=== PATIENT | female | born 1980 | race Caucasian/White ===

== ENCOUNTER 2024-11-25 09:24 | Emergency (ER) | payer OTHER, SELFPAY ==
[2024-11-25 09:35] VITALS: BP 133/91; PULSE 87; RESP 18; TEMP 36.9; O2SAT 98
[2024-11-25 10:01] LABS: EDUAAPPEAR Cloudy; EDUABILI Negative (Negative); EDUABLOOD 2+ (Negative); EDUACOLOR1 Light/Pale; EDUAGLUCOSE Negative (Negative); EDUAKETONE Negative (Negative); EDUALEUKO 2+ (Negative); EDUANITRATE Negative (Negative); EDUAPROTEIN Negative (Negative); EDUAUROBILI 0.2
--- NOTE | 2024-11-25 10:09 | ED.GENADULT ---
HPI - General Adult General Chief complaint: Urogenital-Female Stated complaint: Urinary Problem Source: patient Mode of arrival: ambulatory Limitations: no limitations History of Present Illness HPI narrative: Patient presents for evaluation of urinary symptoms. She indicates she was treated for a urinary tract infection on 11/19/2024. She is given Macrobid for 5 days. She completed treatment. Her symptoms improved while on medication but she had recurrence of her symptoms thereafter. Symptoms include dysuria, urinary frequency, and urgency. No fever, chills, nausea, vomiting, vaginal bleeding/discharge, abdominal pain or low back pain. Related Data Allergies Allergy/AdvReac Type Severity Reaction Status Date / Time No Known Allergies Allergy Verified 11/25/24 09:46 Review of Systems Review of Systems: CONSTITUTIONAL: Denies fever, chills, or sweats. EYES: Denies visual changes, redness, or discharge. ENT: Denies rhinorrhea, congestion, sore throat, or otalgia. CARDIOVASCULAR: Denies chest pain, palpitations, or edema. RESPIRATORY: Denies cough or dyspnea. GASTROINTESTINAL: Denies abdominal pain, nausea, vomiting, or diarrhea. GENITOURINARY: Reports urinary frequency, urgency and dysuria. Denies hematuria, vaginal bleeding or discharge SKIN: Denies rash or itching. MUSCULOSKELETAL: Denies back pain, joint pain, or myalgia. NEUROLOGIC: Denies headache, numbness, dizziness, or weakness. PSYCHIATRIC: Denies anxiety or depression. PMFSH Past Medical History Medical History No pertinent past medical history Surgical History Surgical History History of tubal ligation Family History Family History Mother Family history non-contributory Social History Social History Smoking status: Never smoker Living arrangements: with family Gender identity (if verbalized by the patient): Female Sexual Orientation (if Verbalized by the Patient): Straight or Heterosexual Spiritual care concerns: No Exam Narrative: GENERAL: Well-appearing, well-nourished, and in no acute distress. HEAD: Normocephalic, atraumatic. EYES: PERRLA and EOMI. ENT: Nares clear, no rhinorrhea or epistaxis. Mucous membranes moist. Oropharynx without tonsillar hypertrophy exudate or other lesions. Bilateral TMs pearly spence nonbulging NECK: Supple. No adenopathy or masses. No carotid bruits or JVD CHEST: Clear to auscultation. No respiratory distress. No wheezes rales or rhonchi HEART: Regular rate and rhythm. No murmur heard. Normal peripheral pulses. ABDOMEN: Soft, nontender, nondistended, normal active bowel sounds. BACK: No CVA tenderness EXTREMITIES: Normal range of motion. No edema. SKIN: Warm, dry, no rash. NEURO: No focal deficits. Alert and oriented x3. PSYCH: Normal mood and affect. Course Course Emergency Course: This is a 44-year-old female who presented for evaluation of urinary symptoms. She has leukocytes in her urine today. Will treat with Bactrim. Pyridium for burning. Increase hydration. Follow up with primary provider. Go to the ER for worsening symptoms. Patient in agreement with care plan Level of Care: Express Care Visit Vital Signs Vital signs: Vital Signs Temperature 36.9 C 11/25/24 09:35 Pulse Rate 87 11/25/24 09:35 Respiratory Rate 18 11/25/24 09:35 Blood Pressure 133/91 H 11/25/24 09:35 Pulse Oximetry 98 11/25/24 09:35 Oxygen Delivery Room Air 11/25/24 09:35 Temperature 36.9 C 11/25/24 09:35 Pulse Rate 87 11/25/24 09:35 Respiratory Rate 18 11/25/24 09:35 Blood Pressure 133/91 H 11/25/24 09:35 Pulse Oximetry 98 11/25/24 09:35 Oxygen Delivery Room Air 11/25/24 09:35 Medical Decision Making Vital Signs Vital Signs: Vital Signs Temperature 36.9 C 11/25/24 09:35 Pulse Rate 87 11/25/24 09:35 Respiratory Rate 18 11/25/24 09:35 Blood Pressure 133/91 H 11/25/24 09:35 Pulse Oximetry 98 11/25/24 09:35 Oxygen Delivery Room Air 11/25/24 09:35 Temperature 36.9 C 11/25/24 09:35 Pulse Rate 87 11/25/24 09:35 Respiratory Rate 18 11/25/24 09:35 Blood Pressure 133/91 H 11/25/24 09:35 Pulse Oximetry 98 11/25/24 09:35 Oxygen Delivery Room Air 11/25/24 09:35 Lab Data Labs: Lab Results 11/25/24 Range/Units 09:58 POC Urine Color Light/pale POC Urine Clarity Cloudy POC Urine pH 7.0 POC Ur Specif Jupiter 1.010 POC Urine Protein Negative (Negative) POC Ur Glucose (UA) Negative (Negative) POC Urine Ketones Negative (Negative) POC Urine Blood 2+ (Negative) POC Urine Nitrite Negative (Negative) POC Urine Bilirubin Negative (Negative) POC Urine Urobilinogen 0.2 POC U Leukocyte Esteras 2+ (Negative) Discharge Plan Discharge Clinical Impression: UTI (urinary tract infection) Patient Disposition: Home, Self-Care Condition: Stable Instructions: Antibiotic Form, Urinary Tract Infection in Women (DC) Patient Language: Kiswahili Prescriptions: New sulfamethoxazole-trimethoprim [Bactrim DS] 800-160 mg tablet 1 tablet PO Q12H Qty: 14 0RF phenazopyridine [Pyridium] 200 mg tablet 200 mg PO TID PRN (Reason: pain) Qty: 6 0RF Follow-up/Referrals: Trudy Santana DO [Physician] - Time of Disposition: 10:04
--- OUTSIDE RECORDS SUMMARY | 2024-12-02 04:48 | XMS_ITS | Clinical Summary ---
Author Organization [facility] [address] Address [address] [place] [address] Phone Care Team Providers Care Book Sorter Name Role Phone Millie Yuan MD Primary Care Provider Allergies No known active allergies Medications valACYclovir (VALTREX) 1 gram tablet Take 2 tablets (2,000mg) by mouth 2 times daily for 1 day 2 Active Lacto no.76/Bifido/FO S/larch (WOMEN'S PROBIOTIC ORAL) Take 1 capsule by mouth daily 2 Active fexofenadine (NIKHIL) 180 mg tablet Take 1 tablet (180 mg total) by mouth daily 2 Active ESOMEPRAZOLE MAGNESIUM ORAL Take 1 capsule by mouth daily 2 Active ibuprofen 200 mg tab/cap Take by mouth every 6 (six) hours as needed for pain Active Zepbound 5 mg/0.5 mL pen injector INJECT 5 MG BY SUBCUTANEOUS INJECTION EVERY 7 DAYS 4 Active Active Problems Problem Noted Date Diagnosed Date Lipoma 11/28/2022 Assessment & Plan (11/28/2022 1:59 PM GOLF CART ATTENDANT): Some of these longstanding lipomas are uncomfortable at times with pressure applied. We discussed pain and expectation that this may not resolve these issues. Patient is understanding will set up for removal of 5 of these lipomas. Surgical History Surgery Date Site/Laterality Comments INGUINAL HERNIA REPAIR TUBAL LIGATION Medical History Medical History Date Comments Sleep apnea Allergic rhinitis GERD (gastroesophageal reflux disease) Family History Medical History Relation Name Comments Breast cancer Maternal Grandmother Memory loss Maternal Grandmother Diabetes Mother Diabetes Mother's Sister Memory loss Paternal Grandmother Relation Name Status Comments Maternal Grandmother Mother Mother's Sister Paternal Grandmother Social History Tobacco Use Types Packs/Day Years Used Date Smoking Tobacco: Never Smokeless Tobacco: Never Tobacco Cessation:Counseling Given: Not Answered AUDIT-C Answer Date Recorded Q1: How often do you have a drink containing alc ohol? 2-4 times a month 12/06/2022 Q2: How many drinks containi ng alcohol do you have on a typical day when you are drinking? 3 or 4 12/06/2022 Q3: How often do you have si x or more drinks on one occasion? Never 12/06/2022 Personal Safety Answer Date Recorded Have you ever been in or are you currently in a harmful physical or emotional relationship or is someone making you feel afraid or unsafe? Denies 01/23/2024 Comments No Sex and Gender Information Value Date Recorded Sex Assigned at Not on file Legal Sex Female 3:46 PM GOLF CART ATTENDANT Gender Identity Not on file Sexual Orientation Not on file Occupation Industry Job Start Date Job End Date [employer] Not on file Not on file Not on file Obstetrics History Para Term AB IAB SAB Ectopic Multiple Livin g Live Births 2 2 2 2 2 Date Outcome GA Total Labor Labor/2nd/3rd Weight Sex Type Anes PTL Emily A1 A5 Name Clin 2002 Term 4.451 kg (9 lb 13 oz) M Vag-V acuum Living 2004 Term 4.678 kg (10 lb 5 oz) M Vag-S pont Living Last Filed Vital Signs Vital Sign Reading Time Taken Comments Blood Pressure 152/86 03/09/2024 2:23 PM CDT Pulse 83 03/09/2024 2:23 PM CDT Temperature 36.4 ??C (97.6 ??F) 01/23/2024 8:41 AM CS T Respiratory Rate 18 01/23/2024 10:05 AM GOLF CART ATTENDANT Oxygen Saturation 96% 03/09/2024 2:23 PM CDT Inhaled Oxygen Concentration - - Weight 151 kg (333 lb) 03/09/2024 2:23 PM CDT Height 165.1 cm (5' 5 ) 03/09/2024 2:23 PM CDT Body Mass Index 55.41 03/09/2024 2:23 PM CDT Plan of Treatment Health Maintenance Due Date Last Done Comments Depression Screening 1981 Hepatitis C Screening 1981 Hepatitis B Screening 1999 Varicella Vaccines (1 of 2 - 13+ 2-dose series) 10/19/2009 Cervical Cancer Screening 09/15/2022 09/15/2021 Regular Well Visit/Exam 18-64 09/17/2023 09/17/2022, 09/15/2021 Covid-19 Vaccine ( season) 2024 09/11/2021 Influenza Vaccine (#1) 2024 0, 09/21/2009, 10/04/2008, Additional history exists Breast Cancer Screening-Mammogram 01/04/2025 01/04/2024, 01/04/2024, 09/02/2021, Additional history exists DTaP/Tdap/Td Vaccine (3 - Td or Tdap) 06/17/2030 06/17/2020, 07/29/2012, 04/08/2002 HPV Vaccines Aged Out No longer eligi ble based on patient's age to complete this topic Pneumococcal vaccine <65 Aged Out No longer eligible based on patient's age to complete this topic Procedures Procedure Name Priority Date/Time Associated Diagnosis Comments SCREENING MAMMOGRAM BILATERAL W RANDOLPH Schedule Routine, Read Routine (OP Routine) 01/04/2024 10:39 AM GOLF CART ATTENDANT Screening mammogram, encounter for IMAGING PAP AND HPV MRNA E6/E7 Routine 09/15/2021 12:00 AM CDT from Last 3 Months or Most Recently Relevant to Health Maintenance Results * Screening Mammogram Bilateral W Randolph (01/04/2024 10:39 AM GOLF CART ATTENDANT) Anatomical Region Laterality Modality Breast Bilateral Mammography 01/05/2024 11:3 8 AM GOLF CART ATTENDANT Impressions 01/05/2024 11:38 AM GOLF CART ATTENDANT There is no mammographic evidence of malignancy. A 1 year screening mammogram is recommended. BI-RADS: 1 - Negative. The patient has been or will be contacted. The patient will be entered into a reminder system with a target due date of 1 year for her next mammogram. Electronically signed by: Mikki Laguerre M.D. Narrative 01/05/2024 11:38 AM GOLF CART ATTENDANT EXAMINATION: SCREENING MAMMOGRAM BILATERAL W RANDOLPH ORDERING HEALTHCARE PROVIDER: SELF SCREENING MAMMOGRAM HISTORY: Routine screening mammography. COMPARISON: ??09/02/2021 TECHNIQUE: CC and MLO views of the bilateral breasts were obtained with digital technique using breast tomosynthesis with C view. Computer aided detection was utilized. FINDINGS: DENSITY: There are scattered fibroglandular elements in the bilateral breasts. BREASTS: There are no suspicious masses, suspicious calcifications, or other suspicious findings in either breast. There has been no suspicious interval change. us Self Screening Mammogram IMG MAMMO PROCEDURES Fi nal Result * Imaging Pap and HPV mRNA E6/E7 (09/15/2021 12:00 AM CDT) CLINICAL INFORMATION: [facility] Comment:SCREENING LMP [facility] Comment:[id number] Previous Pap [facility] Comment:NEG Prev. Bx [facility] Comment:INFORMATION NOT PROV IDED SOURCE: [facility] Comment:Cervix, Endocervix Pap, specimen adequacy [facility] Comment: Satisfactory for evaluation. Endocervical/transformation zone component present. HPV interp [facility] Comment:Negative for intraep ithelial lesion or malignancy. COMMENTS [facility] Comment: This Pap test has been evaluated with computer assisted technology. Associate Quality Engineer [facility] Comment: AMW, CT(ASCP) CT screening location: [place] [address] [place] [address] Comment [facility] Comment: EXPLANATORY NOTE: The Pap is a screening test for cervical cancer. It is not a diagnostic test and is subject to false negative and false positive results. It is most reliable when a satisfactory sample, regularly obtained, is submitted with relevant clinical findings and history, and when the Pap result is evaluated along with historic and current clinical information. Human papillomavirus RNA, High Risk E6/E7 Not Detected Not Detected [facility] Comment: Methodology: Band Ripsaw Operator-Mediated Amplification This assay detects E6/E7 viral messenger RNA (mRNA) from 14 high-risk HPV types (16,18,31,33,35,39,45,51,52,56,58,59,66,68). The analytical performance characteristics of this assay have been determined by [facility]. The modifications have not been cleared or approved by the FDA. This assay has been validated pursuant to the CLIA regulations and is used for clinical purposes. For additional information, please refer to http://education.Cognitics/faq/VTP716l3 (This link if provided for information/ educational purposes only.) 09/15/2021 09/16/2021 1:3 1 AM CDT Narrative [facility] - 09/20/2021 1:14 PM CDT FASTING: UNKNOWN My Garcia DO LAB PATHOLOGY ORDERABLE S Final Result [facility] [address] [place] [address] [facility] [address] [place] [address] from Last 3 Months or Most Recently Relevant to Health Maintenance [facility] Care Teams Book Sorter Relationship Specialty Start Date End Date Millie Yuan MD [address] [place] [id number] PCP - General Family Medicine 01/01/24
--- OUTSIDE RECORDS SUMMARY | 2024-12-02 04:49 | XMS_ITS | Encounter Summary ---
Author Organization [facility] Healthcare Address [address] [place] [address] Care Team Providers Care Production Line Worker Name Role Phone Roel Bruno MD Primary Care Provider [phone] Dean Hernandez MD Primary Care Provider Iva Abdi NP Primary Care Provider Millie Yuan MD Primary Care Provider Reason for Visit * Reason Onset Date Comments Scheduling Appointments 09/01/2021 Confirmi ng mammogram appt- no answer Encounter Details Date Type Department Care Team (Late st Contact Info) Description 09/01/2021 Telephone [facility] [address] [place] [id number] Rebecca Mckeon RT Scheduling Appointments (Confirming mammogram appt- no answer ) Social History Tobacco Use Types Packs/Day Years Used Date Smoking Tobacco: Never Assessed Comments Unknown Sex and Gender Information Value Date Recorded Sex Assigned at Not on file Legal Sex Female 3:46 PM HEEL BUFFER Gender Identity Not on file Sexual Orientation Not on file documented as of this encounter Plan of Treatment Not on file documented as of this encounter Visit Diagnoses Not on filedocumented in this encounter Care Teams Production Line Worker Relationship Specialty Start Date End Date Roel Bruno MD [address] [facility] [address] [place] [address] PCP - General 08/28/21 09/01/21 Dean Hernandez MD [address] [place] [address] PCP - General 09/02/21 11/01/22 Iva Abdi NP [address] [place] [address] PCP - General Nurse Practitioner 11/02/22 12/31/23 Millie Yuan MD [address] [place] [address] PCP - General Family Medicine 01/01/24 documented as of this encounter
--- OUTSIDE RECORDS SUMMARY | 2024-12-02 04:49 | XMS_ITS | Encounter Summary ---
Author Organization [facility] Medical Group Address [address] [place] [address] Care Team Providers Care Supply Chain Tech Name Role Phone Dean Hernandez MD Primary Care Provider Encounter Details Date Type Department Care Team (Late st Contact Info) Description 09/21/2021 Telephone [facility] [address] [place] [address] Nikki Prather LPN Social History Tobacco Use Types Packs/Day Years Used Date Smoking Tobacco: Never Comments No Sex and Gender Information Value Date Recorded Sex Assigned at Not on file Legal Sex Female 3:46 PM LEAD RADIOLOGIC TECHNOLOGIST Gender Identity Not on file Sexual Orientation Not on file documented as of this encounter Miscellaneous Notes * Telephone Encounter - Nikki Prather LPN - 09/21/2021 1:24 PM CDT Normal pap and STD patient resource coordinator sent. * Telephone Encounter - Nikki Prather LPN - 09/21/2021 1:24 PM CDT ----- Message from My Garcia DO sent at 09/21/2021 12:58 PM CDT ----- Please inform patient of normal pap smear. She will need a repeat pap in 5 years but should return yearly for a WWE. documented in this encounter Plan of Treatment Not on file documented as of this encounter Visit Diagnoses Not on filedocumented in this encounter Care Teams Supply Chain Tech Relationship Specialty Start Date End Date Dena Hernandez MD [address] [facility] [address] PCP - General 09/02/21 11/01/22 documented as of this encounter
--- OUTSIDE RECORDS SUMMARY | 2024-12-02 04:49 | XMS_ITS | Encounter Summary ---
Author Organization [facility] Medical Group Address [address] [place] [address] Care Team Providers Care Ethnographic Materials Conservator Name Role Phone Iva Abdi NP Primary Care Provider Encounter Details Date Type Department Care Team (Late st Contact Info) Description 11/20/2022 Telephone [facility] [address] [facility] [address] [place] [address] Elisabeth Atkins MA Social History Tobacco Use Types Packs/Day Years Used Date Smoking Tobacco: Never Comments No Sex and Gender Information Value Date Recorded Sex Assigned at Not on file Legal Sex Female 3:46 PM APARTMENT ASSISTANT MANAGER Gender Identity Not on file Sexual Orientation Not on file Occupation Industry Job Start Date Job End Date [employer] Not on file Not on file Not on file documented as of this encounter Miscellaneous Notes * Telephone Encounter - Elisabeth Atkins MA - 11/20/2022 12:53 PM CST LVM for patient to call back to [facility] her appointment date. Dr. Jones is unavailable. TMENT ASSISTANT MANAGER documented in this encounter Plan of Treatment Not on file documented as of this encounter Visit Diagnoses Not on filedocumented in this encounter Care Teams Ethnographic Materials Conservator Relationship Specialty Start Date End Date Iva Abdi NP PCP - General Nurse Practitioner 11/02/22 12/31/23 documented as of this encounter
--- OUTSIDE RECORDS SUMMARY | 2024-12-02 04:49 | XMS_ITS | Encounter Summary ---
Author Organization [facility] Healthcare Address [address] [place] [address] Care Team Providers Care Data Entry Supervisor Name Role Phone Millie Yuan MD Primary Care Provider Reason for Visit * Reason Comments Sleep Apnea ANABELL f/u - last appt was Oct 2022 * Consultation (Routine) - Authorized Specialty Diagnoses / Procedures Referred By Contac t Referred To Contact Neurology Diagnoses ANABELL (obstructive sleep apnea) Millie Yuan MD [address] [place] [address] Phone: tel: fax: Camden Fink MD [address] [place] [address] DR OZ Berrios [address] [address] Phone: tel: fax: Referral ID Status Reason Start Date Expiration Date Visits Requested Visits Authorized [id number] Authorized Specialty Services Required 03/09/2024 04/08/2025 4 4 Encounter Details Date Type Department Care Team (Late st Contact Info) Description 03/09/2024 2:15 PM CDT Office Visit [facility] [address] [place] [address] Camden Fink MD [address] [place] [address] DR OZ Berrios [address] [address] Hypersomnia (Primary Dx); ANABELL (obstructive sleep apnea); Morbid obesity with BMI of 50.0-59.9, adult ([facility]) Social History Tobacco Use Types Packs/Day Years [...] on file Legal Sex Female 3:46 PM PROTECTION AGENT Gender Identity Not on file Sexual Orientation Not on file Occupation Industry Job Start Date Job End Date [employer] Not on file Not on file Not on file documented as of this encounter Last Filed Vital Signs Vital Sign Reading Time Taken Comments Blood Pressure 152/86 03/09/2024 2:23 PM CDT Pulse 83 03/09/2024 2:23 PM CDT Temperature - - Respiratory Rate - - Oxygen Saturation 96% 03/09/2024 2:23 PM CDT Inhaled Oxygen Concentration - - Weight 151 kg (333 lb) 03/09/2024 2:23 PM CDT Height 165.1 cm (5' 5 ) 03/09/2024 2:23 PM CDT Body Mass Index 55.41 03/09/2024 2:23 PM CDT documented in this encounter Progress Notes * Camden Fink MD - 03/09/2024 2:15 PM CDT HPI 1. Obstructive sleep apnea syndrome: presents for Follow-up regarding her above condition she is a very pleasant 44-year-old who was initially seen in 2021. She was not followed up since.. She has been established diagnosis of obstructive sleep apnea syndrome and is on bilevel positive p ressure therapy. She reports that she goes to bed at 8:00 p.m. awakens at 5:00 a.m.. Takes 10 minutes or less to fall asleep. Of present machine 8 years old. She reports that is showing signs of malfunctioning. She does awakens unrested. 2. Hypersomnia: Endorses [place] Sleepiness scale score of 5 3. Morbid obesity: Stable weight since last visit Review of Systems BP 152/86 (BP Location: Left arm, Patient Position: Sitting) Pulse 83 Ht 165.1 cm (5' 5 ) Wt (!) 151 kg (333 lb) SpO2 96% BMI 55.41 kg/m?? Physical Exam Constitutional: Morbidly obese female in no distress . HENT: Head: Normocephalic and atraumatic. Mouth/Throat: Oropharynx is clear and moist. Eyes: Conjunctivae and EOM are normal. eye exhibits no discharge. No scleral icterus. Neck: Normal range of motion. Neck supple. No thyromegaly present. Cardiovascular: Normal rate, regular rhythm and normal heart sounds. Exam reveals no gallop and no friction rub. No murmur heard. Pulmonary/Chest: Effort normal and breath sounds normal. No respiratory distress. has no wheezes. has no rales. Exhibits no tenderness. Abdominal: Soft. exhibits no distension and no mass. There is no tenderness. Musculoskeletal: Normal passive range of movements; no muscle tenderness Neurological: Alert and oriented to person, place, and time. No cranial nerve deficit. Exhibits normal muscle tone. Skin: Skin is warm. No rash noted. No erythema. Psychiatric: normal mood and affect. Judgment normal. Review of data: Venous Doppler study from 01/23/2024: No definite evidence of DVT Metabolic panel from 01/28/2024: Glucose 90, BUN 10, creatinine 0.7, sodium 139, potassium 4.1, chloride 104, CO2 26, calcium 9.5 Progress notes from 01/28/[address] Dilcia M.D. was reviewed summer the report reveals a 44 presenting for telemetry syndrome visit. Woke up with pain swelling of the right leg. After few days went to the ER worked up for DVT. D-dimer was 529. Doppler did not reveal any DVT has chronic leg edema. No shortness of breath. Recommend metabolic workup. AP 1. Obstructive sleep apnea syndrome: Patient has an established diagnosis obstructive sleep apnea presently on bilevel therapy. Patient's Continuous positive airway pressure was established in 09. Recommend patient be set up with a new automatic bilevel therapy. Maximum IPAP of 14 cm minimum EPAP of 4 cm with a pressure support of 4 cm of F 40 fullface mask would be used. Optimize therapy for thewith compliance download. The physiology of sleep disordered breathing and its increased association with hypertension, diabetes, heart arrhythmia, strokes, heart attacks, heart failure, hypersomnia,obesity and mood disorders was discussed. Verbalizes understanding Patient's compliance download from 11/05/2022-03/08/2024 was reviewed. 85% usage averaging 6 hours and 26 minutes of therapy. Residual AHI 2.2. Bilevel pressure of 12/8 cm. 2. Hypersomnia with sleep apnea: Stable and well controlled 3. Morbid obesity: Stable weight since last visit documented in this encounter Plan of Treatment Not on file documented as of this encounter Visit Diagnoses Diagnosis Hypersomnia- Primary Hypersomnia, unspecified ANABELL (obstructive sleep apnea) Obstructive sleep apnea (adult) (pediatric) Morbid obesity with BMI of 50.0-59.9, adult ([facility]) documented in this encounter Historical Medications * This list may reflect changes made after this encounter. Zepbound 5 mg/0.5 mL pen injector INJECT 5 MG BY SUBCUTANEOUS INJECTION EVERY 7 DAYS 02/10/2024 added in this encounter Orders Outpatient Referral Count Last Ordered Date Fir st Ordered Date AMB REFERRAL TO NEUROLOGY 1 03/09/2024 documented in this encounter Care Teams Data Entry Supervisor Relationship Specialty Start Date End Date Millie Yuan MD [address] [place] [address] PCP - General Family Medicine 01/01/24 documented as of this encounter
--- OUTSIDE RECORDS SUMMARY | 2024-12-02 04:49 | XMS_ITS | Encounter Summary ---
Author Organization [facility] Medical Group Address [address] [facility] [address] [place] [address] Care Team Providers Care Environmental Compliance Inspector Name Role Phone Dean Hernandez MD Primary Care Provider Encounter Details Date Type Department Care Team (Late st Contact Info) Description 09/15/2021 Orders Only [facility] [address] [place] [address] My Garcia, DO [address] [place] [address] Social History Tobacco Use Types Packs/Day Years Used Date Smoking Tobacco: Never Comments No Sex and Gender Information Value Date Recorded Sex Assigned at Not on file Legal Sex Female 3:46 PM SOFTWARE PUBLISHER Gender Identity Not on file Sexual Orientation Not on file documented as of this encounter Plan of Treatment Not on file documented as of this encounter Procedures Procedure Name Priority Date/Time Associated Diagnosis Comments IMAGING PAP AND HPV MRNA E6/E7 Routine 09/15/2021 12:00 AM CDT documented in this encounter Results * Imaging Pap and HPV mRNA E6/E7 (09/15/2021 12:00 AM CDT) CLINICAL INFORMATION: Compliance Assurance [facility] Comment:SCREENING LMP Compliance Assurance [facility] Comment:[id number] Previous Pap Compliance Assurance [facility] Comment:NEG Prev. Bx Compliance Assurance [facility] Comment:INFORMATION NOT PROV IDED SOURCE: [facility] Comment:Cervix, Endocervix Pap, specimen adequacy [facility] Comment: Satisfactory for evaluation. Endocervical/transformation zone component present. HPV interp [facility] Comment:Negative for intraep ithelial lesion or malignancy. COMMENTS [facility] Comment: This Pap test has been evaluated with computer assisted technology. Snack Stewardess [facility] Comment: AMW, CT(ASCP) CT screening location: [place] [address] [address] [place] [address] Comment [facility] Comment: EXPLANATORY NOTE: The Pap is [...] High Risk E6/E7 Not Detected Not Detected [facility] [employer] [employer] [facility] Comment: Methodology: Caustic Room Attendant-Mediated Amplification This assay detects E6/E7 viral messenger RNA (mRNA) from 14 high-risk HPV types (16,18,31,33,35,39,45,51,52,56,58,59,66,68). The analytical performance characteristics of this assay have been determined by Compliance Assurance. The modifications have not been cleared or approved by the FDA. This assay has been validated pursuant to the CLIA regulations and is used for clinical purposes. For additional information, please refer to http://education.NewComLink.Braclet/faq/YMR154m9 (This link if provided for information/ educational purposes only.) 09/15/2021 09/16/2021 1:3 1 AM CDT Narrative [facility] - 09/20/2021 1:14 PM CDT FASTING: UNKNOWN us My Garcia DO LAB PATHOLOGY ORDERABLE S Final Result [facility] [address] [address] [place] [address] [facility] [employer] [employer] [address] [place] [address] documented in this encounter Visit Diagnoses Not on filedocumented in this encounter Care Teams Environmental Compliance Inspector Relationship Specialty Start Date End Date Dean Hernandez MD [address] [facility] [place] [place] [address] PCP - General 09/02/21 11/01/22 documented as of this encounter
--- OUTSIDE RECORDS SUMMARY | 2024-12-02 04:49 | XMS_ITS | Encounter Summary ---
Author Organization [facility] Medical Group Address [address] [facility] [place] [address] Care Team Providers Care Negative Notcher Name Role Phone Iva Abdi TECHNICAL ASSOCIATE Primary Care Provider Reason for Visit * Reason Comments Mass New Pt says 2 on bella k and 1 left wrist * Consultation (Routine) - Closed Specialty Diagnoses / Procedures Referred By Liborio sagastume Referred To Contact General Surgery Diagnoses Lipoma, unspecified site Iva Abdi, SINDY [address] [facility] [place] [address] Phone: tel: fax: [address] [place] [address] Phone: tel: fax: Referral ID Status Reason Start Date Expiration Date V isits Requested Visits Authorized [id number] Closed Specialty Services Required 11/05/2022 12/05/2023 1 1 Encounter Details Date Type Department Care Team (Late st Contact Info) Description 11/28/2022 1:00 PM FARM EQUIPMENT MAINTENANCE SUPERVISOR Office Visit [facility] [address] [place] [address] [address] [place] [address] [place] Nielsen NP [address] [place] [address] [address] [place] [address] Lipoma, unspecified site Social History Tobacco Use Types Packs/Day Years Used Date Smoking Tobacco: Never Smokeless Tobacco: Never Tobacco Cessation:Counseling Given: Not Answered AUDIT-C Answer Date Recorded Q1: How often do you have a drink containing alc ohol? 2-4 times a month 11/28/2022 Q2: How many drinks containi ng alcohol do you have on a typical day when you are drinking? 1 or 2 11/28/2022 Q3: How often do you have si x or more drinks on one occasion? Monthly 11/28/2022 Comments No Sex and Gender Information Value Date Recorded Sex Assigned at Not on file Legal Sex Female 3:46 PM FARM EQUIPMENT MAINTENANCE SUPERVISOR Gender Identity Not on file Sexual Orientation Not on file Occupation Industry Job Start Date Job End Date [employer] Not on file Not on file Not on file documented as of this encounter Last Filed Vital Signs Vital Sign Reading Time Taken Comments Blood Pressure 145/94 11/28/2022 1:04 PM FARM EQUIPMENT MAINTENANCE SUPERVISOR Pulse 94 11/28/2022 1:04 PM FARM EQUIPMENT MAINTENANCE SUPERVISOR Temperature 36.2 ??C (97.1 ??F) 11/28/2022 1:04 PM CS T Respiratory Rate - - Oxygen Saturation 94% 11/28/2022 1:04 PM FARM EQUIPMENT MAINTENANCE SUPERVISOR Inhaled Oxygen Concentration - - Weight 145 kg (319 lb 11.2 oz) 11/28/2022 1:04 P M FARM EQUIPMENT MAINTENANCE SUPERVISOR Height 162.6 cm (5' 4 ) 11/28/2022 1:04 PM FARM EQUIPMENT MAINTENANCE SUPERVISOR Body Mass Index 54.88 11/28/2022 1:04 PM FARM EQUIPMENT MAINTENANCE SUPERVISOR documented in this encounter Progress Notes * [place] Nielsen NP - 11/28/2022 1:00 PM CST Subjective/Objective Patient ID: Nuria Valdez is a 42 y.o. female. Chief Complaint Mass (New Pt says 2 on back and 1 left wrist ) Patient with a history of multiple lipomas. She states she has had several of them since she was 21years old. She has not had imaging for these in the past. She states a few of these will give her discomfort with some positions and with palpation. She avoids doing so in order to avoid discomfort. Review of Systems Constitutional: Positive for unexpected weight change (40lb weight gain over one year). Eyes: Negative. Respiratory: Negative. Cardiovascular: Negative. Gastrointestinal: Negative. Endocrine: Negative. Genitourinary: Urinary incontinence Allergic/Immunologic: Negative. Neurological: Negative. Hematological: Negative. Psychiatric/Behavioral: Negative. Physical Exam Constitutional: General: She is not in acute distress. Appearance: She is obese. She is not ill-appearing, toxic-appearing or diaphoretic. HENT: Head: Normocephalic and atraumatic. Eyes: General: No scleral icterus. Right eye: No discharge. Left eye: No discharge. Cardiovascular: Rate and Rhythm: Normal rate. Pulmonary: Effort: Pulmonary effort is normal. No respiratory distress. Abdominal: General: There is no distension. Tenderness: There is no abdominal tenderness. Skin: General: Skin is warm and dry. Comments: Left wrist-1cm mobile without skin changes Left lower back-1cm mobile without skin changes Right mid back- 2.5cm mobile without skin changes Right lower back-1.5cm mobile without skin changes Left upper abdomen- 1cm mobile, deep, without skin changes Neurological: General: No focal deficit present. Mental Status: She is alert and oriented to person, place, and time. Psychiatric: Mood and Affect: Mood normal. Behavior: Behavior normal. Thought Content: Thought content normal. Judgment: Judgment normal. Assessment/Plan Diagnoses and all orders for this visit: Lipoma, unspecified site (D17.9) Assessment & Plan: Some of these longstanding lipomas are uncomfortable at times with pressure applied. We discussed pain and expectation that this may not resolve these issues. Patient is understanding will set up forremoval of 5 of these lipomas. Orders: - Ambulatory referral to General Surgery EQUIPMENT MAINTENANCE SUPERVISOR documented in this encounter Miscellaneous Notes * Assessment & Plan Note - [place] Nielsen NP - 11/28/2022 1:58 PM CSTAssociated Problem(s): Lipoma Some of these longstanding lipomas are uncomfortable at times with pressure applied. We discussed pain and expectation that this may not resolve these issues. Patient is understanding will set up forremoval of 5 of these lipomas. EQUIPMENT MAINTENANCE SUPERVISOR documented in this encounter Plan of Treatment Not on file documented as of this encounter Visit Diagnoses Diagnosis Lipoma, unspecified site documented in this encounter Orders Outpatient Referral Count Last Ordered Date Fir st Ordered Date AMB REFERRAL TO GENERAL SURGERY 3 documented in this encounter Care Teams Negative Notcher Relationship Specialty Start Date End Date Iva Abdi NP PCP - General Nurse Practitioner 11/02/22 12/31/23 documented as of this encounter
--- OUTSIDE RECORDS SUMMARY | 2024-12-02 04:49 | XMS_ITS | Referral Summary ---
Author Organization [facility] [address] Address [address] [place] [address] Phone Care Team Providers Care Speeder Worker Name Role Phone Millie Yuan MD Primary [...] 11/28/2022 Assessment & Plan (11/28/2022 1:59 PM ROUTE SALESMAN AND DRIVER): Some of these longstanding lipomas are uncomfortable at times with pressure applied. We discussed pain and expectation that this may not resolve these issues. Patient is understanding will set up for removal of 5 of these lipomas. Social History Tobacco Use Types Packs/Day Years [...] on file Legal Sex Female 3:46 PM ROUTE SALESMAN AND DRIVER Gender Identity Not on file Sexual Orientation Not on file Occupation Industry Job Start Date Job End Date [employer] Not on file Not on file Not on file Last Filed Vital Signs Vital Sign Reading Time Taken Comments Blood Pressure 152/86 03/09/2024 2:23 PM CDT Pulse 83 03/09/2024 2:23 PM CDT Temperature 36.4 ??C (97.6 ??F) 01/23/2024 8:41 AM CS T Respiratory Rate 18 01/23/2024 10:05 AM ROUTE SALESMAN AND DRIVER Oxygen Saturation 96% 03/09/2024 2:23 PM CDT Inhaled Oxygen Concentration - - Weight 151 kg (333 lb) 03/09/2024 2:23 PM CDT Height 165.1 cm (5' 5 ) 03/09/2024 2:23 PM CDT Body Mass Index 55.41 03/09/2024 2:23 PM CDT Plan of Treatment Not on file Procedures Procedure Name Priority Date/Time Associated Diagnosis Comments SCREENING MAMMOGRAM BILATERAL W RANDOLPH Schedule Routine, Read Routine (OP Routine) 01/04/2024 10:39 AM ROUTE SALESMAN AND DRIVER Screening mammogram, encounter for IMAGING PAP AND HPV MRNA E6/E7 Routine 09/15/2021 12:00 AM CDT from Last 3 Months or Most Recently Relevant to Health Maintenance Results * Screening Mammogram Bilateral W Randolph (01/04/2024 10:39 AM ROUTE SALESMAN AND DRIVER) Anatomical Region Laterality Modality Breast Bilateral Mammography 01/05/2024 11:3 8 AM ROUTE SALESMAN AND DRIVER Impressions 01/05/2024 11:38 AM ROUTE SALESMAN AND DRIVER There is no mammographic evidence of malignancy. A 1 year screening mammogram is recommended. BI-RADS: 1 - Negative. The patient has been or will be contacted. The patient will be entered into a reminder system with a target due date of 1 year for her next mammogram. Electronically signed by: Mikki Laguerre M.D. Narrative 01/05/2024 11:38 AM ROUTE SALESMAN AND DRIVER EXAMINATION: SCREENING MAMMOGRAM BILATERAL W RANDOLPH ORDERING [...] E6/E7 (09/15/2021 12:00 AM CDT) CLINICAL INFORMATION: [facility] Comment:SCREENING LMP [facility] Comment:[id number] Previous Pap [facility] Comment:NEG Prev. Bx [facility] Comment:INFORMATION NOT PROV IDED SOURCE: [facility] Comment:Cervix, Endocervix Pap, specimen adequacy [facility] Comment: Satisfactory for evaluation. Endocervical/transformation zone component present. HPV interp [facility] Comment:Negative for intraep ithelial lesion or malignancy. COMMENTS [facility] Comment: This Pap test has been evaluated with computer assisted technology. Web Press Jogger [facility] Comment: AMW, CT(ASCP) CT screening location: [place] [address] [place] [address] Comment [facility] Comment: EXPLANATORY NOTE: The Pap is a [...] High Risk E6/E7 Not Detected Not Detected [facility] [facility] Comment: Methodology: Veneer Jointer Operator-Mediated Amplification This assay detects E6/E7 viral messenger RNA (mRNA) from 14 high-risk HPV types (16,18,31,33,35,39,45,51,52,56,58,59,66,68). The analytical performance characteristics of this assay have been determined by [employer] [facility]. The modifications have not been cleared or approved by the FDA. This assay has been validated pursuant to the CLIA regulations and is used for clinical purposes. For additional information, please refer to http://education.Yantra/faq/JLO327p1 (This link if provided for information/ educational purposes only.) 09/15/2021 09/16/2021 1:3 1 AM CDT Narrative [facility] - 09/20/2021 1:14 PM CDT FASTING: UNKNOWN My Garcia DO LAB PATHOLOGY ORDERABLE S Final Result [facility] [address] [place] [address] [facility] [facility] [address] [place] [address] from Last 3 Months or Most Recently Relevant to Health Maintenance Insurance [employer] Care Teams Speeder Worker Relationship Specialty Start Date End Date Millie Yuan MD [facility] [place] [place] [address] PCP - General Family Medicine 01/01/24
--- OUTSIDE RECORDS SUMMARY | 2024-12-02 04:49 | XMS_ITS | Encounter Summary ---
Author Organization [facility] Medical Group Address [address] [facility] [address] [place] [address] Care Team Providers Care Housing Officer Name Role Phone Iva Abdi NP Primary Care Provider Encounter Details Date Type Department Care Team (Late st Contact Info) Description 11/14/2022 Telephone [facility] [address] Camden Fink MD [address] [place] [address] [address] Social History Tobacco Use Types Packs/Day Years Used Date Smoking Tobacco: Never Comments No Sex and Gender Information Value Date Recorded Sex Assigned at Not on file Legal Sex Female 3:46 PM AUTOMOBILE PARTS ASSEMBLER Gender Identity Not on file Sexual Orientation Not on file Occupation Industry Job Start Date Job End Date [employer] Not on file Not on file Not on file documented as of this encounter Miscellaneous Notes * Telephone Encounter - Carlos Alberto Moreau - 11/14/2022 3:06 PM CST Okay I let elisabeth know. MOBILE PARTS ASSEMBLER * Telephone Encounter - Camden Fink MD - 11/14/2022 12:02 PM CST This patient has been tested for narcolepsy. She is presently on bilevel therapy of 12/8 cm. We need to proceed with titration with Multiple sleep latency test. MOBILE PARTS ASSEMBLER * Telephone Encounter - Carlos Alberto Moreau - 11/14/2022 8:43 AM CST Elisabeth at the sleep lab sent message stating that since we don't have a copy of patient's previous sleep study that they cannot do a titration on patient. Please advise. MOBILE PARTS ASSEMBLER documented in this encounter Plan of Treatment Not on file documented as of this encounter Visit Diagnoses Not on filedocumented in this encounter Care Teams Housing Officer Relationship Specialty Start Date End Date Iva Abdi NP PCP - General Nurse Practitioner 11/02/22 12/31/23 documented as of this encounter
--- OUTSIDE RECORDS SUMMARY | 2024-12-02 04:49 | XMS_ITS | Encounter Summary ---
Author Organization [facility] Address [address] [place] [address] Care Team Providers Care Copy Writer Name Role Phone Iva Abdi NP Primary Care Provider Reason for Visit * Consultation (Routine) - Closed Specialty Diagnoses / Procedures Referred By Contac t Referred To Contact Neurology Diagnoses Sleep apnea, unspecified type Millie Yuan MD Phone: tel: fax: Camden Fink MD [address] [place] [address] DR OZ Berrios [address] [address] Phone: tel: fax: Referral ID Status Reason Start Date Expiration Date V isits Requested Visits Authorized [id number] Closed Specialty Services Required 09/24/2022 10/24/2023 1 1 Encounter Details Date Type Department Care Team (Late st Contact Info) Description 11/08/2022 1:30 PM PUNCHBOARD INSERTER Office Visit [facility] [address] [place] [address] Camden Fink MD [address] [place] [address] DR OZ Berrios [address] [address] Hypersomnia (Primary Dx); Obstructive sleep apnea syndrome; Morbid obesity with BMI of 50.0-59.9, adult (CMS/HCC) (HCC) Social History Tobacco Use Types Packs/Day Years Used Date Smoking Tobacco: Never Comments No Sex and Gender Information Value Date Recorded Sex Assigned at Not on file Legal Sex Female 3:46 PM PUNCHBOARD INSERTER Gender Identity Not on file Sexual Orientation Not on file Occupation Industry Job Start Date Job End Date [employer] Not on file Not on file Not on file documented as of this encounter Last Filed Vital Signs Vital Sign Reading Time Taken Comments Blood Pressure 149/96 11/08/2022 1:37 PM PUNCHBOARD INSERTER Pulse 101 11/08/2022 1:37 PM PUNCHBOARD INSERTER Temperature - - Respiratory Rate - - Oxygen Saturation 95% 11/08/2022 1:37 PM PUNCHBOARD INSERTER Inhaled Oxygen Concentration - - Weight 140.1 kg (308 lb 12.8 oz) 11/08/2022 1:37 PM PUNCHBOARD INSERTER Height 163.8 cm (5' 4.49 ) 11/08/2022 1:37 PM CS T Body Mass Index 52.21 11/08/2022 1:37 PM PUNCHBOARD INSERTER documented in this encounter Progress Notes * Camden Fink MD - 11/08/2022 1:30 PM CST Chief complaints: Obstructive sleep apnea HPI presents for consultation. She has been requested seen in consult by Dr. Yuan for opinion regarding her above symptoms. She is a very pleasant 42 year with established diagnosis of obstructive sleep apnea syndrome. Reports that she goes to bed at 8:00 p.m. awakens at 5:00 a.m.. Takes 10 minutes or less to fall asleep. Endorses symptoms of snoring under therapy. Denies witnessed sto ppage with while sleeping on her therapy, awakening gasping air, restless sleep and talking sleep walking sleep, creepy crawly legs and leg jerks and nighttime wheezing awakens maybe once or twice, usually go to the restroom. Falls asleep right away. Awakens with a perception of non refreshing sleep despite utilizing positive pressure therapy. Rowley Sleepiness Scale score is 13. Does take daytime naps these naps can last for 10-15 minutes. Endorses symptoms of cataplexy but denies hypnagogic hallucination and sleep paralysis. Review of Systems Past Medical History: Diagnosis Date Sleep apnea Social History Tobacco Use Smoking status: Never Smokeless tobacco: Not on file Substance and Sexual Activity Drug use: Never Sexual activity: Yes Partners: Male control/protection: Tubal Ligation Alcohol Use: Not on file Family History Problem Relation Age of Onset Breast cancer Maternal Grandmother Physical Exam Constitutional: Morbidly obese female in [...] and affect. Judgment normal. Review of data: Screening mammography from 09/02/2021: Negative Lipid panel from 02/06/2021: Cholesterol 202, triglycerides 129, HDL 60, LDL 116 in. Progress notes from 09/17/2022 of Marti was reviewed summer the report reveals 42 presenting for well-woman examination. Mammography negative in 09/02/2021. Denies any abnormals. Last Pap HPV screen on 09/15/2021. Current medication includes Valtrex and Adderall. Continue therapy. Recommend Lysteda for menorrhagia AP 1. Obstructive sleep apnea: Patient has an established diagnosis of obstructive sleep apnea syndrome. Presently on bilevel therapy at 12/8 cm. Endorses compliance with therapy. Advised to continue compliant with therapy. Compliance download reveals compliant and effective therapy. The physiology ofsleep disordered breathing and its increased association with hypertension, diabetes, heart arrhythmia, strokes, heart attacks, heart failure, hypersomnia, obesity and mood disorders was discussed. Verbalizes understanding. Patient's compliance download reveals 100% usage averaging 7 hours and 57 minutes of therapy. Residual AHI 1.4. 2. Hypersomnia: Despite compliance with therapy, reports persistent daytime sleepiness Rowley Sleepiness Scale score is 13. Recommend patient undergo multiple sleep latency test to assess. 3. Morbid Obesity:The effects of obesity obstructive sleep apnea syndrome and other morbidities wasdiscussed. Recommended diet and exercise in losing weight. Patient verbalizes an understanding. HBOARD INSERTER documented in this encounter Miscellaneous Notes * Addendum Note - Farzana Moreau - 11/08/2022 1:30 PM CSTAddended by: FARZANA MOREAU on: 11/08/2022 01:58 PM Modules accepted: Orders HBOARD INSERTER documented in this encounter Plan of Treatment Not on file documented as of this encounter Visit Diagnoses Diagnosis Hypersomnia- Primary Hypersomnia, unspecified Obstructive sleep apnea syndrome Obstructive sleep apnea (adult) (pediatric) Morbid obesity with BMI of 50.0-59.9, adult ([facility]) documented in this encounter Discontinued Medications Medication Sig Discontinue Reason Start Date End Da te dextroamphetamine-ampheta mine XR (ADDERALL XR) 10 mg 24 hr capsule Take 10 mg by mouth 08/31/2021 11/08/2022 documented as of this encounter Historical Medications * This list may reflect changes made after this encounter. ESOMEPRAZOLE MAGNESIUM ORAL Take 1 capsule by mouth daily 10/29/2022 fexofenadine (NIKHIL) 180 mg tablet Take 1 tablet (180 mg total) by mouth daily 11/05/2022 Lacto no.76/Bifido/FOS/ larch (WOMEN'S PROBIOTIC ORAL) Take 1 capsule by mouth daily 11/07/2022 nitrofurantoin monohydrate (MACROBID) 100 mg capsule 11/01/2022 12/06/2022 added in this encounter Orders Outpatient Referral Count Last Ordered Date Fir st Ordered Date AMB REFERRAL TO NEUROLOGY 1 11/08/2022 documented in this encounter Care Teams Copy Writer Relationship Specialty Start Date End Date Iva Abdi NP PCP - General Nurse Practitioner 11/02/22 12/31/23 documented as of this encounter
--- OUTSIDE RECORDS SUMMARY | 2024-12-02 04:49 | XMS_ITS | Encounter Summary ---
Author Organization [facility] Address [address] [place] [address] Care Team Providers Care Sail Cutter Name Role Phone Dean Hernandez MD Primary Care Provider Encounter Details Date Type Department Care Team (Late st Contact Info) Description 10/04/2022 Orders Only [facility] [address] [place] [address] My Garcia DO [address] [place] [address] Encounter for screening mammogram for malignant neoplasm of breast (Primary Dx); Pelvic pain in female Social History Tobacco Use Types Packs/Day Years Used Date Smoking Tobacco: Never Comments No Sex and Gender Information Value Date Recorded Sex Assigned at Not on file Legal Sex Female 3:46 PM FRANCHISE SPECIALIST Gender Identity Not on file Sexual Orientation Not on file Occupation Industry Job Start Date Job End Date [employer] Not on file Not on file Not on file documented as of this encounter Plan of Treatment Not on file documented as of this encounter Visit Diagnoses Diagnosis Encounter for screening mammogram for malignant neoplasm of breast- Primary Pelvic pain in female Unspecified symptom associated with female genital organs documented in this encounter Care Teams Sail Cutter Relationship Specialty Start Date End Date Dean Hernandez MD [address] [place] [id number] PCP - General 09/02/21 11/01/22 documented as of this encounter
--- OUTSIDE RECORDS SUMMARY | 2024-12-02 04:49 | XMS_ITS | Encounter Summary ---
Author Organization [facility] Address [address] [place] [address] Care Team Providers Care Rug Sample Beveler Name Role Phone Dean Hernandez MD Primary Care Provider Reason for Visit * Reason Comments Gynecologic Exam Encounter Details Date Type Department Care Team (Late st Contact Info) Description 09/17/2022 9:30 AM CDT Office Visit [facility] [address] [place] [address] My Garcia, DO [address] [place] [address] Screening examination for venereal disease (Primary Dx); Encounter for annual routine gynecological examination; Pelvic pain; Menorrhagia with regular cycle Social History Tobacco Use Types Packs/Day Years Used Date Smoking Tobacco: Never Tobacco Cessation:Counseling Given: Not Answered Comments No Sex and Gender Information Value Date Recorded Sex Assigned at Not on file Legal Sex 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 Gender Identity Not on file Sexual Orientation Not on file Occupation Industry Job Start Date Job End Date [employer] Not on file Not on file Not on file documented as of this encounter Last Filed Vital Signs Vital Sign Reading Time Taken Comments Blood Pressure 134/78 09/17/2022 9:12 AM CDT Pulse - - Temperature - - Respiratory Rate - - Oxygen Saturation - - Inhaled Oxygen Concentration - - Weight 137.5 kg (303 lb 3.2 oz) 09/17/2022 9:12 AM CDT Height 163.8 cm (5' 4.5 ) 09/17/2022 9:12 AM CDT Body Mass Index 51.24 09/17/2022 9:12 AM CDT documented in this encounter Ordered Prescriptions Prescription Sig Dispense Quantity Refills Last Filled Start Date End Date tranexamic acid (LYSTEDA) 650 mg tablet Take 2 tablets (1,300 mg total) by mouth 3 (three) times a day for 5 days 30 tablet 3 09/17/2022 2 documented in this encounter Progress Notes * My Garciazabeth, DO - 09/17/2022 9:30 AM CDT Well Woman Exam Subjective: Nuria Valdez is a 42 y.o. year old female who presents for a well woman exam. Last pap NILM -HPV 09/15/21. She denies h/o abnormals. Mammogram negative 09/02/21. She complains of heavy cycles and intermittent pelvic pain. She states her cycles have been heavy ever since she had a Mirena placed several years ago (has since been removed). 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 She also states it has improved since becoming sexually active again. She denies any issues with constipation. She has not paid much attention to the timing of her pain. Menstrual History: Patient's last menstrual period was 09/12/2022. Sexual History: OB History 2 Para 2 Term 2 AB Living 2 SAB IAB Ectopic Multiple Live Births 2 # Outcome Date GA Labor/2nd Weight Sex Delivery Anes PTL Lv A1 A5 1 Term 06/18/03 4.451 kg (9 lb 13 oz) M Vag-Vacuum Living 2 Term 07/12/05 4.678 kg (10 lb 5 oz) M Vag-Spont Living Past Medical History: Diagnosis Date Sleep apnea Current Outpatient Medications: valACYclovir (VALTREX) 1 gram tablet, Take 2 tablets (2,000mg) by mouth 2 times daily for 1 day, Disp: , Rfl: dextroamphetamine-amphetamine XR (ADDERALL XR) 10 mg 24 hr capsule, Take 10 mg by mouth (Patient not taking: Reported on 09/17/2022), Disp: , Rfl: No Known Allergies Family History Problem Relation Age of Onset Breast cancer Maternal Grandmother Social History Tobacco Use Smoking status: Never Smokeless tobacco: None Substance and Sexual Activity Drug use: Never Sexual activity: Yes Partners: Male control/protection: Tubal Ligation Alcohol Use: Not on file Review of Systems Constitutional: Negative for fatigue, fever and unexpected weight change. Respiratory: Negative for shortness of breath and wheezing. Cardiovascular: Negative for chest pain and palpitations. Gastrointestinal: Negative for abdominal pain, blood in stool, nausea and vomiting. Genitourinary: Positive for menstrual problem and pelvic pain. Negative for dysuria, frequency, hematuria, urgency, vaginal bleeding and vaginal discharge. Skin: Negative for rash. Objective: BP 134/78 Ht 163.8 cm (5' 4.5 ) Wt (!) 303 lb 3.2 oz (137.5 kg) LMP 09/12/2022 BMI 51.24 kg/m?? Physical Exam Constitutional: Appearance: She is well-developed. Cardiovascular: Rate and Rhythm: Normal rate and regular rhythm. Pulmonary: Effort: Pulmonary effort is normal. Breath sounds: Normal breath sounds. Chest: Breasts: Right: Inverted nipple present. No mass or tenderness. Left: No mass or tenderness. Comments: Has always had inverted nipple on the right side Abdominal: Palpations: Abdomen is soft. Tenderness: There is no abdominal tenderness. Genitourinary: Rectum normal, vagina normal and uterus normal. Right labia: normal. Left Labia: normal. No vaginal discharge. Right adnexa: normal. Left adnexa: normal. Cervix: Normal exam. Genitourinary Comments: Mild tenderness on bimanual exam Musculoskeletal: General: No tenderness. Skin: General: Skin is warm and dry. Neurological: Mental Status: She is alert and oriented to person, place, and time. Psychiatric: Behavior: Behavior normal. Assessment and Plan: Nuria Valdez is a 42 y.o. female who presents for a well woman exam. WWE - Screening guidelines reviewed. Pap UTD. Due in 2025. - STD screening obtained. - Mammogram ordered. - S/p tubal for contraception. Pelvic Pain - US was ordered last year but never completed due to insurance issues the pt states. She now has new insurance so US was ordered. Discussed possibility of pain due to ovulation. Patient states she will pay more attention to the timing of her pain. 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 Menorrhagia - Discussed non-hormonal and hormonal options. She states hormones affected her somewhat mentally so would like to avoid if possible. She has already tried NSAIDs more so for the pain and does not feel it helped lighten her bleeding. She is interested in trying Lysteda. Rx sent to pharmacy. RTC in 1 year for WWE and PRN. My Garcia DO 09/17/2022 documented in this encounter Plan of Treatment Not on file documented as of this encounter Results * N. gonorrhoeae/C. trachomatis Amplification Endocervical (09/17/2022 10:01 AM CDT) C. trachomatis Not detected Not detected JACE DE LUNA N. gonorrhoeae Not detected Not detected JACE DE LUNA Comment: Testing performed by the [facility]. This assay detects Chlamydia trachomatis and Neisseria gonorrhoeae by nucleic acid amplification testing (NAAT). This test is approved by the [place] Food and Drug Administration and the performance characteristics have been verified by the laboratory. The performance characteristics of this test have not been evaluated in women or individuals less than 16 years of age. Endocervical (None) 09/17/20 10:01 AM CDT 09/17/2022 8:26 PM CDT us My Garcia DO LAB MICROBIOLOGY - GENE RAL ORDERABLES Final Result JACE DE LUNA [id number] [address] [place] [address] documented in this encounter Visit Diagnoses Diagnosis Screening examination for venereal disease- Primary Encounter for annual routine gynecological examination Pelvic pain Menorrhagia with regular cycle documented in this encounter Historical Medications * This list may reflect changes made after this encounter. valACYclovir (VALTREX) 1 gram tablet Take 2 tablets (2,000mg) by mouth 2 times daily for 1 day 04/20/2022 added in this encounter Care Teams Rug Sample Beveler Relationship Specialty Start Date End Date Dean Hernandez MD [address] [place] [address] PCP - General 09/02/21 11/01/22 documented as of this encounter
--- OUTSIDE RECORDS SUMMARY | 2024-12-02 04:49 | XMS_ITS | Encounter Summary ---
Author Organization [facility] Healthcare Address [address] [place] [address] Care Team Providers Care Occupational Health Physiotherapist Name Role Phone Millie Yuan MD Primary Care Provider Reason for Visit * Reason Comments Leg Pain Encounter Details Date Type Department Care Team (Late st Contact Info) Description 01/23/2024 8:48 AM CLINICAL PSYCHOLOGIST [facility] - 01/23/2024 11:12 AM [facility] Emergency [facility] Emergency Department [address] [place] [address] Benito Sparks MD [address] [place] [address] Right leg swelling (Primary Dx) Discharge Disposition: Discharge to home or self care Social History Tobacco Use Types Packs/Day Years Used Date Smoking Tobacco: Never Smokeless Tobacco: Never AUDIT-C Answer Date Recorded Q1: How often [...] on file Legal Sex Female 3:46 PM CLINICAL PSYCHOLOGIST [facility]ACT[facility] Gender Identity Not on file Sexual Orientation Not on file Occupation Industry Job Start Date Job End Date [employer] Not on file Not on file Not on file documented as of this encounter Last Filed Vital Signs Vital Sign Reading Time Taken Comments Blood Pressure 154/90 01/23/2024 10:05 AM CLINICAL PSYCHOLOGIST [facility]ACT[facility] Pulse 87 01/23/2024 10:05 AM CLINICAL PSYCHOLOGIST [facility]ACT[facility] Temperature 36.4 ??C (97.6 ??F) 01/23/2024 8:41 AM CS T Respiratory Rate 18 01/23/2024 10:05 AM CLINICAL PSYCHOLOGIST [facility]ACT[facility] Oxygen Saturation 99% 01/23/2024 10:05 AM CLINICAL PSYCHOLOGIST [facility] Inhaled Oxygen Concentration - - Weight 155.1 kg (342 lb) 01/23/2024 8:41 AM CLINICAL PSYCHOLOGIST [facility]ACT[facility] Height 165.1 cm (5' 5 ) 01/23/2024 8:41 AM CLINICAL PSYCHOLOGIST [facility] PRACT[facility] Body Mass Index 56.91 01/23/2024 8:41 AM CLINICAL PSYCHOLOGIST [facility] documented in this encounter Discharge Instructions * Discharge Instructions* Benito Sparks MD - 01/23/2024 10:59 AM CLINICAL PSYCHOLOGIST [facility]ACT[facility] Thank you for the opportunity to care for you today! You were evaluated for and diagnosed with right leg swelling. You had an ultrasound that was negative for DVT although your D-dimer (somewhat nonspecific blood test for blood clots was minimally elevated). You should follow-up with your primary doctor in the next to discuss a repeat ultrasound if not improved. Return to the ED for significantly increased pain/swelling or other concerns. You should take acetaminophen and/or ibuprofen/naproxen as needed for pain. We sincerely hope you feel better soon! ICAL PSYCHOLOGIST [facility] documented in this encounter Medications at Time of Discharge ESOMEPRAZOLE MAGNESIUM ORAL Take 1 capsule by mouth daily 10/29/2022 fexofenadine (NIKHIL) 180 mg tablet Take 1 tablet (180 mg total) by mouth daily 11/05/2022 ibuprofen 200 mg tab/cap Take by mouth every 6 (six) hours as needed for pain Lacto no.76/Bifido/FOS/ larch (WOMEN'S PROBIOTIC ORAL) Take 1 capsule by mouth daily 11/07/2022 valACYclovir (VALTREX) 1 gram tablet Take 2 tablets (2,000mg) by mouth 2 times daily for 1 day 04/20/2022 documented as of this encounter Discharge Disposition Disposition Code Departure Means Destination Comment s Discharge to home or self care documented in this encounter ED Notes * Benito Sparks MD - 01/23/2024 8:56 AM CST HPI Chief Complaint Patient presents with Leg Pain Patient is a 43-year-old woman with a history of extreme obesity complicated by ANABELL who presents with right leg pain and swelling. Onset several days ago. Denies fever, chills, chest pain, dyspnea, abdominal pain, nausea vomiting, or other complaints. Denies VTE history, recent immobilization, or recent long- distance travel. Patient History: Patient Active Problem List Diagnosis Date Noted Lipoma 11/28/2022 Past Medical History: Diagnosis Date Allergic rhinitis GERD (gastroesophageal reflux disease) Sleep apnea Past Surgical History: Procedure Laterality Date INGUINAL HERNIA REPAIR TUBAL LIGATION Family History Problem Relation Age of Onset Diabetes Mother Diabetes Mother's Sister Memory loss Maternal Grandmother Breast cancer Maternal Grandmother Memory loss Paternal Grandmother Social History Tobacco Use Smoking status: Never Smokeless tobacco: Never Vaping Use Vaping status: Never Used Substance and Sexual Activity Alcohol use: None Drug use: Never Sexual activity: Yes Partners: Male control/protection: Tubal Ligation Social History Social History Narrative Not on file Review of Systems Review of Systems Constitutional: Negative for chills and fever. HENT: Negative for congestion, rhinorrhea and sore throat. Eyes: Negative for visual disturbance. Respiratory: Negative for cough and shortness of breath. Cardiovascular: Positive for leg swelling. Negative for chest pain. Gastrointestinal: Negative for abdominal pain, constipation, diarrhea, nausea and vomiting. Genitourinary: Negative for dysuria, frequency and urgency. Musculoskeletal: Negative for myalgias. Skin: Negative for rash. Neurological: Negative for seizures, syncope and headaches. Psychiatric/Behavioral: Negative for confusion. Physical Exam ED Triage Vitals [01/23/24 0841] Temp Pulse Resp BP SpO2 36.4 ??C (97.6 ??F) 90 16 139/85 100 % Temp src Heart Rate Source Patient Position BP Location FiO2 (%) Temporal -- -- -- -- Height Height Method Weight Weight Method 1.651 m (5' 5 ) Stated (!) 155.1 kg (342 lb) Stated Physical Exam Vitals and nursing note reviewed. Constitutional: General: She is not in acute distress. Appearance: She is not ill-appearing or diaphoretic. HENT: Head: Normocephalic and atraumatic. Mouth/Throat: Mouth: Mucous membranes are moist. Eyes: General: No scleral icterus. Extraocular Movements: Extraocular movements intact. Cardiovascular: Rate and Rhythm: Normal rate and regular rhythm. Pulmonary: Effort: Pulmonary effort is normal. No respiratory distress. Abdominal: General: There is no distension. Musculoskeletal: General: Swelling (Fairly symmetric) present. Normal range of motion. Cervical back: Normal range of motion. Right lower leg: Edema present. Left lower leg: Edema present. Skin: General: Skin is warm and dry. Findings: No rash. Neurological: General: No focal deficit present. Mental Status: She is alert and oriented to person, place, and time. Mental status is at baseline. Psychiatric: Mood and Affect: Mood normal. Behavior: Behavior normal. [facility] Medical Decision Making 43-year-old woman with a history of extreme obesity who presents with right leg pain and swelling. Doubt DVT. Doubt other emergent condition. Plan: Ultrasound, likely dimer, anticipatory guidance Amount and/or Complexity of Data Reviewed Labs: ordered. Decision-making details documented in ED Course. Radiology: ordered. Decision-making details documented in ED Course. ED Course as of 01/23/24 1059 Time: 1011 Value: US VEIN DUPLEX LOWER EXTREMITY RIGHT LIMITED, UNILATERAL Comment: Negative acute, will dimer By: Benito Sparks MD Time: 1054 Value: D-Dimer(!): 529 Comment: Minimally elevated By: Benito Sparks MD Time: 1053 Comment: Remains well appearing. Will discharge with PCP follow-up. Return precautions given. By: Benito Sparks MD Final diagnoses: Right leg swelling Benito Sparks MD 01/23/241058 ICAL PSYCHOLOGIST [facility] * Iva Del Toro RN - 01/23/2024 8:40 AM CST Pt to ED for c/o right calf pain and swelling x 4 days. ICAL PSYCHOLOGIST [facility] documented in this encounter Plan of Treatment Not on file documented as of this encounter Procedures Procedure Name Priority Date/Time Associated Diagnosis Comments D-DIMER, QUANTITATIVE STAT 01/23/2024 10:30 AM CLINICAL PSYCHOLOGIST [facility] US VEIN DUPLEX LOWER EXTREMITY RIGHT LIMITED ED 01/23/2024 10:05 AM CLINICAL PSYCHOLOGIST [facility] documented in this encounter Results * (ABNORMAL) D-dimer, quantitative (01/23/2024 10:30 AM CLINICAL PSYCHOLOGIST [facility]) D-Dimer 529(H) <=499 ng/mL FEU JACE BOYD ([place]) Comment: Interpretive data FDA approved the D-dimer, in conjunction with a low or moderate pretest probability score, to exclude venous thromboembolic events (VTE) (PE and DVT) in outpatients when the D-dimer result is < 500 ng/ml FEU. ?? Evidence supports using an age-adjusted D-dimer cut-off for outpatients older than 50 (age x 10) to improve specificity without sacrificing sensitivity. Example: age 68, VTE cut-off 680 ng/ml FEU. References; Schoutchitra HT et al. Brit Med J. 2013;346:f2492. Holland et al. Annals Int Med. 2015;163:701-11. Current interpretive data was last revised on 2019. Blood 01/23/2024 10:3 0 AM CLINICAL PSYCHOLOGIST [facility] 01/23/2024 10:34 AM CLINICAL PSYCHOLOGIST [facility] us Benito Sparks MD LAB BLOOD ORDERABLE S Final Result JACE BOYD ([place]) 1 [facility] Department [place] [address] * US VEIN DUPLEX LOWER EXTREMITY RIGHT LIMITED, UNILATERAL (01/23/2024 10:05 AM CLINICAL PSYCHOLOGIST [facility]) Anatomical Region Laterality Modality Vascular Right Ultrasound 01/23/2024 10:0 7 AM CLINICAL PSYCHOLOGIST [facility]ACT[facility] Narrative 01/23/2024 10:08 AM CLINICAL PSYCHOLOGIST [facility] EXAM DESCRIPTION: ?? US VEIN DUPLEX LOWER EXTREMITY RIGHT LIMITED, UNILATERAL REASON FOR STUDY: ?? Swelling, Lower Extremity, Right right lower extremity cramping for 4 days. TECHNIQUE: Duplex scan using the B-mode, spectral Doppler, and color-flow Doppler of the deep venous system of the ??right ??lower extremity was performed. Images stored on PACS. COMPARISON: ?? None available. FINDINGS: According to the automation technologist PACS note very suboptimal exam due to morbid obesity. ??The common femoral, common femoral-saphenous vein confluence, visualized profunda femoral, superficial femoral, and popliteal veins are readily compressible with no intraluminal thrombus on spence scale images. ?? There is normal color and spectral Doppler signal, including augmentation. ?? Greater saphenous vein appears patent. Visualized calf veins are patent. IMPRESSION: ??Technically difficult examination, no definite right lower extremity deep venous thrombosis. THIS IS AN ELECTRONICALLY VERIFIED FINAL REPORT 01/23/2024 10:08 AM - Electronically signed by ??Micheal Child D.O. AP: JUANI D: ??01/23/2024 10:08 AM T: ??01/23/2024 10:08 AM Report ID: [id number] Reading Location: ??[id number] Procedure Note Micheal Child, DO - 01/23/2024 EXAM DESCRIPTION: US VEIN DUPLEX LOWER EXTREMITY RIGHT LIMITED,UNILATERAL REASON FOR STUDY: Swelling, Lower Extremity, Right right lower extremity cramping for 4 days. TECHNIQUE: Duplex scan using the B-mode, spectral Doppler, and color-flow Doppler of the deep venous system of the right lower extremity was performed. Images stored on PACS. COMPARISON: None available. FINDINGS: According to the automation technologist PACS note very suboptimal examdue to morbid obesity. The common femoral, common femoral-saphenous veinconfluence, visualized profunda femoral, superficial femoral, and popliteal veins are readily compressible with no intraluminal thrombus on spence scale images. There is normal color and spectral Doppler signal, including augmentation. Greater saphenous vein appears patent. Visualized calf veins are patent. IMPRESSION: Technically difficult examination, no definite right lower extremitydeep venous thrombosis. THIS IS AN ELECTRONICALLY VERIFIED FINAL REPORT 01/23/2024 10:08 AM - Electronically signed by Micheal Child D.O. AP: AP Report ID: [id number] Reading Location: [id number] us Benito Sparks MD IMG US PROCEDURES F inal Result documented in this encounter Visit Diagnoses Diagnosis Right leg swelling- Primary documented in this encounter Care Teams Occupational Health Physiotherapist Relationship Specialty Start Date End Date Millie Yuan MD [address] [place] [address] PCP - General Family Medicine 01/01/24 documented as of this encounter
--- OUTSIDE RECORDS SUMMARY | 2024-12-02 04:49 | XMS_ITS | Encounter Summary ---
Author Organization [facility] Healthcare Address [address] [place] [address] Care Team Providers Care Yarn Dry Room Worker Name Role Phone Dean Hernandez MD Primary Care Provider Reason for Referral * Diagnostic Imaging (Routine) - Closed Specialty Diagnoses / Procedures Referred By Liborio sagastume Referred To Contact Diagnoses Encounter for screening mammogram for malignant neoplasm of breast Procedures Screening Mammogram Bilateral [place] Screening Mammogram, Self [address] [phone] Referral ID Status Reason Start Date Expiration Date Visits Re quested Visits Authorized [id number] Closed 08/28/2021 09/27/2022 1 1 Reason for Visit * Diagnostic Imaging (Routine) - Closed Specialty Diagnoses / Procedures Referred By Liborio sagastume Referred To Contact Diagnoses Encounter for screening mammogram for malignant neoplasm of breast Procedures Screening Mammogram Bilateral [address] [place] Screening Mammogram, Self [address] [address] Referral ID Status Reason Start Date Expiration Date Visits Re quested Visits Authorized [id number] Closed 08/28/2021 09/27/2022 1 1 Encounter Details Date Type Department Care Team (Latest Contact Info) Description 09/02/2021 10:38 AM CDT - 09/02/2021 11:59 PM CDT Hospital Encounter [facility] [address] [place] [id number] Screening Mammogram, Self Encounter for screening mammogram for malignant neoplasm of breast Discharge Disposition: Discharge to home or self care Social History Tobacco Use Types Packs/Day Years Used Date Smoking Tobacco: Never Assessed Comments Unknown Sex and Gender Information Value Date Recorded Sex Assigned at Not on file Legal Sex Female 3:46 PM CERTIFIED COMPOSITES TECHNICIAN Gender Identity Not on file Sexual Orientation Not on file documented as of this encounter Medications at Time of Discharge dextroamphetamine -amphetamine XR (ADDERALL XR) 10 mg 24 hr capsule Take 10 mg by mouth 08/31/2021 11/08/2022 documented as of this encounter Discharge Disposition Disposition Code Departure Means Destination Discharge to home or self care documented in this encounter Plan of Treatment Not on file documented as of this encounter Procedures Procedure Name Priority Date/Time Associated Diagnosis Comments SCREENING MAMMOGRAM BILATERAL [place] Schedule Routine, Read Routine (OP Routine) 09/02/2021 11:05 AM CDT Encounter for screening mammogram for malignant neoplasm of breast documented in this encounter Results * Screening Mammogram Bilateral [place] (09/02/2021 11:05 AM CDT) Anatomical Region Laterality Modality Breast Bilateral Mammography 09/04/2021 10:1 3 AM CDT Impressions 09/04/2021 10:13 AM CDT There is no mammographic evidence of malignancy. Routine screening mammography is recommended in 1 year. BI-RADS: 1 - Negative. The patient will be entered into a reminder system with a target due date of 1 year for her next mammogram. Electronically signed by: Albaro Bernard M.D. Narrative 09/04/2021 10:13 AM CDT EXAMINATION: SCREENING MAMMOGRAM BILATERAL [place] ORDERING HEALTHCARE PROVIDER: SELF SCREENING MAMMOGRAM HISTORY: Baseline screening mammography. COMPARISON: ??None available. TECHNIQUE: CC and MLO views of the bilateral breasts were obtained with digital technique using breast tomosynthesis with C view. Computer aided detection was utilized. FINDINGS: DENSITY: There are scattered fibroglandular elements in the bilateral breasts. BREASTS: There are no suspicious masses, suspicious calcifications, or other suspicious findings in either breast. us Self Screening Mammogram IMG MAMMO PROCEDURES Fi nal Result documented in this encounter Visit Diagnoses Diagnosis Encounter for screening mammogram for malignant neoplasm of breast documented in this encounter Care Teams Yarn Dry Room Worker Relationship Specialty Start Date End Date Dean Hernandez MD [address] [place] [address] [place] [address] PCP - General 09/02/21 11/01/22 documented as of this encounter
--- OUTSIDE RECORDS SUMMARY | 2024-12-02 04:49 | XMS_ITS | Encounter Summary ---
Author Organization [facility] Healthcare Address [address] [place] [address] Care Team Providers Care Precision Machining Instructor Name Role Phone Dean Hernandez MD Primary Care Provider Encounter Details Date Type Department Care Team (Latest Contact Info) Description 09/17/2022 10:01 AM CDT - 09/17/2022 11:59 PM CDT Hospital Encounter [facility] [id number] [place] [id number] Screening examination for venereal disease Discharge Disposition: Discharge to home or self care Social History Tobacco Use Types Packs/Day Years Used Date Smoking Tobacco: Never Comments No Sex and Gender Information Value Date Recorded Sex Assigned at Not on file Legal Sex Female 3:46 PM VIRTUAL CLASSROOM MANAGER Gender Identity Not on file Sexual Orientation Not on file Occupation Industry Job Start Date Job End Date [employer] Not on file Not on file Not on file documented as of this encounter Medications at Time of Discharge valACYclovir (VALTREX) 1 gram tablet Take 2 tablets (2,000mg) by mouth 2 times daily for 1 day 04/20/2022 tranexamic acid (LYSTEDA) 650 mg tablet Take 2 tablets (1,300 mg total) by mouth 3 (three) times a day for 5 days 30 tablet 3 09/17/2022 09/22/2022 dextroamphetamine -amphetamine XR (ADDERALL XR) 10 mg 24 hr capsule Take 10 mg by mouth 08/31/2021 11/08/2022 documented as of this encounter Discharge Disposition Disposition Code Departure Means Destination Discharge to home or self care documented in this encounter Plan of Treatment Not on file documented as of this encounter Procedures Procedure Name Priority Date/Time Associated Diagnosis Comments N. GONORRHOEAE/C. TRACHOMATIS AMPLIFICATION Routine 09/17/2022 10:01 AM CDT Screening examination for venereal disease documented in this encounter Results * N. gonorrhoeae/C. trachomatis Amplification Endocervical (09/17/2022 10:01 AM CDT) C. trachomatis Not detected Not detected JACE DE LUNA N. gonorrhoeae Not detected Not detected JACE DE LUNA Comment: Testing performed by the [facility]. This assay detects Chlamydia trachomatis and [...] 10:01 AM CDT 09/17/2022 8:26 PM CDT My Garcia DO LAB MICROBIOLOGY - GENE RAL ORDERABLES Final Result [facility] [id number] Department [place] [address] documented in this encounter Visit Diagnoses Diagnosis Screening examination for venereal disease documented in this encounter Care Teams Precision Machining Instructor Relationship Specialty Start Date End Date Dean Hernandez MD [address] [place] [address] PCP - General 09/02/21 11/01/22 documented as of this encounter
--- OUTSIDE RECORDS SUMMARY | 2024-12-02 04:49 | XMS_ITS | Encounter Summary ---
Author Organization [facility] Address [address] [facility] [address] [place] [address] Care Team Providers Care Terrazzo Layer Name Role Phone Dean Hernandez MD Primary Care Provider Reason for Visit * Reason Comments New Patient Encounter Details Date Type Department Care Team (Late st Contact Info) Description 09/15/2021 2:30 PM CDT Office Visit [facility] [address] [place] [address] My Garcia, DO [address] [place] [address] Screening for malignant neoplasm of the cervix (Primary Dx); Encounter for annual routine gynecological examination; Abdominal cramping Social History Tobacco Use Types Packs/Day Years Used Date Smoking Tobacco: Never Comments No Sex and Gender Information Value Date Recorded Sex Assigned at Not on file Legal Sex 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 year old female who presents for a well woman exam. She complains of intermittent cramping in her lower mid abdomen for the past few months. She states it feels like menstrual cramps. She initially thought it was related to when she ovulates. She was tested for a UTI which was negative. She denies any issues with constipation. She is unsure whether it is associated with eating or not. 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 She is unsure when her last pap smear was. She denies any history of abnormal paps. Menstrual History: Patient's last menstrual period was 09/02/2021. Sexual History: Not currently sexually active. OB History 2 Para 2 Term 2 AB Living 2 SAB TAB Ectopic Multiple Live Births 2 # Outcome Date GA Labor/2nd Weight Sex Delivery Anes PTL Lv A1 A5 1 Term 06/18/03 4.451 kg (9 lb 13 oz) M Vag-Vacuum Living 2 Term 07/12/05 4.678 kg (10 lb 5 oz) M Vag-Spont Living Past Medical History: Diagnosis Date ??? Sleep apnea Current Outpatient Medications: ??? dextroamphetamine-amphetamine XR (ADDERALL XR) 10 mg 24 hr capsule, Take 10 mg by mouth, Disp: , Rfl: No Known Allergies Family History Problem Relation Age of Onset ??? Breast cancer Maternal Grandmother Social History Socioeconomic History ??? Marital status: Single Spouse name: None ??? Number of children: 2 ??? Years of education: None ??? Highest education level: None Occupational History ??? None Tobacco Use ??? Smoking status: Never Smoker Substance and Sexual Activity ??? Alcohol use: None ??? Drug use: Never ??? Sexual activity: Not Currently Partners: Male control/protection: Tubal Ligation Other Topics Concern ??? None Social History Narrative ??? None Social Determinants of Health Financial Resource Strain: ??? Difficulty of Paying Living Expenses: Not on file Food Insecurity: ??? Worried About Running Out of Food in the Last Year: Not on file ??? Ran Out of Food in the Last Year: Not on file Transportation Needs: ??? Lack of Transportation (Medical): Not on file ??? Lack of Transportation (Non-Medical): Not on file Physical Activity: ??? Days of Exercise per Week: Not on file ??? Minutes of Exercise per Session: Not on file Stress: ??? Feeling of Stress : Not on file Social Connections: ??? Frequency of Communication with Friends and Family: Not on file ??? Frequency of Social Gatherings with Friends and Family: Not on file ??? Attends Mosque Services: Not on file ??? Active Member of Clubs or Organizations: Not on file ??? Attends Club or Organization Meetings: Not on file ??? Marital Status: Not on file Intimate Partner Violence: ??? Fear of Current or Ex-Partner: Not on file ??? Emotionally Abused: Not on file ??? Physically Abused: Not on file ??? Sexually Abused: Not on file Review of Systems Constitutional: Negative for fatigue, fever and unexpected weight change. Respiratory: Negative for shortness of breath and wheezing. Snoring Cardiovascular: Negative for chest pain and palpitations. Gastrointestinal: Negative for abdominal pain, blood in stool, nausea and vomiting. Abdominal cramping, indigestion, heartburn Genitourinary: Negative for dysuria, frequency, hematuria, urgency, vaginal bleeding and vaginal discharge. Decrease in libido Musculoskeletal: Positive for back pain. Skin: Negative for rash. Neurological: Positive for headaches. Objective: BP 128/84 Ht 165.1 cm (5' 5 ) Wt 295 lb 12.8 oz (134.2 kg) LMP 09/02/2021 BMI 49.22 kg/m?? Physical Exam Constitutional: Appearance: She is well-developed. Cardiovascular: Rate and Rhythm: Normal rate and regular rhythm. Pulmonary: Effort: Pulmonary effort is normal. Breath sounds: Normal breath sounds. Chest: Breasts: Right: Inverted nipple present. No mass or tenderness. Left: No mass or tenderness. Abdominal: Palpations: Abdomen is soft. Tenderness: There is no abdominal tenderness. Genitourinary: Rectum normal, vagina normal and uterus normal. Right labia: normal. Left Labia: normal. No vaginal discharge. Right adnexa: normal. Left adnexa: normal. Cervix: Normal exam. Musculoskeletal: General: No tenderness. Skin: General: Skin is warm and dry. Neurological: Mental Status: She is alert and oriented to person, place, and time. Psychiatric: Behavior: Behavior normal. LABS: Lipids: January 2021 Pap smear: pt unsure when last pap was Mammography: BI-RADS 1 09/02/21 Assessment and Plan: Nuria Valdez is a 41 y.o. female who presents for a well woman exam. WWE - Breast exam notable for inverted nipple but pt states she has always had this, otherwise normal - Pelvic exam normal with no tenderness - Pap smear collected - STD testing declined - Mammogram UTD Abdominal cramping - Discussed there are many possible etiologies including bladder, VACUUM DRIER TENDER, and GI. Pt reports normal UA. Recommend keeping a diary of when she has the pain to see if it is associated with anything in particular. It appears to be around the time she should be ovulating so it certainly could be from thisalthough she never had it before. Discussed possible trial of hormones to prevent ovulation but thepatient is not interested in this. She states the pain is not very frequent or that bothersome. Shestates her previous clinic mentioned endometriosis but her description does not seem typical for endo. Will get a TVUS to evaluate for potential gynecologic causes. RTC in 1 year for WWE or earlier if indicated. Will call with TVUS results. My Garcia DO 09/15/2021 documented in this encounter Plan of Treatment Not on file documented as of this encounter Visit Diagnoses Diagnosis Screening for malignant neoplasm of the cervix- Primary Encounter for annual routine gynecological examination Abdominal cramping Abdominal pain, unspecified site documented in this encounter Historical Medications * This list may reflect changes made after this encounter. dextroamphetamine -amphetamine XR (ADDERALL XR) 10 mg 24 hr capsule Take 10 mg by mouth 08/31/2021 11/08/2022 added in this encounter Care Teams Terrazzo Layer Relationship Specialty Start Date End Date Dean Hernandez MD [address] [place] [address] PCP - General 09/02/21 11/01/22 documented as of this encounter
--- OUTSIDE RECORDS SUMMARY | 2024-12-02 04:49 | XMS_ITS | Encounter Summary ---
Author Organization [facility] Address [address] [facility] [address] [place] [address] Care Team Providers Care Special Effects Artist Name Role Phone Iva Abdi NP Primary Care Provider Encounter Details Date Type Department Care Team (Late st Contact Info) Description 01/10/2023 Telephone [facility] [address] [facility] [address] [place] [address] Nazario Handley, RN Social History Tobacco Use Types Packs/Day Years [...] more drinks on one occasion? Never 12/06/2022 Comments No Sex and Gender Information Value Date Recorded Sex Assigned at Not on file Legal Sex Female 3:46 PM BABY COUNSELOR Gender Identity Not on file Sexual Orientation Not on file Occupation Industry Job Start Date Job End Date [employer] Not on file Not on file Not on file documented as of this encounter Miscellaneous Notes * Telephone Encounter - Nazario Handley, RN - 01/10/2023 3:26 PM BABY COUNSELOR Pt called to cancel her surgery for 01/18/23. She states she has other health issues going on that she wants to take care of before having the surgery. She states she will call us back when she is ready to re-schedule. COUNSELOR documented in this encounter Plan of Treatment Not on file documented as of this encounter Visit Diagnoses Not on filedocumented in this encounter Care Teams Special Effects Artist Relationship Specialty Start Date End Date Iva Abdi NP PCP - General Nurse Practitioner 11/02/22 12/31/23 documented as of this encounter
--- OUTSIDE RECORDS SUMMARY | 2024-12-02 04:49 | XMS_ITS | Encounter Summary ---
Author Organization [facility] Address [address] [place] [address] Care Team Providers Care Sales Trader Name Role Phone Millie Yuan MD Primary Care Provider Reason for Referral * Diagnostic Imaging (Routine) - Closed Specialty Diagnoses / Procedures Referred By Contac t Referred To Contact Diagnoses Screening mammogram, encounter for Procedures Screening Mammogram Bilateral [place] Screening Mammogram, [address] [address] Referral ID Status Reason Start Date Expiration Date Visits Re quested Visits Authorized [id number] Closed 01/01/2024 01/30/2025 1 1 METER ENGINEER * Diagnostic Imaging (Routine) - Closed Specialty Diagnoses / Procedures Referred By Contac t Referred To Contact Diagnoses Screening mammogram, encounter for Procedures Screening Mammogram Bilateral [place] Screening Mammogram, Self [address] [address] Referral ID Status Reason Start Date Expiration Date Visits Re quested Visits Authorized [id number] Closed 01/01/2024 01/30/2025 1 1 METER ENGINEER Reason for Visit * Diagnostic Imaging (Routine) - Closed Specialty Diagnoses / Procedures Referred By Contac t Referred To Contact Diagnoses Screening mammogram, encounter for Procedures Screening Mammogram Bilateral [place] Screening Mammogram, [address] [address] Referral ID Status Reason Start Date Expiration Date Visits Re quested Visits Authorized [id number] Closed 01/01/2024 01/30/2025 1 1 Encounter Details Date Type Department Care Team (Latest Contact Info) Description 01/04/2024 10:04 AM ECHOMETER ENGINEER - 01/04/2024 11:59 PM ECHOMETER ENGINEER Hospital Encounter [facility] [address] [place] [address] Screening mammogram, encounter for Discharge Disposition: Discharge to home or self [...] Never 12/06/2022 Personal Safety Answer Date Recorded Getting School Help Needed Not on file 11/09 Comments No Sex and Gender Information Value Date Recorded Sex Assigned at Not on file Legal Sex Female 3:46 PM ECHOMETER ENGINEER Gender Identity Not on file Sexual Orientation Not on file Occupation Industry Job Start Date Job End Date [employer] Not on file Not on file Not [...] Read Routine (OP Routine) 01/04/2024 10:39 AM ECHOMETER ENGINEER Screening mammogram, encounter for documented in this encounter Results * Screening Mammogram Bilateral [place] (01/04/2024 10:39 AM ECHOMETER ENGINEER) Anatomical Region Laterality Modality Breast Bilateral Mammography 01/05/2024 11:3 8 AM ECHOMETER ENGINEER Impressions 01/05/2024 11:38 AM ECHOMETER ENGINEER There is no mammographic evidence of malignancy. A 1 year screening mammogram is recommended. BI-RADS: 1 - Negative. The patient has been or will be contacted. The patient will be entered into a reminder system with a target due date of 1 year for her next mammogram. Electronically signed by: Mikki Laguerre M.D. Narrative 01/05/2024 11:38 AM ECHOMETER ENGINEER EXAMINATION: SCREENING MAMMOGRAM BILATERAL W R[place]OL[place] ORDERING [...] in this encounter Visit Diagnoses Diagnosis Screening mammogram, encounter for documented in this encounter Care Teams Sales Trader Relationship Specialty Start Date End Date Millie Yuan MD [address] [place] [address] PCP - General Family Medicine 01/01/24 documented as of this encounter
--- OUTSIDE RECORDS SUMMARY | 2024-12-02 04:50 | XMS_ITS | Encounter Summary ---
Author Organization [facility] Address [address] [place] [address] Care Team Providers Care Mechanical Oxidizer Name Role Phone Vianca Verma MD Primary Care Provider [phone] Encounter Details Date Type Department Care Team (Late st Contact Info) Description 08/11/2024 External Device Data STL ABSTRACTION Provider, Abstract NO ADDRESS ON FILE Social History Tobacco Use Types Packs/Day Years Used Date Smoking Tobacco: Never Alcohol Use Standard Drinks/Week Comments Yes 1 (1 standard drink = 0.6 oz pur e alcohol) Not every week, occasionally Sex and Gender Information Value Date Recorded Sex Assigned at Female 07/22/2023 12:44 PM CDT Gender Identity Female 07/22/2023 12:44 PM CDT Sexual Orientation Straight 07/22/2023 12 :44 PM CDT documented as of this encounter Plan of Treatment Upcoming Encounters Date Type Department Care Team (Late st Contact Info) Description 12/03/2024 10:30 AM PIANO ASSEMBLER Office Visit [facility] at Work [employer] [place] [address] [place] [address] Nellie Ellison, ANP [address] [facility] Leonor Sale[address] [place] [address] 12/29/2024 7:30 AM PIANO ASSEMBLER Office Visit [facility] at Work [employer] [place] [address] [place] [address] Nellie Ellison, ANP [address] [address] [place] [place] [address] documented as of this encounter Visit Diagnoses Not on filedocumented in this encounter Care Teams Mechanical Oxidizer Relationship Specialty Start Date End Date Vianca Verma MD [address] [employer] [place] [address] PCP - General Internal Medicine 04/15/24 documented as of this encounter
--- OUTSIDE RECORDS SUMMARY | 2024-12-02 04:50 | XMS_ITS | Encounter Summary ---
Author Organization [facility] Address [address] [place] [address] Care Team Providers Care Diesel Power Shovel Operator Name Role Phone Vianca Verma MD Primary Care Provider [phone] Encounter Details Date Type Department Care Team (Late st Contact Info) Description 07/16/2024 External Device Data STL ABSTRACTION Provider, Abstract [...] st Contact Info) Description 12/03/2024 10:30 AM INSOLE COVERER Office Visit [facility] at Work [employer]starter [place] [address] [place] [address] Nellie Ellison, ANP [address] [facility] [address] [place] [address] 12/29/2024 7:30 AM INSOLE COVERER Office Visit [facility] at Work [employer] [place] [address] [place] [address] Nellie Ellison, ANP [address] [address] [place] [address] documented as of this encounter Visit Diagnoses Not on filedocumented in this encounter Care Teams Diesel Power Shovel Operator Relationship Specialty Start Date End Date Vianca Verma MD [address] [place] [address] PCP - General Internal Medicine 04/15/24 documented as of this encounter
--- OUTSIDE RECORDS SUMMARY | 2024-12-02 04:50 | XMS_ITS | Encounter Summary ---
Author Organization [facility] Address [address] [place] [address] Care Team Providers Care Family Law Paralegal Name Role Phone Vianca Verma MD Primary Care Provider [phone] Encounter Details Date Type Department Care Team (Late st Contact Info) Description 07/15/2024 External Device Data STL ABSTRACTION Provider, Abstract [...] st Contact Info) Description 12/03/2024 10:30 AM REGISTER OF DEEDS Office Visit [facility] at Work Combinature [employer]arm [place] [address] [address] Nellie Ellison, ANP [address] [facility] [address] [place] [address] 12/29/2024 7:30 AM REGISTER OF DEEDS Office Visit [facility] at Work [employer]ature [employer] [place] [address] [place] [address] Nellie Ellison, ANP [address] [address] [place] [address] documented as of this encounter Visit Diagnoses Not on filedocumented in this encounter Care Teams Family Law Paralegal Relationship Specialty Start Date End Date Vianca Verma MD [address] [place] [address] PCP - General Internal Medicine 04/15/24 documented as of this encounter
--- OUTSIDE RECORDS SUMMARY | 2024-12-02 04:50 | XMS_ITS | Encounter Summary ---
Author Organization [facility] Address [address] [place] [address] Care Team Providers Care Bench Carpenter Name Role Phone Vianca Verma MD Primary Care Provider [phone] Reason for Visit * Reason Comments Medication Refill Encounter Details Date Type Department Care Team (Latest Contact Info) Description 07/10/2024 3:40 PM CDT Procedure visit [facility] [employer] [address] [place] [address] Encounter for issue of repeat prescription (Primary Dx) Social History Tobacco Use Types Packs/Day Years [...] PM CDT documented as of this encounter Progress Notes * Bhargavi Baez RN - 07/10/2024 3:41 PM CDT Metformin 500mg QD #100. No refills. documented in this encounter Plan of Treatment Upcoming Encounters Date Type Department Care Team (Late st Contact Info) Description 12/03/2024 10:30 AM MARKING ROOM SUPERVISOR Office Visit [facility] [address] [place] [address] [place] ANP [phone] [address] [address] 12/29/2024 7:30 AM MARKING ROOM SUPERVISOR Office Visit [facility] [address] [place] [address] Nellie Ellison, ANP [address] [facility] Josetteleena Saelh [address] [address] documented as of this encounter Visit Diagnoses Diagnosis Encounter for issue of repeat prescription- Primary Issue of repeat prescriptions documented in this encounter Care Teams Bench Carpenter Relationship Specialty Start Date End Date Vianca Verma MD [address] [place] [address] PCP - General Internal Medicine 04/15/24 documented as of this encounter
--- OUTSIDE RECORDS SUMMARY | 2024-12-02 04:50 | XMS_ITS | Encounter Summary ---
Author Organization [facility] Address [address] [place] [address] Care Team Providers Care Flatwork Presser Name Role Phone Vianca Verma MD Primary Care Provider [phone] Encounter Details Date Type Department Care Team (Late st Contact Info) Description 10/27/2024 External Device Data STL ABSTRACTION Provider, Abstract [...] st Contact Info) Description 12/03/2024 10:30 AM BALANCE BRIDGE INSPECTOR Office Visit [facility] at Work [employer]ippy [place] [address] [place] [address] Nellie Ellison, ANP [address] [facility] [address] [place] [address] 12/29/2024 7:30 AM BALANCE BRIDGE INSPECTOR Office Visit [facility] at Work [employer] [place] [address] [place] [place] [address] Nellie Ellison, ANP [address] [address] [place] [address] documented as of this encounter Visit Diagnoses Not on filedocumented in this encounter Care Teams Flatwork Presser Relationship Specialty Start Date End Date Vianca Verma MD [address] [place] [address] PCP - General Internal Medicine 04/15/24 documented as of this encounter
--- OUTSIDE RECORDS SUMMARY | 2024-12-02 04:50 | XMS_ITS | Encounter Summary ---
Author Organization [facility] Address [address] [place] [address] Care Team Providers Care Folded Towel Machine Operator Name Role Phone Vianca Verma MD Primary Care Provider [phone] Reason for Visit * Reason Onset Date Comments Medication Refill 10/09/2024 Encounter Details Date Type Department Care Team (Late st Contact Info) Description 10/09/2024 Refill [facility] [employer] [place] [address] [address] [facility] [place] [address] Vianca Verma MD [address] [place] [address] Social History Tobacco Use Types Packs/Day Years [...] PM CDT documented as of this encounter Miscellaneous Notes * Telephone Encounter - Denise Persaud RN - 10/09/2024 11:15 AM CST Notified patient that prescription has been sent into pharmacy. NT RELATIONS SPECIALIST documented in this encounter Plan of Treatment Upcoming Encounters Date Type Department Care Team (Late st Contact Info) Description 12/03/2024 10:30 AM CLIENT RELATIONS SPECIALIST Office Visit [email or web address] [facility] [address] [place] [address] Nellie Ellison, ANP [address] [facility] [address] [place] [address] 12/29/2024 7:30 AM CLIENT RELATIONS SPECIALIST Office Visit [email or web address] [facility] [address] [place] [address] Nellie Ellison, ANP [address] [facility] [address] [place] [address] documented as of this encounter Visit Diagnoses Not on filedocumented in this encounter Care Teams Folded Towel Machine Operator Relationship Specialty Start Date End Date Vianca Verma MD [address] [place] [address] PCP - General Internal Medicine 04/15/24 documented as of this encounter
--- OUTSIDE RECORDS SUMMARY | 2024-12-02 04:50 | XMS_ITS | Encounter Summary ---
Author Organization [facility] Address [address] [place] [address] Care Team Providers Care Distributed Energy Systems Consultant Name Role Phone Vianca Verma MD Primary Care Provider Reason for Referral * Physical Therapy (Routine) - Open Specialty Diagnoses / Procedures Referred By Liborio sagastume Referred To Contact Diagnoses Pelvic floor dysfunction in female Nellie [place] ANP [address] [address] [facility] [address] [place] [address] Referral ID Status Reason Start Date Expiration Date Visits Re quested Visits Authorized [id number] Open 07/07/2024 07/07/2025 6 6 Reason for Visit * Reason Comments Zepbound follow up Patient hasn't taken Zepbound since mid February, due to shortage and inability to get it. Encounter Details Date Type Department Care Team (Late st Contact Info) Description 07/07/2024 7:30 AM CDT Office Visit [facility] at [facility] [employer] [address] [place] [id number] Nellie Ellison ANP [address] [facility] [address] [place] [address] Prediabetes (Primary Dx); Elevated blood pressure reading without diagnosis of hypertension; Vitamin D deficiency, unspecified; BMI 50.0-59.9, adult; Mixed hyperlipidemia; Pelvic floor dysfunction in female Social History Tobacco Use Types Packs/Day Years Used Date Smoking Tobacco: Never Tobacco Cessation:Counseling Given: Not Answered Alcohol Use Standard Drinks/Week Comments Yes 1 (1 standard drink = 0.6 oz pur e alcohol) Not every week, occasionally Sex and Gender Information Value Date Recorded Sex Assigned at Female 07/22/2023 12:44 PM CDT Gender Identity Female 07/22/2023 12:44 PM CDT Sexual Orientation Straight 07/22/2023 12 :44 PM CDT documented as of this encounter Last Filed Vital Signs Vital Sign Reading Time Taken Comments Blood Pressure 138/88 07/07/2024 7:59 AM CDT Pulse 81 07/07/2024 7:15 AM CDT Temperature 36.7 ??C (98.1 ??F) 07/07/2024 7:15 AM CD T Respiratory Rate 18 07/07/2024 7:15 AM CDT Oxygen Saturation 97% 07/07/2024 7:15 AM CDT Inhaled Oxygen Concentration - - Weight 152 kg (335 lb) 07/07/2024 7:15 AM CDT Height 165.1 cm (5' 5 ) 07/07/2024 7:15 AM CDT Body Mass Index 55.75 07/07/2024 7:15 AM CDT documented in this encounter Progress Notes * Nellie Ellison, ANP - 07/07/2024 7:32 AM CDT HISTORY OF PRESENT ILLNESS Nuria Valdez, a 44 y.o. female presents with a Chief Complaint of Zepbound follow up (Patienthasn't taken Zepbound since mid February, due to shortage and inability to get it. ) Has cut out 90% of sugars in her diet when realized was causing her heartburn. Feels much better. Stopped zepbound in 4 months ago due to shortage and has not attempted restart. Never felt it gave her early satiety as expected. Prefers to continue working on better eating overall. Has equipment to add strength activity as well. Moods stable off zoloft. Had nausea so stopped after a few weeks. Feels moods overall are very goodand does not need medication. Labs reviewed from previous visits. Prediabetes noted. Mixed hyperlipidemia noted. She is fasting today requesting repeat labs. Taking vitamin D supplement. REVIEW OF SYSTEMS Review of Systems Constitutional: Negative. Respiratory: Negative. Cardiovascular: Negative. Gastrointestinal: Negative. Endocrine: Negative. Genitourinary: Stress incont. Attempted [facility] health Pt without success. Has not done in person PT. Musculoskeletal: Negative for back pain. Hematological: Negative. Psychiatric/Behavioral: Negative. Objective PHYSICAL EXAM BP 138/88 (BP Location: Left arm, BP Cuff Size: Adult Long) Pulse 81 Temp 98.1 ??F (36.7 ??C) (Tympanic) Resp 18 Ht 5' 5 (1.651 m) Wt (!) 152 kg (335 lb) LMP 05/26/2024 (Approximate) SpO2 97% BMI 55.75 kg/m?? Physical Exam Vitals reviewed. Constitutional: Appearance: She is well-developed. HENT: Head: Normocephalic. Right Ear: Hearing normal. Left Ear: Hearing normal. Mouth/Throat: Mouth: Mucous membranes are moist. Pharynx: Oropharynx is clear. Eyes: General: Lids are normal. No scleral icterus. Conjunctiva/sclera: Conjunctivae normal. Neck: Thyroid: No thyromegaly. Vascular: No carotid bruit. Cardiovascular: Rate and Rhythm: Normal rate and regular rhythm. Pulses: Normal pulses. Carotid pulses are 2+ on the right side and 2+ on the left side. Heart sounds: Normal heart sounds. No murmur heard. Pulmonary: Effort: Pulmonary effort is normal. Breath sounds: Normal breath sounds. Musculoskeletal: Cervical back: Neck supple. Right lower leg: No edema. Left lower leg: No edema. Lymphadenopathy: Cervical: No cervical adenopathy. Skin: General: Skin is warm. Neurological: General: No focal deficit present. Mental Status: She is alert. Psychiatric: Mood and Affect: Mood normal. Speech: Speech normal. Behavior: Behavior normal. Procedures Assessment ASSESSMENT and PLAN: 1. Prediabetes Continue efforts to lower processed food intake. Reassess labs today. She prefers to avoid meds forweight loss and continue dietary and exercise efforts. - HEMOGLOBIN A1C; Future - COMPREHENSIVE METABOLIC PANEL; Future - COMPREHENSIVE METABOLIC PANEL - HEMOGLOBIN A1C 2. Elevated blood pressure reading without diagnosis of hypertension Slight elevation compared to previous readings. Will monitor again in 4 months. Discussed need for medications if remains elevated. 3. Vitamin D deficiency, unspecified Continue OTC supplement. 4. BMI 50.0-59.9, adult As above. 5. Mixed hyperlipidemia Reassess today. - LIPID PANEL; Future - LIPID PANEL 6. Pelvic floor dysfunction in female [place] PT options and [facility] physical therapist Vianca Julio recommended.. - AMB REFERRAL TO PHYSICAL THERAPY FOLLOW UP Return in about 4 months (around 11/06/2024) for Blood pressure check with provider. . Appropriate medications prescribed and pt instructed in risks , benefits and side effects. Appropriate patient instructions provided . See details in AVS Medications and options explained to include common side effects. Understanding of medications, course, diagnosis, and expectations were expressed by patient/guardian. Pt advised to call my office in one week if not contacted with any ordered test results. DIANE Alston 07/07/2024 [facility] AT [address] [address] Some of this encounter may have been transcribed using [employer] Speaking computerized voicerecognition without a human superintendent plant protection. This report may or may not have been adjusted for typographical or medical and syntax errors. documented in this encounter Miscellaneous Notes * Result Encounter Note - Bhargavi Baez RN - 07/10/2024 2:45 PM CDT Spoke to pt giving this information. Pt verbalized understanding. Pt will pick remover the metformin from the health center. * Result Encounter Note - Nellie Ellison ANP - 07/09/2024 7:32 AM CDT Contact patient regarding result. Cholesterol looks much better. However blood sugar is higher. Worse in pre DM range and very near DM. Recommend she continue her healthier eating work. Also recommend start taking metformin medication, one tablet daily at supper or bedtime. This is toreduce the amount of sugar produced by the liver. She may experience loose bowels when taking this medication. Will need to repeat kidney blood test 4 weeks after starting medication, to monitor Ordered meds and lab. Move up FU appointment to 3 months rather than Dec, please * Patient Instructions - Nellie Ellison ANP - 07/07/2024 7:48 AM CDT Physical therapy for pelvic floor treatment-- Continue the lower sugar eating Try to add 10-15 in strength training daily for muscles and better sugar use by your muscle. Villela cals all day long. Labs today. FU 4 months. BP check , Nury Julio PT at [address] location that does pelvic floor therapy. Last appointment of day is 5:30 with her. documented in this encounter Plan of Treatment Upcoming Encounters Date Type Department Care Team (Late st Contact Info) Description 12/03/2024 10:30 AM OIL PIT ATTENDANT Office Visit [facility] at [facility] [address] [address] Nellie Ellison ANP [address] [address] 12/29/2024 7:30 AM OIL PIT ATTENDANT Office Visit [facility] at [facility] [address] [place] [address] Nellie Ellison ANP [address] [address] Scheduled Referrals Name Type Priority Associated Diagnoses Orde r Schedule AMB REFERRAL TO PHYSICAL THERAPY Outpatient Referral Routine Pelvic floor dysfunction in female Ordered: 07/07/2024 documented as of this encounter Procedures Procedure Name Priority Date/Time Associated Diagnosis Comments HEMOGLOBIN A1C Routine 07/07/2024 7:55 AM CDT Prediabetes LIPID PANEL Routine 07/07/2024 7:55 AM CDT Mixed hyperlipidemia COMPREHENSIVE METABOLIC PANEL Routine 07/07/2024 7:55 AM CDT Prediabetes documented in this encounter Results * (ABNORMAL) COMPREHENSIVE METABOLIC PANEL (07/07/2024 7:55 AM CDT) [facility] GLUCOSE 110(H) 65 - 99 mg/dL [employer] Manri[employer] Comment: ? Fasting reference interval For someone without known diabetes, a glucose value between 100 and 125 mg/dL is consistent with prediabetes and should be confirmed with a follow-up test. BUN 13 7 - 25 mg/dL [facility] mitesh Manriquez CREATININE 0.75 0.50 - 0.99 mg/dL [facility] mitesh Manriquez GFR 101 > OR = 60 mL/min/1. 73m2 [facility] mitesh Manriquez BUN/CREAT RATIO SEE NOTE: 6 - 22 (calc) [facility] Manri[facility] Comment: ?? Not Reported: BUN and Creatinine are within ?? reference range. ? SODIUM 138 135 - 146 mmol/L [facility] mitesh Manriquez POTASSIUM 4.3 3.5 - 5.3 mmol/L [facility] mitesh Manriquez CHLORIDE 105 98 - 110 mmol/L [facility] mitesh Manriquez CO2 23 20 - 32 mmol/L [facility] mitesh Manriquez CALCIUM 9.5 8.6 - 10.2 mg/dL [facility] mitesh Manriquez TOTAL PROTEIN 6.3 6.1 - 8.1 g/dL [facility] mitesh Manriquez ALBUMIN 4.0 3.6 - 5.1 g/dL [facility] mitesh Manriquez GLOBULIN 2.3 1.9 - 3.7 g/dL (calc) [facility] Man[facility] ALBUMIN/GLOBULIN RATIO 1.7 1.0 - 2.5 (calc) [facility] BILIRUBIN TOTAL 0.5 0.2 - 1.2 mg/dL [facility] mitesh Manriquez ALKALINE PHOSPHATASE 44 31 - 125 U/L [facility] mitesh Manriquez AST 16 10 - 30 U/L [employer]rek Manriquez ALT 22 6 - 29 U/L [employer] NetworksDerek sagastume Declan Comment: Test Performed at: [facility] [place] [address] [address] [place] ??[phone] [facility] Stone Blood 07/07/2024 7:55 AM CDT 07/07/2024 11:44 PM CDT Nellie Mariela Scot [facility] CHEMISTRY ORDERABLES [facility] [phone] [place] [address] [address] [place] [phone] * (ABNORMAL) HEMOGLOBIN A1C (07/07/2024 7:55 AM CDT) HEMOGLOBIN A1C 6.3(H) <5.7 % of total Hgb [employer] NetworksDerek Manriquez Comment: For someone without known diabetes, a hemoglobin A1c value between 5.7% and 6.4% is consistent with prediabetes and should be confirmed with a follow-up test. For someone with known diabetes, a value <7% indicates that their diabetes is well controlled. A1c targets should be individualized based on duration of diabetes, age, comorbid conditions, and other considerations. This assay result is consistent with an increased risk of diabetes. Currently, no consensus exists regarding use of hemoglobin A1c for diagnosis of diabetes for children. ESTIMATED AVERAGE GLUCOSE (MG/DL) 134 mg/dL [employer] NetworksDerek Manriquez ESTIMATED AVERAGE GLUCOSE (MMOL/L) 7.4 mmol/L [email or web address] Manriquez Comment: ? This test was performed on the Cordell sheree c503 platform. Effective 02/10/24, a change in test platforms from the Dickey Per Diem Interpreter to the Cordell sheree c503 may have shifted HbA1c results compared to historical results. Based on laboratory validation testing conducted at [facility], the Cordell platform relative to the Dickey platform had an average increase in HbA1c value of < or = 0.3%. This difference is within accepted variability established by the National Glycohemoglobin Standardization Program. Note that not all individuals will have had a shift in their results and direct comparisons between historical and current results for testing conducted on different platforms is not recommended. Test Performed at: [facility] [place] [address] [place] ??[phone] [facility] Vo Blood 07/07/2024 7:55 AM CDT 07/07/2024 11:44 PM CDT Nellie Ellison ANP CHEMISTRY ORDERABLES [facility] [phone] [place] [address] [place] [phone] * (ABNORMAL) LIPID PANEL (07/07/2024 7:55 AM CDT) CHOLESTEROL 205(H) <200 mg/dL [facility] [email or web address] Manriquez HDL 56 > OR = 50 mg/dL [facility] [email or web address] Manriquez TRIGLYCERIDE 131 <150 mg/dL [facility] mitesh Manriquez LDL CALCULATED 124(H) mg/dL (calc) [facility] Comment: Reference range: <100 Desirable range <100 mg/dL for primary prevention; ?? <70 mg/dL for patients with CHD or diabetic patients with > or = 2 CHD risk factors. LDL-C is now calculated using the Penny calculation, which is a validated novel method providing better accuracy than the Friedewald equation in the estimation of LDL-C. Ronaldo SS et al. SHIRA. 2013;310(19): 1306-0634 (http://education.DotSpots/faq/ESN139) CHOL/HDL RATIO 3.7 <5.0 (calc) [facility] NON-HDL CHOLESTEROL 149(H) <130 mg/dL (calc) [facility] [email or web address] Manriquez Comment: For patients with diabetes plus 1 major ASCVD risk factor, treating to a non-HDL-C goal of <100 mg/dL (LDL-C of <70 mg/dL) is considered a therapeutic option. Test Performed at: [email or web address] [address] [place] ??[phone] [facility] Blood 07/07/2024 7:55 AM CDT 07/07/2024 11:44 PM CDT Nellie Ellison ANP CHEMISTRY ORDERABLES [facility] [phone] [facility] [place] [address] [place] [address] documented in this encounter Visit Diagnoses Diagnosis Prediabetes- Primary Other abnormal glucose Elevated blood pressure reading without diagnosis of hypertension Vitamin D deficiency, unspecified BMI 50.0-59.9, adult Body Mass Index 50.0-59.9, adult Mixed hyperlipidemia Pelvic floor dysfunction in female documented in this encounter Care Teams Distributed Energy Systems Consultant Relationship Specialty Start Date End Date Vianca Verma MD [address] [place] [address] PCP - General Internal Medicine 04/15/24 documented as of this encounter
--- OUTSIDE RECORDS SUMMARY | 2024-12-02 04:50 | XMS_ITS | Encounter Summary ---
Author Organization [facility] Address [address] [place] [address] Care Team Providers Care Modeling Agent Name Role Phone Vianca Verma MD Primary Care Provider [phone] Encounter Details Date Type Department Care Team (Late st Contact Info) Description 07/09/2024 Orders Only [facility] at Work [employer] [place] [address] [place] [address] Nellie Ellison, ANP [address] [address] [place] [address] Prediabetes (Primary Dx); BMI 50.0-59.9, adult Social History Tobacco Use Types Packs/Day Years [...] st Contact Info) Description 12/03/2024 10:30 AM INDIVIDUAL PENSION CONSULTANT Office Visit [facility] at Work [facility] [employer] [facility] [address] [place] [address] Nellie Ellison, ANP [address] [address] Jiangy [facility] [address] [place] [address] 12/29/2024 7:30 AM INDIVIDUAL PENSION CONSULTANT Office Visit [facility] at Work [facility] [employer] [place] [address] [place] [address] Nellie Ellison, ANP [address] [address] Delfino [facility] [address] [place] [address] Scheduled Orders Name Type Priority Associated Diagnoses Orde r Schedule BASIC METABOLIC PANEL Lab Routine Prediabetes BMI 50.0-59.9, adult Expected: 08/09/2024, Expires: 07/09/2025 documented as of this encounter Visit Diagnoses Diagnosis Prediabetes- Primary Other abnormal glucose BMI 50.0-59.9, adult Body Mass Index 50.0-59.9, adult documented in this encounter Care Teams Modeling Agent Relationship Specialty Start Date End Date Vianca Verma MD [address] [place] [address] PCP - General Internal Medicine 04/15/24 documented as of this encounter
--- OUTSIDE RECORDS SUMMARY | 2024-12-02 04:50 | XMS_ITS | Encounter Summary ---
Author Organization [facility] Address [address] [place] [address] Care Team Providers Care Gynaecological Oncologist Name Role Phone Vianca Verma MD Primary Care Provider [phone] Encounter Details Date Type Department Care Team [...] st Contact Info) Description 12/03/2024 10:30 AM FLOOR COVERINGS INSTALLER Office Visit [facility] at Work [employer] [place] [address] [place] [address] Nellie Ellison, ANP [address] [facility] [address] [place] [address] 12/29/2024 7:30 AM FLOOR COVERINGS INSTALLER Office Visit [facility] at Work [employer] [place] [address] [place] [address] Nellie Ellison, ANP [address] [address] [place] [address] documented as of this encounter Visit Diagnoses Not on filedocumented in this encounter Care Teams Gynaecological Oncologist Relationship Specialty Start Date End Date Vianca Verma MD [address] [place] [address] PCP - General Internal Medicine 04/15/24 documented as of this encounter
--- OUTSIDE RECORDS SUMMARY | 2024-12-02 04:50 | XMS_ITS | Encounter Summary ---
Author Organization [facility] Address [address] [place] [address] Care Team Providers Care Chief Operating Engineer Name Role Phone Vianca Verma MD Primary Care Provider [phone] Encounter Details Date Type Department Care Team [...] st Contact Info) Description 12/03/2024 10:30 AM FINAL ASSEMBLY AND PACKING SUPERVISOR Office Visit [facility] at Work [employer] [place] [address] [place] [address] Nellie Ellison, ANP [address] [facility] [address] [place] [address] 12/29/2024 7:30 AM FINAL ASSEMBLY AND PACKING SUPERVISOR Office Visit [facility] at Work [employer] [place] [address] [place] [address] Nellie Ellison, ANP [address] [address] [place] [address] documented as of this encounter Visit Diagnoses Not on filedocumented in this encounter Care Teams Chief Operating Engineer Relationship Specialty Start Date End Date Vianca Verma MD [address] [place] [address] PCP - General Internal Medicine 04/15/24 documented as of this encounter
--- OUTSIDE RECORDS SUMMARY | 2024-12-02 04:50 | XMS_ITS | Encounter Summary ---
Author Organization [facility] Address [address] [place] [address] Care Team Providers Care Customer Expert Name Role Phone Vianca Verma MD Primary Care Provider [phone] Encounter Details Date Type Department Care Team (Late st Contact Info) Description 09/29/2024 External Device Data STL ABSTRACTION Provider, Abstract [...] st Contact Info) Description 12/03/2024 10:30 AM FURNITURE LUMBER PRODUCTION WORKER Office Visit [facility] at Work [facility] [employer] [place] [address] [place] [place] [address] Nellie Ellison, ANP [address] [facility] [address] [place] [address] 12/29/2024 7:30 AM FURNITURE LUMBER PRODUCTION WORKER Office Visit [facility] at Work [facility] [place] [address] [place] [address] Nellie Ellison, ANP [address] [address] [place] [address] documented as of this encounter Visit Diagnoses Not on filedocumented in this encounter Care Teams Customer Expert Relationship Specialty Start Date End Date Vianca Verma MD [address] [place] [address] PCP - General Internal Medicine 04/15/24 documented as of this encounter
--- OUTSIDE RECORDS SUMMARY | 2024-12-02 04:50 | XMS_ITS | Encounter Summary ---
Author Organization [facility] Address [address] [place] [address] Care Team Providers Care Ict Managers Name Role Phone Vianca Verma MD Primary Care Provider [phone] Encounter Details Date Type Department Care Team [...] st Contact Info) Description 12/03/2024 10:30 AM INTERNET CONSULTANT Office Visit [facility] at Work [facility] [place] [address] [place] [address] Nellie Ellison, ANP [address] [facility] [address] [place] [address] 12/29/2024 7:30 AM INTERNET CONSULTANT Office Visit [facility] at Work [facility] [place] [address] [place] [address] Nellie Ellison, ANP [address] [address] [place] [address] documented as of this encounter Visit Diagnoses Not on filedocumented in this encounter Care Teams Ict Managers Relationship Specialty Start Date End Date Vianca Verma MD [address] [place] [address] PCP - General Internal Medicine 04/15/24 documented as of this encounter
--- OUTSIDE RECORDS SUMMARY | 2024-12-02 04:50 | XMS_ITS | Encounter Summary ---
Author Organization [facility] Address [address] [place] [address] Care Team Providers Care Gravel Wheeler Name Role Phone Vianca Verma MD Primary Care Provider [phone] Encounter Details Date Type Department Care Team [...] st Contact Info) Description 12/03/2024 10:30 AM LEAD SOFTWARE QA ENGINEER Office Visit [facility] at Work [employer] [place] [address] [place] [address] Nellie Ellison, ANP [address] [facility] [address] [place] [address] 12/29/2024 7:30 AM LEAD SOFTWARE QA ENGINEER Office Visit [facility] at Work [employer] [place] [address] [place] [address] Nellie Ellison, ANP [address] [address] [place] [address] documented as of this encounter Visit Diagnoses Not on filedocumented in this encounter Care Teams Gravel Wheeler Relationship Specialty Start Date End Date Vianca Verma MD [address] [place] [address] PCP - General Internal Medicine 04/15/24 documented as of this encounter
--- OUTSIDE RECORDS SUMMARY | 2024-12-02 04:50 | XMS_ITS | Clinical Summary ---
Author Organization [facility] [employer] Address [address] [address] Care Team Providers Care Firearms Expert Name Role Phone Vianca Verma MD Primary Care Provider [phone] Allergies No known active allergies Medications Medication Sig Dispensed Refills Start Date End Date Status calcium as carbonate (TUMS) 500 mg (200 mg elemental) Tablet, Chewable Take by mouth. Active metFORMIN (GLUCOPHAGE) 500 mg tabletIndications:Pre diabetes,BMI 50.0-59.9, adult Take 1 Tablet (500 mg) by mouth daily with supper. 90 Tablet 07/09/2024 Active valACYclovir (Valtrex) 1 gram tablet Take 2 tablets (2,000mg) by mouth 2 times daily for 1 day 4 Tablet 1 10/09/2024 Active Active Problems Problem Noted Date Diagnosed Date Elevated blood pressure read ing without diagnosis of hypertension 07/07/2024 Pelvic floor dysfunction in female 07/07/2024 Mixed hyperlipidemia 07/07/2024 Prediabetes 07/07/2024 BMI 50.0-59.9, adult 01/13/2024 Recurrent cold sores 07/10/2023 Attention deficit disorder without hyperactivity 06/17/2020 Depression with anxiety 06/17/2020 Obstructive sleep apnea syndrome - on CPAP 06/17 Vitamin D deficiency, unspecified 02/09/2019 Resolved Problems Problem Noted Date Diagnosed Date Resolved Date Allergic rhinitis 06/17/2020 07/10/2023 Morbid obesity 06/17/2020 07/24/2021 Overview (06/17/2020): written rx for xenical 20 mg 1 tab po tid #90 RF#. Discussed side effects greasy smell foul stools. Dr. Mason discussed and wanted her to be on xenical instead of phertermine due to increased lipids. She agreed and will go to the [facility] to be evaluated for nutrition and exercise. Will continue exercise and dieting as well as phentermine for one more 4 week course. Neoplasm of uncertain behavior of skin 06/17/2020 07/10/2023 Plantar fascial fibromatosis 06/17/2020 07/10/2023 Encounters Date Type Department Care Team Description 10/27/2024 External Device Data STL ABSTRACTION Provider, Abstract 10/09/2024 [facility] at Work [employer] [place] [address] [place] [address] Vianca Verma MD 09/29/2024 External Device Data STL ABSTRACTION Provider, Abstract from Last 3 Months Immunizations Name Administration Dates Next Due (ADACEL/BOOSTRIX)(10 YR UP) TDAP VACCINE, 0.5ML, IM 06/17/2020,07/29/2012 (IPOL)(6 WKS AND UP) POLIOVI PENELOPE VACCINE, INACTIVATED (IPV), 3 DOSE, SUBCUT OR IM 05/02/2001 (TDVAX)(7 YRS UP) TETANUS AN D DIPHTHERIA TOXOIDS, ADSORBED (2 LF OF TETANUS TOXOID AND 2 LF OF DIPHTHERIA TOXOID), 0.5ML (PF), IM 04/08/2002 (YF-VAX)(9 MOS UP) YELLOW FE MELANIE VACCINE, 0.5 ML, SUBCUT 04/08/2002 Hepatitis A Vaccine 04/08/2002,03/09/2002,2000 Influenza Seasonal Unspecifi ed Formulation IM 10/11/2010,10/04/2008,01/25/2003,10/10,05/02/2001 Influenza Vaccine Nasal 09/21/2009 Influenza Virus Vaccine, Spl it Virus (Incl. Purified Surface antigen)-retired CODE 10/11/2010,10/04/2008 Meningococcal ACWY Vaccine, Unspecified Formulation 05/02/2001 Meningococcal Polysaccharide Vaccine, Serogroups A, C, Y, W-135, quadrivalent (Mpsv4) SQ 05/02/2001 Skin Test TB 05/02/2001 Typhoid Vaccine IM 04/08/2002 Typhoid Vaccine, Parenteral, Other Than Acetone-killed, Drid 04/08/2002 Family History Medical History Relation Name Comments COPD Father Breast Cancer Maternal Grandfather Nikki kerr Diabetes Mother Urmila Moreno High Cholesterol Sister Relation Name Status Comments Brother Alive Father Alive Maternal Grandfather Nikki kerr Mother Urmila Moreno Alive Sister Alive Social History Tobacco Use Types Packs/Day Years [...] Orientation Straight 07/22/2023 12 :44 PM CDT Last Filed Vital Signs Vital Sign Reading [...] Mass Index 55.75 07/07/2024 7:15 AM CDT Plan of Treatment Upcoming Encounters Date Type Department Care Team (Late st Contact Info) Description 12/03/2024 10:30 AM PODIATRIST ASSISTANT Office Visit [facility] at Work [employer] [address] [place] [address] Nellie Ellison, ANP [address] [place] [address] 12/29/2024 7:30 AM PODIATRIST ASSISTANT Office Visit [facility] at Work [employer] [address] [place] [address] Scot Nellie Juareze, ANP [address] [facility] [address] [place] [address] Health Maintenance Due Date Last Done Comments HEPATITIS B VACCINES (1 of 3 - 19+ 3-dose series) 02/26/2000 CERVICAL CANCER SCREENING 2011 INFLUENZA VACCINE (#1) 2024 0, 09/21/2009, 10/04/2008, Additional history exists Preventative Visit- Commercial 11/25/2024 09/17/2022, 09/15/2021 BREAST CANCER SCREENING 01/04/2025 01/04/2024, 09/02 Pre-Diabetes and Diabetes Screening 07/07/2027 07/07/2024, 04/06/2024, 01/28/2024, Additional history exists DTAP/TDAP/TD VACCINES (3 - Td or Tdap) 06/17/2030 06/17/2020, 07/29/2012, 04/08/2002 HPV VACCINES Aged Out No longer eligi ble based on patient's age to complete this topic PNEUMOCOCCAL VACCINE 0-64 YEARS Aged Out No longer eligible based on patient's age to complete this topic Procedures Procedure Name Priority Date/Time Associated Diagnosis Comments HEMOGLOBIN A1C Routine 07/07/2024 7:55 AM CDT Prediabetes from Last 3 Months or Most Recently Relevant to Health Maintenance Results * (ABNORMAL) HEMOGLOBIN A1C (07/07/2024 7:55 AM CDT) HEMOGLOBIN A1C 6.3(H) <5.7 % of total Hgb [employer] Comment: For someone without known diabetes, [...] children. ESTIMATED AVERAGE GLUCOSE (MG/DL) 134 mg/dL 12 Star Survival[employer]rek mitesh Manriquez ESTIMATED AVERAGE GLUCOSE (MMOL/L) 7.4 mmol/L 12 Star Survival[employer]rek mitesh Manriquez Comment: ? This test was performed on the Cordell sheree c503 platform. Effective 02/10/24, a change in test platforms from the [employer] Supervisor to the [employer]ell sheree c503 may have shifted HbA1c results compared to historical results. Based on laboratory validation testing conducted at [facility], the Cordell platform relative to the Dickey [...] platforms is not recommended. Test Performed at: [facility] [address] [place] ??[phone] LouannHira Stone Blood 07/07/2024 7:55 AM CDT 07/07/2024 11:44 PM CDT Nellie Ellison [facility] CHEMISTRY ORDERABLES [facility] [phone] [facility] [place] [address] [place] [phone] from Last 3 Months or Most Recently Relevant to Health Maintenance Care Teams Firearms Expert Relationship Specialty Start Date End Date Vianca Verma MD [address] [place] [address] [place] [address] PCP - General Internal Medicine 04/15/24
--- OUTSIDE RECORDS SUMMARY | 2024-12-02 04:50 | XMS_ITS | Encounter Summary ---
Author Organization [employer] [facility] Address [address] [place] [address] Care Team Providers Care Anatomic Pathologist Name Role Phone Vianca Verma MD Primary Care Provider [phone] Reason for Visit * Reason Onset Date Comments Medication Refill 08/04/2024 Encounter Details Date Type Department Care Team (Late st Contact Info) Description 08/04/2024 Refill [facility] [employer] [place] [address] [employer] [facility] [place] [address] Vianca Verma MD [facility] [place] [place] [address] Social History Tobacco Use Types [...] encounter Miscellaneous Notes * Telephone Encounter - Deann Rios - 08/04/2024 10:36 AM CDT Last refilled: 07/02/23 Quantity given: 4 Number of refills: 1 Last appointment: 07/07/24 Next appointment: 11/09/24 Last Labs: 07/07/24 documented in this encounter Plan of Treatment Upcoming Encounters Date Type Department Care Team (Late st Contact Info) Description 12/03/2024 10:30 AM IN HOUSE CRA Office Visit [facility] Interview [facility] [address] [place] [address] Nellie Ellison, ANP [address] [facility] Josetteleena Saleh [address] [address] 12/29/2024 7:30 AM IN HOUSE CRA Office Visit [facility] at [facility] [address] [place] [phone] Nellie Ellison, ANP [address] [facility] Josetteleena Saleh [facility] [address] [place] [address] documented as of this encounter Visit Diagnoses Not on filedocumented in this encounter Care Teams Anatomic Pathologist Relationship Specialty Start Date End Date Vianca Verma MD [address] [place] [phone] PCP - General Internal Medicine 04/15/24 documented as of this encounter
--- OUTSIDE RECORDS SUMMARY | 2024-12-02 04:50 | XMS_ITS | Encounter Summary ---
Author Organization [facility] Address [address] [place] [address] Care Team Providers Care Distillery Worker Name Role Phone Vianca Verma MD Primary Care Provider [phone] Encounter Details Date Type Department Care Team (Late st Contact Info) Description 07/14/2024 External Device Data STL ABSTRACTION Provider, Abstract [...] st Contact Info) Description 12/03/2024 10:30 AM CLINICAL ORTHOPTIST Office Visit [facility] at Work [employer] [place] [address] [place] [address] Nellie Ellison, ANP [address] [facility] [address] [place] [address] 12/29/2024 7:30 AM CLINICAL ORTHOPTIST Office Visit [facility] at Work [employer] [place] [address] [facility] [address] Nellie Ellison, ANP [address] [place] [address] documented as of this encounter Visit Diagnoses Not on filedocumented in this encounter Care Teams Distillery Worker Relationship Specialty Start Date End Date Vianca Verma MD [address] [employer] [place] [address] PCP - General Internal Medicine 04/15/24 documented as of this encounter
--- OUTSIDE RECORDS SUMMARY | 2024-12-02 04:51 | XMS_ITS | Encounter Summary ---
Author Organization [facility] Address [address] [place] [address] Care Team Providers Care Technical Support Intern Name Role Phone Dean Hernandez MD Primary Care Provider Unava ilable Reason for Visit * Reason Comments Labs Only Encounter Details Date Type Department Care Team (Latest Contact Info) Description 03/29/2022 7:15 AM CDT Clinical Support [facility] [employer] [address] [place] [address] Screening for condition Social History Tobacco Use Types Packs/Day Years Used Date Smoking Tobacco: Never Alcohol Use Standard Drinks/Week Comments Yes 3 (1 standard drink = 0.6 oz pur e alcohol) Not every week, occasionally Sex and Gender Information Value Date Recorded Sex Assigned at Female 07/22/2023 12:44 PM CDT Gender Identity Female 07/22/2023 12:44 PM CDT Sexual Orientation Straight 07/22/2023 12 :44 PM CDT documented as of this encounter Progress Notes * Bhargavi Baez RN - 03/29/2022 7:27 AM CDT Pt presents for fasting labs. Left AC unsuccessful, Right hand successful 2 sticks. Pt tolerated well. documented in this encounter Miscellaneous Notes * Result Encounter Note - Iav Abdi FNP - 04/03/2022 2:02 PM CDT Nuria- Your labs have been reviewed. > Your vitamin d is low. I recommend you take over the counter vitamin d at 2000 units daily. Wecan then recheck the level in 3 months. > Your lipid panel is elevated. This is best controlled with diet and exercise. Diet and exercise help to reduce lipids and prevent heart disease. Reduce intake of red meat, dairy, and fried foods. Increase intake of fruits, vegetables, and fish. If you have a family history, you are more prone to having high cholesterol. Get at least 150 minutes per week of moderate-intensity aerobic activity. I would suggest diet modifications and increase in exercise at this time to manage your cholesterol. I would recommend repeat labs in 6 months to see how things are going. If your numbers are maintained with diet and exercise we will not have a need to start medication. If the numbers continue to i ncrease, we will discuss medication treatment options. Iva Helton NP documented in this encounter Plan of Treatment Upcoming Encounters Date Type Department Care Team (Late st Contact Info) Description 12/03/2024 10:30 AM NET C DEVELOPER Office Visit [facility] at [facility] [employer] [place] [address] [place] [address] [place] ANP [address] [address] [facility] [address] [place] [address] 12/29/2024 7:30 AM NET C DEVELOPER Office Visit [facility] at [facility] [employer] [place] [address] [place] [address] Nell[place] ANP [address] [address] [facility] [address] [place] [address] documented as of this encounter Procedures Procedure Name Priority Date/Time Associated Diagnosis Comments CBC WITH DIFFERENTIAL Routine 03/29/2022 7:09 AM CDT Screening for condition VITAMIN D 25 HYDROXY Routine 03/29/2022 7:09 AM CDT Screening for condition TSH Routine 03/29/2022 7:09 AM CDT Screening for condition HEMOGLOBIN A1C Routine 03/29/2022 7:09 AM CDT Screening for condition LIPID PANEL Routine 03/29/2022 7:09 AM CDT Screening for condition COMPREHENSIVE METABOLIC PANEL Routine 03/29/2022 7:09 AM CDT Screening for condition documented in this encounter Results * CBC WITH DIFFERENTIAL (03/29/2022 7:09 AM CDT) WBC 8.1 3.8 - 10.8 Thousand/u L [facility] RBC 4.63 3.80 - 5.10 Million/uL [facility] HEMOGLOBIN 13.7 11.7 - 15.5 g/dL [facility] HEMATOCRIT 41.3 35.0 - 45.0 % [facility] MCV 89.2 80.0 - 100.0 fL [facility] MCH 29.6 27.0 - 33.0 pg [facility] MCHC 33.2 32.0 - 36.0 g/dL [facility] RDW 13.0 11.0 - 15.0 % [facility] PLATELETS 370 140 - 400 Thousand/u L [facility] MPV 10.4 7.5 - 12.5 fL [facility] NEUTROPHIL ABSOLUTE 5,127 1,500 - 7,800 cells/uL [facility] LYMPHOCYTE ABSOLUTE 2,211 850 - 3,900 cells/uL [facility] MONOCYTE ABSOLUTE 462 200 - 950 cells/uL [facility] EOSINOPHIL ABSOLUTE 186 15 - 500 cells/uL [facility] BASOPHILS ABSOLUTE 113 0 - 200 cells/uL [facility] NEUTROPHIL 63.3 % [facility] LYMPHOCYTES 27.3 % [facility] MONOCYTE 5.7 % [facility] EOSINOPHILS 2.3 % [facility] BASOPHILS 1.4 % [facility] Comment: Test Performed at: [facility] [id number] [place] [address] ??[phone] Isaac Britton D.O., MPH Blood 03/29/2022 7:09 AM CDT 03/30/2022 6:45 AM CDT Iva Abdi [facility] HEMATOLOGY ORD ERABLES [facility] [phone] * (ABNORMAL) COMPREHENSIVE METABOLIC PANEL (03/29/2022 7:09 AM CDT) GLUCOSE 99 65 - 99 mg/dL [facility] Comment: ? Fasting reference interval BUN 10 7 - 25 mg/dL [facility] CREATININE 0.80 0.50 - 1.10 mg/dL [facility] GFR 92 > OR = 60 mL/min/1. 73m2 [facility] GFR, 106 > OR = 60 mL/min/1. [address] [facility] BUN/CREAT RATIO NOT APPLICABLE 6 - 22 (calc) [facility] SODIUM 140 135 - 146 mmol/L [facility] POTASSIUM 4.3 3.5 - 5.3 mmol/L [facility] CHLORIDE 104 98 - 110 mmol/L [facility] CO2 18(L) 20 - 32 mmol/L [facility] CALCIUM 9.7 8.6 - 10.2 mg/dL [facility] TOTAL PROTEIN 7.2 6.1 - 8.1 g/dL [facility] ALBUMIN 4.5 3.6 - 5.1 g/dL [facility] GLOBULIN 2.7 1.9 - 3.7 g/dL (calc) [facility] ALBUMIN/GLOBULI N RATIO 1.7 1.0 - 2.5 (calc) [facility] BILIRUBIN TOTAL 0.4 0.2 - 1.2 mg/dL [facility] ALKALINE PHOSPHATASE 55 31 - 125 U/L [facility] AST 14 10 - 30 U/L [facility] ALT 15 6 - 29 U/L [facility] Comment: Test Performed at: [facility] [place] [address] [place] ??[phone] Isaac Britton D.O., MPH Blood 03/29/2022 7:09 AM CDT 03/30/2022 6:45 AM CDT Iva Abdi [facility] CHEMISTRY ORDMatthew BROOKS Performing Organization Address [facility] Co de Phone Number [facility] [phone] * HEMOGLOBIN A1C (03/29/2022 7:09 AM CDT) HEMOGLOBIN A1C 5.5 <5.7 % of total Hgb [facility] Comment: For the purpose of screening for the presence of diabetes: <5.7% ? Consistent with the absence of diabetes 5.7-6.4% ?Consistent with increased risk for diabetes ?(prediabetes) > or =6.5% ??Consistent with diabetes This assay result is consistent with a decreased risk of diabetes. Currently, no consensus exists regarding use of hemoglobin A1c for diagnosis of diabetes in children. According to [place] Diabetes Association (ADA) guidelines, hemoglobin A1c <7.0% represents optimal control in non- diabetic patients. Different metrics may apply to specific patient populations. Standards of Medical Care in Diabetes(ADA). ?? ESTIMATED AVERAGE GLUCOSE (MG/DL) 111 mg/dL [facility] ESTIMATED AVERAGE GLUCOSE (MMOL/L) 6.2 mmol/L [facility] Comment: Test Performed at: [employer] ??[phone] Isaac Britton D.O., MPH Blood 03/29/2022 7:0 9 AM CDT 03/30/2022 6:45 AM CDT Iva Abdi [facility] CHEMISTRY ORDMatthew ZAYNABLACHO Performing Organization Address [facility] Co de Phone Number [facility] [phone] * (ABNORMAL) LIPID PANEL (03/29/2022 7:09 AM CDT) CHOLESTEROL 238(H) <200 mg/dL [facility] HDL 62 > OR = 50 mg/dL [facility] TRIGLYCERIDE 101 <150 mg/dL [facility] LDL CALCULATED 155(H) mg/dL (calc) [facility] Comment: Reference range: <100 Desirable range <100 mg/dL for primary prevention; ?? <70 mg/dL for patients with CHD or diabetic patients with > or = 2 CHD risk factors. LDL-C is now calculated using the Penny calculation, which is a validated novel method providing better accuracy than the Friedewald equation in the estimation of LDL-C. Ronaldo WHITAKER et al. SHIRA. 2013;310(19): 1457-0818 (http://education.[employer]/faq/OLA628) CHOL/HDL RATIO 3.8 <5.0 (calc) [facility] TOTAL NON-HDL CHOL(LDL+VLDL) 176(H) <130 mg/dL (calc) [facility] Comment: For patients with diabetes plus 1 major ASCVD risk factor, treating to a non-HDL-C goal of <100 mg/dL (LDL-C of <70 mg/dL) is considered a therapeutic option. Test Performed at: [facility] [address] [place] [address] ??[phone] Isaac Britton D.O., MPH Blood 03/29/2022 7:09 AM CDT 03/30/2022 6:45 AM CDT Iva Abdi PHOTOCOPYING EQUIPMENT MECHANIC CHEMISTRY SILVER BROOKS [facility] [phone] * TSH (03/29/2022 7:09 AM CDT) TSH 1.30 mIU/L [facility] Comment: ?Reference Range ?> or = 20 Years ??0.40-4.50 ? Ranges ?First trimester ?0.26-2.66 ?Second trimester ?? 0.55-2.73 ?Third trimester ?0.43-2.91 Test Performed at: [facility] [address] [place] [address] ??[phone] Isaac Britton D.O., MPH Blood 03/29/2022 7:09 AM CDT 03/30/2022 6:45 AM CDT Iva Abdi [facility] CHEMISTRY SILVER BROOKS [facility] [phone] * (ABNORMAL) VITAMIN D 25 HYDROXY (03/29/2022 7:09 AM CDT) VITAMIN D, 25 OH, TOTAL 21(L) 30 - 100 ng/mL [facility] Comment: Vitamin D Status ? 25-OH Vitamin D: Deficiency: ?<20 ng/mL Insufficiency: ? 20 - 29 ng/mL Optimal: ? > or = 30 ng/mL For 25-OH Vitamin D testing on patients on D2-supplementation and patients for whom quantitation of D2 and D3 fractions is required, the QuestAssureD(TM) 25-OH VIT D, (D2,D3), LC/MS/MS is recommended: order code 79025 (patients >2yrs). See Note 1 Note 1 For additional information, please refer to http://education.[employer].[facility]/faq/ZWH898 (This link is being provided for informational/ educational purposes only.) Test Performed at: [facility] [id number] [place] [address] ??[phone] Isaac Britton D.O., MPH Blood 03/29/2022 7:09 AM CDT 03/30/2022 6:45 AM CDT Iva WHITNEY CHEMISTRY SILVER BROOKS [facility] [phone] documented in this encounter Visit Diagnoses Diagnosis Screening for condition Screening for unspecified condition documented in this encounter Care Teams Technical Support Intern Relationship Specialty Start Date End Date Dean Hernandez MD PCP - General Family Practice 03/27/22 10/24/22 documented as of this encounter
--- OUTSIDE RECORDS SUMMARY | 2024-12-02 04:51 | XMS_ITS | Encounter Summary ---
Author Organization [facility] Address [address] [place] [address] Care Team Providers Care Forest Fire Prevention Manager Name Role Phone Dean Hernandez MD Primary Care Provider Unava ilable Reason for Visit * Reason Onset Date Comments Medication Refill 04/20/2022 Encounter Details Date Type Department Care Team (Late st Contact Info) Description 04/20/2022 Refill [facility] at [facility] [employer] [address] [place] [address] Iva Abdi FNP NO ADDRESS ON FILE Social History Tobacco [...] encounter Miscellaneous Notes * Telephone Encounter - Bhargavi Baez RN - 04/20/2022 7:33 AM CDT Pt called requesting a refill of valtrex for a cold sore. Pt states she got a refill on 03/26/22 and used those but would like another dose to have on hand if possible. ROBERTO 03/16/22 documented in this encounter Plan of Treatment Upcoming Encounters Date Type Department Care Team (Late st Contact Info) Description 12/03/2024 10:30 AM HVAC DESIGN MECHANICAL ENGINEER Office Visit [facility] at [facility] [address] [place] [address] Nellie Ellison, ANP [address] [address] [address] 12/29/2024 7:30 AM HVAC DESIGN MECHANICAL ENGINEER Office Visit [facility] at [facility] [place] [address] [place] [address] Nellie Ellison, DIANE [address] [facility] Leonor Saleh [address] [address] documented as of this encounter Visit Diagnoses Not on filedocumented in this encounter Care Teams Forest Fire Prevention Manager Relationship Specialty Start Date End Date Dean Hernandez MD PCP - General Family Practice 03/27/22 10/24/22 documented as of this encounter
--- OUTSIDE RECORDS SUMMARY | 2024-12-02 04:51 | XMS_ITS | Encounter Summary ---
Author Organization [facility] Address [address] Rojasn: Epic Prelude ADT [place] [address] Care Team Providers Care Jumbo Operator Name Role Phone Unavailable Primary Care Provider Unavailabl e Encounter Details Date Type Department Care Team (Latest Contact Info) Description 07/24/2021 Travel Social History Tobacco Use Types Packs/Day Years Used Date Smoking Tobacco: Never Alcohol Use Standard Drinks/Week Comments Yes 3 (1 standard drink = 0.6 oz pur e alcohol) Not every week, occasionally Sex and Gender Information Value Date Recorded Sex Assigned at Female 07/22/2023 12:44 PM CDT Gender Identity Female 07/22/2023 12:44 PM CDT Sexual Orientation Straight 07/22/2023 12 :44 PM CDT COVID-19 Exposure Response Date Recorded In the last month, have you been in contact with someone who was confirmed or suspected to have Coronavirus / COVID-19? No / Unsure 07/24/2021 10:39 AM CDT documented as of this encounter Plan of Treatment Upcoming Encounters Date Type Department Care Team (Late st Contact Info) Description 12/03/2024 10:30 AM JUMBO OPERATOR Office Visit [facility] at Work [place] [address] [place] [place] [address] Nellie Ellison, ANP [address] Franny Saleh [facility] [address] [place] [address] 12/29/2024 7:30 AM JUMBO OPERATOR Office Visit [facility] at Work [place] [address] [place] [phone] Nellie Ellison, DAINE [address] [facility] Leonor Saleh [facility] [address] [place] [address] documented as of this encounter Visit Diagnoses Not on filedocumented in this encounter
--- OUTSIDE RECORDS SUMMARY | 2024-12-02 04:51 | XMS_ITS | Encounter Summary ---
Author Organization [facility] Address [address] [place] [address] Care Team Providers Care Journeyman Electrician Pv Installer Name Role Phone Millie Yuan MD Primary Care Provider [phone] Reason for Visit * Reason Onset Date Comments Medication Refill 07/02/2023 Encounter Details Date Type Department Care Team (Late st Contact Info) Description 07/02/2023 Refill [facility] at Work [employer] [address] [address] Millie Yuan MD [address] [place] [address] Social History Tobacco Use Types Packs/Day Years [...] encounter Miscellaneous Notes * Telephone Encounter - Millie Yuan MD - 07/02/2023 9:42 AM CDT Please schedule patient a f/u lab appt and also a f/u appt to discuss valtrex since she has been having so many outbreaks * Telephone Encounter - Isaac Powell RN - 07/02/2023 7:59 AM CDT Elsie Yuan MD, Nuria José Miguel is requesting a refill of their medication: Requested Prescriptions Pending Prescriptions Disp Refills valACYclovir 1 gram tablet (Valtrex) 4 Tablet 1 Sig: Take 2 tablets (2,000mg) by mouth 2 times daily for 1 day Last office visit: 03/08/23 Last refill: 03/27/23 #4 R: 1 Next office visit: none documented in this encounter Plan of Treatment Upcoming Encounters Date Type Department Care Team (Late st Contact Info) Description 12/03/2024 10:30 AM FAMILY AND CONSUMER SCIENCES TEACHER Office Visit [facility] at [place] [address] [place] [phone] Nellie Ellison, DIANE [address] [address] 12/29/2024 7:30 AM FAMILY AND CONSUMER SCIENCES TEACHER Office Visit [facility] at [facility] [address] [place] [address] Nellie Ellison ANP [address] [facility] [address] [address] documented as of this encounter Visit Diagnoses Not on filedocumented in this encounter Care Teams Journeyman Electrician Pv Installer Relationship Specialty Start Date End Date Millie Yuan MD [address] [place] [phone] PCP - General Family Practice 10/25/22 04/14/24 documented as of this encounter
--- OUTSIDE RECORDS SUMMARY | 2024-12-02 04:51 | XMS_ITS | Encounter Summary ---
Author Organization [facility] Address [address] [place] [address] Care Team Providers Care Airworthiness Safety Inspector Name Role Phone Millie Yuan MD Primary Care Provider [phone] Reason for Visit * Reason Onset Date Comments Needs Appointment 01/28/2024 Encounter Details Date Type Department Care Team (Late st Contact Info) Description 01/28/2024 Telephone [facility] at Work [employer] [address] [place] [address] Millie Yuan MD [address] [place] [address] Needs Appointment Social History Tobacco Use Types Packs/Day Years [...] Telephone Encounter - Bhargavi Baez RN - 01/28/2024 10:02 AM CST Spoke to pt and scheduled lab appointment for today at 11am per Dr. Yuan's request. Pt states she wants to go to [facility] for the [place] doppler. Order faxed to [employer] at fax number [phone]. Advised pt to also tow picker a copy of the order when she comes in for labs today. LIBRARY DIRECTOR documented in this encounter Plan of Treatment Upcoming Encounters Date Type Department Care Team (Late st Contact Info) Description 12/03/2024 10:30 AM CITY LIBRARY DIRECTOR Office Visit [facility] at Work [facility] [email or web address] [address] [place] [address] Nellie Ellison, ANP [address] [address] 12/29/2024 7:30 AM CITY LIBRARY DIRECTOR Office Visit [facility] at Work [facility] [email or web address] [address] [place] [address] Nellie Ellison, ANP [address] [facility] [address] [address] documented as of this encounter Visit Diagnoses Not on filedocumented in this encounter Care Teams Airworthiness Safety Inspector Relationship Specialty Start Date End Date Millie Yuan MD [address] [place] [phone] PCP - General Family Practice 10/25/22 04/14/24 documented as of this encounter
--- OUTSIDE RECORDS SUMMARY | 2024-12-02 04:51 | XMS_ITS | Encounter Summary ---
Author Organization [facility] Address [address] [place] [address] Care Team Providers Care Print Producer Name Role Phone Unavailable Primary Care Provider Unavailabl e Reason for Visit * Reason Comments Neck Pain Encounter Details Date Type Department Care Team (Late st Contact Info) Description 01/17/2022 2:30 PM TABLE SETTER Office Visit [facility] at Work [employer] [address] [place] [address] Juanita Lester, STEWARD/STEWARDESS ROOM [address] [address] Strain of neck muscle, initial encounter (Primary Dx) Social History Tobacco Use Types Packs/Day Years Used Date Smoking Tobacco: Never Alcohol Use Standard Drinks/Week Comments Yes 0 (1 standard drink = 0.6 oz pur [...] have Coronavirus / COVID-19? No / Unsure 01/17/2022 2:26 PM TABLE SETTER documented as of this encounter Last Filed Vital Signs Vital Sign Reading Time Taken Comments Blood Pressure 126/78 01/17/2022 2:26 PM TABLE SETTER Pulse 101 01/17/2022 2:26 PM TABLE SETTER Temperature 36.8 ??C (98.2 ??F) 01/17/2022 2:26 PM CS T Respiratory Rate 18 01/17/2022 2:26 PM TABLE SETTER Oxygen Saturation 98% 01/17/2022 2:26 PM TABLE SETTER Inhaled Oxygen Concentration - - Weight 128.4 kg (283 lb) 01/17/2022 2:26 PM TABLE SETTER Height 163.8 cm (5' 4.5 ) 01/17/2022 2:26 PM TABLE SETTER Body Mass Index 47.83 01/17/2022 2:26 PM TABLE SETTER documented in this encounter Progress Notes * Juanita Lester, STEWARD/STEWARDESS ROOM - 01/17/2022 3:21 PM CST HISTORY OF PRESENT ILLNESS Nuria Valdez, a 41 y.o. female presents with a Chief Complaint of Neck Pain Subjective Pt presents to clinic today with c/o neck pain. Symptoms started at the end of last week. Pt notes that pain is on the right side of the neck, behind her ear and down the posterior neck. Pt denies acute injury. She has tried sleeping with a different pillow, ibuprofen, and some stretching. She initially alternated tylenol and ibuprofen for the pain. She has not been taking anything regularly for the past few days. She does acknowledge that symptoms are improved from last week. She has a long drive this weekend and wants to feel better prior to this. REVIEW OF SYSTEMS Review of Systems Constitutional: Negative. HENT: Negative. Respiratory: Negative. Cardiovascular: Negative. Gastrointestinal: Negative. Genitourinary: Negative. Musculoskeletal: Positive for neck pain. Skin: Negative. Neurological: Negative. Objective PHYSICAL EXAM BP 126/78 (BP Location: Left arm, Patient Position (BP): Sitting, BP Cuff Size: Thigh) Pulse (!) 101 Temp 98.2 ??F (36.8 ??C) (Tympanic) Resp 18 Ht 5' 4.5 (1.638 m) Wt 128.4 kg (283 lb) LMP 12/29/2021 (Exact Date) SpO2 98% BMI 47.83 kg/m?? Physical Exam Vitals and nursing note reviewed. Constitutional: Appearance: Normal appearance. HENT: Head: Normocephalic. Eyes: Extraocular Movements: Extraocular movements intact. Conjunctiva/sclera: Conjunctivae normal. Cardiovascular: Rate and Rhythm: Normal rate. Pulmonary: Effort: Pulmonary effort is normal. Musculoskeletal: General: Normal range of motion. Cervical back: Normal range of motion. Lymphadenopathy: Cervical: No cervical adenopathy. Skin: General: Skin is warm and dry. Neurological: General: No focal deficit present. Mental Status: She is alert and oriented to person, place, and time. Psychiatric: Mood and Affect: Mood normal. Behavior: Behavior normal. Procedures N/A Assessment ASSESSMENT and PLAN: ICD-10-CM ICD-9-CM 1. Strain of neck muscle, initial encounter Rest, apply heat, gentle stretching. Robaxin QID PRN pain. Call clinic for persistent or worsening symptoms. S16.1XXA 847.0 methocarbamoL (ROBAXIN) 500 mg tablet E SETTER documented in this encounter Miscellaneous Notes * Patient Instructions - Juanita Lester NP - 01/17/2022 3:21 PM TABLE SETTER Images from the original note were not included. Neck Strain: Care Instructions Your Care Instructions You have strained the muscles and ligaments in your neck. A sudden, awkward movement can strain theneck. This often occurs with falls or car accidents or during certain sports. Everyday activities like working on a computer or sleeping can also cause neck strain if they force you to hold your neckin an awkward position for a long time. It is common for neck pain to get worse for a day or two after an injury, but it should start to feel better after that. You may have more pain and stiffness for several days before it gets better. This is expected. It may take a few weeks or longer for it to heal completely. Good home treatment can help you get better faster and avoid future neck problems. Follow-up care is a blancas part of your treatment and safety. Be sure to make and go to all appointments, and call your doctor if you are having problems. It's also a good idea to know your test resultsand keep a list of the medicines you take. How can you care for yourself at home? ?? If you were given a neck brace (cervical collar) to limit neck motion, wear it as instructed foras many days as your doctor tells you to. Do not wear it longer than you were told to. Wearing a brace for too long can make neck stiffness worse and weaken the neck muscles. ?? You can try using heat or ice to see if it helps. ? Try using a heating pad on a low or medium setting for 15 to 20 minutes every 2 to 3 hours. Try awarm shower in place of one session with the heating pad. You can also buy single-use heat wraps that last up to 8 hours. ? You can also try an ice pack for 10 to 15 minutes every 2 to 3 hours. ?? Take pain medicines exactly as directed. ? If the doctor gave you a prescription medicine for pain, take it as prescribed. ? If you are not taking a prescription pain medicine, ask your doctor if you can take an [id number] medicine. ?? Gently rub the area to relieve pain and help with blood flow. Do not massage the area if it hurts to do so. ?? Do not do anything that makes the pain worse. Take it easy for a couple of days. You can do yourusual activities if they do not hurt your neck or put it at risk for more stress or injury. ?? Try sleeping on a special neck pillow. Place it under your neck, not under your head. Placing a tightly rolled-up towel under your neck while you sleep will also work. If you use a neck pillow or rolled towel, do not use your regular pillow at the same time. ?? To prevent future neck pain, do exercises to stretch and strengthen your neck and back. Learn how to use good posture, safe lifting techniques, and proper body mechanics. When should you call for help? Call 911 anytime you think you may need emergency care. For example, call if: ? You are unable to move an arm or a leg at all. Call your doctor now or seek immediate medical care if: ? You have new or worse symptoms in your arms, legs, chest, belly, or buttocks. Symptoms may include: ? Numbness or tingling. ? Weakness. ? Pain. ? You lose bladder or bowel control. Watch closely for changes in your health, and be sure to contact your doctor if: ? You are not getting better as expected. Where can you learn more? Go to https://www.[employer].net/patiented Enter M253 in the search box to learn more about Neck Strain: Care Instructions. Current as of: May 25, 2021?Content Version: 13.1 ?? [employer]. Care instructions adapted under license by your healthcare professional. If you have questions about a medical condition or this instruction, always ask your healthcare professional. These instructions may not represent the values of this healthcare organization. [employer] disclaims any warranty or liability for your use of this information. E SETTER documented in this encounter Plan of Treatment Upcoming Encounters Date Type Department Care Team (Late st Contact Info) Description 12/03/2024 10:30 AM TABLE SETTER Office Visit [facility] [address] [place] [address] Nellie Ellison, ANP [address] Franny Saleh [address] [address] 12/29/2024 7:30 AM TABLE SETTER Office Visit [facility] [address] [place] [address] Nellie Ellison, ANP [address] [facility] Leonor Saleh [address] [address] documented as of this encounter Visit Diagnoses Diagnosis Strain of neck muscle, initial encounter- Primary documented in this encounter
--- OUTSIDE RECORDS SUMMARY | 2024-12-02 04:51 | XMS_ITS | Encounter Summary ---
Author Organization [facility] Address [address] [place] [address] Care Team Providers Care Boilermaker Ship Name Role Phone Unavailable Primary Care Provider Unavailabl e Reason for Visit * Reason Comments Discuss weight loss options Friend presc ribed injection to help with weight loss and would like to see if covered by insurance Encounter Details Date Type Department Care Team (Late st Contact Info) Description 03/16/2022 2:00 PM CDT Office Visit [facility] at [facility] [place] [address] [place] [address] Iva Abdi FNP NO ADDRESS ON FILE Morbid obesity with body mass index of 40.0-49.9 (Primary Dx); Screening for condition Social History Tobacco Use [...] Sign Reading Time Taken Comments Blood Pressure 140/88 03/16/2022 2:02 PM CDT Pulse 89 03/16/2022 2:02 PM CDT Temperature 37.6 ??C (99.6 ??F) 03/16/2022 2:02 PM CD T Respiratory Rate 18 03/16/2022 2:02 PM CDT Oxygen Saturation 98% 03/16/2022 2:02 PM CDT Inhaled Oxygen Concentration - - Weight 133.8 kg (295 lb) 03/16/2022 2:02 PM CDT Height 163.8 cm (5' 4.5 ) 03/16/2022 2:02 PM CDT Body Mass Index 49.85 03/16/2022 2:02 PM CDT documented in this encounter Progress Notes * Iva Abdi, CHELO - 03/16/2022 2:02 PM CDT HISTORY OF PRESENT ILLNESS Nuria Valdez, a 42 y.o. female presents with a chief complaint of Chief Complaint Patient presents with ??? Discuss weight loss options Friend prescribed injection to help with weight loss and would like to see if covered by insurance Subjective HPI Patient presents wanting to discuss weight loss options. She is wondering if wegovy (semaglutide) is a good option for her. She also knows she was close to being prediabetic on previous labs. Howeverper chart review, last A1c was from 06/17/20. Of note, patient reports Nexium is working well as she now knows to take medication on an empty stomach. Tobacco Intervention She is not a tobacco user. Depression Screen Positive: PHQ-2 score >= 3 or PHQ-9 score >= 9 PHQ-2 Total: 0 (03/08/2022 8:00 AM) DEPRESSION PLAN OF CARE Her depression screen was negative. Blood Pressure BP Readings from Last 3 Encounters: 03/16/22 (!) 140/88 03/08/22 120/78 01/17/22 126/78 Normal BMI Range: 18 & older: > or = 18.5 and < 25 Body mass index is 49.85 kg/m??. Abnormal high BMI: BMI 40 or above: We talked about her diagnosis of morbid obesity: it's role in her current health conditions; risk of future morbidity/mortality and the importance of weight loss in improving these conditions as well as her overall health. Counseled regarding the benefits of a low calorie, well-balanced diet and daily exercise. Weight management options discussed. This medical record reflects the history of present illness as obtained by myself in discussion with the patient. ROS Review of Systems - History obtained from chart review and the patient General ROS: positive for - overweight Psychological ROS: negative for anxiety or depressive symptoms Respiratory ROS: negative for cough, shortness of breath, or wheezing Cardiovascular ROS: negative for chest pain or dyspnea on exertion Gastrointestinal ROS: negative for reflux, abdominal pain, change in bowel habits, or black or bloody stools Objective PHYSICAL EXAM Physical Examination: General appearance - alert, well appearing, and in no distress, oriented to person, place, and time and overweight Mental status - alert, oriented to person, place, and time, normal mood, behavior, speech, dress, motor activity, and thought processes Chest - clear to auscultation, no wheezes, rales or rhonchi, symmetric air entry Heart - normal rate, regular rhythm, normal S1, S2, no murmurs, rubs, clicks or gallops Abdomen - soft, nontender, nondistended, no masses or organomegaly Assessment ASSESSMENT AND PLAN ICD-10-CM ICD-9-CM 1. Morbid obesity with body mass index of 40.0-49.9 E66.01 278.01 semaglutide, weight loss, (WEGOVY) 0.25 mg/0.5 mL Pen Injector 2. Screening for condition Z13.9 V82.9 CBC WITH DIFFERENTIAL COMPREHENSIVE METABOLIC PANEL HEMOGLOBIN A1C LIPID PANEL TSH VITAMIN D 25 HYDROXY Call EAP for nutrition counseling. Follow up in 1 month for weight check and dosage increase. Return for fasting blood work. Will follow up on results. documented in this encounter Plan of Treatment Upcoming Encounters Date Type Department Care Team (Late st Contact Info) Description 12/03/2024 10:30 AM PRIMARY HEALTH ORGANISATION MANAGER Office Visit [facility] at [facility] [place] [address] [place] [address] Nellie Ellison, ANP [address] [facility] [address] [place] [facility] [address] [place] [address] 12/29/2024 7:30 AM PRIMARY HEALTH ORGANISATION MANAGER Office Visit [facility] at Work [place] [address] [place] [address] Nellie [place], ANP [address] [place] [address] documented as of this encounter Results * (ABNORMAL) VITAMIN D 25 HYDROXY (03/29/2022 7:09 AM CDT) VITAMIN D, 25 OH, TOTAL 21(L) 30 - 100 ng/mL [facility] Comment: Vitamin D Status ? 25-OH Vitamin D: Deficiency: ?<20 ng/mL Insufficiency: ? 20 - 29 ng/mL Optimal: ? > or = 30 ng/mL For 25-OH Vitamin D testing on patients on D2-supplementation and patients for whom quantitation of D2 and D3 fractions is required, the QuestAssureD(TM) 25-OH VIT D, (D2,D3), LC/MS/MS is recommended: order code [id number] (patients >2yrs). See Note 1 Note 1 For additional information, please refer to http://education.Ethical Ocean.Urban Gentleman/faq/IJD759 (This link is being provided for informational/ educational purposes only.) Test Performed at: [facility] [id number] [place] [address] ??[phone] Isaac Britton D.O., MPH Blood 03/29/2022 7:09 AM CDT 03/30/2022 6:45 AM CDT Iva Abdi SCIENTIST CHEMISTRY [place] [facility] [phone] * TSH (03/29/2022 7:09 AM CDT) Pathologist [facility] TSH 1.30 mIU/L [facility] Comment: ?Reference Range ?> or = 20 Years ??0.40-4.50 ? Ranges ?First trimester ?0.26-2.66 ?Second trimester ?? 0.55-2.73 ?Third trimester ?0.43-2.91 Test Performed at: [facility] [address] [place] [address] ??[phone] Isaac Britton D.O., MPH Blood 03/29/2022 7:09 AM CDT 03/30/2022 6:45 AM CDT Iva Abdi [facility] CHEMISTRY [place] [facility] [phone] * (ABNORMAL) LIPID PANEL (03/29/2022 7:09 AM CDT) [facility] CHOLESTEROL 238(H) <200 mg/dL [facility] HDL 62 > OR = 50 mg/dL [facility] TRIGLYCERIDE 101 <150 mg/dL [facility] LDL CALCULATED 155(H) mg/dL (calc) [facility] Comment: Reference range: <100 Desirable range <100 mg/dL for primary prevention; ?? <70 mg/dL for patients with CHD or diabetic patients with > or = 2 CHD risk factors. LDL-C is now calculated using the Penny calculation, which is a validated novel method providing better accuracy than the Friedewald equation in the estimation of LDL-C. Ronaldo WHITAKER et al. SHIRA. 2013;310(19): 5914-6659 (http://education.Perk/faq/FQE818) CHOL/HDL RATIO 3.8 <5.0 (calc) [facility] TOTAL NON-HDL CHOL(LDL+VLDL) 176(H) <130 mg/dL (calc) [facility] Comment: For patients with diabetes plus 1 major ASCVD risk factor, treating to a non-HDL-C goal of <100 mg/dL (LDL-C of <70 mg/dL) is considered a therapeutic option. Test Performed at: [facility] [address] [place] ??[phone] Isaac Britton D.O., MPH Blood 03/29/2022 7:09 AM CDT 03/30/2022 6:45 AM CDT Iva Abdi [facility] CHEMISTRY [place] [facility] [phone] * HEMOGLOBIN A1C (03/29/2022 7:09 AM CDT) HEMOGLOBIN A1C 5.5 <5.7 % of total Hgb [facility] Comment: For the purpose of screening for the presence of diabetes: <5.7% ? Consistent with the absence of diabetes 5.7-6.4% ?Consistent with increased risk for diabetes ?(prediabetes) > or =6.5% ??Consistent with diabetes This assay result is consistent with a decreased risk of diabetes. Currently, no consensus exists regarding use of hemoglobin A1c for diagnosis of diabetes in children. According to [place] Diabetes Association (ADA) guidelines, hemoglobin A1c <7.0% represents optimal control in non- diabetic patients. Different metrics may apply to specific patient populations. Standards of Medical Care in Diabetes(ADA). ?? ESTIMATED AVERAGE GLUCOSE (MG/DL) 111 mg/dL [facility] ESTIMATED AVERAGE GLUCOSE (MMOL/L) 6.2 mmol/L [facility] Comment: Test Performed at: [facility] [address] [place] [address] ??[phone] Isaac Britton D.O., MPH Blood 03/29/2022 7:09 AM CDT 03/30/2022 6:45 AM CDT Iva Abdi [facility] CHEMISTRY [place]DE CECILIA Performing Organization Address [facility]/ZIP Co de Phone Number [facility] [phone] * (ABNORMAL) COMPREHENSIVE METABOLIC PANEL (03/29/2022 7:09 AM CDT) [facility] GLUCOSE 99 65 - 99 mg/dL [facility] Comment: ? Fasting reference interval BUN 10 7 - 25 mg/dL [facility] CREATININE 0.80 0.50 - 1.10 mg/dL [facility] GFR 92 > OR = 60 mL/min/1. 73m2 [facility] GFR, 106 > OR = 60 mL/min/1. 73m2 [facility] BUN/CREAT RATIO NOT APPLICABLE 6 - 22 (calc) [facility] SODIUM 140 135 - 146 mmol/L [facility] POTASSIUM 4.3 3.5 - 5.3 mmol/L [facility] CHLORIDE 104 98 - 110 mmol/L [facility] CO2 18(L) 20 - 32 mmol/L [facility] CALCIUM 9.7 8.6 - 10.2 mg/dL [facility] TOTAL PROTEIN 7.2 6.1 - 8.1 g/dL [facility] ALBUMIN 4.5 3.6 - 5.1 g/dL [facility] GLOBULIN 2.7 1.9 - 3.7 g/dL (calc) [facility] ALBUMIN/GLOBULI N RATIO 1.7 1.0 - 2.5 (calc) [facility] BILIRUBIN TOTAL 0.4 0.2 - 1.2 mg/dL [facility] ALKALINE PHOSPHATASE 55 31 - 125 U/L [facility] AST 14 10 - 30 U/L [facility] ALT 15 6 - 29 U/L [facility] Comment: Test Performed at: [facility] ??[phone] Isaac Britton D.O., MPH Blood 03/29/2022 7:09 AM CDT 03/30/2022 6:45 AM CDT Iva Abdi [facility] CHEMISTRY ORDE CECILIA Performing Organization Address [facility]/ZIP Co de Phone Number [facility] [phone] * CBC WITH DIFFERENTIAL (03/29/2022 7:09 AM CDT) WBC 8.1 3.8 - 10.8 Thousand/u L [facility] RBC 4.63 3.80 - 5.10 Million/uL [facility] HEMOGLOBIN 13.7 11.7 - 15.5 g/dL [facility] HEMATOCRIT 41.3 35.0 - 45.0 % [facility] MCV 89.2 80.0 - 100.0 fL [facility] MCH 29.6 27.0 - 33.0 pg [facility] MCHC 33.2 32.0 - 36.0 g/dL [facility] RDW 13.0 11.0 - 15.0 % [facility] PLATELETS 370 140 - 400 Thousand/u L [facility] MPV 10.4 7.5 - 12.5 fL [facility] NEUTROPHIL ABSOLUTE 5,127 1,500 - 7,800 cells/uL [facility] LYMPHOCYTE ABSOLUTE 2,211 850 - 3,900 cells/uL [facility] MONOCYTE ABSOLUTE 462 200 - 950 cells/uL [facility] EOSINOPHIL ABSOLUTE 186 15 - 500 cells/uL [facility] BASOPHILS ABSOLUTE 113 0 - 200 cells/uL [facility] NEUTROPHIL 63.3 % [facility] LYMPHOCYTES 27.3 % [facility] MONOCYTE 5.7 % [facility] EOSINOPHILS 2.3 % [facility] BASOPHILS 1.4 % [facility] Comment: Test Performed at: [facility] [address] [place] [address] ??[phone] Isaac Britton D.O., MPH Blood 03/29/2022 7:09 AM CDT 03/30/2022 6:45 AM CDT Iva Abdi [facility] HEMATOLOGY ORD ERABLES [facility] [phone] documented in this encounter Visit Diagnoses Diagnosis Morbid obesity with body mass index of 40.0-49.9- Primary Screening for condition Screening for unspecified condition documented in this encounter
--- OUTSIDE RECORDS SUMMARY | 2024-12-02 04:51 | XMS_ITS | Encounter Summary ---
Author Organization [facility] Address [address] [place] [address] Care Team Providers Care High [employer] Foreign Language Teacher Name Role Phone Millie Yuan MD Primary Care Provider [phone] Encounter Details Date Type Department Care Team (Latest Contact Info) Description 01/28/2024 11:00 AM DETAIL DRAFTER Procedure visit [facility] [employer] [address] [place] [address] Pain and swelling of right lower leg; Elevated d-dimer Social History Tobacco Use Types Packs/Day Years [...] PM CDT documented as of this encounter H&P Notes * Mis Woody - 01/28/2024 11:22 AM CST Pt presented for blood work., butterfly gauge needle used on pt. Pt tolerated well. [place] documented in this encounter Miscellaneous Notes * Result Encounter Note - Bhargavi Baez RN - 01/31/2024 2:54 PM DETAIL DRAFTER Pt states she has not been taking vitamin D regularly and will add this to her daily regimen. Pt has venous doppler scheduled on 02/04/24 at 1130am at [facility]. I will check for those results on02/03. [place] D[place] * Result Encounter Note - Bhargavi Baez RN - 01/31/2024 2:28 PM DETAIL DRAFTER Sent pt Mahalo message asking if venous doppler has been completed yet. Pt viewed lab results online. [place] D[place] * Result Encounter Note - Millie Yuan MD - 01/31/2024 12:57 PM DETAIL DRAFTER CRP (nonspecific measure of inflammation) is elevated at 20.3. Vitamin D is 23. This is in the insufficient range. I recommend pt start OTC Vitamin D3 2000 IU daily. This is a fat soluble vitamin, so it needs to be taken with a meal that has some fat. Has she been taking any? If so, how is she taking it? Hemoglobin A1c is 5.9. Still in the prediabetic range and a little worse than last check. ProBNP - blood test for heart failure - is normal. Metabolic panel is normal. Thyroid screen is normal. Blood counts are normal. Has she gotten the doppler done yet? [place] D[place] documented in this encounter Plan of Treatment Upcoming Encounters Date Type Department Care Team (Late st Contact Info) Description 12/03/2024 10:30 AM DETAIL DRAFTER Office Visit [facility] [employer] [place] [address] [place] [address] Nellie Ellison, ANP [address] [place] [address] 12/29/2024 7:30 AM DETAIL DRAFTER Office Visit [facility] at Work [employer] [address] [place] [address] Nellie Ellison, ANP [address] [place] [address] documented as of this encounter Procedures Procedure Name Priority Date/Time Associated Diagnosis Comments TSH REFLEXIVE Routine 01/28/2024 11:06 AM DETAIL DRAFTER Pain and swelling of right lower leg Elevated d-dimer CBC WITH DIFFERENTIAL Routine 01/28/2024 11:06 AM DETAIL DRAFTER Pain and swelling of right lower leg Elevated d-dimer VITAMIN D 25 HYDROXY Routine 01/28/2024 11:06 AM DETAIL DRAFTER Pain and swelling of right lower leg Elevated d-dimer C-REACTIVE PROTEIN Routine 01/28/2024 11 :06 AM DETAIL DRAFTER Pain and swelling of right lower leg Elevated d-dimer BRAIN NATRIURETIC PEPTIDE, BNP OR PROBNP Routine 01/28/2024 11:06 AM DETAIL DRAFTER Pain and swelling of right lower leg Elevated d-dimer HEMOGLOBIN A1C Routine 01/28/2024 11:06 AM DETAIL DRAFTER Pain and swelling of right lower leg Elevated d-dimer COMPREHENSIVE METABOLIC PANEL Routine 01/28/2024 11:06 AM DETAIL DRAFTER Pain and swelling of right lower leg Elevated d-dimer documented in this encounter Results * CBC WITH DIFFERENTIAL (01/28/2024 11:06 AM DETAIL DRAFTER) WBC 8.9 3.8 - 10.8 Thousand/u L [facility] RBC 4.71 3.80 - 5.10 Million/uL [facility] HEMOGLOBIN 13.2 11.7 - 15.5 g/dL [facility] HEMATOCRIT 40.9 35.0 - 45.0 % [facility] MCV 86.8 80.0 - 100.0 fL [facility] MCH 28.0 27.0 - 33.0 pg [facility] MCHC 32.3 32.0 - 36.0 g/dL [facility] RDW 13.6 11.0 - 15.0 % [facility] PLATELETS 341 140 - 400 Thousand/u L [facility] MPV 10.4 7.5 - 12.5 fL [facility] NEUTROPHIL ABSOLUTE 5,474 1,500 - 7,800 cells/uL [facility] LYMPHOCYTE ABSOLUTE 2,572 850 - 3,900 cells/uL [facility] MONOCYTE ABSOLUTE 490 200 - 950 cells/uL [facility] EOSINOPHIL ABSOLUTE 258 15 - 500 cells/uL [facility] BASOPHILS ABSOLUTE 107 0 - 200 cells/uL [facility] NEUTROPHIL 61.5 % [facility] LYMPHOCYTES 28.9 % [facility] MONOCYTE 5.5 % [facility] EOSINOPHILS 2.9 % [facility] BASOPHILS 1.2 % [facility] Comment: Test Performed at: [facility] [address] [place] ??[phone] Clint Stone MD Blood 01/28/2024 11:0 6 AM DETAIL DRAFTER 01/29/2024 4:04 AM DETAIL DRAFTER Millie Yuan MD HEMATOLOGY ORDERABLE S [facility] [phone] [facility] [address] [place] [address] * COMPREHENSIVE METABOLIC PANEL (01/28/2024 11:06 AM DETAIL DRAFTER) GLUCOSE 90 65 - 99 mg/dL [facility] Comment: ? Fasting reference interval BUN 10 7 - 25 mg/dL [facility] CREATININE 0.70 0.50 - 0.99 mg/dL [facility] GFR 111 > OR = 60 mL/min/1. 73m2 [facility] BUN/CREAT RATIO SEE NOTE: 6 - 22 (calc) [facility] Comment: ?? Not Reported: BUN and Creatinine are within ?? reference range. ? SODIUM 139 135 - 146 mmol/L [facility] POTASSIUM 4.1 3.5 - 5.3 mmol/L [facility] CHLORIDE 104 98 - 110 mmol/L [facility] CO2 26 20 - 32 mmol/L [facility] CALCIUM 9.5 8.6 - 10.2 mg/dL [facility] TOTAL PROTEIN 6.7 6.1 - 8.1 g/dL [facility] ALBUMIN 4.0 3.6 - 5.1 g/dL [facility] GLOBULIN 2.7 1.9 - 3.7 g/dL (calc) [facility] ALBUMIN/GLOBULIN RATIO 1.5 1.0 - 2.5 (calc) [facility] BILIRUBIN TOTAL 0.4 0.2 - 1.2 mg/dL [facility] ALKALINE PHOSPHATASE 59 31 - 125 U/L [facility] AST 20 10 - 30 U/L [facility] ALT 26 6 - 29 U/L [facility] Comment: Test Performed at: [facility] [address] [place] ??[address] Clint Stone MD Blood 01/28/2024 11:0 6 AM DETAIL DRAFTER 01/29/2024 4:04 AM DETAIL DRAFTER Millie Yuan MD CHEMISTRY ORDERABLES [facility] [phone] [facility] [address] [place] [address] * (ABNORMAL) HEMOGLOBIN A1C (01/28/2024 11:06 AM DETAIL DRAFTER) HEMOGLOBIN A1C 5.9(H) <5.7 % of total Hgb [facility] Comment: For someone without known diabetes, a [...] diabetes for children. ESTIMATED AVERAGE GLUCOSE (MG/DL) 123 mg/dL [facility] ESTIMATED AVERAGE GLUCOSE (MMOL/L) 6.8 mmol/L [facility] Comment: ?? This test was performed on the [employer] c8000 platform. Please be advised that [facility] will move hemoglobin A1c testing to the Cordell platform soon. In general, direct comparison of the results from different platforms is not recommended. Test Performed at: [facility] ??[phone] Clint Stone MD Blood 01/28/2024 11:0 6 AM DETAIL DRAFTER 01/29/2024 4:04 AM DETAIL DRAFTER Millie Yuan MD CHEMISTRY ORDERABLES [facility] [phone] [facility] [address] [place] [address] * TSH REFLEXIVE (01/28/2024 11:06 AM DETAIL DRAFTER) TSH 1.82 mIU/L [facility] Comment: ?Reference Range ?> or = 20 Years ??0.40-4.50 ? Ranges ?First trimester ?0.26-2.66 ?Second trimester ?? 0.55-2.73 ?Third trimester ?0.43-2.91 Test Performed at: [facility] ??[address] Clint Stone MD Blood 01/28/2024 11:0 6 AM DETAIL DRAFTER 01/29/2024 4:04 AM DETAIL DRAFTER Millie Yuan MD CHEMISTRY ORDERABLES [facility] [phone] [facility] [employer] [address] * (ABNORMAL) VITAMIN D 25 HYDROXY (01/28/2024 11:06 AM DETAIL DRAFTER) VITAMIN D, 25 OH, TOTAL 23(L) 30 - 100 ng/mL [facility] Comment: Vitamin D Status ? 25-OH Vitamin D: Deficiency: ?<20 ng/mL Insufficiency: ? 20 - 29 ng/mL Optimal: ? > or = 30 ng/mL For 25-OH Vitamin D testing on patients on D2-supplementation and patients for whom quantitation of D2 and D3 fractions is required, the [facility] 25-OH VIT D, (D2,D3), LC/MS/MS is recommended: order code 13809 (patients >2yrs). See Note 1 Note 1 For additional information, please refer to http://education.Therabiol.Skimbl/faq/JVJ570 (This link is being provided for informational/ educational purposes only.) Test Performed at: [facility] ??[phone] Clint Stone MD Blood 01/28/2024 11:0 6 AM DETAIL DRAFTER 01/29/2024 4:04 AM DETAIL DRAFTER Millie Yuan MD CHEMISTRY ORDERABLES Performing Organization Address City/[facility] Co de Phone Number [facility] [phone] [facility] [employer] [address] * (ABNORMAL) C-REACTIVE PROTEIN (01/28/2024 11:06 AM DETAIL DRAFTER) CRP 20.3(H) <8.0 mg/L [facility] Comment: Test Performed at: [facility] ??[address] Clint Stone MD Blood 01/28/2024 11:0 6 AM DETAIL DRAFTER 01/29/2024 4:04 AM DETAIL DRAFTER Millie Yuan MD CHEMISTRY ORDERABLES Performing Organization Address [facility] Co de Phone Number [facility] [phone] [facility] [employer] [address] * BRAIN NATRIURETIC PEPTIDE, BNP OR PROBNP (01/28/2024 11:06 AM DETAIL DRAFTER) PROBNP, N TERMINAL 43 <125 pg/mL [facility] Comment: Test Performed at: [facility] ??[address] Clint Stone MD Blood 01/28/2024 11:0 6 AM DETAIL DRAFTER 01/29/2024 4:04 AM DETAIL DRAFTER Millie Yuan MD CHEMISTRY ORDERABLES Performing Organization Address City/[facility]/ZIP Co de Phone Number [facility] [phone] [facility] [employer] [address] documented in this encounter Visit Diagnoses Diagnosis Pain and swelling of right lower leg Elevated d-dimer Abnormal coagulation profile documented in this encounter Care Teams High [employer] Foreign Language Teacher Relationship Specialty Start Date End Date Mill[place] [address] PCP - General Family Practice 10/25/22 04/14/24 documented as of this encounter
--- OUTSIDE RECORDS SUMMARY | 2024-12-02 04:51 | XMS_ITS | Encounter Summary ---
Author Organization [facility] Address [address] [place] [address] Care Team Providers Care Caterers Helper Name Role Phone Millie Yuan MD Primary Care Provider [phone] Encounter Details Date Type Department Care Team (Late st Contact Info) Description 11/01/2022 Orders Only [facility] [employer] [place] [address] [place] [address] Iva Abdi FNP NO ADDRESS ON FILE Burning with urination (Primary Dx) Social History Tobacco Use Types [...] st Contact Info) Description 12/03/2024 10:30 AM LEADERSHIP DEVELOPMENT CONSULTANT Office Visit [facility] [employer] [place] [address] [place] [address] Nellie Ellison, ANP [address] [place] [address] 12/29/2024 7:30 AM LEADERSHIP DEVELOPMENT CONSULTANT Office Visit [facility] at Work [employer] [place] [address] [facility] [facility] [place] [address] Nellie Ellison, DIANE [address] [place] [address] documented as of this encounter Procedures Procedure Name Priority Date/Time Associated Diagnosis Comments POC URINALYSIS DIPSTICK AUTOMATED Routine 11/01/2022 8:25 AM LEADERSHIP DEVELOPMENT CONSULTANT Burning with urination documented in this encounter Results * (ABNORMAL) URINE CULTURE (11/01/2022 8:38 AM LEADERSHIP DEVELOPMENT CONSULTANT) URINE CULTURE SEE NOTE(A) 2NDNATUREKatherine Manriquez Comment: ??CULTURE, URINE, ROUTINE ?Micro Number: ?[id number] ??Test Status: ? Final ??Specimen Source: ?? Urine, clean catch ??Specimen Quality: ??Adequate ??Result: ?Greater than 100,000 CFU/mL of Escherichia coli ?E.coli ?INT ?? GENESIS ?? AMOX/CLAVULANATE ? S ? <=2 ?? AMPICILLIN ? S ? 4 ?? AMP/SULBACTAM ?S ? <=2 ?? CEFAZOLIN ?NR ?<=4 2 ?? CEFEPIME ? S ? <=1 ?? CEFTAZIDIME ?S ? <=1 ?? CEFTRIAXONE ?S ? <=1 ?? CIPROFLOXACIN ?S ? <=0.25 ?? GENTAMICIN ? S ? <=1 ?? IMIPENEM ? S ? <=0.25 ?? LEVOFLOXACIN ? S ? <=0.12 ?? NITROFURANTOIN ? S ? <=16 ?? PIP/TAZOBACTAM ? S ? <=4 ?? TOBRAMYCIN ? S ? <=1 ?? TRIMETHOPRIM/SULFA ? S ? <=20 S=Susceptible ??I=Intermediate ??R=Resistant ??* = Not Tested NR = Not Reported ??NN = See Therapy Comments THERAPY COMMENTS ?Note 1: ?For infections other than uncomplicated UTI ?caused by E. coli, K. pneumoniae or P. mirabilis: ?Cefazolin is resistant if GENESIS > or = 8 mcg/mL. ?(Distinguishing susceptible versus intermediate ?for isolates with GENESIS < or = 4 mcg/mL requires ?additional testing.) ?Note 2: ?For uncomplicated UTI caused by E. coli, ?K. pneumoniae or P. mirabilis: Cefazolin is ?susceptible if GENESIS <32 mcg/mL and predicts ?susceptible to the oral agents cefaclor, cefdinir, ?cefpodoxime, cefprozil, cefuroxime, cephalexin ?and loracarbef. Test Performed at: [place] [address] [place] ??[phone] Clitn Stone Urine URINE SPECIMEN OBTAINED BY CLEAN CATCH PROCEDURE / Unknown 11/01/2022 8:38 AM LEADERSHIP DEVELOPMENT CONSULTANT 11/02/2022 12:10 AM LEADERSHIP DEVELOPMENT CONSULTANT Iva WHITNEY MICROBIOLOGY - GENERAL ORDERABLES [facility] [phone] [facility] [address] [place] [address] * (ABNORMAL) POC URINALYSIS DIPSTICK AUTOMATED (11/01/2022 8:25 AM LEADERSHIP DEVELOPMENT CONSULTANT) COLOR UA POC Yellow Pale to Dark Yellow [facility] CLARITY UA POC Clear Clear [facility] GLUCOSE UA POC Negative Negative, Normal [facility] BILIRUBIN UA POC Negative Negative [facility] KETONES UA POC Negative Negative [facility] SPECIFIC GRAVITY UA POC 1.010 1.000 - 1.030 [facility] BLOOD UA POC 3+(A) Negative [facility] PH UA POC 7.0 5.0 - 8.0 [facility] PROTEIN UA POC Negative Negative [facility] UROBILINOGEN UA POC 0.2 <2.0 mg/dL [facility] NITRITE UA POC Negative Negative [facility] LEUKOCYTE ESTERASE UA POC 3+(A) Negative [facility] KIT LOT NUMBER POC [phone] [facility] KIT EXP DATE POC [id number] [facility] Urine 11/01/2022 8:25 AM LEADERSHIP DEVELOPMENT CONSULTANT Iva WHITNEY POINT OF CARE TESTING [facility] CLIA# [id number] [address] [place] [address] documented in this encounter Visit Diagnoses Diagnosis Burning with urination- Primary Dysuria documented in this encounter Care Teams Caterers Helper Relationship Specialty Start Date End Date Millie Yuan MD [address] [place] [address] PCP - General Family Practice 10/25/22 04/14/24 documented as of this encounter
--- OUTSIDE RECORDS SUMMARY | 2024-12-02 04:51 | XMS_ITS | Encounter Summary ---
Author Organization [facility] Address [address] [place] [address] Care Team Providers Care Agricultural Aircraft Pilot Name Role Phone Millie Yuan MD Primary Care Provider Reason for Visit * Reason Comments Labs Only Encounter Details Date Type Department Care Team (Latest Contact Info) Description 08/27/2023 7:40 AM CDT Clinical Support [facility] [employer] [address] [place] [address] Vitamin D insufficiency; Prediabetes; Elevated LDL cholesterol level Social History Tobacco Use Types Packs/Day Years [...] of this encounter Progress Notes * Bhargavi Baez, FILOMENA - 08/27/2023 7:36 AM CDT Pt presents for repeat fasting labs. Right hand unsuccessful, left hand successful. 2 sticks. Pt tolerated well. documented in this encounter Miscellaneous Notes * Result Encounter Note - Millie Yuan MD - 09/02/2023 11:34 AM CDT Please call patient and inform her that Vitamin D is 22. This is in the insufficient range. I recommend you start OTC Vitamin D3 4000 IU daily. This is a fat soluble vitamin, so it needs to be taken with a meal that has some fat. documented in this encounter Plan of Treatment Upcoming Encounters Date Type Department Care Team (Late st Contact Info) Description 12/03/2024 10:30 AM SUNGLASS CLIP ATTACHER Office Visit [facility] at [place] [address] [place] [address] Nellie Ellison, ANP [address] [address] 12/29/2024 7:30 AM SUNGLASS CLIP ATTACHER Office Visit [facility] at [facility] [address] [place] [address] Nellie Ellison, ANP [address] [address] documented as of this encounter Procedures Procedure Name Priority Date/Time Associated Diagnosis Comments VITAMIN D 25 HYDROXY Routine 08/27/2023 7:22 AM CDT Vitamin D insufficiency HEMOGLOBIN A1C Routine 08/27/2023 7:22 AM CDT Prediabetes Elevated LDL cholesterol level LIPID PANEL Routine 08/27/2023 7:22 AM CDT Prediabetes Elevated LDL cholesterol level COMPREHENSIVE METABOLIC PANEL Routine 08/27/2023 7:22 AM CDT Prediabetes Elevated LDL cholesterol level documented in this encounter Results * (ABNORMAL) COMPREHENSIVE METABOLIC PANEL (08/27/2023 7:22 AM CDT) GLUCOSE 116(H) 65 - 99 mg/dL [facility] Comment: ? Fasting reference interval For someone without known diabetes, a glucose value between 100 and 125 mg/dL is consistent with prediabetes and should be confirmed with a follow-up test. BUN 14 7 - 25 mg/dL [facility] mitesh Manri[facility] CREATININE 0.70 0.50 - 0.99 mg/dL [facility] mitesh Manriquez GFR 111 > OR = 60 mL/min/1. 73m2 [facility] mitesh Declan BUN/CREAT RATIO SEE NOTE: (calc) [facility]De[facility] sagastume Declan Comment: ?? Not Reported: BUN and Creatinine are within ?? reference range. ? SODIUM 137 135 - 146 mmol/L [facility] m[facility] Manriquez POTASSIUM 4.4 3.5 - 5.3 mmol/L [facility] Manriquez CHLORIDE 105 98 - 110 mmol/L [facility] m[facility] Manri[facility] CO2 21 20 - 32 mmol/L [facility] mitesh Manriquez CALCIUM 9.6 8.6 - 10.2 mg/dL [email or web address] Manriquez TOTAL PROTEIN 6.8 6.1 - 8.1 g/dL [email or web address]- mitesh Manriquez ALBUMIN 4.1 3.6 - 5.1 g/dL [facility] mitesh Manriquez GLOBULIN 2.7 1.9 - 3.7 g/dL (calc) [facility] m[facility]h Declan ALBUMIN/GLOBULIN RATIO 1.5 1.0 - 2.5 (calc) [facility] mitesh Manriquez BILIRUBIN TOTAL 0.4 0.2 - 1.2 mg/dL [facility] mitesh Manriquez ALKALINE PHOSPHATASE 58 31 - 125 U/L [facility] mites[facility] Declan AST 15 10 - 30 U/L [facility] mitesh Declan ALT 18 6 - 29 U/L [facility] mitesh Declan Comment: Test Performed at: [email or web address] [address] [place] ??[phone] Louann-Lieu Thi Vo Blood 08/27/2023 7:22 AM CDT 08/28/2023 1:56 AM CDT Claudia Villanueva Jones ANP CHEMISTRY OR DERABLES Performing Organization Address City/[facility] Code Phone Number [facility] [phone] [place] [address] [place] [address] * (ABNORMAL) HEMOGLOBIN A1C (08/27/2023 7:22 AM CDT) HEMOGLOBIN A1C 5.8(H) <5.7 % of total Hgb [facility]ri[facility] Comment: For someone without known diabetes, [...] diabetes for children. ESTIMATED AVERAGE GLUCOSE (MG/DL) 120 mg/dL J C LadsDerek Manriquez ESTIMATED AVERAGE GLUCOSE (MMOL/L) 6.6 mmol/L [facility] Comment: Test Performed at: [email or web address] [address] [place] ??[address] Clint Stone Blood 08/27/2023 7:22 AM CDT 08/28/2023 1:56 AM CDT Claudia Marie Jones ANP CHEMISTRY OR DERABLES Performing Organization Address City/[facility] Phone Number [facility] [phone] [place] [address] [place] [address] * (ABNORMAL) LIPID PANEL (08/27/2023 7:22 AM CDT) CHOLESTEROL 224(H) <200 mg/dL [facility] C LadsDerek Manriquez HDL 63 > OR = 50 mg/dL J C LadsS mitesh Manriquez TRIGLYCERIDE 202(H) <150 mg/dL [facility] C Lads[facility] Manriquez Comment: If a non-fasting specimen was collected, consider repeat triglyceride testing on a fasting specimen if clinically indicated. Lilian et al. J. of Clin. Lipidol. 2015;9:129-169. LDL CALCULATED 127(H) mg/dL (calc) [email or web address] Comment: Reference range: <100 Desirable range <100 mg/dL for primary prevention; ?? <70 mg/dL for patients with CHD or diabetic patients with > or = 2 CHD risk factors. LDL-C is now calculated using the Penny calculation, which is a validated novel method providing better accuracy than the Friedewald equation in the estimation of LDL-C. Ronaldo WHITAKER et al. SHIRA. 2013;310(19): 9600-5576 (http://education.Brand.net/faq/PNZ982) CHOL/HDL RATIO 3.6 <5.0 (calc) [email or web address] TOTAL NON-HDL CHOL(LDL+VLDL) 161(H) <130 mg/dL (calc) [email or web address] Comment: For patients with diabetes plus 1 major ASCVD risk factor, treating to a non-HDL-C goal of <100 mg/dL (LDL-C of <70 mg/dL) is considered a therapeutic option. Test Performed at: [email or web address] [address] [place] ??[phone] Clint Stone Blood 08/27/2023 7:22 AM CDT 08/28/2023 1:56 AM CDT Claudia CONTRERAS CHEMISTRY OR DERABLES [facility] [phone] [place] [address] [place] [address] * (ABNORMAL) VITAMIN D 25 HYDROXY (08/27/2023 7:22 AM CDT) VITAMIN D, 25 OH, TOTAL 22(L) 30 - 100 ng/mL [email or web address] Comment: Vitamin D Status ? 25-OH Vitamin D: Deficiency: ?<20 ng/mL Insufficiency: ? 20 - 29 ng/mL Optimal: ? > or = 30 ng/mL For 25-OH Vitamin D testing on patients on D2-supplementation and patients for whom quantitation of D2 and D3 fractions is required, the Quest[facility]ure[facility](TM) 25-OH VIT D, (D2,D3), LC/MS/MS is recommended: order code 33738 (patients >2yrs). See Note 1 Note 1 For additional information, please refer to http://education.Brand.net/faq/SDS553 (This link is being provided for informational/ educational purposes only.) Test Performed at: [email or web address] [address] [place], [place] ??[address] Issa Hickman PhD Blood 08/27/2023 7:22 AM CDT 08/28/2023 1:57 AM CDT Millie Yuan MD CHEMISTRY ORDERABLES [facility] [phone] [email or web address] [id number] [place] [address] documented in this encounter Visit Diagnoses Diagnosis Vitamin D insufficiency Unspecified vitamin D deficiency Prediabetes Other abnormal glucose Elevated LDL cholesterol level Pure hypercholesterolemia documented in this encounter Care Teams Agricultural Aircraft Pilot Relationship Specialty Start Date End Date Millie Yuan MD [address] [place] [address] PCP - General Family Practice 10/25/22 04/14/24 documented as of this encounter
--- OUTSIDE RECORDS SUMMARY | 2024-12-02 04:51 | XMS_ITS | Encounter Summary ---
Author Organization [facility] Address [address] [place] [address] Care Team Providers Care Portrait Photographer Name Role Phone Unavailable Primary Care Provider Unavailabl e Encounter Details Date Type Department Care Team (Latest Contact Info) Description 08/21/2021 9:00 AM CDT Telephone Check Up [facility] [employer] [place] [address] [place] [address] Dean Hernandez MD NO ADDRESS ON FILE Attention deficit disorder (ADD) in adult (Primary Dx) Social History Tobacco Use Types [...] have Coronavirus / COVID-19? No / Unsure 08/07/2021 10:44 AM CDT documented as of this encounter Progress Notes * Dean Hernandez MD - 08/21/2021 9:16 AM CDT This encounter was completed via audio-only two way synchronous communication. Patient's identity confirmed yes Patient gave verbal consent to have these services billed to their insurance and expressed understanding that co-insurance and deductible may apply: yes Time spent by the provider delivering the care documented in this encounter 14 minutes. Follows for ADD and recent start of med. Taking adderall xr 10 mg. Seems to work well in am. But some afternoons the effct wears off. Discussed. Will try 5 mg adderall regular in early afternoon on days where effect is needed. Will follow in couple weeks. documented in this encounter Plan of Treatment Upcoming Encounters Date Type Department Care Team (Late st Contact Info) Description 12/03/2024 10:30 AM ARMORED CAR DRIVER Office Visit [facility] at [facility] [address] [place] [address] Nellie Ellison, ANP [address] [address] Leonor Saleh [address] [address] 12/29/2024 7:30 AM ARMORED CAR DRIVER Office Visit [facility] at [facility] [address] [place] [address] Nellie Ellison, ANP [address] [facility] Leonor Saleh [address] [address] documented as of this encounter Visit Diagnoses Diagnosis Attention deficit disorder (ADD) in adult- Primary documented in this encounter
--- OUTSIDE RECORDS SUMMARY | 2024-12-02 04:51 | XMS_ITS | Encounter Summary ---
Author Organization [facility] Address [address] Rojasn: Epic Prelude ADT [place] [address] Care Team Providers Care Lift Truck Operator Name Role Phone Unavailable Primary Care Provider Unavailabl e Encounter Details Date Type Department Care Team (Latest Contact Info) Description 02/06/2021 Travel Social History Tobacco Use Types Packs/Day [...] have Coronavirus / COVID-19? No / Unsure 02/06/2021 7:24 AM CDT documented as of this encounter Plan of Treatment Upcoming Encounters Date Type Department Care Team (Late st Contact Info) Description 12/03/2024 10:30 AM JIG FITTER Office Visit [facility] at Work [employer] [place] [address] [place] [address] Nellie Ellison, ANP [address] Franny Saleh [facility] [address] [place] [address] 12/29/2024 7:30 AM JIG FITTER Office Visit [facility] at Work [employer] [address] [address] Nellie Ellison, DIANE [address] [facility] Leonor Saleh [facility] [address] [place] [address] documented as of this encounter Visit Diagnoses Not on filedocumented in this encounter Additional Health Concerns Assessment Noted Time PHQ-9 Depression Total Score: 1 06/17/20 20 9:00 AM CDT documented as of this encounter
--- OUTSIDE RECORDS SUMMARY | 2024-12-02 04:51 | XMS_ITS | Encounter Summary ---
Author Organization [facility] Address [address] [place] [address] Care Team Providers Care Burglar Alarm Inspector Name Role Phone Autumn Yuan MD Primary Care Provider [phone] Reason for Visit * Reason Onset Date Comments Follow Up 10/30/2023 Encounter Details Date Type Department Care Team (Late st Contact Info) Description 10/30/2023 Telephone [facility] Work [employer] [address] [place] [address] Autumn Yuan MD [address] [place] [address] Follow Up Social History Tobacco Use Types Packs/Day Years [...] Telephone Encounter - Bhargavi Baez RN - 10/30/2023 8:42 AM CST Spoke to pt giving this information. Pt verbalized understanding. ATRONICS TECHNICIAN * Addendum Note - Autumn Yuan MD - 10/30/2023 8:20 AM CSTAddended by: AUTUMN YUAN on: 10/30/2023 08:20 AM Modules accepted: Orders ATRONICS TECHNICIAN * Telephone Encounter - Autumn Yuan MD - 10/30/2023 8:17 AM CST Sending oral prednisone. Have her take it early in the day with a full meal. I will send info on the med via portal for her to read. Continue to avoid antihistamines, use flonase 2 sprays in each nostril once a day, use nasal saline 4-5X/day as well. Keep cool mist humidifier in room at night (remember to clean it daily). Continue to do steam treatments several times daily as well. ATRONICS TECHNICIAN * Telephone Encounter - Bhargavi Baez RN - 10/30/2023 8:00 AM CST Pt called stating her ears are still hurting and she is having increased dizziness. Pt states she was told to call back if no improvement in symptoms. Please advise. ATRONICS TECHNICIAN documented in this encounter Plan of Treatment Upcoming Encounters Date Type Department Care Team (Late st Contact Info) Description 12/03/2024 10:30 AM MECHATRONICS TECHNICIAN Office Visit [facility] [place] [address] [place] [address] Nellie Ellison, ANP [address] [facility] Josetteleena Delfino [address] [place] [address] 12/29/2024 7:30 AM MECHATRONICS TECHNICIAN Office Visit [facility] Work [employer] [place] [address] [place] [address] Nellie Ellison, ANP [address] [address] Leonor Saleh [address] [place] [address] documented as of this encounter Visit Diagnoses Diagnosis Dizziness- Primary Dizziness and giddiness Acute effusion of both middle ears documented in this encounter Care Teams Burglar Alarm Inspector Relationship Specialty Start Date End Date Autumn Yuan MD [address] [place] [address] PCP - General Family Practice 10/25/22 04/14/24 documented as of this encounter
--- OUTSIDE RECORDS SUMMARY | 2024-12-02 04:51 | XMS_ITS | Encounter Summary ---
Author Organization [facility] Address [address] [place] [address] Care Team Providers Care Supervisor Forming Department Name Role Phone Dean Hernandez MD Primary Care Provider Unava ilable Encounter Details Date Type Department Care Team (Late st Contact Info) Description 06/05/2022 Orders Only [facility] [employer] [place] [address] [place] [address] Iva Abdi FNP NO ADDRESS ON FILE Morbid obesity with body mass index of 40.0-49.9 (Primary Dx) Social History Tobacco Use Types [...] st Contact Info) Description 12/03/2024 10:30 AM ORCHID HAND Office Visit [facility] at [employer] [place] [address] [place] [address] Nellie Ellison, ANP [address] Franny Saleh [facility] [address] [place] [address] 12/29/2024 7:30 AM ORCHID HAND Office Visit [facility] at Work [employer] [place] [address] [place] [address] Nellie Ellison, ANP [address] Franny Saleh [facility] [address] [place] [address] documented as of this encounter Visit Diagnoses Diagnosis Morbid obesity with body mass index of 40.0-49.9- Primary documented in this encounter Care Teams Supervisor Forming Department Relationship Specialty Start Date End Date Dean Hernandez MD PCP - General Family Practice 03/27/22 10/24/22 documented as of this encounter
--- OUTSIDE RECORDS SUMMARY | 2024-12-02 04:51 | XMS_ITS | Encounter Summary ---
Author Organization [facility] Address [address] [place] [address] Care Team Providers Care Shelter Advocate Name Role Phone Millie Yuan MD Primary Care Provider [phone] Reason for Visit * Reason Comments Labs Only Encounter Details Date Type Department Care Team (Late st Contact Info) Description 06/06/2023 7:20 AM CDT Clinical Support [facility] [employer] [address] [place] [address] Prediabetes Social History Tobacco Use Types Packs/Day Years [...] as of this encounter Progress Notes * Nuria Morris - 06/06/2023 7:09 AM CDT Pt came in for blood draw, left hand successful, 1 stick pt tolerated well. Drawn by Raimundo VORA. documented in this encounter Plan of Treatment Upcoming Encounters Date Type Department Care Team (Late st Contact Info) Description 12/03/2024 10:30 AM CHASSIS ENGINEER Office Visit [facility] [employer] [place] [address] [place] [address] Nellie Ellison, ANP [address] [address] Josetteleena Saleh [address] [place] [address] 12/29/2024 7:30 AM CHASSIS ENGINEER Office Visit [facility] [employer] [place] [address] [place] [address] Nellie Ellison, ANP [address] [address] Josetteleena Saleh [address] [place] [address] documented as of this encounter Procedures Procedure Name Priority Date/Time Associated Diagnosis Comments HEMOGLOBIN A1C Routine 06/06/2023 7:08 AM CDT Prediabetes documented in this encounter Results * HEMOGLOBIN A1C (06/06/2023 7:08 AM CDT) HEMOGLOBIN A1C 5.6 <5.7 % of total Hgb [employer] Manriquez Comment: For the purpose of screening for the presence of diabetes: <5.7% ? Consistent with the absence of diabetes 5.7-6.4% ?Consistent with increased risk for diabetes ?(prediabetes) > or =6.5% ??Consistent with diabetes This assay result is consistent with a decreased risk of diabetes. Currently, no consensus exists regarding use of hemoglobin A1c for diagnosis of diabetes in children. According to [place] Diabetes Association (ADA) guidelines, hemoglobin A1c <7.0% represents optimal control in non- diabetic patients. Different metrics may apply to specific patient populations. Standards of Medical Care in Diabetes(ADA). ?? ESTIMATED AVERAGE GLUCOSE (MG/DL) 114 mg/dL [employer] mitesh Manriquez ESTIMATED AVERAGE GLUCOSE (MMOL/L) 6.3 mmol/L [facility] Comment: Test Performed at: [facility] [address] [place] ??[phone] Clint Stone Blood 06/06/2023 7:08 AM CDT 06/06/2023 11:08 PM CDT Iva Abdi MATRIX WORKER CHEMISTRY [facility] [phone] [facility] [address] [place] [address] documented in this encounter Visit Diagnoses Diagnosis Prediabetes Other abnormal glucose documented in this encounter Care Teams Shelter Advocate Relationship Specialty Start Date End Date Millie Yuan MD [address] [place] [address] PCP - General Family Practice 10/25/22 04/14/24 documented as of this encounter
--- OUTSIDE RECORDS SUMMARY | 2024-12-02 04:51 | XMS_ITS | Encounter Summary ---
Author Organization [facility] Address [address] [place] [address] Care Team Providers Care Black Puller Name Role Phone Millie Yuan MD Primary Care Provider [phone] Reason for Visit * Reason Comments Medication Refill Encounter Details Date Type Department Care Team (Latest Contact Info) Description 04/06/2024 10:00 AM CDT Procedure visit [facility] [address] [place] [address] Issue of repeat prescription (Primary Dx) Social History [...] as of this encounter Progress Notes * Deann Rios - 04/06/2024 9:41 AM CDT Sertraline 50mg tab #30 documented in this encounter Plan of Treatment Upcoming Encounters Date Type Department Care Team (Late st Contact Info) Description 12/03/2024 10:30 AM ANY COMMODITY BUYER Office Visit [facility] [employer] [place] [address] [place] [address] Nellie Ellison, ANP [address] [address]anny Saleh [address] [address] 12/29/2024 7:30 AM ANY COMMODITY BUYER Office Visit [facility] at Work [employer] [place] [address] [place] [address] Nellie Ellison, ANP [address] [facility] Leonor Saleh [address] [address] documented as of this encounter Visit Diagnoses Diagnosis Issue of repeat prescription- Primary Issue of repeat prescriptions documented in this encounter Care Teams Black Puller Relationship Specialty Start Date End Date Millie Yuan MD [address] [place] [address] PCP - General Family Practice 10/25/22 04/14/24 documented as of this encounter
--- OUTSIDE RECORDS SUMMARY | 2024-12-02 04:51 | XMS_ITS | Encounter Summary ---
Author Organization [facility] Address [address] [place] [address] Care Team Providers Care Staffing Director Name Role Phone Unavailable Primary Care Provider Unavailabl e Reason for Visit * Reason Onset Date Comments Medication Refill 10/20/2021 Encounter Details Date Type Department Care Team (Late st Contact Info) Description 10/20/2021 Refill [facility] [employer] [place] [address] [place] [address] Dean Hernandez MD NO ADDRESS ON FILE Attention deficit disorder (ADD) in adult Social History Tobacco Use Types Packs/Day [...] st Contact Info) Description 12/03/2024 10:30 AM FRONT OFFICE HELP Office Visit [facility] [employer] [place] [address] [place] [address] Nell[place], ANP [address] Franny Saleh [facility] [address] [place] [address] 12/29/2024 7:30 AM FRONT OFFICE HELP Office Visit [facility] at Work [employer] [address] [place] [address] Nellie Ellison, DIANE [address] Franny Saleh [facility] [address] [place] [address] documented as of this encounter Visit Diagnoses Diagnosis Attention deficit disorder (ADD) in adult documented in this encounter
--- OUTSIDE RECORDS SUMMARY | 2024-12-02 04:51 | XMS_ITS | Encounter Summary ---
Author Organization [facility] Address [address] [place] [address] Care Team Providers Care Poured Wall Foreman Name Role Phone Dean Hernandez MD Primary Care Provider Unava ilable Reason for Visit * Reason Onset Date Comments Appointment Verification 03/28/2022 Encounter Details Date Type Department Care Team (Late st Contact Info) Description 03/28/2022 Telephone [facility] [employer] [address] [place] [address] Dean Hernandez MD NO ADDRESS ON FILE Appointment Verification Social History Tobacco Use Types Packs/Day Years [...] encounter Miscellaneous Notes * Telephone Encounter - Liliam Irwin - 03/28/2022 1:14 PM CDT LVM with a reminder of patients upcoming appointment on 03/29/2022 at 7:15 am at the [facility]. documented in this encounter Plan of Treatment Upcoming Encounters Date Type Department Care Team (Late st Contact Info) Description 12/03/2024 10:30 AM SILK SCREEN PRINTER Office Visit [facility] [address] [place] [address] Nellie Ellison, ANP [address] [address] Leonor Saleh [address] [address] 12/29/2024 7:30 AM SILK SCREEN PRINTER Office Visit [facility] [employer] [facility] [address] [place] [address] Nellie Ellison, ANP [address] [facility] Leonor Saleh [address] [address] documented as of this encounter Visit Diagnoses Not on filedocumented in this encounter Care Teams Poured Wall Foreman Relationship Specialty Start Date End Date Dean Hernandez MD PCP - General Family Practice 03/27/22 10/24/22 documented as of this encounter
--- OUTSIDE RECORDS SUMMARY | 2024-12-02 04:51 | XMS_ITS | Encounter Summary ---
Author Organization [facility] Address [address] [place] [address] Care Team Providers Care Sap Bw Developer Name Role Phone Millie Yuan MD Primary Care Provider [phone] Reason for Visit * Reason Onset Date Comments Results 08/28/2023 Encounter Details Date Type Department Care Team (Late Contact Info) Description 08/28/2023 Telephone [facility] [employer] [address] [place] [address] Claudia Goldman ANP [address] [place] [address] Results Social History Tobacco Use Types Packs/Day Years [...] st Contact Info) Description 12/03/2024 10:30 AM MANAGER HOME HEALTHCARE Office Visit [facility] at Work [employer] [facility] [address] [place] [address] Nellie Ellison, ANP [address] [address] Josetteleena Saleh [facility] [address] [place] [address] 12/29/2024 7:30 AM MANAGER HOME HEALTHCARE Office Visit [facility] at Work [facility] [employer] [facility] [address] [place] [place] [address] Nellie Ellison, ANP [address] Franny Josetteleena Saleh [facility] [address] [place] [address] documented as of this encounter Visit Diagnoses Not on filedocumented in this encounter Care Teams Sap Bw Developer Relationship Specialty Start Date End Date Millie Yuan MD [address] [place] [address] PCP - General Family Practice 10/25/22 04/14/24 documented as of this encounter
--- OUTSIDE RECORDS SUMMARY | 2024-12-02 04:51 | XMS_ITS | Encounter Summary ---
Author Organization [facility] Address [address] [place] [address] Care Team Providers Care Supervisor Hide House Name Role Phone Millie Yuan MD Primary Care Provider Reason for Visit * Reason Onset Date Comments Appointment Verification 03/07/2023 Encounter Details Date Type Department Care Team (Late st Contact Info) Description 03/07/2023 Telephone [facility] at Work [employer] [address] [place] [address] Millie Yuan MD [address] [place] [address] Appointment Verification Social History Tobacco Use Types [...] * Telephone Encounter - Liliam Irwin - 03/07/2023 1:29 PM CDT LVM with a reminder for patients upcoming appointment on 03/08/23 at 8:00 am at the [facility]. documented in this encounter Plan of Treatment Upcoming Encounters Date Type Department Care Team (Late st Contact Info) Description 12/03/2024 10:30 AM FORGE PRESS OPERATOR Office Visit [facility] at [facility] [employer] [facility] [address] [place] [address] Nellie Ellison, ANP [address] [address] Leonor Saleh [facility] [address] [place] [address] 12/29/2024 7:30 AM FORGE PRESS OPERATOR Office Visit [facility] at [facility] [address] [place] [address] Nellie Ellison, ANP [address] [facility] Leonor Saleh [facility] [address] [place] [address] documented as of this encounter Visit Diagnoses Not on filedocumented in this encounter Care Teams Supervisor Hide House Relationship Specialty Start Date End Date Millie Yuan MD [address] [place] [phone] PCP - General Family Practice 10/25/22 04/14/24 documented as of this encounter
--- OUTSIDE RECORDS SUMMARY | 2024-12-02 04:51 | XMS_ITS | Encounter Summary ---
Author Organization [facility] Address [address] [place] [address] Care Team Providers Care Veterinary Surgery Technician Name Role Phone Millie Yuan MD Primary Care Provider [phone] Reason for Visit * Reason Comments Labs Only Encounter Details Date Type Department Care Team (Latest Contact Info) Description 11/01/2022 8:40 AM PROPERTY MANAGEMENT SPECIALIST Clinical Support [facility] at [facility] [employer] [address] [place] [address] Urinary tract infection with hematuria, site unspecified (Primary Dx); Burning with urination Social History Tobacco Use Types Packs/Day Years [...] Progress Notes * Bhargavi Baez, FILOMENA - 11/01/2022 8:19 AM CST Pt presents to [facility] due to UTI symptoms per CHELO Lackey. ERTY MANAGEMENT SPECIALIST documented in this encounter Miscellaneous Notes * Result Encounter Note - Bhargavi Baez RN - 11/06/2022 8:23 AM PROPERTY MANAGEMENT SPECIALIST Spoke to pt giving this information. Pt verbalized understanding. ERTY MANAGEMENT SPECIALIST * Result Encounter Note - Iva Abdi FNP - 11/06/2022 7:09 AM PROPERTY MANAGEMENT SPECIALIST Nuria- Your urine culture has been reviewed. We need to switch your antibiotic to treat your UTI better. New antibiotic will be available for you to pick and shovel man at the [facility]. Make sure you take full course of new antibiotic. Remain well hydrated. Iva Helton NP ERTY MANAGEMENT SPECIALIST documented in this encounter Plan of Treatment Upcoming Encounters Date Type Department Care Team (Late st Contact Info) Description 12/03/2024 10:30 AM PROPERTY MANAGEMENT SPECIALIST Office Visit [facility] at [place] [address] [place] [address] Nellie Ellison, ANP [address] [facility] [address] [address] 12/29/2024 7:30 AM PROPERTY MANAGEMENT SPECIALIST Office Visit [facility] at [facility] [address] [place] [address] Nellie Ellison, DIANE [address] [address] documented as of this encounter Procedures Procedure Name Priority Date/Time Associated Diagnosis Comments URINE CULTURE Routine 11/01/2022 8:38 AM PROPERTY MANAGEMENT SPECIALIST Burning with urination documented in this encounter Results * (ABNORMAL) URINE CULTURE (11/01/2022 8:38 AM PROPERTY MANAGEMENT SPECIALIST) URINE CULTURE SEE NOTE(A) [facility] Niraj Manriquez Comment: ??CULTURE, URINE, ROUTINE ?Micro Number: ?[id number] ??Test Status: ? Final ??Specimen Source: ?? [...] cefuroxime, cephalexin ?and loracarbef. Test Performed at: [place] [address] [place] ??[id number] [facility] Urine URINE SPECIMEN OBTAINED BY CLEAN CATCH PROCEDURE / Unknown 11/01/2022 8:38 AM PROPERTY MANAGEMENT SPECIALIST 11/02/2022 12:10 AM PROPERTY MANAGEMENT SPECIALIST Iva WHITNEY MICROBIOLOGY - GENERAL ORDERABLES [facility] [phone] [place] [address] [place] [address] documented in this encounter Visit Diagnoses Diagnosis Urinary tract infection with hematuria, site unspecified- Primary Burning with urination Dysuria documented in this encounter Care Teams Veterinary Surgery Technician Relationship Specialty Start Date End Date Millie Yuan MD Verna Mathias [place] [address] PCP - General Family Practice 10/25/22 04/14/24 documented as of this encounter
--- OUTSIDE RECORDS SUMMARY | 2024-12-02 04:51 | XMS_ITS | Encounter Summary ---
Author Organization [facility] Address [address] [place] [address] Care Team Providers Care Portfolio Analyst Name Role Phone Unavailable Primary Care Provider Unavailabl e Reason for Visit * Reason Comments Abdominal Cramping lower abdominal Encounter Details Date Type Department Care Team (Late st Contact Info) Description 03/03/2021 11:30 AM CDT Office Visit [facility] at [employer] [address] [place] [address] Mary Jo Sheikh, [address] [address] Acute pain in female pelvis (Primary Dx); Screening for condition Social History [...] have Coronavirus / COVID-19? No / Unsure 03/03/2021 11:26 AM CDT documented as of this encounter Last Filed Vital Signs Vital Sign Reading Time Taken Comments Blood Pressure 116/78 03/03/2021 11:27 AM CDT Pulse 94 03/03/2021 11:27 AM CDT Temperature 37.3 ??C (99.2 ??F) 03/03/2021 11:27 AM C DT Respiratory Rate 20 03/03/2021 11:27 AM CDT Oxygen Saturation 96% 03/03/2021 11:27 AM CDT Inhaled Oxygen Concentration - - Weight 134.7 kg (297 lb) 03/03/2021 11:27 AM CDT Height 163.8 cm (5' 4.5 ) 03/03/2021 11:27 AM CD T Body Mass Index 50.19 03/03/2021 11:27 AM CDT documented in this encounter Progress Notes * Mary Jo Sheikh, CHELO - 03/03/2021 10:52 PM CDT HISTORY OF PRESENT ILLNESS Nuria Valdez, a 41 y.o. female presents with a Chief Complaint of Abdominal Cramping (lower abdominal ) Subjective Onset x2 weeks intermittent pain in lower abdomen. Pain is 2-5/10. Quality is burning and cramping lasting several hours -to- all day. Intermittent pain will come and go randomly, not in relation to mealtime or menstruation cycle. No change in bowel habits, denies n/v/d/c or blood in stool. Denies change in menstrual patterns, irregularity, denies heavy or painful cramping during menstruation, denies mid-cycle bleeding. LMP 01/28/2021. Patient was suspect of UTI, although admits that she is not having any dysuria. Admits to issue with stress incontinence which has worsened overtime. Admits to pmh acid relfux but states that s/s currently stable. Patient does admit to having intermittent cramping pains prior, onset 1-2 years but describes as being very mild and therefore was not concerned. PMH includes tubal ligation and left inguinal hernia repair. Her last DATA COMMUNICATIONS ENGINEER exam was >=3 years. She denies pmh abnormal DATA COMMUNICATIONS ENGINEER exam or testing. She has notbeen sexually active for >2years. No history of tobacco use. REVIEW OF SYSTEMS Review of Systems Constitutional: Negative. Negative for fatigue and fever. HENT: Negative. Eyes: Negative. Respiratory: Negative. Negative for shortness of breath. Cardiovascular: Negative. Negative for chest pain. Gastrointestinal: Positive for abdominal pain. Negative for abdominal distention, blood in stool, constipation, diarrhea, nausea, rectal pain and vomiting. Endocrine: Negative. Negative for polydipsia, polyphagia and polyuria. Genitourinary: Positive for pelvic pain. Negative for decreased urine volume, difficulty urinating,dysuria, enuresis, flank pain, frequency, hematuria, menstrual problem, vaginal bleeding and vaginal pain. Musculoskeletal: Negative. Negative for myalgias. Skin: Negative. Negative for color change. Allergic/Immunologic: Negative. Negative for immunocompromised state. Neurological: Negative. Negative for headaches. Hematological: Negative. Negative for adenopathy. Psychiatric/Behavioral: Positive for sleep disturbance. Objective PHYSICAL EXAM BP 116/78 (BP Location: Left arm, Patient Position (BP): Sitting, BP Cuff Size: Large Adult) Pulse 94 Temp 99.2 ??F (37.3 ??C) (Tympanic) Resp 20 Ht 5' 4.5 (1.638 m) Wt 134.7 kg (297 lb) LMP 01/31/2021 (Exact Date) SpO2 96% BMI 50.19 kg/m?? Physical Exam Constitutional: General: She is not in acute distress. Appearance: Normal appearance. She is obese. She is not ill-appearing. HENT: Head: Normocephalic and atraumatic. Right Ear: External ear normal. Left Ear: External ear normal. Nose: Nose normal. Eyes: Conjunctiva/sclera: Conjunctivae normal. Pupils: Pupils are equal, round, and reactive to light. Cardiovascular: Rate and Rhythm: Normal rate and regular rhythm. Pulses: Normal pulses. Heart sounds: Normal heart sounds. Pulmonary: Effort: Pulmonary effort is normal. Breath sounds: Normal breath sounds. Abdominal: General: Bowel sounds are normal. There is no distension. Palpations: Abdomen is soft. There is no hepatomegaly, splenomegaly or mass. Tenderness: There is no abdominal tenderness. There is no right CVA tenderness, left CVA tenderness, guarding or rebound. Negative signs include Amin's sign, Rovsing's sign and McBurney's sign. Hernia: No hernia is present. There is no hernia in the umbilical area, ventral area, left inguinalarea, right femoral area, left femoral area or right inguinal area. Musculoskeletal: General: Normal range of motion. Cervical back: Normal range of motion. Skin: General: Skin is warm and dry. Capillary Refill: Capillary refill takes less than 2 seconds. Neurological: General: No focal deficit present. Mental Status: She is alert and oriented to person, place, and time. Psychiatric: Mood and Affect: Mood normal. Behavior: Behavior normal. Thought Content: Thought content normal. Judgment: Judgment normal. Urine dipstick shows negative for all components. Assessment ASSESSMENT and PLAN: ICD-10-CM ICD-9-CM 1. Acute pain in female pelvis R10.2 625.9 CBC WITH DIFFERENTIAL BASIC METABOLIC PANEL 2. Screening for condition Z13.9 V82.9 POC URINALYSIS DIPSTICK AUTOMATED Nuria Valdez is a 41 year old female with pmh tubal ligation and inguinal hernia repair who presents with intermittent mild-moderate generalized pelvic pain, cramping x2 weeks. Abdominal exam is negative. POC dipstick is negative. I recommend patient make appointment with DATA COMMUNICATIONS ENGINEER for bimanual andspeculum exams, u/s if indicated. I will obtain CBC and BMP. I have explained to patient that if gas distribution supervisor ecologic cause is ruled out, she will then follow up for further GI workup including abdominal CT. Continue pain management with ibuprofen or tylenol as needed. documented in this encounter Plan of Treatment Upcoming Encounters Date Type Department Care Team (Late st Contact Info) Description 12/03/2024 10:30 AM AERONAUTICAL TEST ENGINEER Office Visit [facility] at [facility] [employer] [place] [address] [place] [phone] Nellie Ellison, ANP [address] [facility] [address] [place] [address] 12/29/2024 7:30 AM AERONAUTICAL TEST ENGINEER Office Visit [facility] at [facility] [address] [place] [phone] Nellie Ellison, ANP [address] [place] [address] documented as of this encounter Procedures Procedure Name Priority Date/Time Associated Diagnosis Comments POC URINALYSIS DIPSTICK AUTOMATED Routine 03/03/2021 11:39 AM CDT Screening for condition documented in this encounter Results * BASIC METABOLIC PANEL (03/07/2021 7:53 AM CDT) GLUCOSE 98 65 - 99 mg/dL [facility] BUN 14 6 - 24 mg/dL [facility] CREATININE 0.69 0.57 - 1.00 mg/dL [facility] GFR 109 >59 mL/min/1.7 3 [facility] GFR, 126 >59 mL/min/1.7 3 [facility] BUN/CREAT RATIO 20 9 - 23 [facility] SODIUM 140 134 - 144 mmol/L [facility] POTASSIUM 4.6 3.5 - 5.2 mmol/L [facility] CHLORIDE 105 96 - 106 mmol/L [facility] CO2 23 20 - 29 mmol/L [facility] CALCIUM 9.4 8.7 - 10.2 mg/dL [facility] Blood 03/07/2021 7:53 AM CDT 03/07/2021 Narrative [facility] - 03/08/2021 3:35 AM CDT Performed at: ??01 - [facility] [address] ??[id number] Automobile Damage Appraiser: Chris Carnes PhD, Phone: ??[phone] Mary Jo Sheikh [facility] CHEMISTRY ORDERABLES [facility] [phone] * CBC WITH DIFFERENTIAL (03/07/2021 7:53 AM CDT) WBC 7.8 3.4 - 10.8 x10E3/uL [facility] RBC 4.29 3.77 - 5.28 x10E6/uL [facility] HEMOGLOBIN 12.7 11.1 - 15.9 g/dL [facility] HEMATOCRIT 36.8 34.0 - 46.6 % [facility] MCV 86 79 - 97 fL [facility] MCH 29.6 26.6 - 33.0 pg [facility] MCHC 34.5 31.5 - 35.7 g/dL [facility] RDW 12.9 11.7 - 15.4 % [facility] PLATELETS 320 150 - 450 x10E3/uL [facility] NEUTROPHIL 67 Not Estab. % [facility] LYMPHOCYTES 23 Not Estab. % [facility] MONOCYTE 6 Not Estab. % [facility] EOSINOPHILS 3 Not Estab. % [facility] BASOPHILS 1 Not Estab. % [facility] NEUTROPHIL ABSOLUTE 5.2 1.4 - 7.0 x10E3/uL [facility] LYMPHOCYTE ABSOLUTE 1.8 0.7 - 3.1 x10E3/uL [facility] MONOCYTE ABSOLUTE 0.5 0.1 - 0.9 x10E3/uL [facility] EOSINOPHIL ABSOLUTE 0.2 0.0 - 0.4 x10E3/uL [facility] BASOPHILS ABSOLUTE 0.1 0.0 - 0.2 x10E3/uL [facility] IMMATURE GRANULOCYTES 0 Not Estab. % [facility] IMMATURE GRANULOCYTES ABSOLUTE 0.0 0.0 - 0.1 x10E3/uL [facility] Blood 03/07/2021 7:53 AM CDT 03/07/2021 Narrative [facility] - 03/08/2021 3:35 AM CDT Performed at: ?? - [facility] [address] ??[id number] Automobile Damage Appraiser: Chris Carnes PhD, Phone: ??[phone] Mary Jo Shahhea PROPERTY CONSULTANT HEMATOLOGY ORDERABLE S [facility] [phone] * POC URINALYSIS DIPSTICK AUTOMATED (03/03/2021 11:39 AM CDT) COLOR UA Yellow Pale to Dark Yellow [facility] CLARITY UA Clear Clear [facility] GLUCOSE UA Negative Negative, Normal [facility] BILIRUBIN UA Negative Negative [facility] UA Negative Negative [facility] SPECIFIC GRAVITY UA POC >=1.030 1.000 - 1.030 [facility] BLOOD UA Negative Negative [facility] PH UA 5.5 5.0 - 8.0 [facility] PROTEIN UA Negative Negative [facility] UROBILINOGEN UA 0.2 <2.0 mg/dL [facility] NITRITE UA Negative Negative [facility] LEUKOCYTE ESTERASE UA Negative Negative [facility] KIT LOT NUMBER POC 911,003 [facility] KIT EXPIRATION DATE POC 03/24/2021 [facility] Urine 03/03/2021 11:3 9 AM CDT Mary Jo Sheikh PROPERTY CONSULTANT POINT OF CARE TESTIN G [facility] CLIA# [id number] [address] [place] [address] documented in this encounter Visit Diagnoses Diagnosis Acute pain in female pelvis- Primary Unspecified symptom associated with female genital organs Screening for condition Screening for unspecified condition Screening for condition- Primary Screening for unspecified condition Acute pain in female pelvis Unspecified symptom associated with female genital organs documented in this encounter
--- OUTSIDE RECORDS SUMMARY | 2024-12-02 04:51 | XMS_ITS | Encounter Summary ---
Author Organization [facility] Address [address] [place] [address] Care Team Providers Care Hadoop Application Developer Name Role Phone Millie Yuan MD Primary Care Provider [phone] Reason for Visit * Reason Comments Labs Only Encounter Details Date Type Department Care Team (Latest Contact Info) Description 04/06/2024 9:40 AM CDT Office Visit [facility] [employer] [address] [place] [address] Screening for condition (Primary Dx); CRP elevated; Prediabetes; Vitamin D insufficiency Social History Tobacco Use Types Packs/Day Years [...] Sign Reading Time Taken Comments Blood Pressure 126/74 04/06/2024 9:38 AM CDT Pulse - - Temperature - - Respiratory Rate - - Oxygen Saturation - - Inhaled Oxygen Concentration - - Weight 152.4 kg (336 lb) 04/06/2024 9:38 AM CDT Height 165.1 cm (5' 5 ) 04/06/2024 9:38 AM CDT Body Mass Index 55.91 04/06/2024 9:38 AM CDT documented in this encounter Progress Notes * BlancaNatashadoreen Jerry - 04/06/2024 9:39 AM CDT Patient presents for labs only, drawn from right hand, one stick. Patient tolerated well. documented in this encounter Miscellaneous Notes * Result Encounter Note - Silvia Carmona - 04/08/2024 11:50 AM CDT Pt states that she was indeed fasting for the labs. * Result Encounter Note - Silvia Carmona - 04/08/2024 11:49 AM CDT Called pt, results were given and pt states that she reviewed results using her [employer] portal. Ptis scheduled to see Nellie on 05/11 * Result Encounter Note - Millie Yuan MD - 04/08/2024 10:37 AM CDT Please call patient to give her lab results. Please schedule her a f/u appt - virtual is fine - with Dr. Martinez or with Nellie to discuss results. Vitamin D is 29. This is better than 2 months ago, but still not in the normal range. CRP is down from 20.3 to 14.2. Glucose is elevated at 103. Was she fasting?ALT slightly elevated at 34. Lipid panel shows LDL elevated at 149, triglycerides elevated at 160 and HDL is normal at 60. A1c is elevated at 6.1. This is higher than last check when it was 5.9. Blood counts look fine. Thyroid screen is normal. documented in this encounter Plan of Treatment Upcoming Encounters Date Type Department Care Team (Late st Contact Info) Description 12/03/2024 10:30 AM GREENSKEEPER LABORER Office Visit [facility] [address] [place] [phone] Nellie Ellison, ANP [address] [address] [facility] [address] [place] [address] 12/29/2024 7:30 AM GREENSKEEPER LABORER Office Visit [facility] [address] [place] [phone] Nellie Ellison, ANP [address] [facility] [address] [facility] [address] [place] [address] documented as of this encounter Procedures Procedure Name Priority Date/Time Associated Diagnosis Comments CBC WITH DIFFERENTIAL Routine 04/06/2024 9:25 AM CDT Screening for condition VITAMIN D 25 HYDROXY Routine 04/06/2024 9:25 AM CDT Vitamin D insufficiency C-REACTIVE PROTEIN Routine 04/06/2024 9: 25 AM CDT CRP elevated TSH Routine 04/06/2024 9:25 AM CDT Screening for condition HEMOGLOBIN A1C Routine 04/06/2024 9:25 AM CDT Prediabetes LIPID PANEL Routine 04/06/2024 9:25 AM CDT Screening for condition COMPREHENSIVE METABOLIC PANEL Routine 04/06/2024 9:25 AM CDT Screening for condition documented in this encounter Results * (ABNORMAL) VITAMIN D 25 HYDROXY (04/06/2024 9:25 AM CDT) VITAMIN D, 25 OH, TOTAL 29(L) 30 - 100 ng/mL [id number] Comment: Vitamin D Status ? 25-OH Vitamin D: Deficiency: ?<20 ng/mL Insufficiency: ? 20 - 29 ng/mL Optimal: ? > or = 30 ng/mL For 25-OH Vitamin D testing on patients on D2-supplementation and patients for whom quantitation of D2 and D3 fractions is required, the QuestAssureD(TM) 25-OH VIT D, (D2,D3), LC/MS/MS is recommended: order code 81498 (patients >2yrs). See Note 1 Note 1 For additional information, please refer to http://education.Tapiture/faq/ZPG681 (This link is being provided for informational/ educational purposes only.) Test Performed at: [facility] [employer] [address] [place], [place] ??[phone] Clint Stone MD Blood 04/06/2024 9:25 AM CDT 04/06/2024 11:34 PM CDT Millie Yuan MD CHEMISTRY ORDERABLES [facility] [phone] [employer] ([employer] [address] [place] [address] * (ABNORMAL) HEMOGLOBIN A1C (04/06/2024 9:25 AM CDT) HEMOGLOBIN A1C 6.1(H) <5.7 % of total Hgb [facility] Comment: For someone without known diabetes, [...] diabetes for children. ESTIMATED AVERAGE GLUCOSE (MG/DL) 128 mg/dL [facility] ESTIMATED AVERAGE GLUCOSE (MMOL/L) 7.1 mmol/L [facility] Comment: ? This test was performed on the Cordell sheree c503 platform. Effective 02/10/24, a change in test platforms from the Dickey Take Out Waitress to the Cordell sheree c503 may have shifted HbA1c results compared to historical results. Based on laboratory validation testing conducted at [facility], the Cordell platform relative to the Dickey [...] platforms is not recommended. Test Performed at: [place] [address] [place] ??[phone] Louann-Lalita Stone Blood 04/06/2024 9:25 AM CDT 04/06/2024 11:34 PM CDT Millie Yuan MD CHEMISTRY ORDERABLES [facility] [phone] [place] [address] [place] [phone] * (ABNORMAL) C-REACTIVE PROTEIN (04/06/2024 9:25 AM CDT) CRP 14.2(H) <8.0 mg/L [facility] mitesh Manriquez Comment: Test Performed at: [place] [address] [place] ??[phone] Louann-Lalita Brown Blood 04/06/2024 9:25 AM CDT 04/06/2024 11:34 PM CDT Millie Yuan MD CHEMISTRY ORDERABLES [facility] [phone] [place] [address] [place] [phone] * (ABNORMAL) COMPREHENSIVE METABOLIC PANEL (04/06/2024 9:25 AM CDT) GLUCOSE 103(H) 65 - 99 mg/dL [employer]Derek Manriquze Comment: ? Fasting reference interval For someone without known diabetes, a glucose value between 100 and 125 mg/dL is consistent with prediabetes and should be confirmed with a follow-up test. BUN 13 7 - 25 mg/dL [employer] (TT[employer])Derek mitesh Manriquez CREATININE 0.71 0.50 - 0.99 mg/dL [employer] ([facility]S mitesh Manriquez GFR 108 > OR = 60 mL/min/1. 73m2 [employer] (TT[employer])S mitesh Manriquez BUN/CREAT RATIO SEE NOTE: 6 - 22 (calc) [facility] [employer] mitesh Manriquez Comment: ?? Not Reported: BUN and Creatinine are within ?? reference range. ? SODIUM 137 135 - 146 mmol/L [employer] [facility]S mitesh Manriquez POTASSIUM 4.0 3.5 - 5.3 mmol/L [employer] [facility]S mitesh Manriquez CHLORIDE 102 98 - 110 mmol/L [employer] [facility]S mitesh Manriquez CO2 25 20 - 32 mmol/L [employer] [facility]S mitesh Manriquez CALCIUM 9.4 8.6 - 10.2 mg/dL [facility] mitesh Manriquez TOTAL PROTEIN 7.0 6.1 - 8.1 g/dL [facility] m[facility]h Manriquez ALBUMIN 4.4 3.6 - 5.1 g/dL [facility] m[facility]h Manriquez GLOBULIN 2.6 1.9 - 3.7 g/dL (calc) [facility] mitesh Manriquez ALBUMIN/GLOBULIN RATIO 1.7 1.0 - 2.5 (calc) [employer] [facility]S mitesh Manriquez BILIRUBIN TOTAL 0.4 0.2 - 1.2 mg/dL [employer] [facility]S mitesh Manriquez ALKALINE PHOSPHATASE 55 31 - 125 U/L [employer] [facility]S mitesh Manriquez AST 22 10 - 30 U/L [employer] [facility]S mitesh Manriquez ALT 34(H) 6 - 29 U/L [facility] mitesh Manriquez Comment: Test Performed at: [employer] [facility] (TTN)[place] [address] [place], [place] ??[phone] Louann-Lalita Brown Vo Blood 04/06/2024 9:25 AM CDT 04/06/2024 11:33 PM CDT Millie Yuan MD CHEMISTRY ORDERABLES [facility] [phone] [place] [address] [place] [address] * (ABNORMAL) CBC WITH DIFFERENTIAL (04/06/2024 9:25 AM CDT) WBC 8.5 3.8 - 10.8 Thousand/ uL [facility] RBC 4.78 3.80 - 5.10 Million/u L [facility] HEMOGLOBIN 13.5 11.7 - 15.5 g/dL [facility] HEMATOCRIT 42.5 35.0 - 45.0 % [facility] MCV 88.9 80.0 - 100.0 fL [facility] MCH 28.2 27.0 - 33.0 pg [facility] MCHC 31.8(L) 32.0 - 36.0 g/dL [facility] RDW 13.4 11.0 - 15.0 % [facility] PLATELETS 358 140 - 400 Thousand/ uL [facility] MPV 10.5 7.5 - 12.5 fL [facility] NEUTROPHIL ABSOLUTE 5,151 1,500 - 7,800 cells/uL [facility] LYMPHOCYTE ABSOLUTE 2,491 850 - 3,900 cells/uL [facility] MONOCYTE ABSOLUTE 476 200 - 950 cells/uL [facility] EOSINOPHIL ABSOLUTE 289 15 - 500 cells/uL [facility] BASOPHILS ABSOLUTE 94 0 - 200 cells/uL [facility] NEUTROPHIL 60.6 % [facility] LYMPHOCYTES 29.3 % [facility] MONOCYTE 5.6 % [facility] EOSINOPHILS 3.4 % [facility] BASOPHILS 1.1 % [facility] Comment: Test Performed at: [facility] [address] [place] ??[phone] LouannHollieLalita Stone Blood 04/06/2024 9:25 AM CDT 04/06/2024 11:33 PM CDT Millie Yuan MD HEMATOLOGY ORDERABLE S [facility] [phone] [place] [address] [address] [place] [phone] * (ABNORMAL) LIPID PANEL (04/06/2024 9:25 AM CDT) CHOLESTEROL 239(H) <200 mg/dL [facility] HDL 60 > OR = 50 mg/dL [facility] TRIGLYCERIDE 160(H) <150 mg/dL [facility] SoftwareKatherine Manriquez LDL CALCULATED 149(H) mg/dL (calc) [facility] Comment: Reference range: <100 Desirable range <100 mg/dL for primary prevention; ?? <70 mg/dL for patients with CHD or diabetic patients with > or = 2 CHD risk factors. LDL-C is now calculated using the Penny calculation, which is a validated novel method providing better accuracy than the Friedewald equation in the estimation of LDL-C. Ronaldo WHITAKER et al. SHIRA. 2013;310(19): 7057-9854 (http://education.Tapiture/faq/XQI971) CHOL/HDL RATIO 4.0 <5.0 (calc) [facility] [employer] SoftwareKatherine Manriquez TOTAL NON-HDL CHOL(LDL+VLDL) 179(H) <130 mg/dL (calc) [facility] Comment: For patients with diabetes plus 1 major ASCVD risk factor, treating to a non-HDL-C goal of <100 mg/dL (LDL-C of <70 mg/dL) is considered a therapeutic option. Test Performed at: [facility] [address] [place] ??[phone] Clint Brown Vo Blood 04/06/2024 9:25 AM CDT 04/06/2024 11:33 PM CDT Millie Yuan MD CHEMISTRY ORDERABLES [facility] [phone] [place] [address] [address] [place] [phone] * TSH (04/06/2024 9:25 AM CDT) TSH 1.75 mIU/L [facility] Bootstrap SoftwareDerek Manriquez Comment: ?Reference Range ?> or = 20 Years ??0.40-4.50 ? Ranges ?First trimester ?0.26-2.66 ?Second trimester ?? 0.55-2.73 ?Third trimester ?0.43-2.91 Test Performed at: [place] [address] [place], [place] ??[phone] Louann-Lalita Brown Blood 04/06/2024 9:25 AM CDT 04/06/2024 11:33 PM CDT Millie Yuan MD CHEMISTRY ORDERABLES [facility] [phone] [place] [address] [place] [phone] documented in this encounter Visit Diagnoses Diagnosis Screening for condition- Primary Screening for unspecified condition CRP elevated Elevated C-reactive protein (CRP) Prediabetes Other abnormal glucose Vitamin D insufficiency Unspecified vitamin D deficiency documented in this encounter Care Teams Hadoop Application Developer Relationship Specialty Start Date End Date Millie Yuan MD [address] [place] [address] PCP - General Family Practice 10/25/22 04/14/24 documented as of this encounter
--- OUTSIDE RECORDS SUMMARY | 2024-12-02 04:51 | XMS_ITS | Encounter Summary ---
Author Organization [facility] Address [address] [place] [address] Care Team Providers Care Carcass Washer Name Role Phone Millie Yuan MD Primary Care Provider [phone] Reason for Visit * Reason Onset Date Comments Referral 11/02/2022 Encounter Details Date Type Department Care Team (Late st Contact Info) Description 11/02/2022 Telephone [facility] [employer] [address] [place] [address] Iva Abdi FNP NO ADDRESS ON FILE Referral Social History Tobacco Use Types Packs/Day Years [...] encounter Miscellaneous Notes * Telephone Encounter - Nuria Morris - 11/02/2022 10:37 AM CST Pt called stating that she reached out to general surgery at [facility] and they stated she could not schedule herself that we had to. I reached out to them [phone] and spoke to the central office mechanic. She stated that she needed face sheet, referral, OV, and insurance cards faxed to them at [phone] and that they will reach out to the pt once they have that information. I have faxed the information requested and let the pt know this as well. SCAPE HORTICULTURE INSTRUCTOR documented in this encounter Plan of Treatment Upcoming Encounters Date Type Department Care Team (Late st Contact Info) Description 12/03/2024 10:30 AM LANDSCAPE HORTICULTURE INSTRUCTOR Office Visit [facility] at [facility] [address] [place] [phone] Nellie Ellison, ANP [phone] [facility] Leonor Saleh [address] [address] 12/29/2024 7:30 AM LANDSCAPE HORTICULTURE INSTRUCTOR Office Visit [facility] at [facility] [address] [place] [phone] Nellie Ellison, ANP [phone] [facility] [address] [address] documented as of this encounter Visit Diagnoses Not on filedocumented in this encounter Care Teams Carcass Washer Relationship Specialty Start Date End Date Millie Yuan MD [address] [facility] [place] [address] PCP - General Family Practice 10/25/22 04/14/24 documented as of this encounter
--- OUTSIDE RECORDS SUMMARY | 2024-12-02 04:51 | XMS_ITS | Encounter Summary ---
Author Organization [facility] Address [address] [place] [address] Care Team Providers Care Computerized Mill Mill Recorder Name Role Phone Unavailable Primary Care Provider Unavailabl e Reason for Referral * Eval and Treat (Routine) - Closed Specialty Diagnoses / Procedures Referred By Contac t Referred To Contact Pulmonology Diagnoses Sleep apnea, unspecified type Dean Hernandez MD NO ADDRESS ON FILE Referral ID Status Reason Start Date Expiration Date Visits Re quested Visits Authorized [id number] Closed 08/31/2021 08/31/2022 1 1 Reason for Visit * Reason Onset Date Comments Medication Refill 08/31/2021 Medication Refill 09/19/2021 Encounter Details Date Type Department Care Team (Late st Contact Info) Description 08/31/2021 Refill [facility] [place] [address] [place] [address] Dean Hernandez MD NO ADDRESS ON FILE Sleep apnea, unspecified type (Primary Dx); Attention deficit disorder (ADD) in adult Social [...] AM CDT documented as of this encounter Miscellaneous Notes * Telephone Encounter - Bhargavi Baez RN - 08/31/2021 3:53 PM CDT Pt also states she had a sleep study done through [facility] and pt states she is actually on a BIPAP machine and not a CPAP. She was told via [facility] that they do not do BIPAP. Pt would like Referral to a orthodontic laboratory technician to further evaluate/treat documented in this encounter Plan of Treatment Upcoming Encounters Date Type Department Care Team (Late st Contact Info) Description 12/03/2024 10:30 AM WASTE HANDLING TECHNICIAN Office Visit [facility] [place] [address] [place] [address] Nellie Ellison, DIANE [address] [facility] Leonor [address] [address] 12/29/2024 7:30 AM WASTE HANDLING TECHNICIAN Office Visit [facility] [address] [place] [address] Nellie Ellison ANP [phone] [facility] [address] [address] Scheduled Referrals Name Type Priority Associated Diagnoses Orde r Schedule AMB REFERRAL TO PULMONARY Outpatient Referral Routine Sleep apnea, unspecified type Ordered: 08/31/2021 documented as of this encounter Visit Diagnoses Diagnosis Sleep apnea, unspecified type- Primary Attention deficit disorder (ADD) in adult documented in this encounter
--- OUTSIDE RECORDS SUMMARY | 2024-12-02 04:51 | XMS_ITS | Encounter Summary ---
Author Organization [facility] Address [address] [place] [address] Care Team Providers Care Double Bass Player Name Role Phone Unavailable Primary Care Provider Unavailabl e Encounter Details Date Type Department Care Team (Late st Contact Info) Description 06/20/2020 Orders Only [facility] [employer] [place] [address] [place] [address] Litzy Gaxiola, SINDY [address] [facility] [place] [address] [place] [address] Elevated LDL cholesterol level (Primary Dx) Social History Tobacco Use Types [...] have Coronavirus / COVID-19? No / Unsure 06/17/2020 7:58 AM CDT documented as of this encounter Plan of Treatment Upcoming Encounters Date Type Department Care Team (Late st Contact Info) Description 12/03/2024 10:30 AM CABLE INSTALLER REPAIRER Office Visit [facility] [employer] ([employer]) [facility] [address] [place] [address] Nellie Ellison, ANP [phone] [address] 12/29/2024 7:30 AM CABLE INSTALLER REPAIRER Office Visit [facility] [employer] [place] [address] [place] [phone] Nellie Ellison, ANP [phone] Franny Saleh [facility] [address] [place] [address] documented as of this encounter Visit Diagnoses Diagnosis Elevated LDL cholesterol level- Primary Pure hypercholesterolemia documented in this encounter Additional Health Concerns Assessment Noted Time PHQ-9 Depression Total Score: 1 06/17/20 20 9:00 AM CDT documented as of this encounter
--- OUTSIDE RECORDS SUMMARY | 2024-12-02 04:51 | XMS_ITS | Encounter Summary ---
Author Organization [facility] Address [address] [place] [address] Care Team Providers Care Retoucher Photoengraving Name Role Phone Millie Yuan MD Primary Care Provider [phone] Encounter Details Date Type Department Care Team (Late st Contact Info) Description 12/20/2023 External Device Data ST[facility] ABSTRACTION Provider, Abstract [...] Contact Info) Description 12/03/2024 10:30 AM MANAGER COMPLIANCE Office Visit [facility] [employer] [place] [address] [place] [address] Nellie Ellison, ANP [phone] [facility] Leonor [place] [place] [address] 12/29/2024 7:30 AM MANAGER COMPLIANCE Office Visit [facility] [employer] [place] [address] [place] [address] Nellie Ellison, ANP [phone] [place] [address] documented as of this encounter Visit Diagnoses Not on filedocumented in this encounter Care Teams Retoucher Photoengraving Relationship Specialty Start Date End Date Millie Yuan MD [address] [place] [address] PCP - General Family Practice 10/25/22 04/14/24 documented as of this encounter
--- OUTSIDE RECORDS SUMMARY | 2024-12-02 04:51 | XMS_ITS | Encounter Summary ---
Author Organization [facility] Address [address] [place] [address] Care Team Providers Care Actor Understudy Name Role Phone Dean Hernandez MD Primary Care Provider Unava ilable Reason for Visit * Reason Comments Medication Refill Encounter Details Date Type Department Care Team (Late st Contact Info) Description 06/01/2022 Refill [facility] [address] [place] [phone] Iva Abdi FNP NO ADDRESS ON FILE [...] * Telephone Encounter - Nuria Morris - 06/01/2022 9:39 AM CDT does not have this rx sending to to see. documented in this encounter Plan of Treatment Upcoming Encounters Date Type Department Care Team (Late st Contact Info) Description 12/03/2024 10:30 AM MANAGING PARTNER DIGITAL CONTENT MARKETING [place] Office Visit [facility] [place] [facility] [place] [address] [place] [address] Nellie Ellison, ANP [address] [facility] Leonor Saleh [facility] [address] [place] [address] 12/29/2024 7:30 AM MANAGING PARTNER [employer] [place] Office Visit [facility] [place] [facility] [place] [address] [place] [address] Nellie Ellison, ANP [address] [facility] Leonor Saleh [facility] [address] [place] [address] documented as of this encounter Visit Diagnoses Not on filedocumented in this encounter Care Teams Actor Understudy Relationship Specialty Start Date End Date Dean Hernandez MD PCP - General Family Practice 03/27/22 10/24/22 documented as of this encounter
--- OUTSIDE RECORDS SUMMARY | 2024-12-02 04:51 | XMS_ITS | Encounter Summary ---
Author Organization [facility] Address [address] [place] [address] Care Team Providers Care In Tube Conversion Technician Name Role Phone Unavailable Primary Care Provider Unavailabl e Reason for Visit * Reason Comments Back Pain Ankle Injury Encounter Details Date Type Department Care Team (Late st Contact Info) Description 07/24/2021 11:00 AM CDT Office Visit [facility] at [facility] [employer] [address] [place] [place] [address] Dean Hernandez MD NO ADDRESS ON FILE Achilles tendinitis of right lower extremity (Primary Dx); Strain of lumbar region, initial encounter Social History Tobacco Use Types Packs/Day Years [...] Sign Reading Time Taken Comments Blood Pressure 114/72 07/24/2021 10:47 AM CDT Pulse 80 07/24/2021 10:47 AM CDT Temperature 37.3 ??C (99.2 ??F) 07/24/2021 10:47 AM C DT Respiratory Rate 18 07/24/2021 10:47 AM CDT Oxygen Saturation 96% 07/24/2021 10:47 AM CDT Inhaled Oxygen Concentration - - Weight 134.3 kg (296 lb) 07/24/2021 10:47 AM CDT Height 163.8 cm (5' 4.5 ) 07/24/2021 10:47 AM CD T Body Mass Index 50.02 07/24/2021 10:47 AM CDT documented in this encounter Progress Notes * Dean Hernandez MD - 07/24/2021 10:50 AM CDT Nuria Valdez is a 41 y.o. female Chief Complaint/HPI: Chief Complaint Patient presents with ??? Back Pain ??? Ankle Injury Tobacco Intervention She is not a tobacco user. Depression Screen Positive: PHQ-2 score >= 3 or PHQ-9 score >= 9 PHQ-2 Total: 0 (03/03/2021 11:00 AM) DEPRESSION PLAN OF CARE Her depression screen was normal Blood Pressure BP Readings from Last 3 Encounters: 07/24/21 114/72 03/03/21 116/78 02/06/21 126/84 This medical record reflects the history of present illness as obtained by myself in discussion with the patient. SUBJECTIVE: Here for above problems. Ongoing low back tightness and pain/stain feeling. No with one week of tightness of right achilles tendon area. Pain when tight. Worse in am. Seems torelieve after being up delia ctive. If stops/sits for too lng, the tightness returns. No know injury. Does lifting at work. ROS Review of Systems - History obtained from chart review and the patient General ROS: negative for weight changes, fever Psychological ROS: not currently Respiratory ROS: negative for cough, shortness of breath, or wheezing Cardiovascular ROS: negative for chest pain or dyspnea on exertion Musculoskeletal ROS: as above Hx of sleep apmena. Has bipap. Needs update. Allergy and medication list reviewed and updated. OBJECTIVE: She appears well, in no apparent distress. Vital signs documented in vital signs section and are reviewed. Physical Examination: General appearance - alert, well appearing, and in no distress and oriented to person, place, and time Mental status - alert, oriented to person, place, and time, normal mood, behavior, speech, dress, motor activity, and thought processes Back exam - decreased range of motion due to tightness and pulling feeling. Right achilles with pain to palpation at insertion paoint. Intact. No calf pain. No swelling noted. Extremities - mild pedal and ankle edema bialterally ASSESSMENT AND PLAN: ICD-10-CM ICD-9-CM 1. Achilles tendinitis of right lower extremity M76.61 726.71 nabumetone (RELAFEN) 500 mg tablet 2. Strain of lumbar region, initial encounter S39.012A 847.2 nabumetone (RELAFEN) 500 mg tablet As above and discharge papers Will refer to [employer] for updates and discussion Stretches handouts given. documented in this encounter Miscellaneous Notes * Patient Instructions - Dean Hernandez MD - 07/24/2021 11:13 AM CDT Images from the original note were not included. An After Visit Summary was printed and given to the patient. Low Back Pain: Exercises Introduction Here are some examples of exercises for you to try. The exercises may be suggested for a condition or for rehabilitation. Start each exercise slowly. Ease off the exercises if you start to have pain. You will be told when to start these exercises and which ones will work best for you. How to do the exercises Press-up 1. Lie on your stomach, supporting your body with your forearms. 2. Press your elbows down into the floor to raise your upper back. As you do this, relax your stomach muscles and allow your back to arch without using your back muscles. As your press up, do not letyour hips or pelvis come off the floor. 3. Hold for 15 to 30 seconds, then relax. 4. Repeat 2 to 4 times. Alternate arm and leg (bird dog) exercise Do this exercise slowly. Try to keep your body straight at all times, and do not let one hip drop lower than the other. 1. Start on the floor, on your hands and knees. 2. Tighten your belly muscles. 3. Raise one leg off the floor, and hold it straight out behind you. Be careful not to let your hipdrop down, because that will twist your trunk. 4. Hold for about 6 seconds, then lower your leg and switch to the other leg. 5. Repeat 8 to 12 times on each leg. 6. Over time, work up to holding for 10 to 30 seconds each time. 7. If you feel stable and secure with your leg raised, try raising the opposite arm straight out infront of you at the same time. [id number]-no-[id number] exercise 1. Lie on your back with your knees bent and your feet flat on the floor. 2. Bring one knee to your chest, keeping the other foot flat on the floor (or keeping the other legstraight, whichever feels better on your lower back). 3. Keep your lower back pressed to the floor. Hold for at least 15 to 30 seconds. 4. Relax, and lower the knee to the starting position. 5. Repeat with the other leg. Repeat 2 to 4 times with each leg. 6. To get more stretch, put your other leg flat on the floor while pulling your knee to your chest. Curl-ups 1. Lie on the floor on your back with your knees bent at a 90-degree angle. Your feet should be flat on the floor, about 12 inches from your buttocks. 2. Cross your arms over your chest. If this bothers your neck, try putting your hands behind your neck (not your head), with your elbows spread apart. 3. Slowly tighten your belly muscles and raise your shoulder blades off the floor. 4. Keep your head in line with your body, and do not press your chin to your chest. 5. Hold this position for 1 or 2 seconds, then slowly lower yourself back down to the floor. 6. Repeat 8 to 12 times. Pelvic tilt exercise 1. Lie on your back with your knees bent. 2. Brace your stomach. This means to tighten your muscles by pulling in and imagining your belly button moving toward your spine. You should feel like your back is pressing to the floor and your hips and pelvis are rocking back. 3. Hold for about 6 seconds while you breathe smoothly. 4. Repeat 8 to 12 times. Heel dig bridging 1. Lie on your back with both knees bent and your ankles bent so that only your heels are digging into the floor. Your knees should be bent about 90 degrees. 2. Then push your heels into the floor, squeeze your buttocks, and lift your hips off the floor until your shoulders, hips, and knees are all in a straight line. 3. Hold for about 6 seconds as you continue to breathe normally, and then slowly lower your hips back down to the floor and rest for up to 10 seconds. 4. Do 8 to 12 repetitions. Hamstring stretch in doorway 1. Lie on your back in a doorway, with one leg through the open door. 2. Slide your leg up the wall to straighten your knee. You should feel a gentle stretch down the back of your leg. 3. Hold the stretch for at least 15 to 30 seconds. Do not arch your back, point your toes, or bend either knee. Keep one heel touching the floor and the other heel touching the wall. 4. Repeat with your other leg. 5. Do 2 to 4 times for each leg. Hip flexor stretch 1. Kneel on the floor with one knee bent and one leg behind you. Place your forward knee over your foot. Keep your other knee touching the floor. 2. Slowly push your hips forward until you feel a stretch in the upper thigh of your rear leg. 3. Hold the stretch for at least 15 to 30 seconds. Repeat with your other leg. 4. Do 2 to 4 times on each side. Wall sit 1. Stand with your back 10 to 12 inches away from a wall. 2. Lean into the wall until your back is flat against it. 3. Slowly slide down until your knees are slightly bent, pressing your lower back into the wall. 4. Hold for about 6 seconds, then slide back up the wall. 5. Repeat 8 to 12 times. Follow-up care is a blancas part of your treatment and safety. Be sure to make and go to all appointments, and call your doctor if you are having problems. It's also a good idea to know your test resultsand keep a list of the medicines you take. Where can you learn more? Go to https://www.healthwise.net/patiented Enter Z938 in the search box to learn more about Low Back Pain: Exercises. Current as of: October 10, 2020?Content Version: 12.8 ?? [employer]. Care instructions adapted under license by your healthcare professional. If you have questions about a medical condition or this instruction, always ask your healthcare professional. These instructions may not represent the values of this healthcare organization. [employer] disclaims any warranty or liability for your use of this information. Acute Low Back Pain: Exercises Introduction Here are some examples of typical rehabilitation exercises for your condition. Start each exercise slowly. Ease off the exercise if you start to have pain. Your doctor or physical therapist will tell you when you can start these exercises and which ones will work best for you. When you are not being active, find a comfortable position for rest. Some people are comfortable onthe floor or a medium-firm bed with a small pillow under their head and another under their knees. Some people prefer to lie on their side with a pillow between their knees. Don't stay in one position for too long. Take short walks (10 to 20 minutes) every 2 to 3 hours. Avoid slopes, hills, and stairs until you feel better. Walk only distances you can manage without pain, especially leg pain. How to do the exercises Back stretches 1. Get down on your hands and knees on the floor. 2. Relax your head and allow it to droop. Round your back up toward the ceiling until you feel a nice stretch in your upper, middle, and lower back. Hold this stretch for as long as it feels comfortable, or about 15 to 30 seconds. 3. Return to the starting position with a flat back while you are on your hands and knees. 4. Let your back sway by pressing your stomach toward the floor. Lift your buttocks toward the ceiling. 5. Hold this position for 15 to 30 seconds. 6. Repeat 2 to 4 times. Follow-up care is a blancas part of your treatment and safety. Be sure to make and go to all appointments, and call your doctor if you are having problems. It's also a good idea to know your test resultsand keep a list of the medicines you take. Where can you learn more? Go to https://www.[employer].net/patiented Enter Z071 in the search box to learn more about Acute Low Back Pain: Exercises. Current as of: October 10, 2020?Content Version: 12.8 ?? [employer]. Care instructions adapted under license by your healthcare professional. If you have questions about a medical condition or this instruction, always ask your healthcare professional. These instructions may not represent the values of this healthcare organization. [employer] disclaims any warranty or liability for your use of this information. Achilles Tendon: Exercises Introduction Here are some examples of exercises for you to try. The exercises may be suggested for a condition or for rehabilitation. Start each exercise slowly. Ease off the exercises if you start to have pain. You will be told when to start these exercises and which ones will work best for you. How to do the exercises Toe stretch 1. Sit in a chair, and extend your affected leg so that your heel is on the floor. 2. With your hand, reach down and pull your big toe up and back. Pull toward your ankle and away from the floor. 3. Hold the position for at least 15 to 30 seconds. 4. Repeat 2 to 4 times a session, several times a day. Calf-plantar fascia stretch 1. Sit with your legs extended and knees straight. 2. Place a towel around your foot just under the toes. 3. Hold each end of the towel in each hand, with your hands above your knees. 4. Pull back with the towel so that your foot stretches toward you. 5. Hold the position for at least 15 to 30 seconds. 6. Repeat 2 to 4 times a session, up to 5 sessions a day. Floor stretch 1. Stand about 2 feet from a wall, and place your hands on the wall at about shoulder height. Or you can stand behind a chair, placing your hands on the back of it for balance. 2. Step back with the leg you want to stretch. Keep the leg straight, and press your heel into the floor with your toe turned slightly in. 3. Lean forward, and bend your other leg slightly. Feel the stretch in the Achilles tendon of your back leg. Hold for at least 15 to 30 seconds. 4. Repeat 2 to 4 times a session, up to 5 sessions a day. Stair stretch 1. Stand with the balls of both feet on the edge of a step or curb (or a medium- sized phone book). With at least one hand, hold onto something solid for balance, such as a banister or handrail. 2. Keeping your affected leg straight, slowly let that heel hang down off of the step or curb untilyou feel a stretch in the back of your calf and/or Achilles area. Some of your weight should still be on the other leg. 3. Hold this position for at least 15 to 30 seconds. 4. Repeat 2 to 4 times a session, up to 5 times a day or whenever your Achilles tendon starts to feel tight. This stretch can also be done with your knee slightly bent. Strength exercise 1. This exercise will get you started on building strength after an Achilles tendon injury. Your doctor or physical therapist can help you move on to more challenging exercises as you heal and get stronger. 2. Stand on a step with your heel off the edge of the step. Hold on to a handrail or wall for balance. 3. Push up on your toes, then slowly count to 10 as you lower yourself back down until your heel isbelow the step. If it hurts to push up on your toes, try putting most of your weight on your other foot as you push up, or try using your arms to help you. If you can't do this exercise without causing pain, stop the exercise and talk to your doctor. 4. Repeat the exercise 8 to 12 times, half with the knee straight and half with the knee bent. Follow-up care is a blancas part of your treatment and safety. Be sure to make and go to all appointments, and call your doctor if you are having problems. It's also a good idea to know your test resultsand keep a list of the medicines you take. Where can you learn more? Go to https://www.Mindframe.net/patiented Enter M689 in the search box to learn more about Achilles Tendon: Exercises. Current as of: October 10, 2020?Content Version: 12.8 ?? [id number] [employer]. Care instructions adapted under license by your healthcare professional. If you have questions about a medical condition or this instruction, always ask your healthcare professional. These instructions may not represent the values of this healthcare organization. [employer] disclaims any warranty or liability for your use of this information. documented in this encounter Plan of Treatment Upcoming Encounters Date Type Department Care Team (Late st Contact Info) Description 12/03/2024 10:30 AM PRECINCT CAPTAIN Office Visit [facility] at [facility] [address] [place] [address] Nellie Ellison, ANP [id number] [facility] [address] [address] 12/29/2024 7:30 AM PRECINCT CAPTAIN Office Visit [facility] at [facility] [address] [place] [address] Nellie Ellison, ANP [address] [facility] Sale[facility] [address] [place] [address] documented as of this encounter Visit Diagnoses Diagnosis Achilles tendinitis of right lower extremity- Primary Achilles bursitis or tendinitis Strain of lumbar region, initial encounter documented in this encounter
--- OUTSIDE RECORDS SUMMARY | 2024-12-02 04:51 | XMS_ITS | Encounter Summary ---
Author Organization [facility] Address [address] Rojasn: Epic Prelude ADT [place] [address] Care Team Providers Care Pension Fund Manager Name Role Phone Unavailable Primary Care Provider Unavailabl e Encounter Details Date Type Department Care Team (Latest Contact Info) Description 03/03/2021 Travel Social History Tobacco Use Types Packs/Day [...] st Contact Info) Description 12/03/2024 10:30 AM PURCHASING SUPERVISOR Office Visit [facility] at [facility] [employer] [place] [address] [place] [address] Nellie Ellison, ANP [address] [facility] [address] [place] [address] 12/29/2024 7:30 AM PURCHASING SUPERVISOR Office Visit [facility] at [employer] [address] [place] [id number] Nellie Ellison, DIANE [address] [facility] [address] [place] [address] documented as of this encounter Visit Diagnoses Not on filedocumented in this encounter
--- OUTSIDE RECORDS SUMMARY | 2024-12-02 04:51 | XMS_ITS | Encounter Summary ---
Author Organization [facility] Address [address] [place] [address] Care Team Providers Care Certified Nurse Operating Room Name Role Phone Millie Yuan MD Primary Care Provider [phone] Reason for Visit * Reason Comments Results Encounter Details Date Type Department Care Team (Late st Contact Info) Description 03/08/2023 8:00 AM CDT Office Visit [facility] [employer] [address] [place] [address] Iva Abdi FNP NO ADDRESS ON FILE Prediabetes (Primary Dx); Elevated LDL cholesterol level; Morbid obesity with BMI of 50.0-59.9, adult Social History Tobacco Use Types Packs/Day Years Used Date Smoking Tobacco: Never Tobacco Cessation:Counseling Given: Not Answered Alcohol Use Standard Drinks/Week Comments Yes 3 [...] Sign Reading Time Taken Comments Blood Pressure 110/76 03/08/2023 8:03 AM CDT Pulse 90 03/08/2023 8:03 AM CDT Temperature 36.9 ??C (98.5 ??F) 03/08/2023 8:03 AM CD T Respiratory Rate 18 03/08/2023 8:03 AM CDT Oxygen Saturation 97% 03/08/2023 8:03 AM CDT Inhaled Oxygen Concentration - - Weight 146.1 kg (322 lb) 03/08/2023 8:03 AM CDT Height 163.8 cm (5' 4.5 ) 03/08/2023 8:03 AM CDT Body Mass Index 54.42 03/08/2023 8:03 AM CDT documented in this encounter Progress Notes * Iva Abdi, CHELO - 03/08/2023 7:57 AM CDT HISTORY OF PRESENT ILLNESS Nuria Valdez, a 43 y.o. female presents with a chief complaint of Chief Complaint Patient presents with Results Subjective HPI Patient presents to discuss abnormal results of her annual wellness screening labs. > Slightly elevated fasting glucose, so A1c was added on. > A1c is slightly elevated at 5.8. This puts you in the prediabetes range. Need to adhere to a low carbohydrate diet. Increase exercise to get at least 150 minutes per week of moderate-intensity aerobic activity. Plan to recheck in 3 months. > Cholesterol slightly elevated and LDL elevated. She reports it has always been slightly elevated for the past 10-12 years. Never been on any medication. This is best controlled with diet and exercise. Diet and exercise help to reduce lipids and prevent heart disease. Reduce intake of red meat,dairy, and fried foods. Increase intake of fruits, vegetables, and fish. If you have a family history, you are more prone to having high cholesterol. She does not believe there is family of high cholesterol. Get at least 150 minutes [...] start medication. If the numbers continue to increase, we will discuss medication treatment options. Tobacco Intervention She is not a tobacco user. Depression Screen Positive: PHQ-2 score >= 3 or PHQ-9 score >= 9 PHQ-2 Total: 0 (10/25/2022 3:00 PM) DEPRESSION PLAN OF CARE Her depression screen was negative. Blood Pressure BP Readings from Last 3 Encounters: 03/08/23 110/76 02/25/23 114/74 10/25/22 114/76 Normal BMI Range: 18 & older: > or = 18.5 and < 25 Body mass index is 54.42 kg/m??. Abnormal high BMI: BMI 40 or [...] the patient. ROS Review of Systems - as above in HPI Objective PHYSICAL EXAM Physical Examination: General appearance - alert, well appearing, and in no distress, oriented to person, place, and time, and overweight Mental status - alert, oriented to person, place, and time, normal mood, behavior, speech, dress, motor activity, and thought processes Chest - clear to auscultation, no wheezes, rales or rhonchi, symmetric air entry Heart - normal rate, regular rhythm, normal S1, S2, no murmurs, rubs, clicks or gallops Abdomen - soft, nontender, nondistended, no masses or organomegaly Neurological - alert, oriented, normal speech, no focal findings or movement disorder noted, motor and sensory grossly normal bilaterally, normal muscle tone, no tremors Extremities - no pedal edema noted Assessment ASSESSMENT AND PLAN ICD-10-CM ICD-9-CM 1. Prediabetes R73.03 790.29 HEMOGLOBIN A1C 2. Elevated LDL cholesterol level E78.00 272.0 3. Morbid obesity with BMI of 50.0-59.9, adult E66.01 278.01 Z68.43 V85.43 Watch what you eat. Increase exercise to get at least 150 minutes per week of moderate-intensity aerobic activity. Plan to recheck labs- A1c in 3 months & then in 6 months A1c and lipid panel. documented in this encounter Plan of Treatment Upcoming Encounters Date Type Department Care Team (Late st Contact Info) Description 12/03/2024 10:30 AM SYSTEMS SOFTWARE SPECIALIST Office Visit [facility] at [facility] [employer] [facility] [address] [place] [phone] Nellie Ellison, ANP [phone] [facility] [address] [place] [address] 12/29/2024 7:30 AM SYSTEMS SOFTWARE SPECIALIST Office Visit [facility] at [facility] [address] [place] [phone] Nellie Ellison, ANP [address] [facility] [address] [place] [address] documented as of this encounter Results * HEMOGLOBIN A1C (06/06/2023 7:08 AM CDT) HEMOGLOBIN A1C 5.6 <5.7 % of total Hgb [facility] Comment: For the purpose of screening for the presence of diabetes: <5.7% ? Consistent with the absence of diabetes 5.7-6.4% ?Consistent with increased risk for diabetes ?(prediabetes) > or =6.5% ??Consistent with diabetes This assay result is consistent with a decreased risk of diabetes. Currently, no consensus exists regarding use of hemoglobin A1c for diagnosis of diabetes in children. According to [place] Diabetes Association (ADA) guidelines, hemoglobin A1c <7.0% represents optimal control in non- diabetic patients. Different metrics may apply to specific patient populations. Standards of Medical Care in Diabetes(ADA). ?? ESTIMATED AVERAGE GLUCOSE (MG/DL) 114 mg/dL [facility] ESTIMATED AVERAGE GLUCOSE (MMOL/L) 6.3 mmol/L [facility] Comment: Test Performed at: [facility] [address] [address] [place], [place] ??[address] Louann[employer]Lieu Thi Vo Blood 06/06/2023 7:08 AM CDT 06/06/2023 11:08 PM CDT Iva Abdi SUPERVISOR PLASMA CHEMISTRY [place] [facility] [phone] [place] [address] [place] [address] documented in this encounter Visit Diagnoses Diagnosis Prediabetes- Primary Other abnormal glucose Elevated LDL cholesterol level Pure hypercholesterolemia Morbid obesity with BMI of 50.0-59.9, adult documented in this encounter Care Teams Certified Nurse Operating Room Relationship Specialty Start Date End Date Millie Yuan MD [address] [place] [address] PCP - General Family Practice 10/25/22 04/14/24 documented as of this encounter
--- OUTSIDE RECORDS SUMMARY | 2024-12-02 04:51 | XMS_ITS | Encounter Summary ---
Author Organization [facility] Address [address] [place] [address] Care Team Providers Care Cylinder Block Mechanic Name Role Phone Unavailable Primary Care Provider Unavailabl e Reason for Visit * Reason Onset Date Comments Mouth Lesions 03/26/2022 Encounter Details Date Type Department Care Team (Late st Contact Info) Description 03/26/2022 Telephone [facility] [employer] [address] [place] [address] Misty Andres, ROAD TESTER [address] [place] [address] Mouth Lesions Social History Tobacco Use Types Packs/Day Years [...] st Contact Info) Description 12/03/2024 10:30 AM RETREAD BUILDER Office Visit [facility] at [facility] [address] [place] [address] Nellie Ellison, ANP [phone] Franny Saleh [facility] [address] [place] [address] 12/29/2024 7:30 AM RETREAD BUILDER Office Visit [facility] at [facility] [address] [place] [address] Nellie Ellison, ANP [address] Franny Saleh [facility] [address] [place] [address] documented as of this encounter Visit Diagnoses Diagnosis 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
--- OUTSIDE RECORDS SUMMARY | 2024-12-02 04:51 | XMS_ITS | Encounter Summary ---
Author Organization [email or web address] Address [address] [place] [address] Care Team Providers Care Forest Nursery Worker Name Role Phone Dean Hernandez MD Primary Care Provider Unava ilable Reason for Referral * Eval and Treat (Routine) - Closed Specialty Diagnoses / Procedures Referred By Contstanley t Referred To Contact Diagnoses Sleep apnea, unspecified type Millie Yuan MD [address] [place] [address] Referral ID Status Reason Start Date Expiration Date Visits Re quested Visits Authorized [id number] Closed 09/11/2022 09/11/2023 1 1 Reason for Visit * Reason Onset Date Comments Referral 09/11/2022 Encounter Details Date Type Department Care Team (Late st Contact Info) Description 09/11/2022 Telephone [facility] [employer] [address] [place] [address] Millie Yuan MD [address] [place] [address] Referral Social History Tobacco Use Types Packs/Day [...] * Telephone Encounter - Nuria Morris - 09/11/2022 3:53 PM CDT Faxed to [phone] * Telephone Encounter - Millie Yuan MD - 09/11/2022 3:46 PM CDT done * Addendum Note - Millie Yuan MD - 09/11/2022 3:46 PM CDTAddended by: MILLIE YUAN on: 09/11/2022 03:46 PM Modules accepted: Orders * Telephone Encounter - Nuria Morris - 09/11/2022 3:35 PM CDT Pt is asking for me to send her referral for a sleep study to [facility] Camden Fink , but the referral in her chart is . Can you please place a new referral? Thank you documented in this encounter Plan of Treatment Upcoming Encounters Date Type Department Care Team (Late st Contact Info) Description 12/03/2024 10:30 AM WORKERS COMPENSATION CLAIMS ASSISTANT [facility] [address] [place] [address] Nellie Elilson, ANP [phone] Franny Leonor Delfino [address] [place] [address] 12/29/2024 7:30 AM WORKERS COMPENSATION CLAIMS ASSISTANT Office Visit [facility] [employer] [place] [address] [place] [address] Nellie Ellison, ANP [address] [address] Josetteleena Saleh [address] [place] [address] Scheduled Referrals Name Type Priority Associated Diagnoses Orde r Schedule AMB REFERRAL TO SLEEP STUDIES Outpatient Referral Routine Sleep apnea, unspecified type Ordered: 09/11/2022 documented as of this encounter Visit Diagnoses Diagnosis Sleep apnea, unspecified type- Primary documented in this encounter Care Teams Forest Nursery Worker Relationship Specialty Start Date End Date Dean Hernandez MD PCP - General Family Practice 03/27/22 10/24/22 documented as of this encounter
--- OUTSIDE RECORDS SUMMARY | 2024-12-02 04:51 | XMS_ITS | Encounter Summary ---
Author Organization [facility] Address [address] [place] [address] Care Team Providers Care Ostomy Nurse Name Role Phone Dean Hernandez MD Primary Care Provider Unava ilable Reason for Visit * Reason Onset Date Comments Medication Refill 05/22/2022 Encounter Details Date Type Department Care Team (Late st Contact Info) Description 05/22/2022 Refill [facility] [employer] [address] [place] [address] Juanita Lester, TECHNICAL ILLUSTRATOR [address] [place] [address] Morbid obesity with body mass index of 40.0-49.9 Social History Tobacco Use Types Packs/Day Years [...] Telephone Encounter - Bhargavi Baez RN - 05/22/2022 10:36 AM CDT [facility] stating [facility] do not have wegovy available to fill and requested that the prescription be sent to another pharmacy. I spoke to pt giving her this information and pt requested the prescription be sent to [facility] in [place], [place]. documented in this encounter Plan of Treatment Upcoming Encounters Date Type Department Care Team (Late st Contact Info) Description 12/03/2024 10:30 AM CERTIFIED SURGICAL TECHNICIAN Office Visit [facility] [employer] [facility] [address] [place] [address] Nellie Ellison, ANP [address] [facility] Leonor Saleh [address] [address] 12/29/2024 7:30 AM CERTIFIED SURGICAL TECHNICIAN Office Visit [facility] at [facility] [employer] [place] [address] [place] [address] Nellie Ellison, ANP [address] [facility] Leonor Saleh [address] [address] documented as of this encounter Visit Diagnoses Diagnosis Morbid obesity with body mass index of 40.0-49.9 documented in this encounter Care Teams Ostomy Nurse Relationship Specialty Start Date End Date Dean Hernandez MD PCP - General Family Practice 03/27/22 10/24/22 documented as of this encounter
--- OUTSIDE RECORDS SUMMARY | 2024-12-02 04:51 | XMS_ITS | Encounter Summary ---
Author Organization [facility] Address [address] [place] [address] Care Team Providers Care Physician Extender Name Role Phone Unavailable Primary Care Provider Unavailabl e Reason for Visit * Reason Comments Labs Only Encounter Details Date Type Department Care Team (Latest Contact Info) Description 02/06/2021 7:30 AM CDT Procedure visit [facility] at [facility] [employer] [address] [place] [address] Encounter for screening, unspecified (Primary Dx) Social History Tobacco Use Types [...] Sign Reading Time Taken Comments Blood Pressure 126/84 02/06/2021 7:28 AM CDT Pulse - - Temperature - - Respiratory Rate - - Oxygen Saturation - - Inhaled Oxygen Concentration - - Weight 132 kg (291 lb) 02/06/2021 7:28 AM CDT Height 163.8 cm (5' 4.5 ) 02/06/2021 7:28 AM CDT Body Mass Index 49.18 02/06/2021 7:28 AM CDT documented in this encounter Progress Notes * Nuria Traylor - 02/06/2021 7:35 AM CDT Pt came in for annual wellness screening finger stick, right hand 3rd digit, pt tolerate well. SHARON Rae Cholesterol and Glucose handouts given to pt for slightly elevated glucose and LDL. documented in this encounter Miscellaneous Notes * Result Encounter Note - Dean Hernandez MD - 02/06/2021 4:43 PM CDT Dietary changes Repeat 6 months documented in this encounter Plan of Treatment Upcoming Encounters Date Type Department Care Team (Late st Contact Info) Description 12/03/2024 10:30 AM WINDER CONTORT OPERATOR Office Visit [facility] at [place] [address] [place] [address] Nell[place], ANP [address] [address] [address] 12/29/2024 7:30 AM WINDER CONTORT OPERATOR Office Visit [facility] at [facility] [address] [place] [address] Nellie Ellison, DIANE [address] [facility] Leonor Saleh [address] [address] documented as of this encounter Procedures Procedure Name Priority Date/Time Associated Diagnosis Comments GLUCOSE FASTING Routine 02/06/2021 LIPID PANEL Routine 02/06/2021 documented in this encounter Results * GLUCOSE FASTING (02/06/2021) FASTING GLUCOSE 118 [facility] Blood 02/06/2021 Dean Hernandez MD CHEMISTRY ORDERABLES Performing Organization Address City/[facility]/ZIP Co de Phone Number [facility] CLIA# [id number] [address] [address] * (ABNORMAL) LIPID PANEL (02/06/2021) CHOLESTEROL 202(A) 200 mg/dL [facility] TRIGLYCERIDE 129 150 mg/dL [facility] HDL 60(A) 40 - 59 mg/dL [facility] LDL CALCULATED 116(A) 100 mg/dL [facility] TC/HDL POC 3.3(A) 3.43 - 4.97 Ratio [facility] Blood 02/06/2021 Dean Hernandez MD CHEMISTRY ORDERABLES Performing Organization Address City/[facility]/ZIP Co de Phone Number [facility] CLIA# [id number] [address] [address] documented in this encounter Visit Diagnoses Diagnosis Encounter for screening, unspecified- Primary documented in this encounter Additional Health Concerns Assessment Noted Time PHQ-9 Depression Total Score: 1 06/17/20 20 9:00 AM CDT documented as of this encounter
--- OUTSIDE RECORDS SUMMARY | 2024-12-02 04:51 | XMS_ITS | Encounter Summary ---
Author Organization [facility] Address [address] [place] [address] Care Team Providers Care Telecom Billing Analyst Name Role Phone Millie Yuan MD Primary Care Provider [phone] Encounter Details Date Type Department Care Team (Late st Contact Info) Description 11/06/2023 External Device Data STL ABSTRACTION Provider, Abstract [...] st Contact Info) Description 12/03/2024 10:30 AM DEPILATORY PAINTER Office Visit [facility] [employer] [place] [address] [place] [address] Nellie Ellison, ANP [address] [facility] Leonor Saleh [address] [place] [address] 12/29/2024 7:30 AM DEPILATORY PAINTER Office Visit [facility] at [facility] [employer] [place] [address] [place] [address] Nellie Ellison, ANP [address] [place] [address] documented as of this encounter Visit Diagnoses Not on filedocumented in this encounter Care Teams Telecom Billing Analyst Relationship Specialty Start Date End Date Millie Yuan MD [address] [place] [address] PCP - General Family Practice 10/25/22 04/14/24 documented as of this encounter
--- OUTSIDE RECORDS SUMMARY | 2024-12-02 04:51 | XMS_ITS | Encounter Summary ---
Author Organization [facility] Address [address] [place] [address] Care Team Providers Care Electrical Appliance Repairer Name Role Phone Unavailable Primary Care Provider Unavailabl e Reason for Visit * Reason Onset Date Comments Referral 09/26/2021 Encounter Details Date Type Department Care Team (Late st Contact Info) Description 09/26/2021 Telephone [facility] [employer] [place] [address] [facility] [place] [address] Dean Hernandez MD NO ADDRESS ON FILE Referral Social History [...] Miscellaneous Notes * Telephone Encounter - Nuria Traylor - 09/26/2021 3:52 PM CDT Pt called asking for the status of her referral to pulmonary. I told her the order is in her chart.She ask that the referral and a list of pulmonary doctors be set to her email. Sent to pt documented in this encounter Plan of Treatment Upcoming Encounters Date Type Department Care Team (Late st Contact Info) Description 12/03/2024 10:30 AM LINE LEADER Office Visit [facility] [employer] [facility] [address] [place] [address] Nellie Ellison, ANP [address] Franny Saleh [address] [address] 12/29/2024 7:30 AM LINE LEADER Office Visit [facility] [employer] [facility] [address] [place] [address] Nellie Ellison, ANP [address] [address]anny Saleh [address] [address] documented as of this encounter Visit Diagnoses Not on filedocumented in this encounter
--- OUTSIDE RECORDS SUMMARY | 2024-12-02 04:51 | XMS_ITS | Encounter Summary ---
Author Organization [facility] Address [address] [place] [address] Care Team Providers Care Sales Recruiting Coordinator Name Role Phone Dean Hernandez MD Primary Care Provider Unava ilable Reason for Visit * Reason Comments Weight Check Weight check and weg ovy refill Hip Pain Right hip pain x2 da ys Encounter Details Date Type Department Care Team (Late st Contact Info) Description 05/17/2022 3:00 PM CDT Office Visit [facility] [employer] [address] [place] [phone] Iva Abdi FNP NO ADDRESS ON FILE Morbid obesity with body mass index of 40.0-49.9 (Primary Dx); Right hip pain Social History Tobacco Use Types Packs/Day Years [...] Sign Reading Time Taken Comments Blood Pressure 128/78 05/17/2022 3:29 PM CDT Pulse 81 05/17/2022 3:29 PM CDT Temperature 37.7 ??C (99.8 ??F) 05/17/2022 3:29 PM CD T Respiratory Rate 18 05/17/2022 3:29 PM CDT Oxygen Saturation 96% 05/17/2022 3:29 PM CDT Inhaled Oxygen Concentration - - Weight 132 kg (291 lb) 05/17/2022 3:29 PM CDT Height 163.8 cm (5' 4.5 ) 05/17/2022 3:29 PM CDT Body Mass Index 49.18 05/17/2022 3:29 PM CDT documented in this encounter Progress Notes * Iva Abdi, CHELO - 05/17/2022 3:28 PM CDT HISTORY OF PRESENT ILLNESS Nuria Valdez, a 42 y.o. female presents with a chief complaint of Chief Complaint Patient presents with ??? Weight Check Weight check and wegovy refill ??? Hip Pain Right hip pain x2 days Subjective HPI Patient presents for weight check and wegovy refill. Somehow she still has 1-2 doses left of 0.5 mginjection. Will go ahead and order the 1 mg for 4 doses ad will follow up in 6 weeks. Patient reports she has finally gotten nutrition counseling going. She is also close to starting her period and typically gains weight around this time of the month, so she is happy that her weight is still downtrending. She does have some right hip ligament pain, that is sometimes hormonal. She has luzmaria taking 800 mg ibuprofen with no relief. Tobacco Intervention She is not a tobacco user. Blood Pressure BP Readings from Last 3 Encounters: 05/17/22 128/78 04/24/22 130/88 03/16/22 (!) 140/88 Normal BMI Range: 18 & older: > or = 18.5 and < 25 Body mass index is 49.18 kg/m??. Abnormal high BMI: BMI 40 or [...] negative for weight changes, fever Psychological ROS: negative for anxiety or depressive symptoms Respiratory ROS: negative for cough, shortness of breath, or wheezing Cardiovascular ROS: negative for chest pain or dyspnea on exertion Gastrointestinal ROS: negative for reflux, abdominal pain, change in bowel habits, or black or bloody stools Musculoskeletal ROS: positive for- right hip pain Neurological ROS: negative for TIA or stroke symptoms Dermatological ROS: negative for skin rashes or unusual skin lesions Objective PHYSICAL EXAM Physical Examination: General appearance [...] normal bilaterally, normal muscle tone, no tremors Skin - normal coloration and turgor, no rashes, no suspicious skin lesions noted Assessment ASSESSMENT AND PLAN ICD-10-CM ICD-9-CM 1. Morbid obesity with body mass index of 40.0-49.9 E66.01 278.01 semaglutide, weight loss, (WEGOVY) 1 mg/0.5 mL Pen Injector 2. Right hip pain M25.551 719.45 Obesity- Follow up in 6 weeks for weight check and dosage increase. Continue to watch what you eat. Get at least 150 minutes per week of moderate-intensity aerobic activity. Continue with nutrition counseling. Right hip pain- Rest. Ice/heat. Take otc medications (tylenol, ibuprofen) as needed for symptomatic relief. Stretch. documented in this encounter Plan of Treatment Upcoming Encounters Date Type Department Care Team (Late st Contact Info) Description 12/03/2024 10:30 AM AUXILIARY POWER EQUIPMENT OPERATOR Office Visit [facility] [employer] [place] [address] [place] [address] Nellie Ellison, ANP [address] [address] [facility] [address] [place] [address] 12/29/2024 7:30 AM AUXILIARY POWER EQUIPMENT OPERATOR Office Visit [facility] [employer] [place] [address] [place] [address] Nellie Ellison, ANP [address] [address] [facility] [address] [place] [address] documented as of this encounter Visit Diagnoses Diagnosis Morbid obesity with body mass index of 40.0-49.9- Primary Right hip pain Pain in joint, pelvic region and thigh documented in this encounter Care Teams Sales Recruiting Coordinator Relationship Specialty Start Date End Date Dean Hernandez MD PCP - General Family Practice 03/27/22 10/24/22 documented as of this encounter
--- OUTSIDE RECORDS SUMMARY | 2024-12-02 04:51 | XMS_ITS | Encounter Summary ---
Author Organization [facility] Address [address] [place] [address] Care Team Providers Care Store Keeper Name Role Phone Millie Yuan MD Primary Care Provider [phone] Encounter Details Date Type Department Care Team (Late st Contact Info) Description 12/25/2023 External Device Data STL ABSTRACTION Provider, Abstract [...] st Contact Info) Description 12/03/2024 10:30 AM POSTMASTER RELIEF Office Visit [facility] [place] [address] [place] [address] Nellie Ellison, ANP [address] [facility] [address] [place] [address] [place] [address] 12/29/2024 7:30 AM POSTMASTER RELIEF Office Visit [facility] [place] [address] [facility] [place] [address] Nellie Ellison, ANP [address] [place] [address] documented as of this encounter Visit Diagnoses Not on filedocumented in this encounter Care Teams Store Keeper Relationship Specialty Start Date End Date Millie Yuan MD [address] [place] [address] PCP - General Family Practice 10/25/22 04/14/24 documented as of this encounter
--- OUTSIDE RECORDS SUMMARY | 2024-12-02 04:51 | XMS_ITS | Encounter Summary ---
Author Organization [facility] Address [address] [place] [address] Care Team Providers Care Airport Tower Controller Name Role Phone Unavailable Primary Care Provider Unavailabl e Reason for Visit * Reason Onset Date Comments Medication Review 03/29/2021 Encounter Details Date Type Department Care Team (Late st Contact Info) Description 03/29/2021 Telephone [facility] [employer] [address] [place] [phone] Dean Hernandez MD NO ADDRESS ON FILE Medication Review Social History Tobacco Use Types Packs/Day Years [...] Notes * Telephone Encounter - Bhargavi Baez - 03/29/2021 10:09 AM CDT RETURNED TO STOCK: Pravastatin 20mg #90. Filled on 03/08/21 and not picked up. documented in this encounter Plan of Treatment Upcoming Encounters Date Type Department Care Team (Late st Contact Info) Description 12/03/2024 10:30 AM LUBE WORKER Office Visit [facility] [email or web address] [facility] [address] [place] [address] Nellie Ellison, ANP [address] [facility] [place] [address] [address] 12/29/2024 7:30 AM LUBE WORKER Office Visit [facility] [employer] [facility] [address] [place] [address] Nellie Ellison, ANP [address] [facility] [place] [address] [address] documented as of this encounter Visit Diagnoses Not on filedocumented in this encounter
--- OUTSIDE RECORDS SUMMARY | 2024-12-02 04:51 | XMS_ITS | Encounter Summary ---
Author Organization [facility] Address [address] [place] [address] Care Team Providers Care Principal Planner Name Role Phone Millie Yuan MD Primary Care Provider [phone] Reason for Visit * Reason Comments Follow Up Encounter Details Date Type Department Care Team (Late st Contact Info) Description 07/10/2023 2:30 PM CDT Office Visit [facility] [employer] [address] [place] [address] Millie Yuan MD [address] [place] [address] Prediabetes (Primary Dx); Mixed hyperlipidemia; Vitamin D insufficiency; Recurrent cold sores Social History Tobacco Use Types Packs/Day Years [...] Sign Reading Time Taken Comments Blood Pressure 134/86 07/10/2023 2:29 PM CDT Pulse 82 07/10/2023 2:29 PM CDT Temperature 36.3 ??C (97.4 ??F) 07/10/2023 2:29 PM CD T Respiratory Rate 18 07/10/2023 2:29 PM CDT Oxygen Saturation 96% 07/10/2023 2:29 PM CDT Inhaled Oxygen Concentration - - Weight 153.1 kg (337 lb 9.6 oz) 07/10/2023 2:29 PM CDT Height 163.8 cm (5' 4.5 ) 07/10/2023 2:29 PM CDT Body Mass Index 57.05 07/10/2023 2:29 PM CDT documented in this encounter Progress Notes * Millie Yuan MD - 07/10/2023 2:44 PM CDT OFFICE VISIT PROGRESS NOTE DATE: 07/10/2023 PATIENT: Nuria Valdez : 1980 PCP: Millie Yuan MD Chief Complaint Patient presents with Follow Up HISTORY OF PRESENT ILLNESS Prediabetes - A1c last month was down to 5.6. LDL in February was 122. Vitamin D insufficiency - last check it was 21. She takes otc vitamin D sometimes. Cold Sores - she has been cold sores approx once every 3 months. She states if she catches them early, then she has mild symptoms. Exercise - none PAST MEDICAL HISTORY: Past Medical History: Diagnosis Date Allergic rhinitis 06/17/2020 Anxiety 04/25/2020 Depression with anxiety 06/17/2020 GERD (gastroesophageal reflux disease) 05/14/21 Headache 03/25/2020 Monthly near period Hyperlipidemia 2014 Never been on mwds. Can usually control with diet PAST SURGICAL HISTORY Past Surgical History: Procedure Laterality Date HX HERNIA REPAIR 11/25/1999 Inguinal HX TUBAL LIGATION 11/25/2005 CURRENT MEDICATIONS Current Outpatient Medications Medication Sig Dispense Refill valACYclovir (Valtrex) 1 gram tablet Take 2 tablets (2,000mg) by mouth 2 times daily for 1 day 4 Tablet 1 calcium as carbonate (TUMS) 500 mg (200 mg elemental) Tablet, Chewable Take by mouth. No current facility-administered medications for this visit. ALLERGIES No Known Allergies TOBACCO COUNSELING She is not a tobacco/nicotine user. REVIEW OF SYSTEMS As in HPI PHYSICAL EXAMINATION BP 134/86 (BP Location: Left arm, Patient Position (BP): Sitting, BP Cuff Size: Thigh) Pulse 82 Temp 97.4 ??F (36.3 ??C) (Tympanic) Resp 18 Ht 5' 4.5 (1.638 m) Wt (!) 153.1 kg (337 lb 9.6 oz) LMP 07/08/2023 (Exact Date) SpO2 96% BMI 57.05 kg/m?? Gen - AAO, NAD Head- normocephalic/atraumatic. Eyes - PERRL, EOMI, noninjected Ears - pinna appear normal, canals clear, TMs appear normal Nose - nasal mucosa pink and moist. Mouth - mucosa pink and moist. Posterior pharynx without erythema, swelling, or exudate. Neck - Supple, no thyroid masses. No LAD. Heart - RRR, no m/r/g Lungs - CTAB, no w/r/r Abd - soft, NT/ND, normal bowel sounds x 4 Ext - no c/c/e. Normal peripheral pulses Neuro - Facial features symmetric. Normal speech and voice. Normal gait. A/P Nuria was seen today for follow up. Diagnoses and all orders for this visit: Prediabetes Mixed hyperlipidemia Vitamin D insufficiency - VITAMIN D 25 HYDROXY; Future Recurrent cold sores Continue current meds. Labs in August. Long discussion of benefits of healthy diet, exercise, sleep, and stress management. Millie Yuan MD 07/10/2023 [facility] [employer] [place] [address] [address] documented in this encounter Plan of Treatment Upcoming Encounters Date Type Department Care Team (Late st Contact Info) Description 12/03/2024 10:30 AM FORGE HAND Office Visit [place] [address] [address] [place] [address] Nellie Ellison, ANP [address] [address] [facility] [address] [place] [address] 12/29/2024 7:30 AM FORGE HAND Office Visit [facility] [employer] [place] [address] [place] [address] Nellie Ellison, ANP [address] [place] [address] documented as of this encounter Results * (ABNORMAL) VITAMIN D 25 HYDROXY (08/27/2023 7:22 AM CDT) VITAMIN D, 25 OH, TOTAL 22(L) 30 - 100 ng/mL [facility] Comment: Vitamin D Status ? 25-OH Vitamin D: Deficiency: ?<20 ng/mL Insufficiency: ? 20 - 29 ng/mL Optimal: ? > or = 30 ng/mL For 25-OH Vitamin D testing on patients on D2-supplementation and patients for whom quantitation of D2 and D3 fractions is required, the QuestAssureD(TM) 25-OH VIT D, (D2,D3), LC/MS/MS is recommended: order code 50375 (patients >2yrs). See Note 1 Note 1 For additional information, please refer to http://education.TryLife/faq/CHV616 (This link is being provided for informational/ educational purposes only.) Test Performed at: [facility] [address] [place], [place] ??[address] Issa Hickman PhD Blood 08/27/2023 7:22 AM CDT 08/28/2023 1:57 AM CDT Millie Yuan MD CHEMISTRY ORDERABLES [facility] [phone] [facility] [address] [facility] [address] documented in this encounter Visit Diagnoses Diagnosis Prediabetes- Primary Other abnormal glucose Mixed hyperlipidemia Vitamin D insufficiency Unspecified vitamin D deficiency Recurrent cold sores Herpes simplex without mention of complication documented in this encounter Care Teams Principal Planner Relationship Specialty Start Date End Date Millie Yuan MD [address] [place] [address] PCP - General Family Practice 10/25/22 04/14/24 documented as of this encounter
--- OUTSIDE RECORDS SUMMARY | 2024-12-02 04:51 | XMS_ITS | Encounter Summary ---
Author Organization [facility] Address [address] [place] [address] Care Team Providers Care Journal Entry Audit Clerk Name Role Phone Unavailable Primary Care Provider Unavailabl e Reason for Visit * Reason Comments Heartburn Consistently the las t few days. ?caffeine related. Taking tums as needed with relief of symptoms Encounter Details Date Type Department Care Team (Late st Contact Info) Description 03/08/2022 8:30 AM CDT Office Visit [facility] [employer] [address] [place] [address] Iva Abdi FNP NO ADDRESS ON FILE Heartburn (Primary Dx); Morbid obesity with body mass index of [...] Sign Reading Time Taken Comments Blood Pressure 120/78 03/08/2022 8:24 AM CDT Pulse 86 03/08/2022 8:24 AM CDT Temperature 36.9 ??C (98.5 ??F) 03/08/2022 8:24 AM CD T Respiratory Rate 18 03/08/2022 8:24 AM CDT Oxygen Saturation 98% 03/08/2022 8:24 AM CDT Inhaled Oxygen Concentration - - Weight 132.5 kg (292 lb) 03/08/2022 8:24 AM CDT Height 163.8 cm (5' 4.5 ) 03/08/2022 8:24 AM CDT Body Mass Index 49.35 03/08/2022 8:24 AM CDT documented in this encounter Progress Notes * Iva Abdi, MARKET DEVELOPER - 03/08/2022 8:28 AM CDT HISTORY OF PRESENT ILLNESS Nuria Valdez, a 42 y.o. female presents with a chief complaint of Chief Complaint Patient presents with ??? Heartburn Consistently the last few days. ?caffeine related. Taking tums as needed with relief of symptoms Subjective HPI Patient presents with heartburn- more so in the throat, not chest. She also reports she has had a cough (nonproductive) for ~1 year now. Issue is ongoing but it has been consistently happening for the past few days. She wonders if it is caffeine or diet related. She tried omeprazole but states it didn't help. She takes tums as needed with relief of symptoms. Tobacco Intervention She is not a tobacco user. Depression Screen PHQ-2 Total: 0 (03/08/22 0800) Positive: PHQ-2 score >= 3 or PHQ-9 score >= 9 PHQ-2 Total: 0 (03/08/2022 8:00 AM) DEPRESSION PLAN OF CARE Her depression screen was negative. Blood Pressure BP Readings from Last 3 Encounters: 03/08/22 120/78 01/17/22 126/78 08/07/21 114/72 Normal BMI Range: 18 & older: > or = 18.5 and < 25 Body mass index is 49.35 kg/m??. Abnormal high BMI: BMI 40 or [...] for anxiety or depressive symptoms Respiratory ROS: positive for - cough negative for - shortness of breath or wheezing Cardiovascular ROS: negative for chest pain or dyspnea on exertion Gastrointestinal ROS: positive for - heartburn negative for - abdominal pain, nausea/vomiting or swallowing difficulty/pain Objective PHYSICAL EXAM Physical Examination: General appearance [...] Assessment ASSESSMENT AND PLAN ICD-10-CM ICD-9-CM 1. Heartburn R12 787.1 esomeprazole (NexIUM) 20 mg Capsule, Delayed Release(E.C.) 2. Morbid obesity with body mass index of 40.0-49.9 E66.01 278.01 Okay to take tums as needed. Watch what you eat. Lose weight. Get at least 150 minutes per week of moderate-intensity aerobic activity. If symptoms persist, would consider referral to GI for upper endoscopy. documented in this encounter Miscellaneous Notes * Patient Instructions - Iva Abdi FNP - 03/08/2022 8:30 AM CDT Images from the original note were not included. An After Visit Summary was printed and given to the patient. Indigestion (Dyspepsia or Heartburn): Care Instructions Your Care Instructions Sometimes it can be hard to pinpoint the cause of indigestion. (It is also called dyspepsia or heartburn.) Most cases of an upset stomach with bloating, burning, burping, and nausea are minor and go away within several hours. Home treatment and acbb-dpz-pxluzgb medicine often are able to control symptoms. But if you take medicine to relieve your indigestion without making diet andlifestyle changes, your symptoms are likely to return again and again. If you get indigestion often, it may be a sign of a more serious medical problem. Be sure to followup with your doctor, who may want to do tests to besure of the cause of your indigestion. Follow-up care is a blancas part of your treatment and safety. Be sure to make and go to all appointments, and call your doctor if you are having problems. It's also a good idea to know your test resultsand keep alist of the medicines you take. How can you care for yourself at home? Your doctor may recommend ztwr-rlv-qbdpdlo medicine. For mild or occasional indigestion, antacids such as Gaviscon, Mylanta, Maalox, or Tums, may help. Be safe with medicines. Be careful when youtake alig-bxv-bkexhey antacid medicines. Many of these medicines have aspirin in them. Read the label to make sure that you are not taking more than the recommended dose. Too much aspirin can be harmf ul. ??? Your doctor also may recommend aysu-qnz-sllgqtt acid reducers, such as Pepcid AC (famotidine), Tagamet HB (cimetidine), or Prilosec (omeprazole). Read and follow all instructions on the label. Ifyou use these medicines often, talk with your doctor. ??? Change your eating habits. ? It's best to eat several small meals instead of two or three large meals. ? After you eat, wait 2 to 3 hours before you lie down. ? Avoid foods that make your symptoms worse. These may include chocolate, mint, alcohol, pepper, spicy foods, high-fat foods, or drinks with caffeine in them, such as tea, coffee, martha, or energy drinks. If your symptoms are worse after you eat a certain food, you may want to stop eating it to seeif your symptoms get better. ??? Do not smoke or chew tobacco. Smoking can make GERD worse. If you need help quitting, talk to your doctor about stop-smoking programs and medicines. These can increase your chances of quitting for good. ??? If you have GERD symptoms at night, raise the head of your bed 6 to 8 inches. You can do this by putting the frame on blocks or placing a foam wedge under the head of your mattress. (Adding extrapillows does not work.) ??? Do not wear tight clothing around your middle. ??? Lose weight if you need to. Losing just 5 to 10 pounds can help. ??? Do not take anti-inflammatory medicines, such as aspirin, ibuprofen (Advil, Motrin), or naproxen (Aleve). These can irritate the stomach. If you need a pain medicine, try acetaminophen (Tylenol),which does not cause stomach upset. When should you call for help? Call your doctor now or seek immediate medical care if: ? You have new or worse belly pain. ? You are vomiting. Watch closely for changes in your health, and be sure to contact your doctor if: ? You have new or worse symptoms of indigestion. ? You have trouble or pain swallowing. ? You are losing weight. ? You do not get better as expected. Where can you learn more? Go to https://www.INRIX.net/patiented Enter W912 in the search box to learn more about Indigestion (Dyspepsia or Heartburn): Care Instructions. Current as of: August 02, 2021?Content Version: 13.2 ?? [employer]. Care instructions adapted under license by your healthcare professional. If you have questions about a medical condition or this instruction, always ask your healthcare professional. These instructions may not represent the values of this healthcare organization. [employer] disclaims any warranty or liability for your use of this information. documented in this encounter Plan of Treatment Upcoming Encounters Date Type Department Care Team (Late st Contact Info) Description 12/03/2024 10:30 AM BROKER ASSOCIATE Office Visit [facility] at [facility] [address] [place] [address] [place], ANP [address] [address] [facility] [address] [place] [address] 12/29/2024 7:30 AM BROKER ASSOCIATE Office Visit [facility] at [facility] [address] [place] [address] Nellie Ellison, ANP [address] [address] [facility] [address] [place] [address] documented as of this encounter Visit Diagnoses Diagnosis Heartburn- Primary Morbid obesity with body mass index of 40.0-49.9 documented in this encounter
--- OUTSIDE RECORDS SUMMARY | 2024-12-02 04:51 | XMS_ITS | Encounter Summary ---
Author Organization [facility] Address [address] [place] [address] Care Team Providers Care Diesel Lube Tech Name Role Phone Millie Yuan MD Primary Care Provider [phone] Reason for Visit * Reason Onset Date Comments Appointment Verification 07/09/2023 Encounter Details Date Type Department Care Team (Late st Contact Info) Description 07/09/2023 Telephone [facility] at Work [facility] [address] [place] [address] Millie Yuan MD [address] [place] [phone] Appointment Verification Social History Tobacco Use [...] * Telephone Encounter - Liliam Irwin - 07/09/2023 1:38 PM CDT LVM with a reminder for patients upcoming appointment on 07/10/23 at 2:30 pm at the [facility]. documented in this encounter Plan of Treatment Upcoming Encounters Date Type Department Care Team (Late st Contact Info) Description 12/03/2024 10:30 AM LEAD MASSAGE THERAPIST Office Visit [facility] at [facility] [address] [place] [address] Nellie Ellison, ANP [address] [address] Leonor Saleh [facility] [address] [place] [address] 12/29/2024 7:30 AM LEAD MASSAGE THERAPIST Office Visit [facility] at [facility] [address] [place] [address] Nellie Ellison, ANP [address] [facility] Leonor Saleh [facility] [address] [place] [address] documented as of this encounter Visit Diagnoses Not on filedocumented in this encounter Care Teams Diesel Lube Tech Relationship Specialty Start Date End Date Millie Yuan MD [address] [place] [phone] PCP - General Family Practice 10/25/22 04/14/24 documented as of this encounter
--- OUTSIDE RECORDS SUMMARY | 2024-12-02 04:51 | XMS_ITS | Encounter Summary ---
Author Organization [employer] Address [address] [place] [address] Care Team Providers Care Preflight Inspector Name Role Phone Unavailable Primary Care Provider Unavailabl e Reason for Referral * Eval and Treat (Routine) - Closed Specialty Diagnoses / Procedures Referred By Contac t Referred To Contact Diagnoses Unilateral inguinal hernia without obstruction or gangrene, recurrence not specified Juanita Lesetr NP [address] [place] [phone] Referral ID Status Reason Start Date Expiration Date Visits Re quested Visits Authorized [id number] Closed 12/27/2021 12/27/2022 1 1 ORATE TUTOR * Eval and Treat (Routine) - Closed Specialty Diagnoses / Procedures Referred By Contac t Referred To Contact Diagnoses Pelvic floor dysfunction in female Juanita Lester NP [address] [place] [phone] Referral ID Status Reason Start Date Expiration Date Visits Re quested Visits Authorized [id number] Closed 12/27/2021 12/27/2022 6 6 ORATE TUTOR Encounter Details Date Type Department Care Team (Latest Contact Info) Description 12/27/2021 2:00 PM CORPORATE TUTOR Telephone Check Up [facility] at Work [employer] [address] [place] [address] Juanita Lester GEOTHERMAL HEAT PUMP MACHINIST [id number] [address] Pelvic floor dysfunction in female (Primary Dx); Unilateral inguinal hernia without obstruction or gangrene, recurrence not specified Social History Tobacco Use Types Packs/Day Years [...] as of this encounter Progress Notes * Juanita Lester NP - 12/27/2021 2:10 PM CST This encounter was completed via audio-only two way synchronous communication. Patient's identity confirmed yes Patient gave verbal consent to have these services billed to their insurance and expressed understanding that co-insurance and deductible may apply: yes Time spent by the provider delivering the care documented in this encounter 20 minutes. HISTORY OF PRESENT ILLNESS Nuria Valdez, a 41 y.o. female presents with a Chief Complaint of No chief complaint on file. Subjective Pt requests virtual visit today to discuss chronic pelvic floor dysfunction. Pt states that symptoms started after having her children in her 20's. Symptoms occur with laughing, lifting, coughing, etc. Pt has tried exercises, such as kegels, in the past, but these do not work for her. She is interested in getting physical therapy for PFD. Pt has h/o inguinal hernia. She had repair at age 19. She notes that she is having some pressure inher left groin area currently that feels new. She is concerned that she may have another hernia. She notes that she is heavier right now so it is difficult to tell for certain. She would like to havethis evaluated. REVIEW OF SYSTEMS Review of Systems Constitutional: Negative. HENT: Negative. Respiratory: Negative. Gastrointestinal: Negative. Genitourinary: Urinary incontinence Musculoskeletal: Negative. Skin: Negative. Neurological: Negative. Objective PHYSICAL EXAM There were no vitals taken for this visit. Physical Exam Physical exam deferred- telephone visit NAD Procedures N/A Assessment ASSESSMENT and PLAN: ICD-10-CM ICD-9-CM 1. Pelvic floor dysfunction in female PT for further evaluation and treatment of PFD. If no improvement, consider urology consult. M62.89 618.83 AMB REFERRAL TO PHYSICAL THERAPY 2. Unilateral inguinal hernia without obstruction or gangrene, recurrence not specified Referral to surgeon for further evaluation and treatment options. Will consider CT scan if surgeon requests this prior to OV. K40.90 550.90 AMB REFERRAL TO GENERAL SURGERY ORATE TUTOR documented in this encounter Plan of Treatment Upcoming Encounters Date Type Department Care Team (Late st Contact Info) Description 12/03/2024 10:30 AM CORPORATE TUTOR Office Visit [facility] at [place] [address] [place] [address] Nellie Ellison, ANP [address] [address] [employer] Saleh [address] [address] 12/29/2024 7:30 AM CORPORATE TUTOR Office Visit [facility] at [facility] [address] [place] [address] Nellie Ellison, ANP [address] [facility] Leonor Saleh [address] [address] Scheduled Referrals Name Type Priority Associated Diagnoses Orde r Schedule AMB REFERRAL TO PHYSICAL THERAPY Outpatient Referral Routine Pelvic floor dysfunction in female Ordered: 12/27/2021 AMB REFERRAL TO GENERAL SURGERY Outpatient Referral Routine Unilateral inguinal hernia without obstruction or gangrene, recurrence not specified Ordered: 12/27/2021 documented as of this encounter Visit Diagnoses Diagnosis Pelvic floor dysfunction in female- Primary Unilateral inguinal hernia without obstruction or gangrene, recurrence not specified documented in this encounter
--- OUTSIDE RECORDS SUMMARY | 2024-12-02 04:51 | XMS_ITS | Encounter Summary ---
Author Organization [facility] Address [address] [place] [address] Care Team Providers Care Relations Coordinator Name Role Phone Millie Yuan MD Primary Care Provider Reason for Referral * Eval and Treat (Routine) - Open Specialty Diagnoses / Procedures Referred By Liborio sagastume Referred To Contact Diagnoses Obstructive sleep apnea syndrome Procedures SC OFFICE/OUTPATIENT ESTABLISHED MOD MDM 30 MIN SC OFFICE/OUTPATIENT NEW MODERATE MDM 45 MINUTES Millie Yuan MD [address] [facility] [place] [address] Referral ID Status Reason Start Date Expiration Date Visits Re quested Visits Authorized [id number] Open 01/13/2024 01/13/2025 1 1 ER CRIMINAL Reason for Visit * Reason Comments Weight Loss Patient wants to dis cuss weight loss options. Encounter Details Date Type Department Care Team (Late st Contact Info) Description 01/13/2024 1:00 PM LAWYER CRIMINAL Office Visit [facility] at [facility] [employer] [address] [place] [address] Millie Yuan MD [address] [place] [address] BMI 50.0-59.9, adult (Primary Dx); Obstructive sleep apnea syndrome Social History Tobacco Use Types Packs/Day Years [...] Reading Time Taken Comments Blood Pressure 126/78 01/13/2024 1:02 PM LAWYER CRIMINAL Pulse 82 01/13/2024 1:02 PM LAWYER CRIMINAL Temperature 36.8 ??C (98.2 ??F) 01/13/2024 1:02 PM CS T Respiratory Rate 16 01/13/2024 1:02 PM LAWYER CRIMINAL Oxygen Saturation 96% 01/13/2024 1:02 PM LAWYER CRIMINAL Inhaled Oxygen Concentration - - Weight 156.5 kg (345 lb) 01/13/2024 1:02 PM LAWYER CRIMINAL Height 163.8 cm (5' 4.5 ) 01/13/2024 1:02 PM LAWYER CRIMINAL Body Mass Index 58.3 01/13/2024 1:02 PM LAWYER CRIMINAL documented in this encounter Patient Instructions * Attachments The following attachments cannot be sent through Care Everywhere. * Tirzepatide Auto-Injector (TIRZEPATIDE - INJECTION) (Persian) documented in this encounter Progress Notes * Millie Yuan MD - 01/13/2024 1:05 PM CST OFFICE VISIT PROGRESS NOTE DATE: 01/13/2024 PATIENT: Nuria Valdez : 1980 PCP: Millie Yuan MD Chief Complaint Patient presents with Weight Loss Patient wants to discuss weight loss options. HISTORY OF PRESENT ILLNESS Patient has no personal or family h/o thyroid cancers or other endocrine cancers or pancreatitis. She has used wegovy in the past and would like to try zepbound. She has tried many different times to lose weight in the past. She is worried b/c she feels that she is having more difficulty with mobility and states that she has been gaining weight. PAST MEDICAL HISTORY: Past Medical History: Diagnosis [...] Current Outpatient Medications Medication Sig Dispense Refill tirzepatide, weight loss, (Zepbound) 2.5 mg/0.5 mL Pen Injector Inject 2.5 mg by subcutaneous injection every 7 days. 2 mL 0 calcium as carbonate (TUMS) 500 mg (200 mg elemental) Tablet, Chewable Take by mouth. fluticasone propionate (FLONASE) 50 mcg/spray [place], Suspension nasal inhaler Administer 2 Sprays in each nostril daily. 16 Gram 0 valACYclovir (Valtrex) 1 gram tablet Take 2 tablets (2,000mg) by mouth 2 times daily for 1 day 4 Tablet 1 No current facility-administered medications for this visit. ALLERGIES No Known Allergies TOBACCO COUNSELING She is not a tobacco/nicotine user. REVIEW OF SYSTEMS As in HPI PHYSICAL EXAMINATION BP 126/78 (BP Location: Right arm, Patient Position (BP): Sitting, BP Cuff Size: Large Adult) Pulse 82 Temp 98.2 ??F (36.8 ??C) (Tympanic) Resp 16 Ht 5' 4.5 (1.638 m) Wt (!) 156.5 kg (345 lb) LMP 01/06/2024 (Approximate) SpO2 96% BMI 58.30 kg/m?? Gen - AAO, NAD Head- normocephalic/atraumatic. Eyes - PER, EOMI, noninjected Ears - pinna appear normal, hearing is grossly intact Neck - Supple, no thyroid masses. No LAD. Heart - RRR, no m/r/g Lungs - CTAB, no w/r/r Abd - soft, NT/ND, normal bowel sounds x 4 Ext - no c/c/e. Normal peripheral pulses Neuro - Facial features symmetric. Normal speech and voice. Normal gait. A/P Nuria was seen today for weight loss. Diagnoses and all orders for this visit: BMI 50.0-59.9, adult - tirzepatide, weight loss, (Zepbound) 2.5 mg/0.5 mL Pen Injector; Inject 2.5 mg by subcutaneous injection every 7 days. Obstructive sleep apnea syndrome - AMB REFERRAL TO SLEEP STUDIES Starting zepbound 2.5mg. PATIENT INSTRUCTIONS F/u in 4 weeks. Call with side effects. Keep working on diet, exercise, sleep, and stress management. I recommend you check out the following books, Fiber Fueled by Dr. Louie Edward Eat to Beat Disease - Isaac Li Thrive State by Catalino Gar The Hormone Fix by Jennifer Keen Intermittent Fasting - Millie David Sleep Smarter by Isaac Monzon Eat Smarter by Isaac Monzon FOLLOW UP Return in about 4 weeks (around 02/10/2024). Millie Yuan MD 01/13/2024 [facility] AT [address] [employer] [address] ER CRIMINAL documented in this encounter Miscellaneous Notes * Patient Instructions - Millie Yuan MD - 01/13/2024 1:29 PM CST F/u in 4 weeks. Call with side effects. Keep working on diet, exercise, sleep, and stress management. I recommend you check out the following books, Fiber Fueled by Dr. Louie Agee to Beat Disease - Isaac Li Thrive State by Catalino Gar The Hormone Fix by Jennifer Keen Intermittent Fasting - Millie David Sleep Smarter by Isaac Monzon Eat Smarter by Isaac Monzon ER CRIMINAL documented in this encounter Plan of Treatment Upcoming Encounters Date Type Department Care Team (Late st Contact Info) Description 12/03/2024 10:30 AM LAWYER CRIMINAL Office Visit [place] [address] [place] [address] Nellie Ellison, ANP [address] [address] Leonor Delfino [facility] [address] [place] [address] 12/29/2024 7:30 AM LAWYER CRIMINAL Office Visit [facility] at Work [employer] [place] [address] [place] [phone] Nellie Ellison, ANP [address] [address] Leonor Delfino [facility] [address] [place] [address] Scheduled Referrals Name Type Priority Associated Diagnoses Orde r Schedule AMB REFERRAL TO SLEEP STUDIES Outpatient Referral Routine Obstructive sleep apnea syndrome Ordered: 01/13/2024 documented as of this encounter Visit Diagnoses Diagnosis BMI 50.0-59.9, adult- Primary Body Mass Index 50.0-59.9, adult Obstructive sleep apnea syndrome Obstructive sleep apnea (adult) (pediatric) documented in this encounter Care Teams Relations Coordinator Relationship Specialty Start Date End Date Millie Yuan MD [address] [place] [phone] PCP - General Family Practice 10/25/22 04/14/24 documented as of this encounter
--- OUTSIDE RECORDS SUMMARY | 2024-12-02 04:51 | XMS_ITS | Encounter Summary ---
Author Organization [facility] Address [address] [place] [address] Care Team Providers Care Applied Marine Physics Professor Name Role Phone Unavailable Primary Care Provider Unavailabl e Reason for Visit * Reason Comments Labs Only Encounter Details Date Type Department Care Team (Latest Contact Info) Description 03/07/2021 7:15 AM CDT Procedure visit [facility] at [facility] [employer] [address] [place] [address] Screening for condition (Primary Dx); Acute pain in female pelvis Social History Tobacco Use Types Packs/Day Years [...] of this encounter Progress Notes * Nuria Traylor - 03/07/2021 7:52 AM CDT Pt came in for blood draw, right AC unsuccessful, left AC successful, 4 sticks. pt tolerated well. Drawn by Butch. documented in this encounter Miscellaneous Notes * Result Encounter Note - Dean Hernandez MD - 03/08/2021 6:53 AM CDT [facility] documented in this encounter Plan of Treatment Upcoming Encounters Date Type Department Care Team (Late st Contact Info) Description 12/03/2024 10:30 AM HIGH LIGHTER Office Visit [facility] at [facility] [employer] [place] [address] [place] [address] Nellie Ellison, ANP [address] [address] 12/29/2024 7:30 AM HIGH LIGHTER Office Visit [facility] at [facility] [employer] [place] [address] [place] [address] Nellie Ellison, ANP [address] [facility] [address] [place] [address] documented as of this encounter Procedures Procedure Name Priority Date/Time Associated Diagnosis Comments CBC WITH DIFFERENTIAL Routine 03/07/2021 7:53 AM CDT Acute pain in female pelvis LIPID PANEL Routine 03/07/2021 7:53 AM CDT Screening for condition BASIC METABOLIC PANEL Routine 03/07/2021 7:53 AM CDT Acute pain in female pelvis documented in this encounter Results * (ABNORMAL) LIPID PANEL (03/07/2021 7:53 AM CDT) CHOLESTEROL 211(H) 100 - 199 mg/dL [facility] TRIGLYCERIDE 95 0 - 149 mg/dL [facility] HDL 60 >39 mg/dL [facility] VLDL CHOLESTEROL CALCULATED 17 5 - 40 mg/dL [facility] LDL CALCULATED 134(H) 0 - 99 mg/dL [facility] Blood 03/07/2021 7:53 AM CDT 03/07/2021 Narrative [facility] - 03/08/2021 3:35 AM CDT Performed at: ?? - [facility] [address] ??[id number] Cloth Worker: Chris Carnes PhD, Phone: ??[phone] Mary Jo Sheikh [facility] CHEMISTRY ORDERABLES [facility] [phone] * CBC WITH DIFFERENTIAL (03/07/2021 7:53 AM CDT) Pathologist [facility] WBC 7.8 3.4 - 10.8 x10E3/uL [facility] [...] 3:35 AM CDT Performed at: ?? - [address] ??[id number] Cloth Worker: Chris Carnes PhD, Phone: ??[phone] Mary Jo Sheikh MANAGEMENT TECHNICIAN HEMATOLOGY ORDERABLE S [facility] [phone] * BASIC METABOLIC PANEL (03/07/2021 7:53 AM CDT) Pathologist [facility] GLUCOSE 98 65 - 99 mg/dL [facility] [...] AM CDT Performed at: ??01 - [facility] [address] ??[id number] Cloth Worker: Chris Carnes PhD, Phone: ??[phone] Mary Jo Sheikh MANAGEMENT TECHNICIAN CHEMISTRY ORDERABLES [facility] [phone] documented in this encounter Visit Diagnoses Diagnosis Screening for condition- Primary Screening for unspecified condition Acute pain in female pelvis Unspecified symptom associated with female genital organs documented in this encounter
--- OUTSIDE RECORDS SUMMARY | 2024-12-02 04:51 | XMS_ITS | Encounter Summary ---
Author Organization [facility] Address [address] [place] [address] Care Team Providers Care Lotteries Agent Name Role Phone Millie Yuan MD Primary Care Provider [phone] Encounter Details Date Type Department Care Team (Late st Contact Info) Description 03/10/2024 External Device Data [facility] ABSTRACTION Provider, Abstract [...] st Contact Info) Description 12/03/2024 10:30 AM COLLECTIVE BARGAINING SPECIALIST Office Visit [facility] at [facility] [employer] [place] [address] [place] [address] Nellie Ellison, ANP [address] [facility] Leonor Saleh [address] [place] [address] 12/29/2024 7:30 AM COLLECTIVE BARGAINING SPECIALIST Office Visit [facility] at Work [employer] [place] [address] [facility] [place] [address] Nellie Ellison, ANP [address] [place] [address] documented as of this encounter Visit Diagnoses Not on filedocumented in this encounter Care Teams Lotteries Agent Relationship Specialty Start Date End Date Millie Yuan MD [address] [place] [address] PCP - General Family Practice 10/25/22 04/14/24 documented as of this encounter
--- OUTSIDE RECORDS SUMMARY | 2024-12-02 04:51 | XMS_ITS | Encounter Summary ---
Author Organization [facility] Address [address] [place] [address] Care Team Providers Care Design Analyst Name Role Phone Unavailable Primary Care Provider Unavailabl e Reason for Visit * Reason Onset Date Comments Medication Refill 12/18/2021 Encounter Details Date Type Department Care Team (Late st Contact Info) Description 12/18/2021 Refill [facility] [employer] [place] [address] [place] [address] Dean Hernandez MD NO ADDRESS [...] st Contact Info) Description 12/03/2024 10:30 AM CRUSHER WET GROUND MICA Office Visit [facility] [employer] [place] [address] [place] [address] Nellie Ellison, ANP [address] Franny Saleh [facility] [address] [place] [address] 12/29/2024 7:30 AM CRUSHER WET GROUND MICA Office Visit [facility] at Work [employer] [address] [place] [address] Nellie Ellison, DIANE [address] Franny Saleh [facility] [address] [place] [address] documented as of this encounter Visit Diagnoses Diagnosis Attention deficit disorder (ADD) in adult documented in this encounter
--- OUTSIDE RECORDS SUMMARY | 2024-12-02 04:51 | XMS_ITS | Encounter Summary ---
Author Organization [facility] Address [address] [place] [address] Care Team Providers Care Drafter Electronic Name Role Phone Dean Hernandez MD Primary Care Provider Unava ilable Reason for Visit * Reason Comments Medication Refill Needing a refill of wegovy. Worked well the first two doses. Has been off for a week Encounter Details Date Type Department Care Team (Late st Contact Info) Description 04/24/2022 2:00 PM CDT Office Visit [facility] at Work [employer] [address] [place] [address] Iva Abdi FNP NO ADDRESS [...] Sign Reading Time Taken Comments Blood Pressure 130/88 04/24/2022 2:08 PM CDT Pulse 93 04/24/2022 2:08 PM CDT Temperature 37.6 ??C (99.7 ??F) 04/24/2022 2:08 PM CD T Respiratory Rate 18 04/24/2022 2:08 PM CDT Oxygen Saturation 97% 04/24/2022 2:08 PM CDT Inhaled Oxygen Concentration - - Weight 133.4 kg (294 lb) 04/24/2022 2:08 PM CDT Height 163.8 cm (5' 4.5 ) 04/24/2022 2:08 PM CDT Body Mass Index 49.69 04/24/2022 2:08 PM CDT documented in this encounter Progress Notes * Iva Abdi, CIVIL TECHNICIAN - 04/24/2022 2:08 PM CDT HISTORY OF PRESENT ILLNESS Nuria Valdez, a 42 y.o. female presents with a chief complaint of Chief Complaint Patient presents with ??? Medication Refill Needing a refill of wegovy. Worked well the first two doses. Has been off for a week Subjective HPI Patient presents for weight check and dose of wegovy to be increased. She reports she felt it worked well for the first 2 weeks. She states she lost 10 pounds, but then gained it all back due to period weight and life . She has not called [facility] for nutrition counseling, but knows she needs to do so. Tobacco Intervention She is not a tobacco user. Blood Pressure BP Readings from Last 3 Encounters: 04/24/22 130/88 03/16/22 (!) 140/88 03/08/22 120/78 Normal BMI Range: 18 & older: > or = 18.5 and < 25 Body mass index is 49.69 kg/m??. Abnormal high BMI: BMI 40 or [...] bowel habits, or black or bloody stools Neurological ROS: negative for TIA or stroke [...] 40.0-49.9 E66.01 278.01 semaglutide, weight loss, (WEGOVY) 0.5 mg/0.5 mL Pen Injector Call EAP for nutrition counseling. Follow up in 1 month for weight check and dosage increase. documented in this encounter Plan of Treatment Upcoming Encounters Date Type Department Care Team (Late st Contact Info) Description 12/03/2024 10:30 AM OBJECT ORIENTED DEVELOPER Office Visit [facility] at [employer] [address] [place] [address] Nellie Ellison, ANP [address] [facility] Leonor Saleh [facility] [address] [place] [address] 12/29/2024 7:30 AM OBJECT ORIENTED DEVELOPER Office Visit [facility] at Work [employer] [place] [address] [place] [place] [address] Nellie Ellison, ANP [address] [facility] Leonor Delfino [facility] [address] [place] [address] documented as of this encounter Visit Diagnoses Diagnosis Morbid obesity with body mass index of 40.0-49.9- Primary documented in this encounter Care Teams Drafter Electronic Relationship Specialty Start Date End Date Dean Hernandez MD PCP - General Family Practice 03/27/22 10/24/22 documented as of this encounter
--- OUTSIDE RECORDS SUMMARY | 2024-12-02 04:51 | XMS_ITS | Encounter Summary ---
Author Organization [facility] Address [address] [place] [address] Care Team Providers Care Sergeant At Arms Name Role Phone Millie Yuan MD Primary Care Provider [phone] Encounter Details Date Type Department Care Team (Late st Contact Info) Description 11/06/2022 Orders Only [facility] at [facility] [employer] [place] [address] [place] [place] [address] Iva Abdi FNP NO ADDRESS ON FILE Urinary tract infection with hematuria, site unspecified (Primary Dx) Social History Tobacco Use [...] st Contact Info) Description 12/03/2024 10:30 AM GARMENT PRESSER Office Visit [facility] at [employer] [place] [address] [place] [address] Nellie Ellison, ANP [address] [address] [facility] [address] [place] [address] 12/29/2024 7:30 AM GARMENT PRESSER Office Visit [facility] at Work [employer] [place] [address] [place] [address] Nellie Ellison, ANP [address] [address] [facility] [address] [place] [address] documented as of this encounter Visit Diagnoses Diagnosis Urinary tract infection with hematuria, site unspecified- Primary documented in this encounter Care Teams Sergeant At Arms Relationship Specialty Start Date End Date Millie Yuan MD [address] [place] [address] PCP - General Family Practice 10/25/22 04/14/24 documented as of this encounter
--- OUTSIDE RECORDS SUMMARY | 2024-12-02 04:51 | XMS_ITS | Encounter Summary ---
Author Organization [facility] Address [address] [place] [address] Care Team Providers Care Rn Bariatric Name Role Phone Millie Yuan MD Primary Care Provider [phone] Encounter Details Date Type Department Care Team (Late st Contact Info) Description 12/21/2023 External Device Data STL ABSTRACTION Provider, Abstract [...] st Contact Info) Description 12/03/2024 10:30 AM BOTTOM CEMENTER Office Visit [facility] at [facility] Mobile [employer] [place] [address] [place] [address] Nellie Ellison, ANP [address] [facility] Leonor Saleh [address] [place] [address] 12/29/2024 7:30 AM BOTTOM CEMENTER Office Visit [facility] at Work [employer] [place] [address] [place] [address] Nellie Ellison, ANP [address] [place] [address] documented as of this encounter Visit Diagnoses Not on filedocumented in this encounter Care Teams Rn Bariatric Relationship Specialty Start Date End Date Millie Yuan MD [address] [place] [address] PCP - General Family Practice 10/25/22 04/14/24 documented as of this encounter
--- OUTSIDE RECORDS SUMMARY | 2024-12-02 04:51 | XMS_ITS | Encounter Summary ---
Author Organization [facility] Address [address] [place] [address] Care Team Providers Care Metal Annealer Name Role Phone Millie Yuan MD Primary Care Provider [phone] Reason for Visit * Reason Comments Cough X10 days. Ear Pain Bilateral ears, more pain than pressure. Nasal Congestion Encounter Details Date Type Department Care Team (Late st Contact Info) Description 10/28/2023 2:00 PM ADMINISTRATOR Office Visit [facility] at Work [employer] [address] [place] [address] Millie Yuan MD [address] [place] [address] Acute effusion of both middle ears (Primary Dx); Upper respiratory tract infection, unspecified type; Dizziness Social History Tobacco Use Types Packs/Day Years [...] Sign Reading Time Taken Comments Blood Pressure 126/82 10/28/2023 1:54 PM ADMINISTRATOR Pulse 79 10/28/2023 1:54 PM ADMINISTRATOR Temperature 36.9 ??C (98.4 ??F) 10/28/2023 1:54 PM CS T Respiratory Rate 18 10/28/2023 1:54 PM ADMINISTRATOR Oxygen Saturation 98% 10/28/2023 1:54 PM ADMINISTRATOR Inhaled Oxygen Concentration - - Weight 151 kg (333 lb) 10/28/2023 1:54 PM ADMINISTRATOR Height 163.8 cm (5' 4.5 ) 10/28/2023 1:54 PM ADMINISTRATOR Body Mass Index 56.28 10/28/2023 1:54 PM ADMINISTRATOR documented in this encounter Progress Notes * Millie Yuan MD - 10/28/2023 2:04 PM CST OFFICE VISIT PROGRESS NOTE DATE: 10/28/2023 PATIENT: Nuria Valdez : 1980 PCP: Millie Yuan MD Chief Complaint Patient presents with Cough X10 days. Ear Pain Bilateral ears, more pain than pressure. Nasal Congestion HISTORY OF PRESENT ILLNESS She states that she has been sick for 7-10 days. Prior to this she had uri symptoms mid Nov, it lasted approx 1 week, then it resolved for 1 week and now it is back. Elevated temp early in first with chills, this has resolved. No headaches. + facial pain around right eye. + fatigue. No body aches. +itchy eyes. No other eye symptoms. + ear pain. NO ear fullness. No muffled hearing. Some dizziness. She has had nasal congestion and rhinorrhea. This seems better today. PND and sore throat in the first couple of days, this has resolved. + cough. Cough is sometimes productive. No wheeze or sob. No abd pain or nausea. No decrease in appetite or diarrhea. No rash or other skin change. She hasn't had any covid test. + sick contact. She had taken dayquil and nyquil. PAST MEDICAL HISTORY: Past Medical History: Diagnosis [...] Current Outpatient Medications Medication Sig Dispense Refill fluticasone propionate (FLONASE) 50 mcg/spray [place], Suspension nasal inhaler Administer 2 Sprays in [...] SYSTEMS As in HPI PHYSICAL EXAMINATION BP 126/82 (BP Location: Right arm, Patient Position (BP): Sitting, BP Cuff Size: Large Adult) Pulse 79 Temp 98.4 ??F (36.9 ??C) (Tympanic) Resp 18 Ht 5' 4.5 (1.638 m) Wt (!) 151 kg (333 lb) SpO2 98% BMI 56.28 kg/m?? Gen - AAO, NAD Head- normocephalic/atraumatic. Eyes - PERRL, EOMI, noninjected Ears - pinna appear normal, Some tenderness to palpation over tmj bilaterally. canals clear, TMs with clear effusion bilaterally. No erythema, no bulging, no loss of landmark visibility. Nose - nasal mucosa slightly erythematous and edematous L>R and Mouth - mucosa pink and moist. Posterior [...] gait. A/P Nuria was seen today for cough, ear pain and nasal congestion. Diagnoses and all orders for this visit: Acute effusion of both middle ears - fluticasone propionate (FLONASE) 50 mcg/spray [place], Suspension nasal inhaler; Administer 2 Sprays in each nostril daily. Upper respiratory tract infection, unspecified type - fluticasone propionate (FLONASE) 50 mcg/spray [place], Suspension nasal inhaler; Administer 2 Sprays in each nostril daily. Dizziness - fluticasone propionate (FLONASE) 50 mcg/spray [place], Suspension nasal inhaler; Administer 2 Sprays in each nostril daily. PATIENT INSTRUCTIONS Avoid antihistamines. Start fluticasone 2 sprays in each nostril once a day. Use nasal saline 4-5X/day as well. Put a cool mist humidifier in room at night (remember to clean it daily). Do steam treatments several times daily as well. If no improvement in a couple of days or if new symptoms develop, or if symptoms worsen, please call here. FOLLOW UP Return for follow-up if condition is not improving. Millie Yuan MD 10/28/2023 [facility] AT [address] [address] NISTRATOR documented in this encounter Miscellaneous Notes * Patient Instructions - Millie Yuan MD - 10/28/2023 2:24 PM CST Avoid antihistamines. Start fluticasone 2 sprays in each nostril once a day. Use nasal saline 4-5X/day as well. Put a cool mist humidifier in room at night (remember to clean it daily). Do steam treatments several times daily as well. If no improvement in a couple of days or if new symptoms develop, or if symptoms worsen, please call here. NISTRATOR documented in this encounter Plan of Treatment Upcoming Encounters Date Type Department Care Team (Late st Contact Info) Description 12/03/2024 10:30 AM ADMINISTRATOR Office Visit [address] [address] [place]P [address] [address] [place] [address] 12/29/2024 7:30 AM ADMINISTRATOR Office Visit [facility] at Work [employer] [place] [address] [place] [address] Nellie Ellison, ANP [address] [facility] [address] [place] [address] documented as of this encounter Visit Diagnoses Diagnosis Acute effusion of both middle ears- Primary Upper respiratory tract infection, unspecified type Dizziness Dizziness and giddiness documented in this encounter Care Teams Metal Annealer Relationship Specialty Start Date End Date Millie Yuan MD [address] [facility] [place] [address] PCP - General Family Practice 10/25/22 04/14/24 documented as of this encounter
--- OUTSIDE RECORDS SUMMARY | 2024-12-02 04:51 | XMS_ITS | Encounter Summary ---
Author Organization [email or web address] Address [address] [place] [address] Care Team Providers Care Folder Gluer Operator Name Role Phone Millie Yuan MD Primary Care Provider [phone] Reason for Referral * Eval and Treat (Routine) - Closed Specialty Diagnoses / Procedures Referred By Liborio sagastume Referred To Contact Surgery Diagnoses Lipoma, unspecified site Iva Abdi FNP NO ADDRESS ON FILE Referral ID Status Reason Start Date Expiration Date Visits Re quested Visits Authorized [id number] Closed 10/25/2022 10/25/2023 1 1 ON PICTURE CAMERA OPERATOR Reason for Visit * Reason Comments Lipoma Painful lipomas Abdominal Pain Has had a cough and now left side hurts Encounter Details Date Type Department Care Team (Late st Contact Info) Description 10/25/2022 3:30 PM MOTION PICTURE CAMERA OPERATOR Office Visit [facility] [employer] [address] [place] [address] Iva Abdi FNP NO ADDRESS ON FILE Lipoma, unspecified site (Primary Dx); LUQ abdominal pain; Morbid obesity with BMI of 50.0-59.9, adult [...] Sign Reading Time Taken Comments Blood Pressure 114/76 10/25/2022 3:19 PM MOTION PICTURE CAMERA OPERATOR Pulse 90 10/25/2022 3:19 PM MOTION PICTURE CAMERA OPERATOR Temperature 37 ??C (98.6 ??F) 10/25/2022 3:19 PM MOTION PICTURE CAMERA OPERATOR Respiratory Rate 18 10/25/2022 3:19 PM MOTION PICTURE CAMERA OPERATOR Oxygen Saturation 97% 10/25/2022 3:19 PM MOTION PICTURE CAMERA OPERATOR Inhaled Oxygen Concentration - - Weight 139.7 kg (308 lb) 10/25/2022 3:19 PM MOTION PICTURE CAMERA OPERATOR Height 163.8 cm (5' 4.5 ) 10/25/2022 3:19 PM MOTION PICTURE CAMERA OPERATOR Body Mass Index 52.05 10/25/2022 3:19 PM MOTION PICTURE CAMERA OPERATOR documented in this encounter Progress Notes * Iva Abdi, GUARD CAPTAIN - 10/25/2022 3:21 PM CST HISTORY OF PRESENT ILLNESS Nuria Valdez, a 42 y.o. female presents with a chief complaint of Chief Complaint Patient presents with Lipoma Painful lipomas Abdominal Pain Has had a cough and now left side hurts Subjective HPI Patient presents with: > Painful lipomas- she reports she has had lipomas since she was in her 20s, but just recently some of them have started to becoming painful. She reports she has previously counted ~23 lipomas, and ~7 of them have become painful. She would like referral to general surgery. > She has recently had a cough for 2 days and now her left upper abdomen hurts. On Saturday nightshe was trying to turn over in bed, and felt a pop and felt like a charley horse , and has had pain since. LUQ hurts to lay on her back and tender to the touch. Does not hurt to take a deep breath. She has tried using ice, heat, lidocaine patches, icy hot, ibuprofen, tylenol, stretching. Pain is so bad she has considered going to the ER and not able to get any sleep. > Also would like to get back on medication for weight loss. She was previously taking semaglutide injection. There was shortage, so she was not able to continue taking. Medication was helping herto lose weight. She knows we needs to start over at the lowest dosage and she will need to come in monthly for weight checks. Tobacco Intervention She is not a tobacco user. Depression Screen PHQ-2 Total: 0 (10/25/22 1500) Positive: PHQ-2 score >= 3 or PHQ-9 score >= 9 PHQ-2 Total: 0 (10/25/2022 3:00 PM) DEPRESSION PLAN OF CARE Her depression screen was negative. Blood Pressure BP Readings from Last 3 Encounters: 10/25/22 114/76 05/17/22 128/78 04/24/22 130/88 Normal BMI Range: 18 & older: > or = 18.5 and < 25 Body mass index is 52.05 kg/m??. Abnormal high BMI: BMI 40 or [...] rubs, clicks or gallops Abdomen - soft, nondistended, tenderness noted LUQ Neurological - alert, oriented, normal speech, no focal findings or movement disorder noted, motor and sensory grossly normal bilaterally, normal muscle tone, no tremors Assessment ASSESSMENT AND PLAN ICD-10-CM ICD-9-CM 1. Lipoma, unspecified site D17.9 214.9 AMB REFERRAL TO GENERAL SURGERY 2. LUQ abdominal pain R10.12 789.02 US ABDOMEN LIMITED cyclobenzaprine (FLEXERIL) 10 mg tablet 3. Morbid obesity with BMI of 50.0-59.9, adult E66.01 278.01 semaglutide, weight loss, (WEGOVY) 0.25 mg/0.5 mL Pen Injector Z68.43 V85.43 Lipoma- Get established with general surgery for further evaluation and treatment. LUQ adbominal pain- Continue home remedies and otc medications. Will follow up on results of ultrasound. Obesity- Start semaglutide injection. Follow up 4 weeks after starting medication. ON PICTURE CAMERA OPERATOR documented in this encounter Plan of Treatment Upcoming Encounters Date Type Department Care Team (Late st Contact Info) Description 12/03/2024 10:30 AM MOTION PICTURE CAMERA OPERATOR Office Visit [facility] [employer] [place] [address] [place] [address] Nellie Ellison, ANP [address] [facility] [address] [address] 12/29/2024 7:30 AM MOTION PICTURE CAMERA OPERATOR Office Visit [facility] [employer] [facility] [address] [place] [address] Nellie Ellison, DIANE [address] [facility] [place] [address] [address] Scheduled Referrals Name Type Priority Associated Diagnoses Orde r Schedule AMB REFERRAL TO GENERAL SURGERY Outpatient Referral Routine Lipoma, unspecified site Ordered: 10/25/2022 documented as of this encounter Visit Diagnoses Diagnosis Lipoma, unspecified site- Primary LUQ abdominal pain Abdominal pain, left upper quadrant Morbid obesity with BMI of 50.0-59.9, adult documented in this encounter Care Teams Folder Gluer Operator Relationship Specialty Start Date [place] [address] PCP - General Family Practice 10/25/22 04/14/24 documented as of this encounter
--- OUTSIDE RECORDS SUMMARY | 2024-12-02 04:51 | XMS_ITS | Encounter Summary ---
Author Organization [facility] Address [address] [place] [address] Care Team Providers Care Growth Media Mixer Mushroom Name Role Phone Unavailable Primary Care Provider Unavailabl e Encounter Details Date Type Department Care Team (Late st Contact Info) Description 03/08/2021 Orders Only [facility] at Work [employer] [place] [address] [place] [address] Dean Hernandez MD NO ADDRESS ON FILE Elevated LDL cholesterol level (Primary Dx) Social [...] st Contact Info) Description 12/03/2024 10:30 AM ELECTRICIAN RADIO Office Visit [facility] [address] [place] [address] Nellie Ellison, ANP [address] [address] Sale[address] [facility] [address] [place] [address] 12/29/2024 7:30 AM ELECTRICIAN RADIO Office Visit [facility] [address] [place] [place] [address] Nellie Ellison, ANP [address] [address] Saleh [facility] [address] [place] [address] documented as of this encounter Visit Diagnoses Diagnosis Elevated LDL cholesterol level- Primary Pure hypercholesterolemia documented in this encounter
--- OUTSIDE RECORDS SUMMARY | 2024-12-02 04:51 | XMS_ITS | Encounter Summary ---
Author Organization [facility] Address [address] [place] [address] Care Team Providers Care Resaw Feeder Name Role Phone Millie Yuan MD Primary Care Provider [phone] Reason for Visit * Reason Onset Date Comments fu er 01/24/2024 Encounter Details Date Type Department Care Team (Late st Contact Info) Description 01/24/2024 Telephone [facility] at Work [employer] [address] [address] Millie Yuan MD [address] [place] [address] fu er Social History Tobacco Use Types Packs/Day Years [...] Telephone Encounter - Bhargavi Baez RN - 01/24/2024 9:24 AM CST Pt has follow up scheduled 01/28/2024 at 9:30 AM R PICKER/ASSEMBLER * Telephone Encounter - Millie Yuan MD - 01/24/2024 9:16 AM CST Please call patient and see how they are doing after recent er visit. Please schedule f/u appt if needed. R PICKER/ASSEMBLER documented in this encounter Plan of Treatment Upcoming Encounters Date Type Department Care Team (Late st Contact Info) Description 12/03/2024 10:30 AM ORDER PICKER/ASSEMBLER Office Visit [facility] [employer] [place] [address] [place] [address] Nellie Ellison, ANP [address] [facility] [address] [address] 12/29/2024 7:30 AM ORDER PICKER/ASSEMBLER Office Visit [facility] [employer] [place] [address] [place] [address] Nellie Ellison, ANP [address] [facility] [address] [address] documented as of this encounter Visit Diagnoses Not on filedocumented in this encounter Care Teams Resaw Feeder Relationship Specialty Start Date End Date Millie Yuan MD [address] [place] [address] PCP - General Family Practice 10/25/22 04/14/24 documented as of this encounter
--- OUTSIDE RECORDS SUMMARY | 2024-12-02 04:51 | XMS_ITS | Encounter Summary ---
Author Organization [facility] Address [address] [place] [address] Care Team Providers Care Political Analyst Name Role Phone Unavailable Primary Care Provider Unavailabl e Reason for Visit * Reason Onset Date Comments Medication Refill 03/08/2022 Encounter Details Date Type Department Care Team (Late st Contact Info) Description 03/08/2022 Refill [facility] at [facility] [employer] [address] [place] [address] Dean Hernandez MD NO ADDRESS ON FILE [...] Telephone Encounter - Bhargavi Baez RN - 03/08/2022 8:50 AM CDT ROBERTO 03/08/2022 documented in this encounter Plan of Treatment Upcoming Encounters Date Type Department Care Team (Late st Contact Info) Description 12/03/2024 10:30 AM DBA DEVELOPER Office Visit [facility] at [facility] [employer] [facility] [address] [place] [address] Nellie Ellison, ANP [address] [address]h [facility] [address] [place] [address] 12/29/2024 7:30 AM DBA DEVELOPER Office Visit [facility] at [facility] [employer] [facility] [address] [place] [address] Nellie Ellison, ANP [address] [facility] Leonor Saleh [facility] [address] [place] [address] documented as of this encounter Visit Diagnoses Diagnosis Attention deficit disorder (ADD) in adult documented in this encounter
--- OUTSIDE RECORDS SUMMARY | 2024-12-02 04:51 | XMS_ITS | Encounter Summary ---
Author Organization [facility] Address [address] Rojasn: Epic Prelude ADT [place] [address] Care Team Providers Care Dewer Name Role Phone Unavailable Primary Care Provider Unavailabl e Encounter Details Date Type Department Care Team (Latest Contact Info) Description 08/07/2021 Travel Social History Tobacco Use Types Packs/Day [...] st Contact Info) Description 12/03/2024 10:30 AM GUNITE MIXER Office Visit [facility] at Work [employer] [place] [address] [place] [address] Nellie Ellison, ANP [address] [address] [facility] [address] [place] [address] 12/29/2024 7:30 AM GUNITE MIXER Office Visit [facility] at Work [employer] [address] [place] [address] Nellie Ellison, DIANE [address] [facility] Leonor Saleh [facility] [address] [place] [address] documented as of this encounter Visit Diagnoses Not on filedocumented in this encounter
--- OUTSIDE RECORDS SUMMARY | 2024-12-02 04:51 | XMS_ITS | Encounter Summary ---
Author Organization [facility] Address [address] [place] [address] Care Team Providers Care Kiln Packer Name Role Phone Dean Hernandez MD Primary Care Provider Unava ilable Reason for Visit * Reason Onset Date Comments Medication Refill 06/01/2022 Encounter Details Date Type Department Care Team (Late st Contact Info) Description 06/01/2022 Refill [facility] [employer] [place] [address] [place] [address] Iva Abdi FNP NO ADDRESS ON FILE [...] st Contact Info) Description 12/03/2024 10:30 AM SUPERVISING CHEF Office Visit [facility] at [employer] [place] [address] Nellie Ellison, ANP [address] [address]h [facility] [address] [place] [address] 12/29/2024 7:30 AM SUPERVISING CHEF Office Visit [facility] at Work [email or web address] [address] [place] [address] Nellie Ellison, ANP [address] [address]h [facility] [address] [place] [address] documented as of this encounter Visit Diagnoses Diagnosis Morbid obesity with body mass index of 40.0-49.9 documented in this encounter Care Teams Kiln Packer Relationship Specialty Start Date End Date Dean Hernandez MD PCP - General Family Practice 03/27/22 10/24/22 documented as of this encounter
--- OUTSIDE RECORDS SUMMARY | 2024-12-02 04:51 | XMS_ITS | Encounter Summary ---
Author Organization [facility] Address [address] [place] [address] Care Team Providers Care Charcoal Kiln Burner Name Role Phone Unavailable Primary Care Provider Unavailabl e Reason for Referral * Radiology Services (Routine) - Closed Specialty Diagnoses / Procedures Referred By Contac t Referred To Contact Diagnoses Screening mammogram, encounter for Procedures MAMMO SCREEN BILAT W OR WO CAD Dean Hernandez MD NO ADDRESS ON FILE Referral ID Status Reason Start Date Expiration Date Visits Re quested Visits Authorized [id number] Closed 08/07/2021 09/07/2022 1 1 Reason for Visit * Reason Comments ADHD Encounter Details Date Type Department Care Team (Late st Contact Info) Description 08/07/2021 11:00 AM CDT Office Visit [facility] at [facility] [employer] [place] [address] [place] [address] Dean Hernandez MD NO ADDRESS ON FILE Attention deficit disorder (ADD) in adult (Primary Dx); Screening mammogram, encounter for Social History Tobacco Use Types Packs/Day Years [...] Reading Time Taken Comments Blood Pressure 114/72 08/07/2021 10:48 AM CDT Pulse 91 08/07/2021 10:48 AM CDT Temperature 37.3 ??C (99.1 ??F) 08/07/2021 10:48 AM C DT Respiratory Rate 20 08/07/2021 10:48 AM CDT Oxygen Saturation 97% 08/07/2021 10:48 AM CDT Inhaled Oxygen Concentration - - Weight 132.5 kg (292 lb) 08/07/2021 10:48 AM CDT Height 163.8 cm (5' 4.5 ) 08/07/2021 10:48 AM CD T Body Mass Index 49.35 08/07/2021 10:48 AM CDT documented in this encounter Progress Notes * Dean Hernandez MD - 08/07/2021 10:52 AM CDT HISTORY OF PRESENT ILLNESS Nuria Valdez, a 41 y.o. female presents with a chief complaint of Chief Complaint Patient presents with ??? ADHD Subjective HPI Would like to discuss possible ADD. Has recently been struggling with multiple tasking and finishing. Did well ins chool, but enjoyed school. However new job psotion has caused her to note onset of taking, focusing , and finishing issues. Family hx of ADD in children Tobacco Intervention She is not a tobacco user. Depression Screen Positive: PHQ-2 score >= 3 or PHQ-9 score >= 9 PHQ-2 Total: 0 (03/03/2021 11:00 AM) DEPRESSION PLAN OF CARE Her depression screen was normal Blood Pressure BP Readings from Last 3 Encounters: 08/07/21 114/72 07/24/21 114/72 03/03/21 116/78 This medical record reflects the history of present illness as obtained by myself in discussion with the patient. ROS Review of Systems - History obtained from chart review and the patient General ROS: negative for weight changes, fever Psychological ROS: positive for - concentration difficulties, difficulty concentrating and distractibility Respiratory ROS: negative for cough, shortness of breath, or wheezing Cardiovascular ROS: negative for chest pain or dyspnea on exertion Objective PHYSICAL EXAM Physical Examination: General appearance - alert, well appearing, and in no distress and oriented to person, place, and time Mental status - alert, oriented to person, place, and time, normal mood, behavior, speech, dress, motor activity, and thought processes ASRS positive. Assessment ASSESSMENT AND PLAN ICD-10-CM ICD-9-CM 1. Attention deficit disorder (ADD) in adult F98.8 314.00 amphetamine- dextroamphetamine (Adderall XR) 10 mg Extended Release 24 hour capsule 2. Screening mammogram, encounter for Z12.31 V76.12 MAMMO SCREEN BILAT W OR WO CAD After discussion will trial adderall xr. Pros and cons and possible effects discussed. Will follow two weeks for phone consultation and follow up. documented in this encounter Plan of Treatment Upcoming Encounters Date Type Department Care Team (Late st Contact Info) Description 12/03/2024 10:30 AM NURSE CASE MANAGEMENT Office Visit [place] [address] [place] [address] Nellie Ellison, ANP [address] [address] 12/29/2024 7:30 AM NURSE CASE MANAGEMENT Office Visit [facility] [address] [place] [place] [address] Nellie Ellison, DIANE [address] [facility] [address] [address] Scheduled Orders Name Type Priority Associated Diagnoses Orde r Schedule MAMMO SCREEN BILAT W OR WO CAD Imaging Routine Screening mammogram, encounter for 1 Occurrences starting 08/07/2021 until 02/04/2023 documented as of this encounter Visit Diagnoses Diagnosis Attention deficit disorder (ADD) in adult- Primary Screening mammogram, encounter for documented in this encounter
--- OUTSIDE RECORDS SUMMARY | 2024-12-02 04:51 | XMS_ITS | Encounter Summary ---
Author Organization [facility] Address [address] [place] [address] Care Team Providers Care Commercial Construction Project Manager Name Role Phone Millie Yuan MD Primary Care Provider [phone] Encounter Details Date Type Department Care Team (Late st Contact Info) Description 02/27/2023 Orders Only [facility] at Work [place] [address] [place] [address] Millie Yuan MD [address] [place] [address] Elevated glucose (Primary Dx) Social History Tobacco Use Types [...] as of this encounter Miscellaneous Notes * Result Encounter Note - Nuria Morris - 03/01/2023 11:35 AM CDT Spoke to pt, she scheduled a follow up 03/08/2023 at 8:00 AM * Result Encounter Note - Millie Yuan MD - 03/01/2023 9:48 AM CDT Please schedule patient a visit to discuss her recent labs. A1c is in the prediabetic range. documented in this encounter Plan of Treatment Upcoming Encounters Date Type Department Care Team (Late st Contact Info) Description 12/03/2024 10:30 AM TEST PULLER Office Visit [facility] at [facility] [employer] [place] [address] [place] [address] Nellie Ellison, ANP [address] [facility] [address] [address] 12/29/2024 7:30 AM TEST PULLER Office Visit [facility] at [facility] [address] [place] [address] Nellie Ellison, ANP [address] [facility] [address] [address] documented as of this encounter Procedures Procedure Name Priority Date/Time Associated Diagnosis Comments HEMOGLOBIN A1C Routine 2023 7:11 AM CDT Elevated glucose documented in this encounter Results * (ABNORMAL) HEMOGLOBIN A1C (2023 7:11 AM CDT) HEMOGLOBIN A1C 5.8(H) <5.7 % of total Hgb [facility] [...] children. ESTIMATED AVERAGE GLUCOSE (MG/DL) 120 mg/dL [facility] ESTIMATED AVERAGE GLUCOSE (MMOL/L) 6.6 mmol/L [facility] Comment: Test Performed at: [facility] [id number] [place] [id number] Clint Stone MD Blood 2023 7:11 AM CDT 02/28/2023 4:56 PM CDT Millie Yuan MD CHEMISTRY ORDERABLES [facility] [phone] [facility] [address] [place] [address] documented in this encounter Visit Diagnoses Diagnosis Elevated glucose- Primary Other abnormal glucose documented in this encounter Care Teams Commercial Construction Project Manager Relationship Specialty Start Date End Date Millie Yuan MD [address] [place] [address] PCP - General Family Practice 10/25/22 04/14/24 documented as of this encounter
--- OUTSIDE RECORDS SUMMARY | 2024-12-02 04:51 | XMS_ITS | Encounter Summary ---
Author Organization [facility] Address [address] [place] [address] Care Team Providers Care Starchmaker Name Role Phone Millie Yuan MD Primary Care Provider [phone] Encounter Details Date Type Department Care Team (Late st Contact Info) Description 12/22/2023 External Device Data STL ABSTRACTION Provider, Abstract [...] st Contact Info) Description 12/03/2024 10:30 AM SPECIALTY TRIMMER Office Visit [facility] [employer] [place] [address] [place] [address] Nellie Ellison, ANP [address] [facility] [address] [place] [address] 12/29/2024 7:30 AM SPECIALTY TRIMMER Office Visit [facility] at Work [employer] [place] [address] [place] [address] Nellie Ellison, ANP [address] [place] [address] documented as of this encounter Visit Diagnoses Not on filedocumented in this encounter Care Teams Starchmaker Relationship Specialty Start Date End Date Millie Yuan MD [address] [place] [address] PCP - General Family Practice 10/25/22 04/14/24 documented as of this encounter
--- OUTSIDE RECORDS SUMMARY | 2024-12-02 04:51 | XMS_ITS | Encounter Summary ---
Author Organization [facility] Address [address] [place] [address] Care Team Providers Care Airline Dispatcher Name Role Phone Millie Yuan MD Primary Care Provider [phone] Encounter Details Date Type Department Care Team (Late st Contact Info) Description 11/27/2022 Orders Only [facility] at [employer] [place] [address] [place] [address] Iva Abdi, CHELO NO ADDRESS ON FILE Morbid obesity with BMI of 50.0-59.9, adult (Primary Dx) Social History Tobacco Use [...] st Contact Info) Description 12/03/2024 10:30 AM SOCIAL SCIENCES INSTRUCTOR Office Visit [facility] [employer] [place] [address] [place] [address] Nellie Ellison, ANP [address] [address] [email or web address] [address] [place] [address] 12/29/2024 7:30 AM SOCIAL SCIENCES INSTRUCTOR Office Visit [facility] at Work [email or web address] [place] [address] [place] [address] Nellie Ellison, ANP [address] [address] [facility] [[email or web address]] [address] [place] [address] documented as of this encounter Visit Diagnoses Diagnosis Morbid obesity with BMI of 50.0-59.9, adult- Primary documented in this encounter Care Teams Airline Dispatcher Relationship Specialty Start Date End Date Millie Yuna MD [address] [place] [address] PCP - General Family Practice 10/25/22 04/14/24 documented as of this encounter
--- OUTSIDE RECORDS SUMMARY | 2024-12-02 04:51 | XMS_ITS | Encounter Summary ---
Author Organization [facility] Address [address] [place] [address] Care Team Providers Care Marina Dry Dock Manager Name Role Phone Millie Yuan MD Primary Care Provider [phone] Reason for Visit * Reason Comments Medication follow up Zepbound follow up. Patient states no side effects or issues with the medication. Encounter Details Date Type Department Care Team (Late st Contact Info) Description 03/06/2024 2:00 PM CDT Office Visit [facility] at Work [employer] [place] [address] [place] [address] Nellie Ellison, ANP [address] [facility] [address] [place] [address] BMI 50.0-59.9, adult (Primary Dx); Obstructive sleep apnea syndrome; Prediabetes Social History Tobacco Use Types Packs/Day [...] Reading Time Taken Comments Blood Pressure 126/78 03/06/2024 1:57 PM CDT Pulse 87 03/06/2024 1:57 PM CDT Temperature 36.9 ??C (98.4 ??F) 03/06/2024 1:57 PM CD T Respiratory Rate 18 03/06/2024 1:57 PM CDT Oxygen Saturation 97% 03/06/2024 1:57 PM CDT Inhaled Oxygen Concentration - - Weight 152.9 kg (337 lb) 03/06/2024 1:57 PM CDT Height 163.8 cm (5' 4.5 ) 03/06/2024 1:57 PM CDT Body Mass Index 56.95 03/06/2024 1:57 PM CDT documented in this encounter Progress Notes * Nellie Ellison ANP - 03/06/2024 2:30 PM CDT Depression Screen Positive: PHQ-2 score >= 3 or PHQ-9 score >= 9 PHQ-2 Total: 0 (03/06/2024 2:00 PM) PHQ-9 Total: 1 (03/06/2024 2:00 PM) DEPRESSION PLAN OF CARE Her depression screen was negative. * Nellie Ellison ANP - 03/06/2024 2:10 PM CDT HISTORY OF PRESENT ILLNESS Nuria Valdez, a 44 y.o. female presents with a Chief Complaint of Medication follow up (Zepbound follow up. Patient states no side effects or issues with the medication.) Presents for follow up of Zepbound for obestity and pre DM. Tolerating 5 mg dose. Denies side effects. Does feel full with smaller food portions. Sometimes forgets to eat lunch. Does have breakfast and dinner daily. Not in exercise routine but in planning stage. Wt down 8 lbs since start of medication 8 wks ago. Discuss goal 10% in 16 weeks. Current Outpatient Medications: tirzepatide, weight loss, (Zepbound) 7.5 mg/0.5 mL Pen Injector, Inject 7.5 mg by subcutaneous injection every 7 days. DISPENSE as ZEPBOUND, Please., Disp: 2 mL, Rfl: 2 valACYclovir (Valtrex) 1 gram tablet, Take 2 tablets (2,000mg) by mouth 2 times daily for 1 day (Patient taking differently: Take by mouth 1 time daily as needed. Take 2 tablets (2,000mg) by mouth 2 times daily for 1 day), Disp: 4 Tablet, Rfl: 1 calcium as carbonate (TUMS) 500 mg (200 mg elemental) Tablet, Chewable, Take by mouth., Disp: , Rfl: [DISCONTINUED] Zepbound 5 mg/0.5 mL Pen Injector, Inject 5 mg by subcutaneous injection every 7 days., Disp: 2 mL, Rfl: 0 fluticasone propionate (FLONASE) 50 mcg/spray [place], Suspension nasal inhaler, Administer 2 Sprays in each nostril daily. (Patient taking differently: Administer 2 Sprays in each nostril 1 time dailyas needed for Other (See Comment) (ear infection).), Disp: 16 Gram, Rfl: 0 Allergy list reviewed. PHQ-2 & PHQ-9 Little interest or pleasure in doing things: Not at all (03/06/241399) Feeling down, depressed, or hopeless: Not at all (03/06/241399) PHQ-2 Total: 0 (03/06/241399) Trouble falling or staying asleep, or sleeping too much: Not at all (03/06/241399) Feeling tired or having little energy: Not at all (03/06/241399) Poor appetite or overeating: Not at all (03/06/241399) Feeling bad about yourself-or that you are a failure or have let yourself or your family down: Several Days (03/06/241399) Trouble concentrating on things, such as reading the newspaper or watching television: Not at all (03/06/241399) Moving or speaking so slowly that other people could have noticed. Or the opposite-being so fidgetyor restless that you have been moving around a lot more than usual: Not at all (03/06/241399) Thoughts that you would be better off , or of hurting yourself in some way: Not at all (03/06/241399) PHQ-9 Total: 1 (03/06/241399) If you checked off any problems, how difficult have these problems made it for you to do your work,take care of things at home, or get along with other people?: Not difficult at all (03/06/241399) Anxiety Disorder (GAD7): 1. Feeling nervous, anxious, or on edge:: Several days (03/06/241399) 2. Not been able to stop or control worrying:: Not at all (03/06/241399) 3. Worrying too much about different things:: Not at all (03/06/241399) 4.Trouble relaxing:: Several days (03/06/241399) 5. Being so restless that it is hard to sit still:: Not at all (03/06/241399) 6. Becoming easily annoyed or irritatble:: Several days (03/06/241399) 7. Feeling afraid as if something awful might happen:: Not at all (03/06/241399) If you checked off any problems, how difficult have these made it for you to do your work, take care of things at home, or get along with other people?: Somewhat difficult (03/06/241399) Anxiety Score: 3 (03/06/241399) TOBACCO COUNSELING She is not a tobacco/nicotine user. Laboratory and imaging results related to current problems were reviewed in [facility] and [facility]or [facility] and discussed with pt. Scheduled for March 2024. REVIEW OF SYSTEMS Review of Systems Constitutional: Positive for appetite change. Negative for chills and fever. Respiratory: Negative. Cardiovascular: Negative. Gastrointestinal: Negative. Negative for abdominal pain and constipation. Musculoskeletal: Negative for joint swelling and myalgias. Neurological: Negative. Negative for dizziness and light-headedness. Objective PHYSICAL EXAM BP 126/78 (BP Location: Right arm, Patient Position (BP): Sitting, BP Cuff Size: Large Adult) Pulse 87 Temp 98.4 ??F (36.9 ??C) (Tympanic) Resp 18 Ht 5' 4.5 (1.638 m) Wt (!) 152.9 kg (337 lb) SpO2 97% BMI 56.95 kg/m?? Physical Exam Vitals reviewed. Eyes: Conjunctiva/sclera: Conjunctivae normal. Cardiovascular: Rate and Rhythm: Normal rate and regular rhythm. Heart sounds: Normal heart sounds. Pulmonary: Effort: Pulmonary effort is normal. Breath sounds: Normal breath sounds. Abdominal: Palpations: Abdomen is soft. Tenderness: There is no abdominal tenderness. There is no guarding. Musculoskeletal: Cervical back: Neck supple. Right lower leg: No edema. Left lower leg: No edema. Neurological: General: No focal deficit present. Mental Status: She is alert. Psychiatric: Mood and Affect: Mood normal. Procedures Assessment ASSESSMENT and PLAN: 1. BMI 50.0-59.9, adult Increase dose . Continue efforts for better eating overall. Add exercise. Expect to see more rapid wt loss with dose increase. - tirzepatide, weight loss, (Zepbound) 7.5 mg/0.5 mL Pen Injector; Inject 7.5 mg by subcutaneous injection every 7 days. DISPENSE as ZEPBOUND, Please. Dispense: 2 mL; Refill: 2 2. Obstructive sleep apnea syndrome Continue CPAP use. [facility] FU at [facility] 3. Prediabetes Discussed prevention. FOLLOW UP Return in about 4 weeks (around 04/03/2024) for FU Zepbound. . Appropriate medications prescribed and pt instructed in risks , benefits and side effects. Appropriate patient instructions provided . See details in AVS Medications and options explained to include common side effects. Understanding of medications, course, diagnosis, and expectations were expressed by patient/guardian. Pt advised to call my office in one week if not contacted with any ordered test results. DIANE Alston 03/06/2024 [facility] [address] [address] Some of this encounter may have been transcribed using [employer] Speaking computerized voicerecognition without a human instrument and control service person. This report may or may not have been adjusted for typographical or medical and syntax errors. documented in this encounter Miscellaneous Notes * Patient Instructions - Nellie Ellison ANP - 03/06/2024 2:24 PM CDT Increase dose to 7.5 mg weekly. Continue working on portion control Try to add small amounts of activity See us again 4 weeks. documented in this encounter Plan of Treatment Upcoming Encounters Date Type Department Care Team (Late st Contact Info) Description 12/03/2024 10:30 AM FIELD TECHNICAL SUPPORT CONSULTANT Office Visit [facility] at [facility] [address] [place] [address] Nellie Ellison, DIANE [address] [facility] [address] [place] [address] 12/29/2024 7:30 AM FIELD TECHNICAL SUPPORT CONSULTANT Office Visit [facility] at [facility] [address] [place] [address] Nellie Ellison ANP [address] [facility] [address] [place] [address] documented as of this encounter Visit Diagnoses Diagnosis BMI 50.0-59.9, adult- Primary Body Mass Index 50.0-59.9, adult Obstructive sleep apnea syndrome Obstructive sleep apnea (adult) (pediatric) Prediabetes Other abnormal glucose documented in this encounter Care Teams Marina Dry Dock Manager Relationship Specialty Start Date End Date Millie Yuan MD [address] [place] [id number] PCP - General Family Practice 10/25/22 04/14/24 documented as of this encounter
--- OUTSIDE RECORDS SUMMARY | 2024-12-02 04:51 | XMS_ITS | Encounter Summary ---
Author Organization [facility] Address [address] [place] [address] Care Team Providers Care Audit Tech Name Role Phone Dean Hernandez MD Primary Care Provider Unava ilable Reason for Visit * Reason Onset Date Comments Medication Review 05/31/2022 bertrand Encounter Details Date Type Department Care Team (Late st Contact Info) Description 05/31/2022 Telephone [facility] [address] [place] [address] Iva Abdi FNP NO ADDRESS ON FILE Medication Review ([email or web address]) Social History Tobacco Use Types Packs/Day Years [...] encounter Miscellaneous Notes * Telephone Encounter - Iva Abdi FNP - 05/31/2022 4:02 PM CDT Okay for patient to do 2 of the 0.5 mg injections of the wegovy to make the total dosage 1 mg sincethe 1 mg is not available. Thanks! * Telephone Encounter - Nuria Morris - 05/31/2022 2:17 PM CDT Pt called stating that Rhonda is also out of the wegovy 1mg injection, she states she is wantingto know if she would be able to stay on the 0.5 mg until they get the 1mg in or if she would be able to do 2 of the 0.5mg to make up the difference? Please advise. documented in this encounter Plan of Treatment Upcoming Encounters Date Type Department Care Team (Late st Contact Info) Description 12/03/2024 10:30 AM WAREHOUSE AND RECEIVING SUPERVISOR Office Visit [facility] [employer] [facility] [address] [place] [address] Nellie Ellison, ANP [address] [address] [address] 12/29/2024 7:30 AM WAREHOUSE AND RECEIVING SUPERVISOR Office Visit [facility] at [facility] [employer] [facility] [address] [place] [address] Nellie Ellison, DIANE [address] [address] [address] documented as of this encounter Visit Diagnoses Not on filedocumented in this encounter Care Teams Audit Tech Relationship Specialty Start Date End Date Dean Hernandez MD PCP - General Family Practice 03/27/22 10/24/22 documented as of this encounter
--- OUTSIDE RECORDS SUMMARY | 2024-12-02 04:51 | XMS_ITS | Encounter Summary ---
Author Organization [facility] Address [address] [place] [address] Care Team Providers Care Personnel Adviser Name Role Phone Millie Yuan MD Primary Care Provider [phone] Reason for Visit * Reason Onset Date Comments Results 06/11/2023 Encounter Details Date Type Department Care Team (Late Contact Info) Description 06/11/2023 Telephone [facility] [address] [place] [phone] Claudia Goldman ANP [address] [place] [address] Results Social History Tobacco Use Types [...] st Contact Info) Description 12/03/2024 10:30 AM DOOR TO DOOR SELLING AGENT Office Visit [facility] at Work [place] [address] [place] [address] Nellie Ellison, ANP [address] [place] [address] 12/29/2024 7:30 AM DOOR TO DOOR SELLING AGENT Office Visit [facility] at Work [facility] [address] [place] [address] Nellie Ellison, ANP [address] [place] [address] documented as of this encounter Results * (ABNORMAL) LIPID PANEL (08/27/2023 7:22 AM CDT) CHOLESTEROL 224(H) <200 mg/dL [facility] HDL 63 > OR = 50 mg/dL [facility] TRIGLYCERIDE 202(H) <150 mg/dL [facility] m[facility] Comment: If a non-fasting specimen was collected, consider repeat triglyceride testing on a fasting specimen if clinically indicated. Lilian et al. J. of Clin. Lipidol. 2015;9:129-169. LDL CALCULATED 127(H) mg/dL (calc) [facility] Comment: Reference range: <100 Desirable range <100 mg/dL for primary prevention; ?? <70 mg/dL for patients with CHD or diabetic patients with > or = 2 CHD risk factors. LDL-C is now calculated using the Penny calculation, which is a validated novel method providing better accuracy than the Friedewald equation in the estimation of LDL-C. Ronaldo WHITAKER et al. SHIRA. 2013;310(19): 9704-5259 (http://education.Orugga/faq/IAM244) CHOL/HDL RATIO 3.6 <5.0 (calc) [facility] TOTAL NON-HDL CHOL(LDL+VLDL) 161(H) <130 mg/dL (calc) [facility] Comment: For patients with diabetes plus 1 major ASCVD risk factor, treating to a non-HDL-C goal of <100 mg/dL (LDL-C of <70 mg/dL) is considered a therapeutic option. Test Performed at: [facility] [address] [address] [place] ??[phone] Clint Brown Vo Blood 08/27/2023 7:22 AM CDT 08/28/2023 1:56 AM CDT Claudia Goldman ANP CHEMISTRY OR DERABLES Performing Organization Address City/[facility] Code Phone Number [facility] [phone] [facility] [place] [address] [address] [place] [phone] * (ABNORMAL) HEMOGLOBIN A1C (08/27/2023 7:22 AM CDT) HEMOGLOBIN A1C 5.8(H) <5.7 % of total Hgb [employer] Comment: For someone without known diabetes, [...] children. ESTIMATED AVERAGE GLUCOSE (MG/DL) 120 mg/dL [employer] [facility] ESTIMATED AVERAGE GLUCOSE (MMOL/L) 6.6 mmol/L [facility] Manriquez Comment: Test Performed at: [facility] [address] [address] [place] ??[phone] Addyu Thi Blood 08/27/2023 7:22 AM CDT 08/28/2023 1:56 AM CDT Claudia Kayora Goldman ANP CHEMISTRY OR DERABLES Performing Organization Address City/State/[facility] Code Phone Number [facility] [phone] [facility] [address] [address] [place] [address] * (ABNORMAL) COMPREHENSIVE METABOLIC PANEL (08/27/2023 7:22 AM CDT) GLUCOSE 116(H) 65 - 99 mg/dL Fernando [email or web address]rek Manriquez Comment: ? Fasting reference interval For someone without known diabetes, a glucose value between 100 and 125 mg/dL is consistent with prediabetes and should be confirmed with a follow-up test. BUN 14 7 - 25 mg/dL Fernando [facility] KitchenDerek Manriquez CREATININE 0.70 0.50 - 0.99 mg/dL Fernando [facility] KitchenDerek Manriquez GFR 111 > OR = 60 mL/min/1. 73m2 [employer]rek Manriquez BUN/CREAT RATIO SEE NOTE: (calc) Fernando [employer]Derek Manriquez Comment: ?? Not Reported: BUN and Creatinine are within ?? reference range. ? SODIUM 137 135 - 146 mmol/L Fernando BlockDerek Manriquez POTASSIUM 4.4 3.5 - 5.3 mmol/L [facility] mitesh Manriquez CHLORIDE 105 98 - 110 mmol/L [facility] CO2 21 20 - 32 mmol/L Fernando Block mitesh Manriquez CALCIUM 9.6 8.6 - 10.2 mg/dL [facility] m[facility]h Man[facility] TOTAL PROTEIN 6.8 6.1 - 8.1 g/dL [facility] X[employer]O Kitchen mitesh Manriquez ALBUMIN 4.1 3.6 - 5.1 g/dL Fernando BlockFrogAppsDerek Manriquez GLOBULIN 2.7 1.9 - 3.7 g/dL (calc) Fernando X[employer] KitchenDerek Manriquez ALBUMIN/GLOBULIN RATIO 1.5 1.0 - 2.5 (calc) [facility] mitesh Man[facility] BILIRUBIN TOTAL 0.4 0.2 - 1.2 mg/dL [facility] ALKALINE PHOSPHATASE 58 31 - 125 U/L Fernando X[employer] Kitchen mitesh Manriquez AST 15 10 - 30 U/L [facility] mitesh Manriquez ALT 18 6 - 29 U/L [facility] Comment: Test Performed at: [facility] [address] [place], [place] ??[address] Clint Brown Vo Blood 08/27/2023 7:22 AM CDT 08/28/2023 1:56 AM CDT Claudia Goldman ANP CHEMISTRY OR DERABLES [facility] [phone] [facility] DiagnosticsThomas [place] [address] [place] [address] documented in this encounter Visit Diagnoses Diagnosis Prediabetes- Primary Other abnormal glucose Elevated LDL cholesterol level Pure hypercholesterolemia documented in this encounter Care Teams Personnel Adviser Relationship Specialty Start Date End Date Millie Yuan MD [place] [address] PCP - General Family Practice 10/25/22 04/14/24 documented as of this encounter
--- OUTSIDE RECORDS SUMMARY | 2024-12-02 04:51 | XMS_ITS | Encounter Summary ---
Author Organization [facility] Address [address] Rojasn: Epic Prelude ADT [place] [address] Care Team Providers Care Yard Hostler Name Role Phone Unavailable Primary Care Provider Unavailabl e Encounter Details Date Type Department Care Team (Latest Contact Info) Description 01/17/2022 Travel Social History Tobacco Use Types Packs/Day [...] COVID-19? No / Unsure 01/17/2022 2:26 PM SMOKING TOBACCO CUTTER OPERATOR documented as of this encounter Plan of Treatment Upcoming Encounters Date Type Department Care Team (Late st Contact Info) Description 12/03/2024 10:30 AM SMOKING TOBACCO CUTTER OPERATOR Office Visit [facility] at Work [employer] [place] [address] [place] [phone] Nellie Ellison, ANP [address] [address] [facility] [address] [place] [address] 12/29/2024 7:30 AM SMOKING TOBACCO CUTTER OPERATOR Office Visit [facility] at Work [employer] [address] [place] [address] Nellie Ellison ANP [address] [facility] [address] [place] [address] documented as of this encounter Visit Diagnoses Not on filedocumented in this encounter
--- OUTSIDE RECORDS SUMMARY | 2024-12-02 04:51 | XMS_ITS | Encounter Summary ---
Author Organization [facility] Address [address] [place] [address] Care Team Providers Care Sheet Manager Name Role Phone Unavailable Primary Care Provider Unavailabl e Encounter Details Date Type Department Care Team (Late st Contact Info) Description 09/04/2021 Orders Only [facility] at [facility] [address] [place] [address] Bhargavi Baez, FILOMENA Screening mammogram, encounter for Social History Tobacco [...] st Contact Info) Description 12/03/2024 10:30 AM SALES DEVELOPMENT REPRESENTATIVE Office Visit [facility] at [facility] [address] [address] Nellie Ellison, ANP [address] [address] [facility] [address] [place] [address] 12/29/2024 7:30 AM SALES DEVELOPMENT REPRESENTATIVE Office Visit [facility] at Work [facility] [address] [place] [address] Nellie Ellison, ANP [address] [address] [facility] [address] [place] [address] documented as of this encounter Visit Diagnoses Diagnosis Screening mammogram, encounter for documented in this encounter
--- OUTSIDE RECORDS SUMMARY | 2024-12-02 04:51 | XMS_ITS | Encounter Summary ---
Author Organization [facility] Address [address] [place] [address] Care Team Providers Care Wound Care Physician Name Role Phone Millie Yuan MD Primary Care Provider [phone] Reason for Visit * Reason Onset Date Comments Medication Refill 01/07/2023 Encounter Details Date Type Department Care Team (Late Contact Info) Description 01/07/2023 Refill [facility] [employer] [place] [address] [place] [address] Iva Abdi FNP NO ADDRESS [...] Encounters Date Type Department Care Team (Late Contact Info) Description 12/03/2024 10:30 AM SHOE CEMENTER Office Visit [facility] [employer] [place] [address] [place] [address] Nellie Elliosn, ANP [address] [facility] [address] [place] [address] 12/29/2024 7:30 AM SHOE CEMENTER Office Visit [facility] at Work [employer] [facility] [address] [place] [address] Nellie Ellison, ANP [address] [address] [facility] [address] [place] [address] documented as of this encounter Visit Diagnoses Not on filedocumented in this encounter Care Teams Wound Care Physician Relationship Specialty Start Date End Date Millie Yuan MD [address] [place] [address] PCP - General Family Practice 10/25/22 04/14/24 documented as of this encounter
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
--- OUTSIDE RECORDS SUMMARY | 2024-12-02 04:51 | XMS_ITS | Encounter Summary ---
Author Organization [facility] Address [address] [place] [address] Care Team Providers Care Crystal Cutter Name Role Phone Millie Yuan MD Primary Care Provider [phone] Reason for Visit * Reason Comments discuss lab results Medication for zepbo und Encounter Details Date Type Department Care Team (Late st Contact Info) Description 02/10/2024 1:30 PM CDT Office Visit [facility] at Work [employer] [address] [place] [address] Millie Yuan MD [address] [place] [address] BMI 50.0-59.9, adult (Primary Dx); Vitamin D insufficiency; Prediabetes; CRP elevated Social History Tobacco Use Types Packs/Day Years [...] Sign Reading Time Taken Comments Blood Pressure 124/78 02/10/2024 1:32 PM CDT Pulse 68 02/10/2024 1:32 PM CDT Temperature 37.1 ??C (98.8 ??F) 02/10/2024 1:32 PM CD T Respiratory Rate 18 02/10/2024 1:32 PM CDT Oxygen Saturation 97% 02/10/2024 1:32 PM CDT Inhaled Oxygen Concentration - - Weight 154.3 kg (340 lb 3.2 oz) 02/10/2024 1:32 PM CDT Height 163.8 cm (5' 4.5 ) 02/10/2024 1:32 PM CDT Body Mass Index 57.49 02/10/2024 1:32 PM CDT documented in this encounter Progress Notes * Millie Yuan MD - 02/10/2024 1:40 PM CDT OFFICE VISIT PROGRESS NOTE DATE: 02/10/2024 PATIENT: Nuria Valdez : 1980 PCP: Millie Yuan MD Chief Complaint Patient presents with discuss lab results Medication for zepbound HISTORY OF PRESENT ILLNESS CRP (nonspecific measure of inflammation) is elevated at 20.3. she had been struggling with injury at the time. Vitamin D is 23. This is in the insufficient range. She had forgotten it for awhile, until she got lab results and she has resumed taking it with meal. Hemoglobin A1c is 5.9. Still in the prediabetic range and a little worse than last check. ProBNP - blood test for heart failure - is normal. Metabolic panel is normal. Thyroid screen is normal. Blood counts are normal. Zepbound F/u - She feels appetite suppression and has lost approx 5 pounds on our scale. She is tolerating it well. Denies negative side effect. PAST MEDICAL HISTORY: Past Medical History: Diagnosis [...] Current Outpatient Medications Medication Sig Dispense Refill Zepbound 5 mg/0.5 mL Pen Injector Inject 5 mg by subcutaneous injection every 7 days. 2 mL 0 calcium as carbonate (TUMS) 500 mg (200 mg elemental) Tablet, Chewable Take by mouth. [DISCONTINUED] tirzepatide, weight loss, (Zepbound) 2.5 mg/0.5 mL Pen Injector Inject 2.5 mg by subcutaneous injection every 7 days. 2 mL 0 fluticasone propionate (FLONASE) 50 mcg/spray Curlew, Suspension nasal inhaler Administer 2 Sprays in each nostril daily. (Patient taking differently: Administer 2 Sprays in each nostril 1 time daily as needed for Other (See Comment) (ear infection).) 16 Gram 0 valACYclovir (Valtrex) 1 gram tablet Take 2 tablets (2,000mg) by mouth 2 times daily for 1 day (Patient taking differently: Take by mouth 1 time daily as needed. Take 2 tablets (2,000mg) by mouth 2 times daily for 1 day) 4 Tablet 1 No current facility-administered medications for this visit. ALLERGIES No Known Allergies TOBACCO COUNSELING She is not a tobacco/nicotine user. REVIEW OF SYSTEMS As in HPI PHYSICAL EXAMINATION BP 124/78 (BP Location: Right arm, Patient Position (BP): Sitting, BP Cuff Size: Large Adult) Pulse 68 Temp 98.8 ??F (37.1 ??C) (Tympanic) Resp 18 Ht 5' 4.5 (1.638 m) Wt (!) 154.3 kg (340 lb 3.2 oz) LMP 01/06/2024 (Approximate) SpO2 97% BMI 57.49 kg/m?? Gen - AAO, NAD Head- normocephalic/atraumatic. Eyes - PER, EOMI, noninjected Ears - pinna appear normal, Neck - Supple, no thyroid masses. No LAD. Heart - RRR, no m/r/g Lungs - CTAB, no w/r/r Abd - soft, NT/ND, normal bowel sounds x 4 Ext - no c/c/e. Normal peripheral pulses Neuro - Facial features symmetric. Normal speech and voice. Normal gait. A/P Nuria was seen today for discuss lab results. Diagnoses and all orders for this visit: BMI 50.0-59.9, adult - Zepbound 5 mg/0.5 mL Pen Injector; Inject 5 mg by subcutaneous injection every 7 days. Vitamin D insufficiency - VITAMIN D 25 HYDROXY; Future Prediabetes - HEMOGLOBIN A1C; Future CRP elevated - C-REACTIVE PROTEIN; Future PATIENT INSTRUCTIONS Continue vitamin D supplement daily with meal that contains healthy fat. Increase ZepBound to 5mg each week. Continue to work on healthy diet, exercise, sleep, and stress management. F/u in 4 weeks. Labs in April. FOLLOW UP Return in about 4 weeks (around 03/09/2024). Millie Yuan MD 02/10/2024 [facility] AT [address] [address] documented in this encounter Miscellaneous Notes * Patient Instructions - Millie Yuan MD - 02/10/2024 1:56 PM CDT Continue vitamin D supplement daily with meal that contains healthy fat. Increase ZepBound to 5mg each week. Continue to work on healthy diet, exercise, sleep, and stress management. F/u in 4 weeks. Labs in April. documented in this encounter Plan of Treatment Upcoming Encounters Date Type Department Care Team (Late st Contact Info) Description 12/03/2024 10:30 AM TOOLS PROGRAMMER Office Visit [address] [place] [address] Nellie Ellison, ANP [address] [facility] [address] [facility] [address] [place] [address] 12/29/2024 7:30 AM TOOLS PROGRAMMER Office Visit [address] [place] [address] Nellie Ellison, ANP [address] [place] [address] documented as of this encounter Results * (ABNORMAL) VITAMIN D 25 HYDROXY (04/06/2024 9:25 AM CDT) VITAMIN D, 25 OH, TOTAL 29(L) 30 - 100 ng/mL [facility] Comment: Vitamin D Status ? 25-OH Vitamin D: Deficiency: ?<20 ng/mL Insufficiency: ? 20 - 29 ng/mL Optimal: ? > or = 30 ng/mL For 25-OH Vitamin D testing on patients on D2-supplementation and patients for whom quantitation of D2 and D3 fractions is required, the QuestAssureD(TM) 25-OH VIT D, (D2,D3), LC/MS/MS is recommended: order code 87174 (patients >2yrs). See Note 1 Note 1 For additional information, please refer to http://education.Motorator/faq/YKR089 (This link is being provided for informational/ educational purposes only.) Test Performed at: [facility] [address] [place] [address] ??[phone] Clnit Stone MD Blood 04/06/2024 9:25 AM CDT 04/06/2024 11:34 PM CDT Millie Yuan MD CHEMISTRY ORDERABLES [facility] [phone] [facility] [address] * (ABNORMAL) HEMOGLOBIN A1C (04/06/2024 9:25 AM CDT) HEMOGLOBIN A1C 6.1(H) <5.7 % of total Hgb [facility] Comment: For someone without known diabetes, [...] children. ESTIMATED AVERAGE GLUCOSE (MG/DL) 128 mg/dL [facility] ESTIMATED AVERAGE GLUCOSE (MMOL/L) 7.1 mmol/L [facility] Comment: ? This test was performed on the Cordell sheree c503 platform. Effective 02/10/24, a change in test platforms from the [employer]ickey [employer] to the Cordell sheree c503 may have shifted HbA1c results compared to historical results. Based on laboratory validation testing conducted at [employer], the Cordell platform relative to the Dickey [...] platforms is not recommended. Test Performed at: [facility] [address] [address] [place] ??[phone] [employer] Blood 04/06/2024 9:25 AM CDT 04/06/2024 11:34 PM CDT Millie Yuan MD CHEMISTRY ORDERABLES [facility] [phone] [facility] Phase [facility] ImagingJames [place] [address] [address] [place] [phone] * (ABNORMAL) C-REACTIVE PROTEIN (04/06/2024 9:25 AM CDT) CRP 14.2(H) <8.0 mg/L [facility] Comment: Test Performed at: [facility] [address] [address] [place] ??[phone] [employer] Blood 04/06/2024 9:25 AM CDT 04/06/2024 11:34 PM CDT Millie Yuan MD CHEMISTRY ORDERABLES [employer] [facility] [phone] [facility] [place] [address] [place] [address] documented in this encounter Visit Diagnoses Diagnosis BMI 50.0-59.9, adult- Primary Body Mass Index 50.0-59.9, adult Vitamin D insufficiency Unspecified vitamin D deficiency Prediabetes Other abnormal glucose CRP elevated Elevated C-reactive protein (CRP) documented in this encounter Care Teams Crystal Cutter Relationship Specialty Start Date End Date Millie Yuan MD [address] [place] [address] PCP - General Family Practice 10/25/22 04/14/24 documented as of this encounter
--- OUTSIDE RECORDS SUMMARY | 2024-12-02 04:51 | XMS_ITS | Encounter Summary ---
Author Organization [facility] Address [address] [place] [address] Care Team Providers Care Pulp Grinder Feeder Name Role Phone Millie Yuan MD Primary Care Provider [phone] Reason for Visit * Reason Comments Labs Only Encounter Details Date Type Department Care Team (Late st Contact Info) Description 2023 7:20 AM CDT Office Visit [facility] [employer] [address] [place] [address] Screening for condition (Primary Dx) Social History Tobacco Use Types [...] Sign Reading Time Taken Comments Blood Pressure 114/74 2023 7:11 AM CDT Pulse - - Temperature - - Respiratory Rate - - Oxygen Saturation - - Inhaled Oxygen Concentration - - Weight 147.9 kg (326 lb) 2023 7:11 AM CDT Height 163.8 cm (5' 4.5 ) 2023 7:11 AM CDT Body Mass Index 55.09 2023 7:11 AM CDT documented in this encounter Progress Notes * Nuria Morris - 2023 7:27 AM CDT Pt came in for blood draw, right AC unsuccessful, right hand successful, 2 sticks, pt tolerated well. Drawn by Rox RMA documented in this encounter Miscellaneous Notes * Result Encounter Note - Bhargavi Baez RN - 02/27/2023 1:27 PM CDT Spoke to Vianca at [facility] to add the A1C on. * Result Encounter Note - Millie Yuan MD - 02/27/2023 1:09 PM CDT Please call lab and see if they can add a1c to blood in lab? documented in this encounter Plan of Treatment Upcoming Encounters Date Type Department Care Team (Late st Contact Info) Description 12/03/2024 10:30 AM MANAGER ADMINISTRATIVE SERVICES Office Visit [facility] [address] [address] Nellie Ellison, ANP [phone] Franny Saleh [address] [address] 12/29/2024 7:30 AM MANAGER ADMINISTRATIVE SERVICES Office Visit [facility] [address] [place] [address] Nellie Ellison, ANP [address] [facility] Leonor Saleh [facility] [address] [place] [address] documented as of this encounter Procedures Procedure Name Priority Date/Time Associated Diagnosis Comments CBC WITH DIFFERENTIAL Routine 2023 7:11 AM CDT Screening for condition TSH Routine 2023 7:11 AM CDT Screening for condition LIPID PANEL Routine 2023 7:11 AM CDT Screening for condition COMPREHENSIVE METABOLIC PANEL Routine 2023 7:11 AM CDT Screening for condition documented in this encounter Results * TSH (2023 7:11 AM CDT) Pathologist [facility] TSH 2.27 mIU/L [facility] Comment: ?Reference Range ?> or = 20 Years ??0.40-4.50 ? Ranges ?First trimester ?0.26-2.66 ?Second trimester ?? 0.55-2.73 ?Third trimester ?0.43-2.91 Test Performed at: [facility] [address] [place], [place] ??[address] Clint Stone MD Blood 2023 7:11 AM CDT 02/26/2023 6:14 AM CDT Millie Yuan MD CHEMISTRY ORDERABLES [facility] [phone] [facility] [address] [place] [address] * (ABNORMAL) LIPID PANEL (2023 7:11 AM CDT) Pathologist [facility] CHOLESTEROL 211(H) <200 mg/dL [facility] HDL 64 > OR = 50 mg/dL [facility] TRIGLYCERIDE 137 <150 mg/dL [facility] LDL CALCULATED 122(H) mg/dL (calc) [facility] Comment: Reference range: <100 Desirable range <100 mg/dL for primary prevention; ?? <70 mg/dL for patients with CHD or diabetic patients with > or = 2 CHD risk factors. LDL-C is now calculated using the Penny calculation, which is a validated novel method providing better accuracy than the Friedewald equation in the estimation of LDL-C. Ronaldo SS et al. SHIRA. 2013;310(19): 4357-0341 (http://education.AllPlayers.com/faq/TTE135) CHOL/HDL RATIO 3.3 <5.0 (calc) [facility] TOTAL NON-HDL CHOL(LDL+VLDL) 147(H) <130 mg/dL (calc) [facility] Comment: For patients with diabetes plus 1 major ASCVD risk factor, treating to a non-HDL-C goal of <100 mg/dL (LDL-C of <70 mg/dL) is considered a therapeutic option. Test Performed at: [facility] [address] [place] ??[phone] Clint Stone MD Blood 2023 7:11 AM CDT 02/26/2023 6:14 AM CDT Millie Yuan MD CHEMISTRY ORDERABLES [facility] [phone] [facility] [address] [place] [address] * (ABNORMAL) COMPREHENSIVE METABOLIC PANEL (2023 7:11 AM CDT) Pathologist [facility] GLUCOSE 100(H) 65 - 99 mg/dL [facility] Comment: ? Fasting reference interval For someone without known diabetes, a glucose value between 100 and 125 mg/dL is consistent with prediabetes and should be confirmed with a follow-up test. BUN 15 7 - 25 mg/dL [facility] CREATININE 0.68 0.50 - 0.99 mg/dL [facility] GFR 111 > OR = 60 mL/min/1. 73m2 [facility] Comment: The eGFR is based on the CKD-EPI 2020 equation. To calculate the new eGFR from a previous Creatinine or Cystatin C result, go to https://www.kidney.org/professionals/ kdoqi/gfr%5Fcalculator BUN/CREAT RATIO NOT APPLICABLE 6 - 22 (calc) [facility] SODIUM 138 135 - 146 mmol/L [facility] POTASSIUM 4.3 3.5 - 5.3 mmol/L [facility] CHLORIDE 105 98 - 110 mmol/L [facility] CO2 21 20 - 32 mmol/L [facility] CALCIUM 9.7 8.6 - 10.2 mg/dL [facility] TOTAL PROTEIN 6.4 6.1 - 8.1 g/dL [facility] ALBUMIN 3.9 3.6 - 5.1 g/dL [facility] GLOBULIN 2.5 1.9 - 3.7 g/dL (calc) [facility] ALBUMIN/GLOBULI N RATIO 1.6 1.0 - 2.5 (calc) [facility] BILIRUBIN TOTAL 0.3 0.2 - 1.2 mg/dL [facility] ALKALINE PHOSPHATASE 54 31 - 125 U/L [facility] AST 16 10 - 30 U/L [facility] ALT 21 6 - 29 U/L [facility] Comment: Test Performed at: [facility] [address] [place] ??[phone] Clint Stone MD Blood 2023 7:11 AM CDT 02/26/2023 6:14 AM CDT Millie Yuan MD CHEMISTRY ORDERABLES [facility] [phone] [facility] [address] [place] [address] * CBC WITH DIFFERENTIAL (2023 7:11 AM CDT) WBC 9.0 3.8 - 10.8 Thousand/u L [facility] RBC 4.64 3.80 - 5.10 Million/uL [facility] HEMOGLOBIN 13.3 11.7 - 15.5 g/dL [facility] HEMATOCRIT 40.9 35.0 - 45.0 % [facility] MCV 88.1 80.0 - 100.0 fL [facility] MCH 28.7 27.0 - 33.0 pg [facility] MCHC 32.5 32.0 - 36.0 g/dL [facility] RDW 13.0 11.0 - 15.0 % [facility] PLATELETS 332 140 - 400 Thousand/u L [facility] MPV 10.1 7.5 - 12.5 fL [facility] NEUTROPHIL ABSOLUTE 5,706 1,500 - 7,800 cells/uL [facility] LYMPHOCYTE ABSOLUTE 2,439 850 - 3,900 cells/uL [facility] MONOCYTE ABSOLUTE 477 200 - 950 cells/uL [facility] EOSINOPHIL ABSOLUTE 306 15 - 500 cells/uL [facility] BASOPHILS ABSOLUTE 72 0 - 200 cells/uL [facility] NEUTROPHIL 63.4 % [facility] LYMPHOCYTES 27.1 % [facility] MONOCYTE 5.3 % [facility] EOSINOPHILS 3.4 % [facility] BASOPHILS 0.8 % [facility] Comment: Test Performed at: [facility] [address] [place] ??[address] Clint Stone MD Blood 2023 7:11 AM CDT 02/26/2023 6:14 AM CDT Millie Yuan MD HEMATOLOGY ORDERABLE S [facility] [phone] [facility] [address] [place] [address] documented in this encounter Visit Diagnoses Diagnosis Screening for condition- Primary Screening for unspecified condition documented in this encounter Care Teams Pulp Grinder Feeder Relationship Specialty Start Date End Date Millie Yuan MD [address] [place] [phone] PCP - General Family Practice 10/25/22 04/14/24 documented as of this encounter
--- OUTSIDE RECORDS SUMMARY | 2024-12-02 04:52 | XMS_ITS | Continuity of Care Document ---
Author Organization [facility] Address [address] [place] [phone] Phone Care Team Providers Care Correspondence Clerk Name Role Phone Flores Caldwell M.D., J Wayne Unavailable Unava ilable Medications Medication Instructions Dosage Effective Dates (start - stop) Status Comments NIKHIL (unknown strength) Take One (1) Tablet by Mouth Daily Not Available - Active Flonase 50 mcg/Actuation Nasal Comins As Directed - Active Procedures Procedure Date Ophth Serv: Med Exam; Comp New 10 Advance Directives Directive Yes / No Effective Date File Name Resuscitation Not Answered N/A N/A Life Support Not Answered N/A N/A Intubation Not Answered N/A N/A Antibiotics Not Answered N/A N/A IV Fluid Support Not Answered N/A N/A Tube Feed Not Answered N/A N/A Other Directive N/A N/A WARNING:The information contained in this section is historical and is provided for information only and does not constitute a legal document or any assurance that the information is still accurate. Please verify the information with the hartman of the legal document before using it for clinical purposes. Encounters Encounter Description Practice Location Reason(s) For Visit Diagnoses Date Provider Providers Copied on Encounter [facility] TR[facility]ME[facility], [facility] [employer] [place], [place], [id number], tel:[phone] [facility] Myopia 0 Flores Ma. [address] [place] [address], [id number], . tel:[phone] Referring Provider: Concepcion Tanner, [address] [place] [address], [id number]. tel:[phone] Family History Family Member Type Diagnosis Age At Onset Grandmother (m) Problem (finding) asthma Payers Payer name Insurance type Covered libertarian ID Authoriza tirudy(s) Home [employer] [id number] Social History Type Description Quantity Date Captured Comments Alcohol Use Details 8 oz. occasionally 010 Caffeine Use Details No Tobacco Use Status No Information Smoking Status No Information Sex Female Chief Complaint And Reason For Visit No Information Reason For Referral Reason For Referral No Information History Of Present Illness Encounter Date Complaint History Of Prese nt Illness No Information Functional Status Date Functional Assessmen t No Information Instructions Date Instruction Additional Infor gordon - Return in 2 years for Dilated Exam, with Dr. Davis. 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 Discussed treatment options with patient. New glasses Rx was given today. Will continue to observe condition and or symptoms. Patient instructed to call if condition gets worse. Related to Myopia Assessments Type Assessment Date No Information Patient Care Teams Name Effective Dates (start - stop) Status Members No Information
--- OUTSIDE RECORDS SUMMARY | 2024-12-02 04:52 | XMS_ITS | Encounter Summary ---
Author Organization [facility] Address [address] [place] [address] Care Team Providers Care Blade Operator Name Role Phone Unavailable Primary Care Provider Unavailabl e Reason for Visit * Reason Comments Establish Care Encounter Details Date Type Department Care Team (Late st Contact Info) Description 06/17/2020 8:00 AM CDT Office Visit [facility] [employer] [place] [address] [place] [id number] Litzy Gaxiola, MARKET RESEARCH COORDINATOR [address] [facility] [address] [place] [address] Encounter for well adult exam without abnormal findings (Primary Dx); Screening for condition; Need for Tdap vaccination Social History Tobacco Use Types Packs/Day Years [...] Sign Reading Time Taken Comments Blood Pressure 112/70 06/17/2020 8:10 AM CDT Pulse 64 06/17/2020 8:10 AM CDT Temperature 36.5 ??C (97.7 ??F) 06/17/2020 8:10 AM CD T Respiratory Rate 18 06/17/2020 8:10 AM CDT Oxygen Saturation 96% 06/17/2020 8:10 AM CDT Inhaled Oxygen Concentration - - Weight 118.8 kg (262 lb) 06/17/2020 8:10 AM CDT Height 163.8 cm (5' 4.5 ) 06/17/2020 8:10 AM CDT Body Mass Index 44.28 06/17/2020 8:10 AM CDT documented in this encounter Progress Notes * Litzy Gaxiola, SINDY - 06/17/2020 8:47 AM CDT HISTORY OF PRESENT ILLNESS Nuria Valdez is a 40 y.o. female who presents for Chief Complaint Patient presents with ??? Establish Care New pt with hx of headaches, anxiety and hyperlipidemia. Family hx of diabetes, grandmother age 60 breast cancer. Has not started mammograms yet. Unsure of last TDAP, would like to update today. Hx of anxiety and depression-is coping with her own strategies, exercise and coping skills and feels sheis managing it. More frequent headaches recently about every other day. She needs an eye exam she is overdue and feels her vision changes is contributing to her headaches. She wears glasses. Takes Excedrin with relief of left frontal headache without n/v, no aura, no light sensitivity. Past Medical History: Diagnosis Date ??? Anxiety 04/25/2020 ??? Depression with anxiety 06/17/2020 ??? Headache 03/25/2020 Monthly near period ??? Hyperlipidemia 2014 Never been on mwds. Can usually control with diet No current outpatient medications on file. No current facility-administered medications for this visit. No Known Allergies BP 112/70 (BP Location: Left arm, Patient Position (BP): Sitting, BP Cuff Size: Large Adult) Pulse 64 Temp 97.7 ??F (36.5 ??C) (Tympanic) Resp 18 Ht 5' 4.5 (1.638 m) Wt 118.8 kg (262 lb) LMP 05/18/2020 (Approximate) SpO2 96% BMI 44.28 kg/m?? MEDICAL RECORD UPDATE Past Medical History: Diagnosis Date ??? Anxiety 04/25/2020 ??? Depression with anxiety 06/17/2020 ??? Headache 03/25/2020 Monthly near period ??? Hyperlipidemia 2014 Never been on mwds. Can usually control with diet Past Surgical History: Procedure Laterality Date ??? HX HERNIA REPAIR 11/25/2019 Inguinal ??? HX TUBAL LIGATION 11/25/2005 Family History Problem Relation Name Age of Onset ??? Breast Cancer Maternal Grandfather Nikki kerr ??? Diabetes Mother Urmila Moreno Current medications and allergies were reviewed and updated in computerized patient record. ELIZABETH [address] [place] [address] Care Providers: No care collection team lead to display No Patient Care Coordination Note on file. Vital signs/Tobacco use BP 112/70 (BP Location: Left arm, Patient Position (BP): Sitting, BP Cuff Size: Large Adult) Pulse 64 Temp 97.7 ??F (36.5 ??C) (Tympanic) Resp 18 Ht 5' 4.5 (1.638 m) Wt 118.8 kg (262 lb) LMP 05/18/2020 (Approximate) SpO2 96% BMI 44.28 kg/m?? Blood Pressure BP Readings from Last 3 Encounters: 06/17/20 112/70 BMI POC (QM) Body mass index is 44.28 kg/m??. Normal BMI range: 18 & older: > or = 18.5 and < 25 Abnormal high BMI: Patient counseled on lifestyle modifications including weight loss and daily exercise. The CVD Risk score (D'Agostino, et al., 2008) failed to calculate for the following reasons: Cannot find a previous HDL lab Cannot find a previous total cholesterol lab Consider Statins if 10 year risk >7.5-10% Tobacco Use (QM) reports that she has never smoked. She does not have any smokeless tobacco history on file. She is not a tobacco user. Anxiety Disorder (GAD7): 1. Feeling nervous, anxious, or on edge:: Not at all (06/17/20899) 2. Not been able to stop or control worrying:: Not at all (06/17/20899) 3. Worrying too much about different things:: Not at all (06/17/20899) 4.Trouble relaxing:: Several days (06/17/20899) 5. Being so restless that it is hard to sit still:: Not at all (06/17/20899) 6. Becoming easily annoyed or irritatble:: Over half the days (06/17/20899) 7. Feeling afraid as if something awful might happen:: Several days (06/17/20899) If you checked off any problems, how difficult have these made it for you to do your work, take care of things at home, or get along with other people?: Somewhat difficult (06/17/20899) Anxiety Score: 4 (06/17/20899) DEPRESSION SCREENING () PHQ2: Positive: PHQ-2 score > 2 or PHQ-9 score > 9 PHQ-2 Total: 1 (06/17/20899) PHQ-9 Total: 3 (06/17/20899) Her depression screen was normal EXAMINATION REVIEW OF SYSTEMS Review of Systems Constitutional: Negative for chills, fever and malaise/fatigue. Eyes: Positive for blurred vision. Respiratory: Negative for cough. Cardiovascular: Negative for chest pain and palpitations. Gastrointestinal: Negative for abdominal pain, blood in stool, melena, nausea and vomiting. Skin: Negative. Neurological: Positive for headaches. Negative for dizziness and weakness. Psychiatric/Behavioral: Negative for depression, substance abuse and suicidal ideas. The patient isnot nervous/anxious and does not have insomnia. Objective PHYSICAL EXAM Physical Exam Constitutional: Appearance: She is well-developed. HENT: Head: Normocephalic and atraumatic. Right Ear: Tympanic membrane and ear canal normal. Left Ear: Tympanic membrane and ear canal normal. Nose: Nose normal. Mouth/Throat: Lips: [place]. Mouth: Mucous membranes are moist. Pharynx: Oropharynx is clear. No pharyngeal swelling, oropharyngeal exudate, posterior oropharyngeal erythema or uvula swelling. Tonsils: No tonsillar exudate or tonsillar abscesses. 0 on the right. 0 on the left. Eyes: Conjunctiva/sclera: Conjunctivae normal. Cardiovascular: Rate and Rhythm: Normal rate and regular rhythm. Heart sounds: Normal heart sounds, S1 normal and S2 normal. No murmur. No friction rub. No gallop. Pulmonary: Effort: Pulmonary effort is normal. No respiratory distress. Breath sounds: Normal breath sounds. No wheezing or rales. Abdominal: General: Abdomen is protuberant. Bowel sounds are normal. Palpations: Abdomen is soft. Tenderness: There is no abdominal tenderness. Hernia: No hernia is present. Skin: General: Skin is warm and dry. Findings: No rash. Neurological: Mental Status: She is alert and oriented to person, place, and time. No results found for any visits on 06/17/20 (from the past 24 hour(s)). ASSESSMENT and PLAN: Nuria was seen today for establish care. Diagnoses and all orders for this visit: Encounter for well adult exam without abnormal findings Screening for condition - CBC WITH DIFFERENTIAL; Future - COMPREHENSIVE METABOLIC PANEL; Future - LIPID PANEL; Future - TSH; Future - HEMOGLOBIN A1C; Future - HEMOGLOBIN A1C - TSH - LIPID PANEL - COMPREHENSIVE METABOLIC PANEL - CBC WITH DIFFERENTIAL Need for Tdap vaccination - TDAP VACCINE >7 YO IM Follow up in 1 year for pap-last pap neg-2 years ago. Has not had abnormal paps. Hx of tubal ligation. Discussed with pt healthy diet including adding fruits, vegetables to diet. Increase fiber in diet,whole grain cereals and bread. Lean meats, low saturated fat diet. Limit concentrated sweets, carbs. Aerobic exercise recommended 30 min a day for at least 5 days a week. Start with 3 days a week and work up to goal. Stop if any SOB, chest pain or dizziness. Enc eye exam, follow up for anxiety and depression if needed, headaches. documented in this encounter Miscellaneous Notes * Patient Instructions - Litzy Gaxiola NP - 06/17/2020 8:40 AM CDT Images from the original note were not included. Well Visit, Ages 18 to 50: Care Instructions Your Care Instructions Physical exams can help you stay healthy. Your doctor has checked your overall health and may have suggested ways to take good care of yourself. He or she also may have recommended tests. At home, you can help prevent illness with healthy eating, regular exercise, and other steps. Follow-up care is a blancas part of your treatment and safety. Be sure to make and go to all appointments, and call your doctor if you are having problems. It's also a good idea to know your test resultsand keep a list of the medicines you take. How can you care for yourself at home? ?? Reach and stay at a healthy weight. This will lower your risk for many problems, such as obesity, diabetes, heart disease, and high blood pressure. ?? Get at least 30 minutes of physical activity on most days of the week. Walking is a good choice.You also may want to do other activities, such as running, swimming, cycling, or playing tennis or team sports. Discuss any changes in your exercise program with your doctor. ?? Do not smoke or allow others to smoke around you. If you need help quitting, talk to your doctorabout stop-smoking programs and medicines. These can increase your chances of quitting for good. ?? Talk to your doctor about whether you have any risk factors for sexually transmitted infections (STIs). Having one sex partner (who does not have STIs and does not have sex with anyone else) is a good way to avoid these infections. ?? Use control if you do not want to have children at this time. Talk with your doctor about the choices available and what might be best for you. ?? Protect your skin from too much sun. When you're outdoors from 10 a.m. to 4 p.m., stay in the shade or cover up with clothing and a hat with a wide brim. Wear sunglasses that block UV rays. Even when it's cloudy, put broad-spectrum sunscreen (SPF 30 or higher) on any exposed skin. ?? See a dentist one or two times a year for checkups and to have your teeth cleaned. ?? Wear a seat belt in the car. Follow your doctor's advice about when to have certain tests. These tests can spot problems early. For everyone ?? Cholesterol. Have the fat (cholesterol) in your blood tested after age 20. Your doctor will tellyou how often to have this done based on your age, family history, or other things that can increase your risk for heart disease. ?? Blood pressure. Have your blood pressure checked during a routine doctor visit. Your doctor willtell you how often to check your blood pressure based on your age, your blood pressure results, andother factors. ?? Vision. Talk with your doctor about how often to have a glaucoma test. ?? Diabetes. Ask your doctor whether you should have tests for diabetes. ?? Colon cancer. Your risk for colorectal cancer gets higher as you get older. Some experts say that adults should start regular screening at age 50 and stop at age 75. Others say to start before age50 or continue after age 75. Talk with your doctor about your risk and when to start and stop screening. For women ?? Breast exam and mammogram. Talk to your doctor about when you should have a clinical breast examand a mammogram. Medical experts differ on whether and how often women under 50 should have these tests. Your doctor can help you decide what is right for you. ?? Cervical cancer screening test and pelvic exam. Begin with a Pap test at age 21. The test often is part of a pelvic exam. Starting at age 30, you may choose to have a Pap test, an HPV test, or both tests at the same time (called co- testing). Talk with your doctor about how often to have testing. ?? Tests for sexually transmitted infections (STIs). Ask whether you should have tests for STIs. You may be at risk if you have sex with more than one person, especially if your partners do not wear condoms. For men ?? Tests for sexually transmitted infections (STIs). Ask whether you should have tests for STIs. You may be at risk if you have sex with more than one person, especially if you do not wear a condom. ?? Testicular cancer exam. Ask your doctor whether you should check your testicles regularly. ?? Prostate exam. Talk to your doctor about whether you should have a blood test (called a PSA test) for prostate cancer. Experts differ on whether and when men should have this test. Some experts suggest it if you are older than 45 and are -[place] or have a father or brother who got prostate cancer when he was younger than 65. When should you call for help? Watch closely for changes in your health, and be sure to contact your doctor if you have any problems or symptoms that concern you. Where can you learn more? Go to https://www.healthwise.net/patiented Enter P072 in the search box to learn more about Well Visit, Ages 18 to 50: Care Instructions. Current as of: July 16, 2019?Content Version: 12.5 ?? [id number] [employer]. Care instructions adapted under license by your healthcare professional. If you have questions about a medical condition or this instruction, always ask your healthcare professional. These instructions may not represent the values of this healthcare organization. [employer] disclaims any warranty or liability for your use of this information. documented in this encounter Plan of Treatment Upcoming Encounters Date Type Department Care Team (Late st Contact Info) Description 12/03/2024 10:30 AM CUTLET MAKER PORK Office Visit [facility] at [place] [address] [place] [address] Nellie Ellison, ANP [address] [facility] [address] [address] 12/29/2024 7:30 AM CUTLET MAKER PORK Office Visit [facility] [address] [place] [address] Nellie Ellison, ANP [address] [facility] [place] [address] [address] documented as of this encounter Procedures Procedure Name Priority Date/Time Associated Diagnosis Comments CBC WITH DIFFERENTIAL Routine 06/17/2020 8:49 AM CDT Screening for condition TSH Routine 06/17/2020 8:49 AM CDT Screening for condition HEMOGLOBIN A1C Routine 06/17/2020 8:49 AM CDT Screening for condition LIPID PANEL Routine 06/17/2020 8:49 AM CDT Screening for condition COMPREHENSIVE METABOLIC PANEL Routine 06/17/2020 8:49 AM CDT Screening for condition documented in this encounter Results * HEMOGLOBIN A1C (06/17/2020 8:49 AM CDT) Pathologist [facility] HEMOGLOBIN A1C 5.5 4.8 - 5.6 % [facility] Comment: ? Prediabetes: 5.7 - 6.4 ? Diabetes: >6.4 ? Glycemic control for adults with diabetes: <7.0 Blood 06/17/2020 8:49 AM CDT 06/17/[address] [facility] - 06/18/2020 4:35 AM CDT Performed at: ??[address] ??[id number] Quality Rep: Chris Carnes PhD, Phone: ??[phone] Litzy Gaxiola NP CHEMISTRY ORDER CAITLIN Performing Organization Address [facility] de Phone Number [facility] [phone] * TSH (06/17/2020 8:49 AM CDT) [facility] TSH 1.310 0.450 - 4.500 uIU/mL [facility] Blood 06/17/2020 8:49 AM CDT 06/17/[address] [facility] - 06/18/2020 5:35 AM CDT Performed at: ??01 - [facility] ??[id number] Quality Rep: Chris Carnes PhD, Phone: ??[phone] Litzy Gaxiola NP CHEMISTRY ORDER CAITLIN Performing Organization Address [facility] Co de Phone Number [facility] [phone] * (ABNORMAL) LIPID PANEL (06/17/2020 8:49 AM CDT) Pathologist [facility] CHOLESTEROL 220(H) 100 - 199 mg/dL [facility] TRIGLYCERIDE 83 0 - 149 mg/dL [facility] HDL 55 >39 mg/dL [facility] VLDL CHOLESTEROL, CALCULATED 17 5 - 40 mg/dL [facility] LDL CALCULATED 148(H) 0 - 99 mg/dL [facility] Blood 06/17/2020 8:49 AM CDT 06/17/2020 [address] [facility] - 06/18/2020 5:35 AM CDT Performed at: ??01 - [facility] [address] ??[id number] Quality Rep: Chris Carnes PhD, Phone: ??[phone] Litzy Gaxiola NP CHEMISTRY ORDER CAITLIN [facility] [phone] * COMPREHENSIVE METABOLIC PANEL (06/17/2020 8:49 AM CDT) GLUCOSE 91 65 - 99 mg/dL [facility] BUN 12 6 - 20 mg/dL [facility] CREATININE 0.77 0.57 - 1.00 mg/dL [facility] GFR 98 >59 mL/min/1.7 3 [facility] GFR, 112 >59 mL/min/1.7 [address] [facility] BUN/CREAT RATIO 16 9 - [address] [facility] SODIUM 138 134 - 144 mmol/L [facility] POTASSIUM 4.4 3.5 - 5.2 mmol/L [facility] CHLORIDE 104 96 - 106 mmol/L [facility] CO2 22 20 - 29 mmol/L [facility] CALCIUM 9.5 8.7 - 10.2 mg/dL [facility] TOTAL PROTEIN 6.8 6.0 - 8.5 g/dL [facility] ALBUMIN 4.4 3.8 - 4.8 g/dL [facility] GLOBULIN 2.4 1.5 - 4.5 g/dL [facility] ALBUMIN/GLOBULIN RATIO 1.8 1.2 - 2.[address] [facility] BILIRUBIN TOTAL 0.5 0.0 - 1.2 mg/dL [facility] ALKALINE PHOSPHATASE 62 39 - 117 IU/L [facility] AST 20 0 - 40 IU/L [facility] ALT 16 0 - 32 IU/L [facility] Blood 06/17/2020 8:49 AM CDT 06/17/2020 Narrative [facility] - 06/18/2020 5:35 AM CDT Performed at: ??01 - [facility] ??[id number] Quality Rep: Chris Carnes PhD, Phone: ??[phone] Litzy Gaxiola NP CHEMISTRY ORDER CAITLIN [facility] [phone] * CBC WITH DIFFERENTIAL (06/17/2020 8:49 AM CDT) WBC 8.0 3.4 - 10.8 x10E3/uL [facility] RBC 4.78 3.77 - 5.28 x10E6/uL [facility] HEMOGLOBIN 13.7 11.1 - 15.9 g/dL [facility] HEMATOCRIT 41.9 34.0 - 46.6 % [facility] MCV 88 79 - 97 fL [facility] MCH 28.7 26.6 - 33.0 pg [facility] MCHC 32.7 31.5 - 35.7 g/dL [facility] RDW 12.6 11.7 - 15.4 % [facility] PLATELETS 312 150 - 450 x10E3/uL [facility] NEUTROPHIL 64 Not Estab. % [facility] LYMPHOCYTES 26 Not Estab. % [facility] MONOCYTE 6 Not Estab. % [facility] EOSINOPHILS 2 Not Estab. % [facility] BASOPHILS 1 Not Estab. % [facility] NEUTROPHIL ABSOLUTE 5.1 1.4 - 7.0 x10E3/uL [facility] LYMPHOCYTE ABSOLUTE 2.1 0.7 - 3.1 x10E3/uL [facility] MONOCYTE ABSOLUTE 0.5 0.1 - 0.9 x10E3/uL [facility] EOSINOPHIL ABSOLUTE 0.2 0.0 - 0.4 x10E3/uL [facility] BASOPHILS ABSOLUTE 0.1 0.0 - 0.2 x10E3/uL [facility] IMMATURE GRANULOCYTES 1 Not Estab. % [facility] IMMATURE GRANULOCYTES ABSOLUTE 0.0 0.0 - 0.1 x10E3/uL [facility] Blood 06/17/2020 8:49 AM CDT 06/17/2020 [address] [facility] - 06/18/2020 6:36 AM CDT Performed at: ?? - [facility] [address] ??[id number] Quality Rep: Chris Carnes PhD, Phone: ??[phone] Litzy Gaxiola NP [facility]ATOLOGY [facility] [phone] documented in this encounter Visit Diagnoses Diagnosis Encounter for well adult exam without abnormal findings- Primary Screening for condition Screening for unspecified condition Need for Tdap vaccination Need for prophylactic vaccination with combined [id number] (DTP) vaccine documented in this encounter Additional Health Concerns Assessment Noted Time PHQ-9 Depression Total Score: 1 06/17/20 20 9:00 AM CDT documented as of this encounter
--- OUTSIDE RECORDS SUMMARY | 2024-12-02 04:52 | XMS_ITS | Encounter Summary ---
Author Organization [facility] Address [address] Rojasn: Epic Prelude ADT [place] [address] Care Team Providers Care Shuttle Truck Driver Name Role Phone Unavailable Primary Care Provider Unavailabl e Encounter Details Date Type Department Care Team (Latest Contact Info) Description 06/17/2020 Travel Social History Tobacco Use Types Packs/Day [...] st Contact Info) Description 12/03/2024 10:30 AM PERMIT SPECIALIST Office Visit [facility] [employer] [place] [address] [place] [phone] Nellie Ellison, ANP [address] [facility] [address] [place] [address] 12/29/2024 7:30 AM PERMIT SPECIALIST Office Visit [facility] [place] [address] [place] [address] Nellie Ellison, DIANE [address] [facility] [address] [place] [address] documented as of this encounter Visit Diagnoses Not on filedocumented in this encounter Additional Health Concerns Assessment Noted Time PHQ-9 Depression Total Score: 1 06/17/20 20 9:00 AM CDT documented as of this encounter
== END 2024-11-25 10:07 | disposition home or self-care (01) ==
PROVIDERS: Emergency Provider Nurse Practitioner
DX: N39.0 Urinary tract infection, site not specified (principal)
CPT/HCPCS: 81003; 87086; 99203; G0463